=== PATIENT | male | born 1945 | race Caucasian/White ===

== ENCOUNTER 2017-05-17 17:43 | Emergency (ER) | payer MEDICARE, BC ==
[2017-05-17 18:17] VITALS: BP 143/79
--- NOTE | 2017-05-17 19:22 | EDM.PDOC ---
ED HPI GENERAL MEDICAL PROBLEM - General Chief Complaint: Genitourinary Problem Stated Complaint: BLOOD IN URINE Time Seen by Provider: 05/17/17 18:39 Source of Information: Reports: Patient History Limitations: Reports: No Limitations - History of Present Illness INITIAL COMMENTS - FREE TEXT/NARRATIVE: 71 year old male presents for evaluation and treatment of hematuria. Patient had prostates seeds placed yesterday with Dr. Lara in [place] for prostate cancer. Patient reports he currently has a catheter in place which has been draining. Report hematuria since the procedure. No dysuria, large clots in the urine, fevers, chills, nausea or vomiting. The patient reports he is having trouble sleeping. Reports increased stress associated with his recent diagnosis and current at home situation. The patient' s is also in the ER. He is her primary care provider since she had a stroke several years ago. He reports he was instructed not to lift more than 20 lbs. This was not expected and since he is the primary care provider for his he is unable to help her. His daughter is here from [facility] but she is leaving tomorrow. He has not been lifting as instructed but is unsure how to help his once his daughter leaves. This has caused a great deal of stress for him. - Related Data Allergies Allergy/AdvReac Type Severity Reaction Status Date / Time benazepril Allergy Fatigue Verified 05/22/17 09:14 valsartan Allergy Fatigue Verified 05/22/17 09:14 Home Meds: Home Meds Hydrochlorothiazide 12.5 mg PO DAILY 10/18/14 [History] Rosuvastatin [Crestor] 0.5 tab PO DAILY 10/18/14 [History] Zolpidem [Ambien] 1 tab PO DAILY PRN 10/18/14 [History] Felodipine [Felodipine ER] 5 mg PO DAILY 05/17/17 [History] Ibuprofen [Motrin] 800 mg PO Q8H 05/17/17 [History] Irbesartan [Avapro] 300 mg PO DAILY 05/17/17 [History] Tamsulosin [Flomax] 0.4 mg PO DAILY 05/17/17 [History] Past Medical History HEENT History: Reports: Impaired Vision Other HEENT History: wears corrective lenses Cardiovascular History: Reports: High Cholesterol, Hypertension Genitourinary History: Reports: Other (See Below) Oncologic (Cancer) History: Reports: Prostate - Infectious Disease History Infectious Disease History: Reports: Chicken Pox - Past Surgical History Male Surgical History: Reports: Other (See Below) Other Male Surgeries/Procedures: Prostate seeds, stage 2 prostate cancer Social & Family History - Tobacco Use Smoking Status *Q: Former Smoker Years of Tobacco use: 44 Used Tobacco, but Quit: Yes Month Tobacco Last Used: 2008 Second Hand Smoke Exposure: No - Caffeine Use Caffeine Use: Reports: Soda - Alcohol Use Days Per Week of Alcohol Use: 0 - Recreational Drug Use Recreational Drug Use: No ED ROS GENERAL - Review of Systems Review Of Systems: See Below Constitutional: Denies: Fever GI/Abdominal: Denies: Nausea, Vomiting : Reports: Hematuria, Other (cathater in place and functioning). Denies: Dysuria Musculoskeletal: Denies: Back Pain Psychiatric: Reports: Anxiety ED EXAM, RENAL/ - Physical Exam Exam: See Below Exam Limited By: No Limitations General Appearance: Alert, WD/WN, No Apparent Distress Respiratory/Chest: No Respiratory Distress, Lungs Clear, Normal Breath Sounds Cardiovascular: Normal Peripheral Pulses, Regular Rate, Rhythm, No Murmur GI/Abdominal: Normal Bowel Sounds, Soft, Non-Tender (Male) Exam: Other (cathater in place, draining red urine) Neurological: Alert, Oriented, Normal Cognition Psychiatric: Normal Affect, Normal Mood Skin Exam: Warm, Dry, Normal Color Course - Vital Signs Last Recorded V/S: Last Vital Signs Temp 36.4 C 05/17/17 18:14 Pulse 89 05/17/17 18:14 Resp 18 05/17/17 18:14 BP 143/79 H 05/17/17 18:14 Pulse Ox 90 L 05/17/17 18:14 - Orders/Labs/Meds Labs: Laboratory Tests 05/17/17 05/17/17 05/17/17 Range/Units 19:26 19:26 19:45 WBC 11.17 H (4.23-9.07) K/mm3 RBC 4.82 (4.63-6.08) M/mm3 Hgb 15.2 (13.7-17.5) gm/L Hct 44.8 (40.1-51.0) % MCV 92.9 H (79.0-92.2) fl MCH 31.5 (25.7-32.2) pg MCHC 33.9 (32.2-35.5) g/dl RDW Std Deviation 40.7 (35.1-43.9) fL Plt Count 226 (163-337) K/mm3 MPV 11.0 (9.4-12.3) fl Neut % (Auto) 67.4 (34.0-67.9) % Lymph % (Auto) 20.3 L (21.8-53.1) % [place] % (Auto) 10.3 (5.3-12.2) % Eos % (Auto) 1.5 (0.8-7.0) Baso % (Auto) 0.2 (0.1-1.2) % Neut # (Auto) 7.53 H (1.78-5.38) K/mm3 Lymph # (Auto) 2.27 (1.32-3.57) K/mm3 [place] # (Auto) 1.15 H (0.30-0.82) K/mm3 Eos # (Auto) 0.17 (0.04-0.54) K/mm3 Baso # (Auto) 0.02 (0.01-0.08) K/mm3 Sodium 143 (136-145) mEq/L Potassium 3.4 L (3.5-5.1) mEq/L Chloride 106 (98-107) mEq/L Carbon Dioxide 32 (21-32) mEq/L Anion Gap 8.4 (5-15) BUN 14 (7-18) mg/dL Creatinine 1.0 (0.7-1.3) mg/dL Est Cr Clr Drug Dosing 66.50 mL/min Estimated GFR (MDRD) > 60 (>60) mL/min BUN/Creatinine Ratio 14.0 (14-18) Glucose 115 (80-115) mg/dL Calcium 9.2 (8.5-10.1) mg/dL Urine Color [place] H (Yellow) Urine Appearance Slt cloudy H (Clear) Urine pH 7.0 (5.0-8.0) Ur Specific [place] 1.020 (1.005-1.030) Urine Protein 2+ H (Negative) Urine Glucose (UA) Negative (Negative) Urine Ketones Negative (Negative) Urine Occult Blood 3+ H (Negative) Urine Nitrite Negative (Negative) Urine Bilirubin Negative (Negative) Urine Urobilinogen 0.2 (0.2-1.0) Ur Leukocyte Esterase Trace H (Negative) Urine RBC >100 H (0-5) /hpf Urine WBC 0-5 (0-5) /hpf Ur Epithelial Cells 0-5 (0-5) /hpf Urine Bacteria Not seen (FEW) /hpf Urine Mucus Not seen (FEW) /hpf - Re-Assessments/Exams Free Text/Narrative Re-Assessment/Exam: 05/17/17 20:31 Labs returned. WBC mildly elevated at 11.17. Creatinine is 1.0 UA has 2+ protein and 3+ blood. Trace leuks. No nitrites. Dr. Moises Damon has spoken with urology [facility] [place] in [place] regarding this patient and his (She is caring for the patient's ). Urology stated some hematuria is normal. Recommended following the no lifting greater than 20 lbs rule to avoid further hematuria. As long as the cathater is draining the hematuria should resolve. Will discharge the patient home. Discharge instructions as documented. Departure - Departure Time of Disposition: 20:32 Disposition: Home, Self-Care 01 Condition: Good Clinical Impression: Hematuria - Discharge Information Instructions: Hematuria, Adult Referrals: Sarmad Astudillo MD [Primary Care Provider] - Shae Lara MD [Consulting Physician] - Forms: ED Department Discharge Additional Instructions: continue with your current plan of care. The blood should be self-limiting and should stop on its own. If you continue to have blood in your urine on Friday. Contact your urologist to let them know. make sure your are drinking plenty of fluids. Please return to the ER if your symptoms change or worsen.
== END 2017-05-17 20:39 | disposition home or self-care (01) ==
LOC: JD.ED 17:43
DX: R31.9 Hematuria, unspecified (principal); I10 Essential (primary) hypertension; E78.00 Pure hypercholesterolemia, unspecified; Z87.891 Personal history of nicotine dependence; Z85.46 Personal history of malignant neoplasm of prostate; Z79.899 Other long term (current) drug therapy; Z88.8 Allergy status to other drugs, medicaments and biological substances
CPT/HCPCS: 36415; 80048; 81001; 85025; 99283

== ENCOUNTER 2017-05-22 09:04 | Emergency (ER) | payer MEDICARE, BC ==
[2017-05-22 09:14] VITALS: BP 150/81
[2017-05-22] MEDS ORDERED: Lidocaine 2% Jelly 10 ML Urojet MUCMEM ONE (09:22)
--- NOTE | 2017-05-22 10:52 | EDM.PDOC ---
ED HPI GENERAL MEDICAL PROBLEM - General Chief Complaint: Genitourinary Problem Stated Complaint: UNABLE TO URINATE Time Seen by Provider: 05/22/17 09:24 Source of Information: Reports: Patient History Limitations: Reports: No Limitations - History of Present Illness INITIAL COMMENTS - FREE TEXT/NARRATIVE: The patient had seeding of his prostate last . He had a [place] cath in until yesterday. They removed it yesterday at Dr Darling's office. He did okay but through the day he was urinating less and this morning he could not urinate. He came in here and my nurse did a bladder scan and he had about 750mLs. He denies any other problems. Onset: Gradual Duration: Day(s): (Since yesterday) Location: Reports: Abdomen Quality: Reports: Pressure Severity: Severe Improves with: Reports: None Worsens with: Reports: None Context: Reports: Other (He had his [place] cath removed) Associated Symptoms: Reports: No Other Symptoms - Related Data Allergies Allergy/AdvReac Type Severity Reaction Status Date / Time benazepril Allergy Fatigue Verified 05/22/17 09:14 valsartan Allergy Fatigue Verified 05/22/17 09:14 Home Meds: Home Meds Hydrochlorothiazide 12.5 mg PO DAILY 10/18/14 [History] Rosuvastatin [Crestor] 0.5 tab PO DAILY 10/18/14 [History] Zolpidem [Ambien] 1 tab PO DAILY PRN 10/18/14 [History] Felodipine [Felodipine ER] 5 mg PO DAILY 05/17/17 [History] Ibuprofen [Motrin] 800 mg PO Q8H 05/17/17 [History] Irbesartan [Avapro] 300 mg PO DAILY 05/17/17 [History] Tamsulosin [Flomax] 0.4 mg PO DAILY 05/17/17 [History] Past Medical History HEENT History: Reports: Impaired Vision Other HEENT History: wears corrective lenses Cardiovascular History: Reports: High Cholesterol, Hypertension Genitourinary History: Reports: Prostate Disorder Oncologic (Cancer) History: Reports: Prostate - Infectious Disease History Infectious Disease History: Reports: Chicken Pox - Past Surgical History Male Surgical History: Reports: Other (See Below) Other Male Surgeries/Procedures: Prostate seeds, stage 2 prostate cancer Social & Family History - Tobacco Use Smoking Status *Q: Never Smoker Years of Tobacco use: 44 Used Tobacco, but Quit: Yes Month Tobacco Last Used: 2008 Second Hand Smoke Exposure: No - Caffeine Use Caffeine Use: Reports: None - Alcohol Use Days Per Week of Alcohol Use: 0 - Recreational Drug Use Recreational Drug Use: No ED ROS GENERAL - Review of Systems Review Of Systems: See Below Constitutional: Reports: No Symptoms HEENT: Reports: No Symptoms Respiratory: Reports: No Symptoms Cardiovascular: Reports: No Symptoms Endocrine: Reports: No Symptoms GI/Abdominal: Reports: Abdominal Pain (Suprapubic) : Reports: Urinary Retention ED EXAM, RENAL/ - Physical Exam Exam: See Below Exam Limited By: No Limitations General Appearance: Alert, No Apparent Distress Ears: Normal External Exam Nose: Normal Inspection Head: Atraumatic, Normocephalic Neck: Normal Inspection Respiratory/Chest: No Respiratory Distress, Lungs Clear, Normal Breath Sounds Cardiovascular: Regular Rate, Rhythm, No Edema, No Murmur GI/Abdominal: Soft, Non-Tender, Tender (Mild to moderate to the lower abdomen) (Male) Exam: Other (Ecchymosis and edema to the scrotum and edema to the penis) Course - Vital Signs Last Recorded V/S: Last Vital Signs Temp 97.6 F 05/22/17 09:11 Pulse 79 05/22/17 09:11 Resp 16 05/22/17 09:11 BP 150/81 H 05/22/17 09:11 Pulse Ox 91 L 05/22/17 09:11 - Orders/Labs/Meds Orders: Active Orders 24 hr Category Date Time Status Insert [place] Catheter [Insert Urinary Catheter] [OM.PC] Care 05/22/17 10:00 Ordered Q24H Urinary Catheter Assessment [RC] ASDIRECTED Care 05/22/17 09:52 Active Labs: Laboratory Tests 05/22/17 Range/Units 10:15 Urine Color Yellow (Yellow) Urine Appearance Clear (Clear) Urine pH 6.0 (5.0-8.0) Ur Specific [place] 1.015 (1.005-1.030) Urine Protein Negative (Negative) Urine Glucose (UA) Negative (Negative) Urine Ketones Negative (Negative) Urine Occult Blood 3+ H (Negative) Urine Nitrite Negative (Negative) Urine Bilirubin Negative (Negative) Urine Urobilinogen 0.2 (0.2-1.0) Ur Leukocyte Esterase Trace H (Negative) Urine RBC 5-10 H (0-5) /hpf Urine WBC 0-5 (0-5) /hpf Ur Epithelial Cells Not seen (0-5) /hpf Urine Bacteria Rare (FEW) /hpf Urine Mucus Not seen (FEW) /hpf Meds: Medications Discontinued Medications Generic Name Dose Route Start Last Admin Trade Name Sadia PRN Reason Stop Dose Admin Lidocaine HCl 10 ml 05/22/17 09:22 05/22/17 09:29 Xylocaine 2% Jelly MUCMEM 05/22/17 09:23 10 ml ONETIME ONE Administration - Re-Assessments/Exams Free Text/Narrative Re-Assessment/Exam: 05/22/17 10:55 My nurse inserted a [place] cath and there was over 850mLs. I did a UA and there appears to be no UTI. Dr Darling said this should be in for 1 week. Departure - Departure Time of Disposition: 11:00 Disposition: Home, Self-Care 01 Condition: Good Clinical Impression: Urinary retention - Discharge Information Referrals: Sarmad Astudillo MD [Primary Care Provider] - Shae Lara MD [Consulting Physician] - 1 Week Additional Instructions: Keep the catheter in for about 1 week and follow up with Dr Lara. Please return if you are worse. - My Orders Last 24 Hours: My Active Orders 05/22/17 09:52 Urinary Catheter Assessment [RC] ASDIRECTED 05/22/17 10:00 Insert [place] Catheter [Insert Urinary Catheter] [OM.PC] Q24H - Assessment/Plan Last 24 Hours: My Active Orders 05/22/17 09:52 Urinary Catheter Assessment [RC] ASDIRECTED 05/22/17 10:00 Insert [place] Catheter [Insert Urinary Catheter] [OM.PC] Q24H
== END 2017-05-22 11:08 | disposition home or self-care (01) ==
LOC: JD.ED 09:04
DX: R33.9 Retention of urine, unspecified (principal); I10 Essential (primary) hypertension; Z88.8 Allergy status to other drugs, medicaments and biological substances; Z79.899 Other long term (current) drug therapy
CPT/HCPCS: 51702; 51798; 81001; 99283; 99284-25

== ENCOUNTER 2019-04-18 02:09 | Emergency (ER) | payer MEDICARE, BC ==
[2019-04-18 02:14] VITALS: BP 223/154
[2019-04-18] MEDS ORDERED: Enoxaparin 100 MG/1 ML Syringe SUBCUT ONE (02:33)
--- NOTE | 2019-04-18 02:38 | EDM.PDOC ---
ED HPI GENERAL MEDICAL PROBLEM - General Chief Complaint: Respiratory Problem Stated Complaint: SOB Time Seen by Provider: 04/18/19 02:15 Source of Information: Reports: Patient History Limitations: Reports: No Limitations - History of Present Illness INITIAL COMMENTS - FREE TEXT/NARRATIVE: The patient states that he felt short of breath around 01:45 this morning, when he woke up. It is not clear that shortness of breath was the cause of him waking up. He denies having orthopnea. He denies having recent chest pain or discomfort, or recent palpitations. He states that he has had a slight cough, occasionally productive of slight phlegm, for the past 1-2 days. He denies having recent fever. No recent nausea, vomiting, constipation, diarrhea, or urinary symptoms. He denies having increased lower extremity edema. No prior similar symptoms, however, the patient notes that when he was edging his lawn last weekend, he had to stop several times to catch his breath. The patient reports that he discontinued all of his medications, including his diabetes and blood pressure medicines, on 02/19/2019, because he didn't feel that they were doing anything. The patient last checked his blood glucose around 1 week ago; it was 137. The patient's PCP is Dr. Sarmad Astudillo. His Urologist is Dr. Shae Lara. - Related Data Allergies Allergy/AdvReac Type Severity Reaction Status Date / Time benazepril Allergy Fatigue Verified 04/18/19 02:12 valsartan Allergy Fatigue Verified 04/18/19 02:12 Home Meds: Home Meds Rosuvastatin [Crestor] 0.5 tab PO DAILY 10/18/14 [History] Zolpidem [Ambien] 1 tab PO DAILY PRN 10/18/14 [History] hydroCHLOROthiazide [Hydrochlorothiazide] 12.5 mg PO DAILY 10/18/14 [History] Felodipine [Felodipine ER] 5 mg PO DAILY 05/17/17 [History] Ibuprofen [Motrin] 800 mg PO Q8H 05/17/17 [History] Irbesartan [Avapro] 300 mg PO DAILY 05/17/17 [History] Tamsulosin [Flomax] 0.4 mg PO DAILY 05/17/17 [History] Alfuzosin HCl [Alfuzosin HCl ER] 10 mg PO DAILY 02/24/19 [History] Dulaglutide [Trulicity] 1.5 mg SUBCUT WEEKLY 02/24/19 [History] Loratadine [Claritin] 10 mg PO DAILY 02/24/19 [History] metFORMIN [Glucophage XR] 500 mg PO DAILY 02/24/19 [History] Past Medical History HEENT History: Reports: Hard of Hearing, Impaired Vision Other HEENT History: wears corrective lenses Cardiovascular History: Reports: High Cholesterol (untreated), Hypertension ( untreated) Genitourinary History: Reports: BPH Psychiatric History: Reports: Other (See Below) (Insomnia) Endocrine/Metabolic History: Reports: Diabetes, Type II, Obesity/BMI 30+ Oncologic (Cancer) History: Reports: Prostate (s/p brachytharapy) - Infectious Disease History Infectious Disease History: Reports: Chicken Pox - Past Surgical History HEENT Surgical History: Reports: Adenoidectomy, Tonsillectomy Musculoskeletal Surgical History: Reports: Shoulder Surgery (right arthroscopic) Oncologic Surgical History: Reports: Other (See Below) (Prostate brachytherapy) Social & Family History - Tobacco Use Smoking Status *Q: Former Smoker Years of Tobacco use: 43 Packs/Tins Daily: 1 Month/Year Tobacco Last Used: Quit 2007 - Caffeine Use Caffeine Use: Reports: Soda - Alcohol Use Alcohol Use History: Yes Alcohol Use Frequency: Rarely - Recreational Drug Use Recreational Drug Use: No - Living Situation & Occupation Living situation: Reports: , with Spouse Occupation: Retired ED ROS GENERAL - Review of Systems Review Of Systems: ROS reveals no pertinent complaints other than HPI. ED EXAM, GENERAL - Physical Exam Exam: See Below Exam Limited By: No Limitations General Appearance: Alert, WD/WN, No Apparent Distress (semi-recumbent on gurney ) Eye Exam: Bilateral Eye: EOMI, Normal Inspection Ears: Normal External Exam, Hearing Grossly Normal Nose: Normal Inspection Throat/Mouth: Normal Inspection, Normal Lips, Normal Voice, No Airway Compromise Head: Atraumatic, Normocephalic Neck: Normal Inspection, Full Range of Motion Respiratory/Chest: No Respiratory Distress, No Accessory Muscle Use, Decreased Breath Sounds, Crackles (bilasilar), Wheezing (expiratory, distant, across all lungfields). No: Rhonchi, Accessory Muscle Use, Prolonged Expiration Cardiovascular: Normal Peripheral Pulses, No Gallop, No JVD, No Murmur, No Rub, Tachycardia (regular), Gallop/S3 Peripheral Pulses: 4+: Radial (L), Radial (R) GI/Abdominal: Normal Bowel Sounds, Soft, Non-Tender, No Organomegaly, No Distention, No Abnormal Bruit, No Mass, Other (Obese) (Male) Exam: Deferred Rectal (Males) Exam: Deferred Back Exam: Normal Inspection, Full Range of Motion, NT Extremities: Normal Inspection, Normal Range of Motion, Normal Capillary Refill , Other (2+ pitting pretibial edema bilaterally) Neurological: Alert, Oriented, Normal Cognition, No Motor/Sensory Deficits Psychiatric: Normal Affect Skin Exam: Warm, Dry, Intact, Normal Color, No Rash EKG INTERPRETATION EKG Date: 04/18/19 Time: 02:13 Rhythm: Other (Sinus tachycardia) Rate (Beats/Min): 113 [place]: RAD-Right [place] Deviation P-Wave: Enlarged (LAE) QRS: Normal (Q-waves in inferolateral leads (old)) ST-T: Normal QT: Prolonged (Qtc 487 ms) Comparison: Change From Previous EKG (RAD, increased QTc new since 10/18/2014) Course - Vital Signs Last Recorded V/S: Last Vital Signs Temp 36.0 C 04/18/19 02:12 Pulse 121 H 04/18/19 02:12 Resp 28 H 04/18/19 02:12 BP 223/154 H 04/18/19 02:12 Pulse Ox 79 L 04/18/19 02:12 - Orders/Labs/Meds Orders: Active Orders 24 hr Category Date Time Status Accu Check [Blood Glucose Check, Bedside] [RC] ONETIME Care 04/18/19 02:48 Active EKG Documentation Completion [RC] STAT Care 04/18/19 02:29 Active Chest 2V [CR] Stat Exams 04/18/19 02:29 Taken CULTURE BLOOD [BC] Stat Lab 04/18/19 02:40 Received CULTURE BLOOD [BC] Stat Lab 04/18/19 02:50 Received Blood Culture x2 Reflex Set [OM.PC] Stat Oth 04/18/19 02:29 Ordered Labs: Laboratory Tests 04/18/19 04/18/19 04/18/19 Range/Units 02:29 02:40 02:40 WBC 16.03 H (4.23-9.07) K/mm3 RBC 5.58 (4.63-6.08) M/mm3 Hgb 17.3 D (13.7-17.5) gm/L Hct 52.0 H (40.1-51.0) % MCV 93.2 H (79.0-92.2) fl MCH 31.0 (25.7-32.2) pg MCHC 33.3 (32.2-35.5) g/dl RDW Std Deviation 44.0 H (35.1-43.9) fL Plt Count 278 (163-337) K/mm3 MPV 11.2 (9.4-12.3) fl Neutrophils % (Manual) 88 H (40-60) % Band Neutrophils % 3 (0-10) % Lymphocytes % (Manual) 4 L (20-40) % Atypical Lymphs % 0 % Monocytes % (Manual) 5 (2-10) % Eosinophils % (Manual) 0 L (0.8-7.0) % Basophils % (Manual) 0 L (0.2-1.2) Toxic Granulation 1+ slight Platelet Estimate Adequate Plt Morphology Comment See note RBC Morph Comment Normal PT (9.7-12.0) SECONDS INR APTT (22-31) SECONDS D-Dimer, Quantitative 0.35 (0.19-0.50) mg/L Puncture Site Rt radial ABG pH 7.37 (7.35-7.45) ABG pCO2 45.5 H (35.0-45.0) mmHg ABG pO2 72.0 L (80.0-100.0) mmHg ABG HCO3 25.5 (22.0-26.0) meq/L ABG O2 Saturation 93.8 L (96.0-97.0) % ABG Base Excess 0.2 (-2-2.0) Fuentes Test Positive O2 Delivery Device Nasal cannula Oxygen Flow Rate 5.0 FiO2 0.00 L (21.00-100.00) % Sodium (136-145) mEq/L Potassium (3.5-5.1) mEq/L Chloride (98-107) mEq/L Carbon Dioxide (21-32) mEq/L Anion Gap (5-15) BUN (7-18) mg/dL Creatinine (0.7-1.3) mg/dL Est Cr Clr Drug Dosing mL/min Estimated GFR (MDRD) (>60) mL/min BUN/Creatinine Ratio (14-18) Glucose (83-115) mg/dL POC Glucose (83-110) mg/dL Lactic Acid (0.4-2.0) mmol/L Calcium (8.5-10.1) mg/dL Total Bilirubin (0.2-1.0) mg/dL AST (15-37) U/L ALT (16-63) U/L Alkaline Phosphatase (46-116) U/L Troponin I (0.00-0.056) ng/mL NT-Pro-B Natriuret Pep (0-125) pg/mL Total Protein (6.4-8.2) g/dl Albumin (3.4-5.0) g/dl Globulin gm/dL Albumin/Globulin Ratio (1-2) 04/18/19 04/18/19 04/18/19 Range/Units 02:40 02:40 02:40 WBC (4.23-9.07) K/mm3 RBC (4.63-6.08) M/mm3 Hgb (13.7-17.5) gm/L Hct (40.1-51.0) % MCV (79.0-92.2) fl MCH (25.7-32.2) pg MCHC (32.2-35.5) g/dl RDW Std Deviation (35.1-43.9) fL Plt Count (163-337) K/mm3 MPV (9.4-12.3) fl Neutrophils % (Manual) (40-60) % Band Neutrophils % (0-10) % Lymphocytes % (Manual) (20-40) % Atypical Lymphs % % Monocytes % (Manual) (2-10) % Eosinophils % (Manual) (0.8-7.0) % Basophils % (Manual) (0.2-1.2) Toxic Granulation Platelet Estimate Plt Morphology Comment RBC Morph Comment PT (9.7-12.0) SECONDS INR APTT (22-31) SECONDS D-Dimer, Quantitative (0.19-0.50) mg/L Puncture Site ABG pH (7.35-7.45) ABG pCO2 (35.0-45.0) mmHg ABG pO2 (80.0-100.0) mmHg ABG HCO3 (22.0-26.0) meq/L ABG O2 Saturation (96.0-97.0) % ABG Base Excess (-2-2.0) Fuentes Test O2 Delivery Device Oxygen Flow Rate FiO2 (21.00-100.00) % Sodium 142 (136-145) mEq/L Potassium 3.5 (3.5-5.1) mEq/L Chloride 106 (98-107) mEq/L Carbon Dioxide 29 (21-32) mEq/L Anion Gap 10.5 (5-15) BUN 23 H (7-18) mg/dL Creatinine 1.0 (0.7-1.3) mg/dL Est Cr Clr Drug Dosing 64.60 mL/min Estimated GFR (MDRD) > 60 (>60) mL/min BUN/Creatinine Ratio 23.0 H (14-18) Glucose 230 H (83-115) mg/dL POC Glucose (83-110) mg/dL Lactic Acid 1.8 (0.4-2.0) mmol/L Calcium 8.8 (8.5-10.1) mg/dL Total Bilirubin 0.5 (0.2-1.0) mg/dL AST 53 H (15-37) U/L ALT 109 H (16-63) U/L Alkaline Phosphatase 68 (46-116) U/L Troponin I 0.076 H* (0.00-0.056) ng/mL NT-Pro-B Natriuret Pep 2228 H (0-125) pg/mL Total Protein 7.7 (6.4-8.2) g/dl Albumin 3.6 (3.4-5.0) g/dl Globulin 4.1 gm/dL Albumin/Globulin Ratio 0.9 L (1-2) 04/18/19 04/18/19 04/18/19 Range/Units 02:40 03:01 05:38 WBC (4.23-9.07) K/mm3 RBC (4.63-6.08) M/mm3 Hgb (13.7-17.5) gm/L Hct (40.1-51.0) % MCV (79.0-92.2) fl MCH (25.7-32.2) pg MCHC (32.2-35.5) g/dl RDW Std Deviation (35.1-43.9) fL Plt Count (163-337) K/mm3 MPV (9.4-12.3) fl Neutrophils % (Manual) (40-60) % Band Neutrophils % (0-10) % Lymphocytes % (Manual) (20-40) % Atypical Lymphs % % Monocytes % (Manual) (2-10) % Eosinophils % (Manual) (0.8-7.0) % Basophils % (Manual) (0.2-1.2) Toxic Granulation Platelet Estimate Plt Morphology Comment RBC Morph Comment PT 10.8 (9.7-12.0) SECONDS INR 0.99 APTT 24 (22-31) SECONDS D-Dimer, Quantitative (0.19-0.50) mg/L Puncture Site ABG pH (7.35-7.45) ABG pCO2 (35.0-45.0) mmHg ABG pO2 (80.0-100.0) mmHg ABG HCO3 (22.0-26.0) meq/L ABG O2 Saturation (96.0-97.0) % ABG Base Excess (-2-2.0) Fuentes Test O2 Delivery Device Oxygen Flow Rate FiO2 (21.00-100.00) % Sodium (136-145) mEq/L Potassium (3.5-5.1) mEq/L Chloride (98-107) mEq/L Carbon Dioxide (21-32) mEq/L Anion Gap (5-15) BUN (7-18) mg/dL Creatinine (0.7-1.3) mg/dL Est Cr Clr Drug Dosing mL/min Estimated GFR (MDRD) (>60) mL/min BUN/Creatinine Ratio (14-18) Glucose (83-115) mg/dL POC Glucose 191 H (83-110) mg/dL Lactic Acid (0.4-2.0) mmol/L Calcium (8.5-10.1) mg/dL Total Bilirubin (0.2-1.0) mg/dL AST (15-37) U/L ALT (16-63) U/L Alkaline Phosphatase (46-116) U/L Troponin I 0.108 H* (0.00-0.056) ng/mL NT-Pro-B Natriuret Pep (0-125) pg/mL Total Protein (6.4-8.2) g/dl Albumin (3.4-5.0) g/dl Globulin gm/dL Albumin/Globulin Ratio (1-2) Meds: Medications Discontinued Medications Generic Name Dose Route Start Last Admin Trade Name Deangeloq PRN Reason Stop Dose Admin Enoxaparin Sodium 100 mg 04/18/19 02:33 04/18/19 02:45 Lovenox SUBCUT 04/18/19 02:34 100 mg ONETIME ONE Administration Furosemide 40 mg 04/18/19 03:17 04/18/19 03:31 Lasix IVPUSH 04/18/19 03:18 40 mg NOW ONE Administration Labetalol HCl 10 mg 04/18/19 02:44 04/18/19 02:47 Normodyne IVPUSH 04/18/19 02:45 10 mg ONETIME STA Administration Protocol Labetalol HCl 5 mg 04/18/19 06:52 Normodyne IVPUSH 04/18/19 06:53 ONETIME STA Protocol - Re-Assessments/Exams Free Text/Narrative Re-Assessment/Exam: 04/18/19 02:30 The cause of the patient's relatively sudden onset of dyspnea and hypoxemia is not immediately clear, but I am most concerned about a pulmonary embolus, given the sudden onset of his symptoms, tachycardia, hypoxemia, wheezing and bibasilar crackles on auscultation of his lungs, accentuated S2 on auscultation of his heart, bilateral lower extremity edema, and new right axis deviation on his ECG. My concern for a PE at this time is high enough that I have ordered Lovenox 1 mg/kg prophylactically while we await a D-dimer. I have ordered coags , in the event that the patient requires a thrombolytic. A thrombotic at this time would be contraindicated, however, given his elevated BP, therefore I will order judicious doses of labetalol. Other possibilities include pneumonia, however, the patient denies having had a fever, and reports only a slight cough, occasionally productive of sputum. Workup includes a CBC, lactic acid level, a chest x-ray, and 2 sets of blood cultures. Another possibility is CHF exacerbation, however, the patient has no history of coronary artery disease or CHF, and he denies having orthopnea. Workup includes a chest x-ray, a troponin, and BNP. Another possibility is a COPD exacerbation, however, the patient does not have a history of COPD. Workup includes a chest x-ray and an ABG. 04/18/19 03:09 The patient's Accu-Chek is 191. Following 10 mg of IV labetalol, the patient's BNP is down to 164/112. 04/18/19 03:10 The patient's D-dimer is within normal limits at 0.35. His ABG represents a mild acute respiratory acidosis with hypoxia. 2-view chest radiograph reviewed. The cardiac silhouette is within normal limits. There is pulmonary vascular congestion, consistent with CHF exacerbation. No pleural effusions are seen. No focal infiltrate. No pneumothorax. A right shoulder screw is incidentally noted. Formal read per the Radiologist pending. Based on the above findings, the patient does not have a pulmonary embolus. His chest x-ray is most consistent with CHF, although an atypical pneumonia is a possibility. Given the patient's history of stopping all of his medications, and a finding of significantly elevated BP of 223/154 upon presentation, I suspect that the patient is suffering from decompensated diastolic congestive heart failure. In addition to the labetalol that the patient received earlier, I will order some Lasix. 04/18/19 04:01 The patient's CBC is remarkable for a WBC count elevated at 16.03, but with only 3% bandemia. His Hct is mildly elevated at 52.0. The remainder of the CBC is unremarkable. His CMP is remarkable for a BUN elevated at 23, with a normal creatinine. His blood glucose is elevated at 230. The remainder of the CMP is unremarkable. His troponin is elevated at 0.076. His BNP is elevated at 2228. His lactic acid level is within normal limits at 1.8. His coags are within normal limits. The patient's labs, including the elevated troponin, are consistent with the patient suffering from an acute diastolic CHF exacerbation due to uncontrolled hypertension. The troponin needs to be repeated, but if stable, the patient does not need to be transferred to [place]. The patient's troponin was drawn at 02:40; I will order a second troponin to be drawn at 05:40. 04/18/19 04:12 The above plan was discussed with the patient. He is agreeable, however, he is concerned about his , who is at home and is handicapped. I discussed this with Nuria AMARO. We will wait until we get the repeat troponin result, at which time we will determine if the patient is going to stay here versus transfer to [place]. At that time, we will see if we can contact social group worker. 04/18/19 06:23 Repeat troponin at 05:38 has risen to 0.108. I will therefore have to recommend transfer to [place] for cardiac evaluation. 04/18/19 06:28 The above was explained to the patient. The patient does not have a preference as to which hospital he goes. 04/18/19 06:44 Case discussed with Carmen at [facility] at 06:29. Case then discussed with Dr. Golden, Hospitalist at [facility], at 06: 38. He accepted the patient for direct admission to their PACU. The patient will be transported by ground ambulance. The chest x-ray images have been pushed to [facility]. 04/18/19 06:53 The patient most recent BP is 170/118. I have ordered an additional 5 mg of labetalol IVP. Departure - Departure Time of Disposition: 06:45 Disposition: DC/Tfer to Acute Hospital 02 Condition: Fair Clinical Impression: Hypertension, CHF (congestive heart failure), Elevated troponin, Hyperglycemia due to type 2 diabetes mellitus - Discharge Information *PRESCRIPTION DRUG MONITORING PROGRAM REVIEWED*: Not Applicable *COPY OF PRESCRIPTION DRUG MONITORING REPORT IN PATIENT MARIA ELENA: Not Applicable Referrals: Sarmad Astudillo MD [Primary Care Provider] - - My Orders Last 24 Hours: My Active Orders 04/18/19 02:29 EKG Documentation Completion [RC] STAT Chest 2V [CR] Stat Blood Culture x2 Reflex Set [OM.PC] Stat 04/18/19 02:40 CULTURE BLOOD [BC] Stat 04/18/19 02:48 Accu Check [Blood Glucose Check, Bedside] [RC] ONETIME 04/18/19 02:50 CULTURE BLOOD [BC] Stat - Assessment/Plan Last 24 Hours: My Active Orders 04/18/19 02:29 EKG Documentation Completion [RC] STAT Chest 2V [CR] Stat Blood Culture x2 Reflex Set [OM.PC] Stat 04/18/19 02:40 CULTURE BLOOD [BC] Stat 04/18/19 02:48 Accu Check [Blood Glucose Check, Bedside] [RC] ONETIME 04/18/19 02:50 CULTURE BLOOD [BC] Stat
[2019-04-18] MEDS ORDERED: Labetalol 100 MG/20 ML MDV IVPUSH STA ×2 (02:44→06:52)
[2019-04-18] MEDS ORDERED: Furosemide 40 MG/4 ML VIAL IVPUSH ONE (03:17)
--- NOTE | 2019-04-19 07:33 | CR ---
Chest: Two views of the chest were obtained. Comparison: Prior chest CT of 10/29/15 and chest x-ray of 10/18/14. Diffuse increased lung markings are seen. Findings felt most likely to represent pulmonary vascular congestion. Heart is mildly enlarged. Tortuous thoracic aorta is seen. Lungs are hyperinflated compatible with emphysematous change. Scattered disc space narrowing noted within the spine with mild scattered endplate osteophytes. Prior right shoulder surgery is noted. Impression: 1. Diffuse increased lung markings most suspicious for CHF. 2. Emphysematous change. Diagnostic code #3
== END 2019-04-18 07:13 ==
LOC: JD.ED 02:09
DX: I11.0 Hypertensive heart disease with heart failure (principal); I50.9 Heart failure, unspecified; E11.65 Type 2 diabetes mellitus with hyperglycemia; E11.59 Type 2 diabetes mellitus with other circulatory complications; R79.89 Other specified abnormal findings of blood chemistry; Z88.8 Allergy status to other drugs, medicaments and biological substances; Z79.899 Other long term (current) drug therapy; Z79.84 Long term (current) use of oral hypoglycemic drugs; Z87.891 Personal history of nicotine dependence
CPT/HCPCS: 36415; 36600; 71046; 80053; 82803; 82962; 83605; 83880; 84484; 85007; 85027; 85379; 85610; 85730; 87040; 93005; 96372; 96374; 96375; 96376; 99285; J1650; J1940; J3490; 93010; 99283

== ENCOUNTER 2021-05-21 18:12 | Inpatient (IN) | payer MEDICARE, BC ==
[2021-05-21] MEDS ORDERED: Sodium Chloride 0.9% 10 ML Syringe FLUSH PRN (20:14)
--- NOTE | 2021-05-21 20:43 | EDM.PDOC ---
<Kianna Montoya V - Last Filed: 05/21/21 23:27> ED HPI GENERAL MEDICAL PROBLEM - General Chief Complaint: Respiratory Problem Stated Complaint: COVID +/SOB Time Seen by Provider: 05/21/21 20:12 Source of Information: Reports: Patient, Family (daughter), RN Notes Reviewed History Limitations: Reports: Altered Mental Status (possible confusion-doesn't answer questions appropriately) - History of Present Illness INITIAL COMMENTS - FREE TEXT/NARRATIVE: Patient is a 75-year-old male who presents to the ER for his ongoing shortness of breath. Patient is a very poor historian, and only gives 1-2 word answers and then is very confused when he tries to answer any question at all. Patient was hypoxic at the time of triage and was found to be mid 70s by O2 sats. He was placed on 4 L oxygen and is now satting about 88 to 90% on the 4 L. Patient's daughter was consulted on his history and she states that he did test positive for Covid last week Friday. She states she talked to her father 2 days ago, and he seemed to talk in one-word sentences at that time and just did not seem right for himself. - Related Data Allergies Allergy/AdvReac Type Severity Reaction Status Date / Time benazepril Allergy Fatigue Verified 04/18/19 02:12 valsartan Allergy Fatigue Verified 04/18/19 02:12 Home Meds: Home Meds Rosuvastatin [Crestor] 0.5 tab PO DAILY 10/18/14 [History] Zolpidem [Ambien] 1 tab PO DAILY PRN 10/18/14 [History] hydroCHLOROthiazide [Hydrochlorothiazide] 12.5 mg PO DAILY 10/18/14 [History] Felodipine [Felodipine ER] 5 mg PO DAILY 05/17/17 [History] Ibuprofen [Motrin] 800 mg PO Q8H 05/17/17 [History] Irbesartan [Avapro] 300 mg PO DAILY 05/17/17 [History] Tamsulosin [Flomax] 0.4 mg PO DAILY 05/17/17 [History] Alfuzosin HCl [Alfuzosin HCl ER] 10 mg PO DAILY 02/24/19 [History] Dulaglutide [Trulicity] 1.5 mg SUBCUT WEEKLY 02/24/19 [History] Loratadine [Claritin] 10 mg PO DAILY 02/24/19 [History] metFORMIN [Glucophage XR] 500 mg PO DAILY 02/24/19 [History] Past Medical History HEENT History: Reports: Hard of Hearing, Impaired Vision Other HEENT History: wears corrective lenses Cardiovascular History: Reports: High Cholesterol, Hypertension Genitourinary History: Reports: BPH Endocrine/Metabolic History: Reports: Diabetes, Type II, Obesity/BMI 30+ Oncologic (Cancer) History: Reports: Prostate - Infectious Disease History Infectious Disease History: Reports: Chicken Pox, Novel Coronavirus (04/2021) - Past Surgical History HEENT Surgical History: Reports: Adenoidectomy, Tonsillectomy Musculoskeletal Surgical History: Reports: Shoulder Surgery Oncologic Surgical History: Reports: Other (See Below) Social & Family History - Caffeine Use Caffeine Use: Reports: Soda - Living Situation & Occupation Living situation: Reports: , with Spouse Occupation: Retired ED ROS GENERAL - Review of Systems Review Of Systems: Comprehensive ROS is negative, except as noted in HPI. ED EXAM, GENERAL - Physical Exam Exam: See Below Exam Limited By: Altered Mental Status (pt is confused, doesn't answer questions appropriately) General Appearance: Alert, WD/WN, Mild Distress (mild, the patient does answer in 1 word questions.) Respiratory/Chest: Lungs Clear, No Accessory Muscle Use, Chest Non-Tender, Respiratory Distress (slight), Decreased Breath Sounds (diminished bilaterally) Cardiovascular: Normal Peripheral Pulses, Regular Rate, Rhythm, No Edema Peripheral Pulses: 2+: Radial (L), Radial (R) Extremities: Normal Inspection, Normal Capillary Refill Neurological: Alert, No Motor/Sensory Deficits, Confused (slight generalized, has issues recalling his daughter's names) Psychiatric: Normal Affect, Normal Mood Skin Exam: Warm, Dry, Intact, Normal Color, No Rash #1 Interpretation EKG Date: 05/21/21 Time: 20:42 Rhythm: NSR Rate (Beats/Min): 71 [place]: Normal P-Wave: Enlarged (? LAE) QRS: Normal ST-T: Normal QT: Normal EKG Interpretation Comments: No obvious ischemia or acute ST changes noted, reviewed by myself and Dr. Naqvi. Course - Re-Assessments/Exams Free Text/Narrative Re-Assessment/Exam: 05/21/21 20:44 Patient presents to the ER for the evaluation of his COVID-19 symptoms, the patient originally could not tell me how long he had been sick with COVID-19 his daughter states that he was positive last week Friday. Patient is requiring multiple liters of oxygen via nasal cannula to only achieve O2 sat of roughly 88 to 89% on room air. Blood gas has been ordered for further evaluation. It is likely the patient is hypercarbic due to his clinical presentation, and will necessitate hospitalization with possible BiPAP therapy for management. 05/21/21 21:14 Was made aware by nursing staff that RT was having a hard time drawing an ABG so she did draw a venous blood gas, and the pH was 7.36 PCO2 was 40.4. Patient's bicarb is 22.4. Still awaiting other labs as well for ongoing management. These results were evaluated by myself and Dr. Naqvi. Patient's chest x-ray has been performed as well, and there are some increased infiltrates noted, specifically in the right lower lobe of the patient's lungs. 05/21/21 22:00 Labs have resulted for the most part, patient CBC is essentially unremarkable at this time. CMP is impressive for elevated creatinine 2.2, and low GFR at 29. Patient's troponin is within normal limits but at the upper limits of normal at 0.052, CRP is elevated at 4.7. D-dimer is elevated at 0.96. The patient's oxygen has been titrated to 5 L via nasal cannula, and is roughly 85%. I did call [facility] in [place], and they are on diversion for placement at this time. I am on the phone currently with [facility] in [place] to see if they have any sort of beds available for management. 05/21/21 22:11 The hospital at [facility] is on diversion as well. I did call the [facility] transfer willard to find placement for this gentleman, and they did take my information will look around and hopefully call me back for ongoing management. 05/21/21 22:28 At this time, the patient is necessitating high flow oxygen. RT was made aware and they will be in to assess the patient and set this up. I have ordered IV remdesivir, at reduced renal dosing due to the patient's low GFR, 6 mg IV dexamethasone, and baricitinib for ongoing management. 05/21/21 23:27 Patient has been titrated to 80% FiO2 via High flow NC at this time. O2 sats are about 90% with this. I will go over the patient's case with Dr. Naqvi at this time, as he will have to assume care overnight. Departure - Departure Disposition: Admitted As Inpatient 67 Clinical Impression: COVID-19, Hypoxemia, Acute renal insufficiency, Hyperglycemia due to type 2 diabetes mellitus - Discharge Information Referrals: PCP,None [Primary Care Provider] - Forms: ED Department Discharge Sepsis Event Note (ED) - Evaluation Sepsis Screening Result: No Definite Risk <Jay Naqvi - Last Filed: 05/22/21 07:25> Course - Vital Signs Last Recorded V/S: Last Vital Signs Temp 36.8 C 05/21/21 19:50 Pulse 75 05/21/21 19:50 Resp 29 H 05/21/21 19:50 BP Pulse Ox 88 L 05/22/21 06:27 - Orders/Labs/Meds Orders: Active Orders 24 hr Category Date Time Status Oxygen Therapy, ED [RC] ASDIRECTED Care 05/21/21 22:14 Active Peripheral IV Care [RC] . DIRECTED Care 05/21/21 20:14 Active Chest 2V [CR] Stat Exams 05/21/21 20:11 Taken PRO B-TYPE NATRIUR PEPT,BNPPRO [CHEM] Stat Lab 05/21/21 20:35 Received Baricitinib [Olumiant] Med 05/21/21 22:30 Active 4 mg PO DAILY Sodium Chloride 0.9% [Saline Flush] Med 05/21/21 20:14 Active 10 ml FLUSH ASDIRECTED PRN Peripheral IV Insertion Adult [OM.PC] Routine Oth 05/21/21 20:14 Ordered Medication Orders Sodium Chloride (Sodium Chloride 0.9% 10 Ml Syringe) 10 ml FLUSH ASDIRECTED PRN PRN Reason: Keep Vein Open Last Admin: 05/21/21 22:54 Dose: 10 ml Documented by: INGRID Labs: Laboratory Tests 05/21/21 05/21/21 05/21/21 Range/Units 20:35 20:35 20:35 WBC 5.44 (4.23-9.07) K/mm3 RBC 4.80 (4.63-6.08) M/mm3 Hgb 15.0 D (13.7-17.5) gm/dl Hct 45.4 (40.1-51.0) % MCV 94.6 H (79.0-92.2) fl MCH 31.3 (25.7-32.2) pg MCHC 33.0 (32.2-35.5) g/dl RDW Std Deviation 44.5 H (35.1-43.9) fL Plt Count 146 L D (163-337) K/mm3 MPV 12.2 (9.4-12.3) fl Neut % (Auto) 72.4 H (34.0-67.9) % Lymph % (Auto) 16.0 L (21.8-53.1) % Nash % (Auto) 10.5 (5.3-12.2) % Eos % (Auto) 0 L (0.8-7.0) Baso % (Auto) 0.2 (0.1-1.2) % Neut # (Auto) 3.94 (1.78-5.38) K/mm3 Lymph # (Auto) 0.87 L (1.32-3.57) K/mm3 Nash # (Auto) 0.57 (0.30-0.82) K/mm3 Eos # (Auto) 0.00 L (0.04-0.54) K/mm3 Baso # (Auto) 0.01 (0.01-0.08) K/mm3 PT 10.5 (9.7-12.0) SECONDS INR 0.94 D-Dimer, Quantitative 0.96 H (0.19-0.50) mg/L ABG pH (7.35-7.45) ABG pCO2 (35.0-45.0) mmHg ABG pO2 (80.0-100.0) mmHg ABG HCO3 (22.0-26.0) meq/L ABG O2 Saturation (96.0-97.0) % ABG Base Excess (-2-2.0) O2 Delivery Device Oxygen Flow Rate Blood Gas Comments Sodium (136-145) mEq/L Potassium (3.5-5.1) mEq/L Chloride (98-107) mEq/L Carbon Dioxide (21-32) mEq/L Anion Gap (5-15) BUN (7-18) mg/dL Creatinine (0.7-1.3) mg/dL Est Cr Clr Drug Dosing mL/min Estimated GFR (MDRD) (>60) mL/min BUN/Creatinine Ratio (14-18) Glucose (70-99) mg/dL Lactic Acid (0.4-2.0) mmol/L Calcium (8.5-10.1) mg/dL Magnesium (1.8-2.4) mg/dL Total Bilirubin (0.2-1.0) mg/dL AST (15-37) U/L ALT (16-63) U/L Alkaline Phosphatase (46-116) U/L Troponin I (0.00-0.056) ng/mL C-Reactive Protein 4.7 H* (<1.0) mg/dL Total Protein (6.4-8.2) g/dl Albumin (3.4-5.0) g/dl Globulin gm/dL Albumin/Globulin Ratio (1-2) 05/21/21 05/21/21 05/21/21 Range/Units 20:35 20:35 21:08 WBC (4.23-9.07) K/mm3 RBC (4.63-6.08) M/mm3 Hgb (13.7-17.5) gm/dl Hct (40.1-51.0) % MCV (79.0-92.2) fl MCH (25.7-32.2) pg MCHC (32.2-35.5) g/dl RDW Std Deviation (35.1-43.9) fL Plt Count (163-337) K/mm3 MPV (9.4-12.3) fl Neut % (Auto) (34.0-67.9) % Lymph % (Auto) (21.8-53.1) % Nash % (Auto) (5.3-12.2) % Eos % (Auto) (0.8-7.0) Baso % (Auto) (0.1-1.2) % Neut # (Auto) (1.78-5.38) K/mm3 Lymph # (Auto) (1.32-3.57) K/mm3 Nash # (Auto) (0.30-0.82) K/mm3 Eos # (Auto) (0.04-0.54) K/mm3 Baso # (Auto) (0.01-0.08) K/mm3 PT (9.7-12.0) SECONDS INR D-Dimer, Quantitative (0.19-0.50) mg/L ABG pH 7.36 (7.35-7.45) ABG pCO2 40.4 (35.0-45.0) mmHg ABG pO2 31.0 L* (80.0-100.0) mmHg ABG HCO3 22.4 (22.0-26.0) meq/L ABG O2 Saturation 51.9 L (96.0-97.0) % ABG Base Excess -2.3 L (-2-2.0) O2 Delivery Device Nasal cannula Oxygen Flow Rate 4.0 Blood Gas Comments Venous Sodium 135 L (136-145) mEq/L Potassium 4.3 (3.5-5.1) mEq/L Chloride 99 (98-107) mEq/L Carbon Dioxide 24 (21-32) mEq/L Anion Gap 16.3 H (5-15) BUN 30 H (7-18) mg/dL Creatinine 2.2 H D (0.7-1.3) mg/dL Est Cr Clr Drug Dosing 28.50 mL/min Estimated GFR (MDRD) 29 (>60) mL/min BUN/Creatinine Ratio 13.6 L (14-18) Glucose 221 H (70-99) mg/dL Lactic Acid 1.5 (0.4-2.0) mmol/L Calcium 8.2 L (8.5-10.1) mg/dL Magnesium 2.1 (1.8-2.4) mg/dL Total Bilirubin 0.4 (0.2-1.0) mg/dL AST 137 H (15-37) U/L ALT 79 H (16-63) U/L Alkaline Phosphatase 51 (46-116) U/L Troponin I 0.052 (0.00-0.056) ng/mL C-Reactive Protein (<1.0) mg/dL Total Protein 8.0 (6.4-8.2) g/dl Albumin 3.1 L (3.4-5.0) g/dl Globulin 4.9 gm/dL Albumin/Globulin Ratio 0.6 L (1-2) Meds: Medications Generic Name Dose Route Start Last Admin Trade Name Freq PRN Reason Stop Dose Admin Sodium Chloride 10 ml 05/21/21 20:14 05/21/21 22:54 Sodium Chloride 0.9% 10 Ml Syringe FLUSH 10 ml ASDIRECTED PRN Administration Keep Vein Open Discontinued Medications Generic Name Dose Route Start Last Admin Trade Name Sadia PRN Reason Stop Dose Admin Dexamethasone 6 mg 05/21/21 22:20 05/21/21 22:41 Dexamethasone 10 Mg/Ml Sdv IVPUSH 05/21/21 22:21 6 mg ONETIME ONE Administration Remdesivir 100 mg/ Sodium 100 mls @ 100 mls/hr 05/21/21 22:20 05/21/21 22:41 Chloride IV 05/21/21 23:19 100 mls/hr ONETIME ONE Administration Sodium Chloride 500 mls @ 1,000 mls/hr 05/22/21 05:54 05/22/21 06:00 Normal Saline IV 05/22/21 06:23 1,000 mls/hr .BOLUS ONE Administration - Re-Assessments/Exams Free Text/Narrative Re-Assessment/Exam: 05/22/21 05:55 Notified by Sujey AMARO that the patient's blood pressure has been slowly dropping. It is 96/48 presently, with a HR of 59. His SpO2 is 90%. I have ordered a 500 mL bolus of NS. 05/22/21 07:21 The patient's BP normalized following a 500 mL bolus of NS. We are told that there will be 2 Med-Surg beds available later today. Case discussed with Dr. Nelson at 07:19. He accepted the patient for admission to Med-Surg once a bed becomes available. Departure - Departure Time of Disposition: 07:23 Condition: Good - Discharge Information *PRESCRIPTION DRUG MONITORING PROGRAM REVIEWED*: Not Applicable *COPY OF PRESCRIPTION DRUG MONITORING REPORT IN PATIENT MARIA ELENA: Not Applicable Sepsis Event Note (ED) - Focused Exam Vital Signs: Vital Signs Temp Pulse Resp Pulse Ox Pulse Ox Pulse Ox 05/22/21 06:27 88 L 05/21/21 20:00 90 L 05/21/21 19:55 88 L 05/21/21 19:50 36.8 C 75 29 H 74 L
[2021-05-21] MEDS ORDERED: REMDESIVIR 100 MG in Sodium Chloride 0.9% 100 ML IV ONE (22:20)
[2021-05-21] MEDS ORDERED: Dexamethasone 10 MG/ML SDV IVPUSH ONE (22:20)
[2021-05-22] MEDS ORDERED: Sodium Chloride 0.9% 500 ML IV ONE (05:54)
--- NOTE | 2021-05-22 07:43 | CR ---
Chest: PA and lateral views of the chest were obtained. Comparison: Prior chest x-ray of 04/18/19. Heart size and mediastinum are within normal limits. Lung markings are diffusely increased but are slightly decreased in amount from prior exam. Previous bilateral shoulder surgeries are noted. Diaphragms are flattened on the lateral view compatible with emphysematous change. Scattered degenerative change is noted within the spine. Impression: 1. Emphysematous change. 2. Diffuse increased lung markings which are less prominent than on prior chest x-ray. These findings are most likely chronic in etiology. 3. Other findings as noted above which are chronic. Diagnostic code #2
--- NOTE | 2021-05-22 11:31 | PCM.HP.2 ---
H&P History of Present Illness - General Date of Service: 05/22/21 Admit Problem/Dx: Admission Diagnosis/Problem Admission Diagnosis/Problem Hypoxia - History of Present Illness Initial Comments - Free Text/Narative: 75-year-old male who started getting symptomatic with shortness of breath 14 days ago. Patient presented to our emergency department last night with confusion and shortness of breath. He was hypoxic at the time of triage and found to have oxygen saturations in the mid 70s. This morning when seen on the medical floor patient was much less confused but still was slow to answer. He states he was tested positive for Covid last week. He is not vaccinated. He does not smoke or drink. He has had worsening shortness of breath to the point of having difficulty getting around and presented to the emergency department. He denies any fever. Appetite is still good. He has a history of hypertension, diabetes, diastolic dysfunction, hyperlipidemia, BPH. Unknown if there are other not reported medical conditions. In the emergency department he was placed on FiO2 and quickly titrated up to high flow nasal cannula at 60 L and 85%. Because there were no beds available both here at our hospital and various hospitals throughout the [facility] he was kept in the emergency department. He was given remdesivir 100 mg IV secondary to concerns about his low GFR 29 and a creatinine of 2.2. D-dimer 0.96. Platelets slightly low at 146. C-reactive protein 4.7, lactic acid 1.5, troponin 0 0.052, and BNP 370. Blood sugar is elevated at 221. VBG: pH 7.36, PCO2 40.4, PO2 31 on 4 L nasal cannula, HCO3 22.4. He was also given dexamethasone 6 mg IV and baricitinib 4 mg IV. Chest x-ray was consistent with emphysematous changes, diffuse increased lung markings which are less prominent than on prior chest x-ray. These findings are most likely chronic in etiology. EKG last night showed normal sinus rhythm with a ventricular rate of 71 bpm. Normal axis. Enlarged P waves questioning left atrial enlargement. No ischemic or acute ST changes noted. Patient was then transferred to the medical floor where was noted that he was on 60 L and 85%. Repeat lab work was ordered when he arrived on the floor. Echocardiogram from 01/07/2020: 1. Left ventricular ejection fraction, by visual estimation, is 55 to 60%. 2. Impaired relaxation (grade 1) pattern of LV diastolic filling. 3. No aortic valve stenosis. 4. No evidence of mitral valve regurgitation. 5. The right ventricular systolic pressure is unable to be determined. 6. No regional wall motion abnormalities. - Related Data Allergies/Adverse Reactions: Allergies Allergy/AdvReac Type Severity Reaction Status Date / Time benazepril Allergy Fatigue Verified 04/18/19 02:12 valsartan Allergy Fatigue Verified 04/18/19 02:12 Home Medications: Home Meds Rosuvastatin [Crestor] 20 mg PO DAILY 10/18/14 [History] Zolpidem [Ambien] 10 mg PO BEDTIME PRN 10/18/14 [History] Irbesartan [Avapro] 300 mg PO DAILY 05/17/17 [History] Tamsulosin [Flomax] 0.4 mg PO DAILY 05/17/17 [History] Furosemide [Lasix] 20 mg PO DAILY 05/22/21 [History] Spironolactone [Aldactone] 25 mg PO DAILY 05/22/21 [History] carvediloL [Carvedilol] 12.5 mg PO BID 05/22/21 [History] glipiZIDE [Glipizide ER] 5 mg PO DAILY 05/22/21 [History] Past Medical History HEENT History: Reports: Hard of Hearing, Impaired Vision Other HEENT History: wears corrective lenses Cardiovascular History: Reports: High Cholesterol, Hypertension Genitourinary History: Reports: BPH Endocrine/Metabolic History: Reports: Diabetes, Type II, Obesity/BMI 30+ Oncologic (Cancer) History: Reports: Prostate - Infectious Disease History Infectious Disease History: Reports: Chicken Pox, Novel Coronavirus (04/2021) - Past Surgical History HEENT Surgical History: Reports: Adenoidectomy, Tonsillectomy Musculoskeletal Surgical History: Reports: Shoulder Surgery Oncologic Surgical History: Reports: Other (See Below) Social & Family History - Tobacco Use Tobacco Use Status *Q: Unknown Ever Used Tobacco Second Hand Smoke Exposure: No - Caffeine Use Caffeine Use: Reports: Soda - Recreational Drug Use Recreational Drug Use: No - Living Situation & Occupation Living situation: Reports: , with Spouse Occupation: Retired H&P Review of Systems - Review of Systems: Review Of Systems: Comprehensive ROS is negative, except as noted in HPI. Exam - Exam Exam: See Below - Vital Signs Vital Signs: Last Vital Signs Temp 99.1 F 05/22/21 08:41 Pulse 61 05/22/21 08:41 Resp 24 H 05/22/21 08:41 BP 118/60 05/22/21 08:41 Pulse Ox 90 L 05/22/21 10:50 Weight: 165 lb - Exam Quality Assessment: Supplemental Oxygen (High flow nasal cannula) General: Alert, Oriented, 4 HEENT: Conjunctiva Clear, EOMI, Hearing Intact, Mucosa Moist & [place], Normal Nasal Septum Neck: Supple, Trachea Midline, 2 Lungs: Decreased Breath Sounds, Rhonchi (Throughout both lung field). No: Normal Respiratory Effort (Increased respiratory rate and effort. Use of accessory muscles.) Cardiovascular: Regular Rate, Regular Rhythm, Normal S1, Normal S2 GI/Abdominal Exam: Normal Bowel Sounds, Soft (Obese), Non-Tender, No Organomegaly, No Distention, No Abnormal Bruit, No Mass, Pelvis Stable Back Exam: Normal Inspection Extremities: Normal Inspection, Normal Range of Motion, Non-Tender, No Pedal Edema, Normal Capillary Refill Skin: Warm, Dry, Intact Neuro Extensive - Mental Status: Alert, Oriented x3, Normal Mood/Affect, Normal Cognition, Slow Response to Commands Neuro Extensive - Motor, Sensory, Reflexes: CN II-XII Intact Psychiatric: Alert, Normal Affect, Normal Mood - Patient Data Lab Results Last 24 hrs: Laboratory Results - last 24 hr 05/21/21 05/21/21 05/21/21 Range/Units 20:35 20:35 20:35 WBC 5.44 (4.23-9.07) K/mm3 RBC 4.80 (4.63-6.08) M/mm3 Hgb 15.0 D (13.7-17.5) gm/dl Hct 45.4 (40.1-51.0) % MCV 94.6 H (79.0-92.2) fl MCH 31.3 (25.7-32.2) pg MCHC 33.0 (32.2-35.5) g/dl RDW Std Deviation 44.5 H (35.1-43.9) fL Plt Count 146 L D (163-337) K/mm3 MPV 12.2 (9.4-12.3) fl Neut % (Auto) 72.4 H (34.0-67.9) % Lymph % (Auto) 16.0 L (21.8-53.1) % [place] % (Auto) 10.5 (5.3-12.2) % Eos % (Auto) 0 L (0.8-7.0) Baso % (Auto) 0.2 (0.1-1.2) % Neut # (Auto) 3.94 (1.78-5.38) K/mm3 Lymph # (Auto) 0.87 L (1.32-3.57) K/mm3 [place] # (Auto) 0.57 (0.30-0.82) K/mm3 Eos # (Auto) 0.00 L (0.04-0.54) K/mm3 Baso # (Auto) 0.01 (0.01-0.08) K/mm3 Manual Slide Review PT 10.5 (9.7-12.0) SECONDS INR 0.94 D-Dimer, Quantitative 0.96 H (0.19-0.50) mg/L ABG pH (7.35-7.45) ABG pCO2 (35.0-45.0) mmHg ABG pO2 (80.0-100.0) mmHg ABG HCO3 (22.0-26.0) meq/L ABG O2 Saturation (96.0-97.0) % ABG Base Excess (-2-2.0) O2 Delivery Device Oxygen Flow Rate Blood Gas Comments Sodium (136-145) mEq/L Potassium (3.5-5.1) mEq/L Chloride (98-107) mEq/L Carbon Dioxide (21-32) mEq/L Anion Gap (5-15) BUN (7-18) mg/dL Creatinine (0.7-1.3) mg/dL Est Cr Clr Drug Dosing mL/min Estimated GFR (MDRD) (>60) mL/min BUN/Creatinine Ratio (14-18) Glucose (70-99) mg/dL Lactic Acid (0.4-2.0) mmol/L Calcium (8.5-10.1) mg/dL Magnesium (1.8-2.4) mg/dL Total Bilirubin (0.2-1.0) mg/dL AST (15-37) U/L ALT (16-63) U/L Alkaline Phosphatase (46-116) U/L Troponin I (0.00-0.056) ng/mL C-Reactive Protein 4.7 H* (<1.0) mg/dL Total Protein (6.4-8.2) g/dl Albumin (3.4-5.0) g/dl Globulin gm/dL Albumin/Globulin Ratio (1-2) 05/21/21 05/21/21 05/21/21 Range/Units 20:35 20:35 21:08 WBC (4.23-9.07) K/mm3 RBC (4.63-6.08) M/mm3 Hgb (13.7-17.5) gm/dl Hct (40.1-51.0) % MCV (79.0-92.2) fl MCH (25.7-32.2) pg MCHC (32.2-35.5) g/dl RDW Std Deviation (35.1-43.9) fL Plt Count (163-337) K/mm3 MPV (9.4-12.3) fl Neut % (Auto) (34.0-67.9) % Lymph % (Auto) (21.8-53.1) % [place] % (Auto) (5.3-12.2) % Eos % (Auto) (0.8-7.0) Baso % (Auto) (0.1-1.2) % Neut # (Auto) (1.78-5.38) K/mm3 Lymph # (Auto) (1.32-3.57) K/mm3 [place] # (Auto) (0.30-0.82) K/mm3 Eos # (Auto) (0.04-0.54) K/mm3 Baso # (Auto) (0.01-0.08) K/mm3 Manual Slide Review PT (9.7-12.0) SECONDS INR D-Dimer, Quantitative (0.19-0.50) mg/L ABG pH 7.36 (7.35-7.45) ABG pCO2 40.4 (35.0-45.0) mmHg ABG pO2 31.0 L* (80.0-100.0) mmHg ABG HCO3 22.4 (22.0-26.0) meq/L ABG O2 Saturation 51.9 L (96.0-97.0) % ABG Base Excess -2.3 L (-2-2.0) O2 Delivery Device Nasal cannula Oxygen Flow Rate 4.0 Blood Gas Comments Venous Sodium 135 L (136-145) mEq/L Potassium 4.3 (3.5-5.1) mEq/L Chloride 99 (98-107) mEq/L Carbon Dioxide 24 (21-32) mEq/L Anion Gap 16.3 H (5-15) BUN 30 H (7-18) mg/dL Creatinine 2.2 H D (0.7-1.3) mg/dL Est Cr Clr Drug Dosing 28.50 mL/min Estimated GFR (MDRD) 29 (>60) mL/min BUN/Creatinine Ratio 13.6 L (14-18) Glucose 221 H (70-99) mg/dL Lactic Acid 1.5 (0.4-2.0) mmol/L Calcium 8.2 L (8.5-10.1) mg/dL Magnesium 2.1 (1.8-2.4) mg/dL Total Bilirubin 0.4 (0.2-1.0) mg/dL AST 137 H (15-37) U/L ALT 79 H (16-63) U/L Alkaline Phosphatase 51 (46-116) U/L Troponin I 0.052 (0.00-0.056) ng/mL C-Reactive Protein (<1.0) mg/dL Total Protein 8.0 (6.4-8.2) g/dl Albumin 3.1 L (3.4-5.0) g/dl Globulin 4.9 gm/dL Albumin/Globulin Ratio 0.6 L (1-2) 05/22/21 Range/Units 11:02 WBC 2.02 L* (4.23-9.07) K/mm3 RBC 4.51 L (4.63-6.08) M/mm3 Hgb 14.0 (13.7-17.5) gm/dl Hct 42.6 (40.1-51.0) % MCV 94.5 H (79.0-92.2) fl MCH 31.0 (25.7-32.2) pg MCHC 32.9 (32.2-35.5) g/dl RDW Std Deviation 44.8 H (35.1-43.9) fL Plt Count 132 L (163-337) K/mm3 MPV 11.9 (9.4-12.3) fl Neut % (Auto) 45.5 (34.0-67.9) % Lymph % (Auto) 39.6 (21.8-53.1) % [place] % (Auto) 12.9 H (5.3-12.2) % Eos % (Auto) 0 L (0.8-7.0) Baso % (Auto) 0.5 (0.1-1.2) % Neut # (Auto) 0.92 L (1.78-5.38) K/mm3 Lymph # (Auto) 0.80 L (1.32-3.57) K/mm3 [place] # (Auto) 0.26 L (0.30-0.82) K/mm3 Eos # (Auto) 0.00 L (0.04-0.54) K/mm3 Baso # (Auto) 0.01 (0.01-0.08) K/mm3 Manual Slide Review Abnormal smear PT (9.7-12.0) SECONDS INR D-Dimer, Quantitative (0.19-0.50) mg/L ABG pH (7.35-7.45) ABG pCO2 (35.0-45.0) mmHg ABG pO2 (80.0-100.0) mmHg ABG HCO3 (22.0-26.0) meq/L ABG O2 Saturation (96.0-97.0) % ABG Base Excess (-2-2.0) O2 Delivery Device Oxygen Flow Rate Blood Gas Comments Sodium (136-145) mEq/L Potassium (3.5-5.1) mEq/L Chloride (98-107) mEq/L Carbon Dioxide (21-32) mEq/L Anion Gap (5-15) BUN (7-18) mg/dL Creatinine (0.7-1.3) mg/dL Est Cr Clr Drug Dosing mL/min Estimated GFR (MDRD) (>60) mL/min BUN/Creatinine Ratio (14-18) Glucose (70-99) mg/dL Lactic Acid (0.4-2.0) mmol/L Calcium (8.5-10.1) mg/dL Magnesium (1.8-2.4) mg/dL Total Bilirubin (0.2-1.0) mg/dL AST (15-37) U/L ALT (16-63) U/L Alkaline Phosphatase (46-116) U/L Troponin I (0.00-0.056) ng/mL C-Reactive Protein (<1.0) mg/dL Total Protein (6.4-8.2) g/dl Albumin (3.4-5.0) g/dl Globulin gm/dL Albumin/Globulin Ratio (1-2) Result Diagrams: 05/22/21 11:02 05/22/21 11:02 Sepsis Event Note - Evaluation Sepsis Screening Result: No Definite Risk - Focused Exam Vital Signs: Vital Signs Temp Temp Pulse Pulse Resp BP BP 05/22/21 10:50 05/22/21 08:41 99.1 F 61 24 H 118/60 05/22/21 08:30 56 L 16 112/84 05/22/21 07:45 97.0 F 64 20 128/73 05/22/21 06:27 Pulse Ox Pulse Ox 05/22/21 10:50 90 L 05/22/21 08:41 95 05/22/21 08:30 92 L 05/22/21 07:45 98 05/22/21 06:27 88 L - Problem List (1) Acute renal insufficiency SNOMED Code(s): 986530057 ICD Code: N28.9 - DISORDER OF KIDNEY AND URETER, UNSPECIFIED Status: Acute Current Visit: Yes (2) COVID-19 SNOMED Code(s): 653558172 ICD Code: U07.1 - COVID-19 Status: Acute Current Visit: Yes (3) Hyperglycemia due to type 2 diabetes mellitus SNOMED Code(s): 480926734673775, 138321962010966 ICD Code: E11.65 - TYPE 2 DIABETES MELLITUS WITH HYPERGLYCEMIA Status: Acu te Current Visit: Yes (4) Hypertension SNOMED Code(s): 98179795 ICD Code: I10 - ESSENTIAL (PRIMARY) HYPERTENSION Status: Acute Current Visit: Yes (5) Urinary retention SNOMED Code(s): 351490767 ICD Code: R33.9 - RETENTION OF URINE, UNSPECIFIED Status: Acute Current Visit: Yes Problem List Initiated/Reviewed/Updated: Yes Orders Last 24hrs: Active Orders 24 hr Category Date Time Status Patient Status [ADT] Routine ADT 05/22/21 07:39 Active Oxygen Therapy, ED [RC] ASDIRECTED Care 05/21/21 22:14 Active Peripheral IV Care [] . DIRECTED Care 05/21/21 20:14 Active Vaccine to be Administered/Admin Charge [RC] ASDIRECTED Care 05/22/21 09:02 Active Consistent Carbohydrate Diet [DIET] Diet 05/22/21 Lunch Active C-REACTIVE PROTEIN [CHEM] Routine Lab 05/22/21 11:02 Received COMPREHENSIVE METABOLIC PN,CMP [CHEM] Routine Lab 05/22/21 11:02 Received D-DIMER QUANTITATIVE [COAG] Routine Lab 05/22/21 11:02 Received MAGNESIUM [CHEM] Routine Lab 05/22/21 11:02 Received PHOSPHORUS [CHEM] Routine Lab 05/22/21 11:02 Received PRO B-TYPE NATRIUR PEPT,BNPPRO [CHEM] Stat Lab 05/21/21 20:35 Received Baricitinib [Olumiant] Med 05/21/21 22:30 Active 4 mg PO DAILY FLU Vacc [id number](65UP)/MF59C/PF [Fluad Quad Med 05/22/21 20:00 Once SYRINGE] 60 mcg IM .ONCE ONE Sodium Chloride 0.9% [Saline Flush] Med 05/21/21 20:14 Active 10 ml FLUSH ASDIRECTED PRN Peripheral IV Insertion Adult [OM.PC] Routine Oth 05/21/21 20:14 Ordered RT Oxygen High Humidity High Flow [RESPCARE] Routine Oth 05/22/21 11:17 Active Medication Orders Influenza Virus Vaccine (Flu Vacc [id number](65up)/Mf59c/Pf 60 Mcg/0.5 Ml Syringe) 60 mcg IM .ONCE ONE Stop: 05/22/21 20:01 Sodium Chloride (Sodium Chloride 0.9% 10 Ml Syringe) 10 ml FLUSH ASDIRECTED PRN PRN Reason: Keep Vein Open Last Admin: 05/21/21 22:54 Dose: 10 ml Documented by: INGRID Assessment/Plan Comment:: 75-year-old male with history of diastolic dysfunction, diabetes, emphysematous changes on chest x-ray from 2019, BPH, and hypertension, presents to the emergency department with worsening shortness of breath for the last 2 weeks secondary to COVID-19. COVID-19 with hypoxemia * 2-week history of increasing shortness of breath * Diagnosed last week with COVID-19. Unknown specific date at this time. * Chest x-ray was consistent with emphysematous changes, diffuse increased lung markings which are less prominent than on prior chest x-ray. * Requiring 60 L high flow nasal cannula * CRP 4.7 * Given remdesivir 100 mg, dexamethasone 6 mg, and baricitinib 4 mg in the emergency department Leukopenia * WBC 2.02, ANC 0.92. * Significant decrease overnight. * Likely secondary to Covid infection Thrombocytopenia * Platelets 132. Decreased from 146 last night * Likely secondary to Covid infection Acute renal insufficiency * Creatinine 2.3, GFR 28. Creatinine 2.2 and GFR of 29 in the emergency department last night * BUN 44 * There appears to be some prerenal component, but very likely worsened secondary to Covid hypoxemia. Previous smoker with emphysematous changes on chest x-ray * [id number] history, stopped in 2008 Diastolic dysfunction, grade 1 * Last echocardiogram in 2019 * BNP 370 * On Lasix and spironolactone, carvedilol Type 2 diabetes * A pharmacy audit shows that he is on glipizide. Patient states that he does take insulin shots. * Initial blood sugars were in the 200s. Hypertension/hyperlipidemia * Initial blood pressures are well controlled. Systolic blood pressures in the 1 teens to 120s and diastolic blood pressure in the 60s to 80s. * On carvedilol, irbesartan, Lasix, and spironolactone * Continue Crestor BPH * On Flomax at home Plan Initially admitted to the medical floor because of bed availability [place] the state. He may need to be transferred to the ICU if any worsening in condition. Continue respiratory support to keep oxygen saturations between 88 and 93%. Consider BiPAP if he fails high flow nasal cannula. Hold off on remdesivir at this time secondary to severe renal insufficiency, stage IV renal disease Continue dexamethasone 6 mg daily Consider restarting baricitinib tomorrow at a renally adjusted dose. Renally dose medications Hold irbesartan Hold glipizide Normal saline at 100 mL/h for 10 hours Start sliding scale insulin medium dose with fingerstick blood sugars 4 times daily Lantus 20 units nightly. Adjust as needed. Contact patient's PCP for most recent med list and office notes. Get echocardiogram secondary to diastolic dysfunction and mildly elevated BNP Blood cultures, procalcitonin, sputum cultures Start Rocephin 2 g every 24 hours for at least 5 days and azithromycin 500 mg IV daily for 3 days Recheck CBC, CMP, mag, Phos, CRP in the morning Hemoglobin A1c in the morning. VTE prophylaxis with Lovenox renally dosed CODE STATUS: Full code - Mortality Measure Prognosis:: Poor (75-year-old male with multiple medical problems in renal failure and respiratory failure places him at high risk for poor outcomes)
[2021-05-22] MEDS ORDERED: Ondansetron 4 MG/2 ML SDV IV PRN (11:32)
[2021-05-22] MEDS ORDERED: Acetaminophen 325 MG Tab PO PRN (11:32)
[2021-05-22] MEDS ORDERED: Sodium Chloride 0.9% 1,000 ML IV SCH (12:30)
[2021-05-22] MEDS: Tamsulosin 0.4 MG Cap.ER PO SCH (13:11)
[2021-05-22] MEDS: Rosuvastatin 10 MG Tab PO SCH (13:11)
[2021-05-22] MEDS: Azithromycin 500 MG in Sodium Chloride 0.9% 250 ML IV SCH (13:12)
[2021-05-22] MEDS: cefTRIAXone 2 GM in Sodium Chloride 0.9% 100 ML IV SCH (14:42)
[2021-05-22] MEDS: Insulin Lispro 100 UNIT/ML 10 ML Vial SUBCUT SCH ×2 (17:06→22:31)
[2021-05-22] MEDS ORDERED: Non-Formulary Medication 1 Each (Albuterol Sulfate 8.5 GM Inhaler) INH PRN (18:29)
[2021-05-22] MEDS ORDERED: FLU Vacc QS2021(65UP)/MF59C/PF 60 MCG/0.5 ML Syringe IM ONE (20:00)
[2021-05-22] MEDS: Dexamethasone 4 MG Tab PO SCH (20:01)
[2021-05-22] MEDS: Famotidine 20 MG Tab PO SCH (20:02)
[2021-05-22] MEDS: Carvedilol 12.5 MG Tab PO SCH (20:02)
[2021-05-22] MEDS: Zolpidem 10 MG Tab PO PRN (20:33)
[2021-05-22] MEDS ORDERED: Insulin Glarg,Human.Rec.Analog 100 Unit/ML SUBCUT SCH (21:00)
[2021-05-23] MEDS: Insulin Lispro 100 UNIT/ML 10 ML Vial SUBCUT SCH ×4 (07:42→21:34)
[2021-05-23 08:14] LABS: HEMOGLOBIN A1C 10.3 %
[2021-05-23] MEDS: Carvedilol 12.5 MG Tab PO SCH ×2 (08:25→20:38)
[2021-05-23] MEDS: Rosuvastatin 10 MG Tab PO SCH (08:25)
[2021-05-23] MEDS: Aspirin 81 MG Tab.EC PO SCH (08:25)
[2021-05-23] MEDS: Tamsulosin 0.4 MG Cap.ER PO SCH (08:28)
[2021-05-23] MEDS ORDERED: Enoxaparin 30 MG/0.3 ML Syringe SUBCUT SCH (09:00)
--- NOTE | 2021-05-23 11:00 | PCM.PN ---
- General Info Date of Service: 05/23/21 Admission Dx/Problem (Free Text): Admission Diagnosis/Problem Admission Diagnosis/Problem Hypoxia Subjective Update: 75-year-old male admitted with 2-week history of Covid-like symptoms currently on high flow nasal cannula. Patient generally is feeling better and has had some decrease in his oxygen requirements. He is currently on 50 L of high flow nasal cannula at 70% FiO2. Functional Status: Reports: Pain Controlled - Review of Systems General: Reports: Fatigue HEENT: Reports: No Symptoms Pulmonary: Reports: Shortness of Breath, Cough Cardiovascular: Reports: No Symptoms Gastrointestinal: Reports: No Symptoms Musculoskeletal: Reports: No Symptoms Neurological: Reports: No Symptoms - Patient Data Vitals - Most Recent: Last Vital Signs Temp 97.8 F 05/23/21 08:39 Pulse 65 05/23/21 08:25 Resp 20 05/23/21 08:39 BP 122/46 L 05/23/21 08:39 Pulse Ox 95 05/23/21 10:00 Weight - Most Recent: 224 lb 1.6 oz I&O - Last 24 Hours: Intake & Output 05/22/21 05/23/21 05/23/21 22:59 06:59 14:59 Intake Total 1150 1500 Output Total 700 Balance 450 1500 Lab Results Last 24 Hours: Laboratory Results - last 24 hr 05/21/21 05/22/21 05/22/21 Range/Units 20:35 11:02 11:02 WBC 2.02 L* (4.23-9.07) K/mm3 RBC 4.51 L (4.63-6.08) M/mm3 Hgb 14.0 (13.7-17.5) gm/dl Hct 42.6 (40.1-51.0) % MCV 94.5 H (79.0-92.2) fl MCH 31.0 (25.7-32.2) pg MCHC 32.9 (32.2-35.5) g/dl RDW Std Deviation 44.8 H (35.1-43.9) fL Plt Count 132 L (163-337) K/mm3 MPV 11.9 (9.4-12.3) fl Neut % (Auto) 45.5 (34.0-67.9) % Lymph % (Auto) 39.6 (21.8-53.1) % [place] % (Auto) 12.9 H (5.3-12.2) % Eos % (Auto) 0 L (0.8-7.0) Baso % (Auto) 0.5 (0.1-1.2) % Neut # (Auto) 0.92 L (1.78-5.38) K/mm3 Lymph # (Auto) 0.80 L (1.32-3.57) K/mm3 [place] # (Auto) 0.26 L (0.30-0.82) K/mm3 Eos # (Auto) 0.00 L (0.04-0.54) K/mm3 Baso # (Auto) 0.01 (0.01-0.08) K/mm3 Manual Slide Review Abnormal smear D-Dimer, Quantitative 0.75 H (0.19-0.50) mg/L Sodium (136-145) mEq/L Potassium (3.5-5.1) mEq/L Chloride (98-107) mEq/L Carbon Dioxide (21-32) mEq/L Anion Gap (5-15) BUN (7-18) mg/dL Creatinine (0.7-1.3) mg/dL Est Cr Clr Drug Dosing mL/min Estimated GFR (MDRD) (>60) mL/min BUN/Creatinine Ratio (14-18) Glucose (70-99) mg/dL POC Glucose (70-99) mg/dL Hemoglobin A1c ( - 5.6) % Calcium (8.5-10.1) mg/dL Phosphorus (2.6-4.7) mg/dL Magnesium (1.8-2.4) mg/dL Total Bilirubin (0.2-1.0) mg/dL AST (15-37) U/L ALT (16-63) U/L Alkaline Phosphatase (46-116) U/L C-Reactive Protein (<1.0) mg/dL NT-Pro-B Natriuret Pep 370 H (0-125) pg/mL Total Protein (6.4-8.2) g/dl Albumin (3.4-5.0) g/dl Globulin gm/dL Albumin/Globulin Ratio (1-2) Procalcitonin ng/mL 05/22/21 05/22/21 05/22/21 Range/Units 11:02 11:02 16:55 WBC (4.23-9.07) K/mm3 RBC (4.63-6.08) M/mm3 Hgb (13.7-17.5) gm/dl Hct (40.1-51.0) % MCV (79.0-92.2) fl MCH (25.7-32.2) pg MCHC (32.2-35.5) g/dl RDW Std Deviation (35.1-43.9) fL Plt Count (163-337) K/mm3 MPV (9.4-12.3) fl Neut % (Auto) (34.0-67.9) % Lymph % (Auto) (21.8-53.1) % [place] % (Auto) (5.3-12.2) % Eos % (Auto) (0.8-7.0) Baso % (Auto) (0.1-1.2) % Neut # (Auto) (1.78-5.38) K/mm3 Lymph # (Auto) (1.32-3.57) K/mm3 [place] # (Auto) (0.30-0.82) K/mm3 Eos # (Auto) (0.04-0.54) K/mm3 Baso # (Auto) (0.01-0.08) K/mm3 Manual Slide Review D-Dimer, Quantitative (0.19-0.50) mg/L Sodium 134 L (136-145) mEq/L Potassium 4.4 (3.5-5.1) mEq/L Chloride 100 (98-107) mEq/L Carbon Dioxide 23 (21-32) mEq/L Anion Gap 15.4 H (5-15) BUN 44 H (7-18) mg/dL Creatinine 2.3 H (0.7-1.3) mg/dL Est Cr Clr Drug Dosing 27.26 mL/min Estimated GFR (MDRD) 28 (>60) mL/min BUN/Creatinine Ratio 19.1 H (14-18) Glucose 274 H (70-99) mg/dL POC Glucose 237 H (70-99) mg/dL Hemoglobin A1c ( - 5.6) % Calcium 7.9 L (8.5-10.1) mg/dL Phosphorus 4.6 (2.6-4.7) mg/dL Magnesium 2.2 (1.8-2.4) mg/dL Total Bilirubin 0.4 (0.2-1.0) mg/dL AST 107 H (15-37) U/L ALT 75 H (16-63) U/L Alkaline Phosphatase 47 (46-116) U/L C-Reactive Protein 4.7 H* (<1.0) mg/dL NT-Pro-B Natriuret Pep (0-125) pg/mL Total Protein 7.1 (6.4-8.2) g/dl Albumin 2.7 L (3.4-5.0) g/dl Globulin 4.4 gm/dL Albumin/Globulin Ratio 0.6 L (1-2) Procalcitonin 0.61 H ng/mL 05/22/21 05/23/21 05/23/21 Range/Units 20:23 06:03 06:03 WBC 3.19 L (4.23-9.07) K/mm3 RBC 4.57 L (4.63-6.08) M/mm3 Hgb 14.1 (13.7-17.5) gm/dl Hct 43.5 (40.1-51.0) % MCV 95.2 H (79.0-92.2) fl MCH 30.9 (25.7-32.2) pg MCHC 32.4 (32.2-35.5) g/dl RDW Std Deviation 45.1 H (35.1-43.9) fL Plt Count 145 L (163-337) K/mm3 MPV 12.0 (9.4-12.3) fl Neut % (Auto) 61.8 (34.0-67.9) % Lymph % (Auto) 26.3 (21.8-53.1) % [place] % (Auto) 10.3 (5.3-12.2) % Eos % (Auto) 0 L (0.8-7.0) Baso % (Auto) 0.3 (0.1-1.2) % Neut # (Auto) 1.97 (1.78-5.38) K/mm3 Lymph # (Auto) 0.84 L (1.32-3.57) K/mm3 [place] # (Auto) 0.33 (0.30-0.82) K/mm3 Eos # (Auto) 0.00 L (0.04-0.54) K/mm3 Baso # (Auto) 0.01 (0.01-0.08) K/mm3 Manual Slide Review D-Dimer, Quantitative (0.19-0.50) mg/L Sodium 138 (136-145) mEq/L Potassium 4.8 (3.5-5.1) mEq/L Chloride 104 (98-107) mEq/L Carbon Dioxide 23 (21-32) mEq/L Anion Gap 15.8 H (5-15) BUN 46 H (7-18) mg/dL Creatinine 1.8 H (0.7-1.3) mg/dL Est Cr Clr Drug Dosing 34.83 mL/min Estimated GFR (MDRD) 37 (>60) mL/min BUN/Creatinine Ratio 25.6 H (14-18) Glucose 279 H (70-99) mg/dL POC Glucose 227 H (70-99) mg/dL Hemoglobin A1c ( - 5.6) % Calcium 8.1 L (8.5-10.1) mg/dL Phosphorus (2.6-4.7) mg/dL Magnesium 2.5 H (1.8-2.4) mg/dL Total Bilirubin 0.3 (0.2-1.0) mg/dL AST 85 H (15-37) U/L ALT 68 H (16-63) U/L Alkaline Phosphatase 43 L (46-116) U/L C-Reactive Protein 2.8 H* (<1.0) mg/dL NT-Pro-B Natriuret Pep (0-125) pg/mL Total Protein 7.0 (6.4-8.2) g/dl Albumin 2.6 L (3.4-5.0) g/dl Globulin 4.4 gm/dL Albumin/Globulin Ratio 0.6 L (1-2) Procalcitonin ng/mL 05/23/21 05/23/21 Range/Units 06:03 06:57 WBC (4.23-9.07) K/mm3 RBC (4.63-6.08) M/mm3 Hgb (13.7-17.5) gm/dl Hct (40.1-51.0) % MCV (79.0-92.2) fl MCH (25.7-32.2) pg MCHC (32.2-35.5) g/dl RDW Std Deviation (35.1-43.9) fL Plt Count (163-337) K/mm3 MPV (9.4-12.3) fl Neut % (Auto) (34.0-67.9) % Lymph % (Auto) (21.8-53.1) % [place] % (Auto) (5.3-12.2) % Eos % (Auto) (0.8-7.0) Baso % (Auto) (0.1-1.2) % Neut # (Auto) (1.78-5.38) K/mm3 Lymph # (Auto) (1.32-3.57) K/mm3 [place] # (Auto) (0.30-0.82) K/mm3 Eos # (Auto) (0.04-0.54) K/mm3 Baso # (Auto) (0.01-0.08) K/mm3 Manual Slide Review D-Dimer, Quantitative (0.19-0.50) mg/L Sodium (136-145) mEq/L Potassium (3.5-5.1) mEq/L Chloride (98-107) mEq/L Carbon Dioxide (21-32) mEq/L Anion Gap (5-15) BUN (7-18) mg/dL Creatinine (0.7-1.3) mg/dL Est Cr Clr Drug Dosing mL/min Estimated GFR (MDRD) (>60) mL/min BUN/Creatinine Ratio (14-18) Glucose (70-99) mg/dL POC Glucose 240 H (70-99) mg/dL Hemoglobin A1c 10.3 H ( - 5.6) % Calcium (8.5-10.1) mg/dL Phosphorus (2.6-4.7) mg/dL Magnesium (1.8-2.4) mg/dL Total Bilirubin (0.2-1.0) mg/dL AST (15-37) U/L ALT (16-63) U/L Alkaline Phosphatase (46-116) U/L C-Reactive Protein (<1.0) mg/dL NT-Pro-B Natriuret Pep (0-125) pg/mL Total Protein (6.4-8.2) g/dl Albumin (3.4-5.0) g/dl Globulin gm/dL Albumin/Globulin Ratio (1-2) Procalcitonin ng/mL Med Orders - Current: Current Medications Acetaminophen (Acetaminophen 325 Mg Tab) 650 mg PO Q4H PRN PRN Reason: Pain (Mild 1-3)/fever Aspirin (Aspirin 81 Mg Tab.Ec) 81 mg PO DAILY [facility] Last Admin: 05/23/21 08:25 Dose: 81 mg Documented by: Carvedilol (Carvedilol 12.5 Mg Tab) 12.5 mg PO BID [facility] Last Admin: 05/23/21 08:25 Dose: 12.5 mg Documented by: Dexamethasone (Dexamethasone 4 Mg Tab) 6 mg PO Q24H [facility] Stop: 05/30/21 21:01 Last Admin: 05/22/21 20:01 Dose: 6 mg Documented by: Enoxaparin Sodium (Enoxaparin 30 Mg/0.3 Ml Syringe) 30 mg SUBCUT DAILY [facility] Last Admin: 05/23/21 08:24 Dose: 30 mg Documented by: Famotidine (Famotidine 20 Mg Tab) 20 mg PO BEDTIME [facility] Last Admin: 05/22/21 20:02 Dose: 20 mg Documented by: Ceftriaxone Sodium 2 gm/ (Sodium Chloride) 100 mls @ 200 mls/hr IV Q24H [facility] Stop: 05/26/21 14:29 Last Admin: 05/22/21 14:42 Dose: 200 mls/hr Documented by: Azithromycin 500 mg/ Sodium (Chloride) 250 mls @ 250 mls/hr IV Q24H [facility] Stop: 05/24/21 13:59 Last Admin: 05/22/21 13:12 Dose: 250 mls/hr Documented by: Insulin Glargine (Insulin Glarg,Human.Rec.Analog 100 Unit/Ml) 20 unit SUBCUT BEDTIME [facility] Last Admin: 05/22/21 20:32 Dose: 20 units Documented by: Insulin Human Lispro (Insulin Lispro 100 Unit/Ml 10 Ml Vial) 0 unit SUBCUT QIDACANDBED [facility]; Protocol Last Admin: 05/23/21 07:42 Dose: 4 units Documented by: Ondansetron HCl (Ondansetron 4 Mg/2 Ml Sdv) 4 mg IV Q6H PRN PRN Reason: Nausea/Vomiting Rosuvastatin Calcium (Rosuvastatin 10 Mg Tab) 20 mg PO DAILY [facility] Last Admin: 05/23/21 08:25 Dose: 20 mg Documented by: Sodium Chloride (Sodium Chloride 0.9% 10 Ml Syringe) 10 ml FLUSH ASDIRECTED PRN PRN Reason: Keep Vein Open Last Admin: 05/21/21 22:54 Dose: 10 ml Documented by: Tamsulosin HCl (Tamsulosin 0.4 Mg Cap.Er) 0.4 mg PO DAILY [facility] Last Admin: 05/23/21 08:28 Dose: 0.4 mg Documented by: Zolpidem Tartrate (Zolpidem 10 Mg Tab) 10 mg PO BEDTIME PRN PRN Reason: Insomnia Last Admin: 05/22/21 20:33 Dose: 10 mg Documented by: Discontinued Medications Dexamethasone (Dexamethasone 10 Mg/Ml Sdv) 6 mg IVPUSH ONETIME ONE Stop: 05/21/21 22:21 Last Admin: 05/21/21 22:41 Dose: 6 mg Documented by: Remdesivir 100 mg/ Sodium (Chloride) 100 mls @ 100 mls/hr IV ONETIME ONE Stop: 05/21/21 23:19 Last Admin: 05/21/21 22:41 Dose: 100 mls/hr Documented by: Sodium Chloride (Normal Saline) 500 mls @ 1,000 mls/hr IV .BOLUS ONE Stop: 05/22/21 06:23 Last Admin: 05/22/21 06:00 Dose: 1,000 mls/hr Documented by: Sodium Chloride (Normal Saline) 1,000 mls @ 100 mls/hr IV ASDIRECTED PITA Stop: 05/22/21 22:29 Last Admin: 05/22/21 15:30 Dose: 100 mls/hr Documented by: Influenza Virus Vaccine (Flu Vacc Eq9899(65up)/Mf59c/Pf 60 Mcg/0.5 Ml Syringe) 60 mcg IM .ONCE ONE Stop: 05/22/21 20:01 Non-Formulary Medication (Albuterol Sulfate) 2 puff INH ASDIRECTED PRN PRN Reason: Shortness of Breath - Exam Quality Assessment: Supplemental Oxygen General: Alert, Oriented HEENT: Pupils Equal, Mucous Membr. Moist/[place] Neck: Supple Lungs: Crackles (Bibasilar right worse than left). No: Normal Respiratory Effort (Mildly increased respiratory effort) Cardiovascular: Regular Rate, Regular Rhythm GI/Abdominal Exam: Normal Bowel Sounds, Soft, Non-Tender, No Distention Extremities: Normal Inspection, Normal Range of Motion, Non-Tender, No Pedal Edema Skin: Warm, Dry, Intact Psy/Mental Status: Alert, Normal Affect, Normal Mood - Patient Data Lab Results Last 24 hrs: Laboratory Results - last 24 hr 05/21/21 05/22/21 05/22/21 Range/Units 20:35 11:02 11:02 WBC 2.02 L* (4.23-9.07) K/mm3 RBC 4.51 L (4.63-6.08) M/mm3 Hgb 14.0 (13.7-17.5) gm/dl Hct 42.6 (40.1-51.0) % MCV 94.5 H (79.0-92.2) fl MCH 31.0 (25.7-32.2) pg MCHC 32.9 (32.2-35.5) g/dl RDW Std Deviation 44.8 H (35.1-43.9) fL Plt Count 132 L (163-337) K/mm3 MPV 11.9 (9.4-12.3) fl Neut % (Auto) 45.5 (34.0-67.9) % Lymph % (Auto) 39.6 (21.8-53.1) % [place] % (Auto) 12.9 H (5.3-12.2) % Eos % (Auto) 0 L (0.8-7.0) Baso % (Auto) 0.5 (0.1-1.2) % Neut # (Auto) 0.92 L (1.78-5.38) K/mm3 Lymph # (Auto) 0.80 L (1.32-3.57) K/mm3 [place] # (Auto) 0.26 L (0.30-0.82) K/mm3 Eos # (Auto) 0.00 L (0.04-0.54) K/mm3 Baso # (Auto) 0.01 (0.01-0.08) K/mm3 Manual Slide Review Abnormal smear D-Dimer, Quantitative 0.75 H (0.19-0.50) mg/L Sodium (136-145) mEq/L Potassium (3.5-5.1) mEq/L Chloride (98-107) mEq/L Carbon Dioxide (21-32) mEq/L Anion Gap (5-15) BUN (7-18) mg/dL Creatinine (0.7-1.3) mg/dL Est Cr Clr Drug Dosing mL/min Estimated GFR (MDRD) (>60) mL/min BUN/Creatinine Ratio (14-18) Glucose (70-99) mg/dL POC Glucose (70-99) mg/dL Hemoglobin A1c ( - 5.6) % Calcium (8.5-10.1) mg/dL Phosphorus (2.6-4.7) mg/dL Magnesium (1.8-2.4) mg/dL Total Bilirubin (0.2-1.0) mg/dL AST (15-37) U/L ALT (16-63) U/L Alkaline Phosphatase (46-116) U/L C-Reactive Protein (<1.0) mg/dL NT-Pro-B Natriuret Pep 370 H (0-125) pg/mL Total Protein (6.4-8.2) g/dl Albumin (3.4-5.0) g/dl Globulin gm/dL Albumin/Globulin Ratio (1-2) Procalcitonin ng/mL 05/22/21 05/22/21 05/22/21 Range/Units 11:02 11:02 16:55 WBC (4.23-9.07) K/mm3 RBC (4.63-6.08) M/mm3 Hgb (13.7-17.5) gm/dl Hct (40.1-51.0) % MCV (79.0-92.2) fl MCH (25.7-32.2) pg MCHC (32.2-35.5) g/dl RDW Std Deviation (35.1-43.9) fL Plt Count (163-337) K/mm3 MPV (9.4-12.3) fl Neut % (Auto) (34.0-67.9) % Lymph % (Auto) (21.8-53.1) % [place] % (Auto) (5.3-12.2) % Eos % (Auto) (0.8-7.0) Baso % (Auto) (0.1-1.2) % Neut # (Auto) (1.78-5.38) K/mm3 Lymph # (Auto) (1.32-3.57) K/mm3 [place] # (Auto) (0.30-0.82) K/mm3 Eos # (Auto) (0.04-0.54) K/mm3 Baso # (Auto) (0.01-0.08) K/mm3 Manual Slide Review D-Dimer, Quantitative (0.19-0.50) mg/L Sodium 134 L (136-145) mEq/L Potassium 4.4 (3.5-5.1) mEq/L Chloride 100 (98-107) mEq/L Carbon Dioxide 23 (21-32) mEq/L Anion Gap 15.4 H (5-15) BUN 44 H (7-18) mg/dL Creatinine 2.3 H (0.7-1.3) mg/dL Est Cr Clr Drug Dosing 27.26 mL/min Estimated GFR (MDRD) 28 (>60) mL/min BUN/Creatinine Ratio 19.1 H (14-18) Glucose 274 H (70-99) mg/dL POC Glucose 237 H (70-99) mg/dL Hemoglobin A1c ( - 5.6) % Calcium 7.9 L (8.5-10.1) mg/dL Phosphorus 4.6 (2.6-4.7) mg/dL Magnesium 2.2 (1.8-2.4) mg/dL Total Bilirubin 0.4 (0.2-1.0) mg/dL AST 107 H (15-37) U/L ALT 75 H (16-63) U/L Alkaline Phosphatase 47 (46-116) U/L C-Reactive Protein 4.7 H* (<1.0) mg/dL NT-Pro-B Natriuret Pep (0-125) pg/mL Total Protein 7.1 (6.4-8.2) g/dl Albumin 2.7 L (3.4-5.0) g/dl Globulin 4.4 gm/dL Albumin/Globulin Ratio 0.6 L (1-2) Procalcitonin 0.61 H ng/mL 05/22/21 05/23/21 05/23/21 Range/Units 20:23 06:03 06:03 WBC 3.19 L (4.23-9.07) K/mm3 RBC 4.57 L (4.63-6.08) M/mm3 Hgb 14.1 (13.7-17.5) gm/dl Hct 43.5 (40.1-51.0) % MCV 95.2 H (79.0-92.2) fl MCH 30.9 (25.7-32.2) pg MCHC 32.4 (32.2-35.5) g/dl RDW Std Deviation 45.1 H (35.1-43.9) fL Plt Count 145 L (163-337) K/mm3 MPV 12.0 (9.4-12.3) fl Neut % (Auto) 61.8 (34.0-67.9) % Lymph % (Auto) 26.3 (21.8-53.1) % [place] % (Auto) 10.3 (5.3-12.2) % Eos % (Auto) 0 L (0.8-7.0) Baso % (Auto) 0.3 (0.1-1.2) % Neut # (Auto) 1.97 (1.78-5.38) K/mm3 Lymph # (Auto) 0.84 L (1.32-3.57) K/mm3 [place] # (Auto) 0.33 (0.30-0.82) K/mm3 Eos # (Auto) 0.00 L (0.04-0.54) K/mm3 Baso # (Auto) 0.01 (0.01-0.08) K/mm3 Manual Slide Review D-Dimer, Quantitative (0.19-0.50) mg/L Sodium 138 (136-145) mEq/L Potassium 4.8 (3.5-5.1) mEq/L Chloride 104 (98-107) mEq/L Carbon Dioxide 23 (21-32) mEq/L Anion Gap 15.8 H (5-15) BUN 46 H (7-18) mg/dL Creatinine 1.8 H (0.7-1.3) mg/dL Est Cr Clr Drug Dosing 34.83 mL/min Estimated GFR (MDRD) 37 (>60) mL/min BUN/Creatinine Ratio 25.6 H (14-18) Glucose 279 H (70-99) mg/dL POC Glucose 227 H (70-99) mg/dL Hemoglobin A1c ( - 5.6) % Calcium 8.1 L (8.5-10.1) mg/dL Phosphorus (2.6-4.7) mg/dL Magnesium 2.5 H (1.8-2.4) mg/dL Total Bilirubin 0.3 (0.2-1.0) mg/dL AST 85 H (15-37) U/L ALT 68 H (16-63) U/L Alkaline Phosphatase 43 L (46-116) U/L C-Reactive Protein 2.8 H* (<1.0) mg/dL NT-Pro-B Natriuret Pep (0-125) pg/mL Total Protein 7.0 (6.4-8.2) g/dl Albumin 2.6 L (3.4-5.0) g/dl Globulin 4.4 gm/dL Albumin/Globulin Ratio 0.6 L (1-2) Procalcitonin ng/mL 05/23/21 05/23/21 Range/Units 06:03 06:57 WBC (4.23-9.07) K/mm3 RBC (4.63-6.08) M/mm3 Hgb (13.7-17.5) gm/dl Hct (40.1-51.0) % MCV (79.0-92.2) fl MCH (25.7-32.2) pg MCHC (32.2-35.5) g/dl RDW Std Deviation (35.1-43.9) fL Plt Count (163-337) K/mm3 MPV (9.4-12.3) fl Neut % (Auto) (34.0-67.9) % Lymph % (Auto) (21.8-53.1) % [place] % (Auto) (5.3-12.2) % Eos % (Auto) (0.8-7.0) Baso % (Auto) (0.1-1.2) % Neut # (Auto) (1.78-5.38) K/mm3 Lymph # (Auto) (1.32-3.57) K/mm3 [place] # (Auto) (0.30-0.82) K/mm3 Eos # (Auto) (0.04-0.54) K/mm3 Baso # (Auto) (0.01-0.08) K/mm3 Manual Slide Review D-Dimer, Quantitative (0.19-0.50) mg/L Sodium (136-145) mEq/L Potassium (3.5-5.1) mEq/L Chloride (98-107) mEq/L Carbon Dioxide (21-32) mEq/L Anion Gap (5-15) BUN (7-18) mg/dL Creatinine (0.7-1.3) mg/dL Est Cr Clr Drug Dosing mL/min Estimated GFR (MDRD) (>60) mL/min BUN/Creatinine Ratio (14-18) Glucose (70-99) mg/dL POC Glucose 240 H (70-99) mg/dL Hemoglobin A1c 10.3 H ( - 5.6) % Calcium (8.5-10.1) mg/dL Phosphorus (2.6-4.7) mg/dL Magnesium (1.8-2.4) mg/dL Total Bilirubin (0.2-1.0) mg/dL AST (15-37) U/L ALT (16-63) U/L Alkaline Phosphatase (46-116) U/L C-Reactive Protein (<1.0) mg/dL NT-Pro-B Natriuret Pep (0-125) pg/mL Total Protein (6.4-8.2) g/dl Albumin (3.4-5.0) g/dl Globulin gm/dL Albumin/Globulin Ratio (1-2) Procalcitonin ng/mL Result Diagrams: 05/23/21 06:03 05/23/21 06:03 Sepsis Event Note - Evaluation Sepsis Screening Result: No Definite Risk - Focused Exam Vital Signs: Vital Signs Temp Pulse Pulse Resp BP BP Pulse Ox 05/23/21 10:00 05/23/21 09:31 05/23/21 08:39 97.8 F 20 122/46 L 96 05/23/21 08:25 65 122/46 L 05/23/21 07:45 96.8 F L 58 L 20 95/63 92 L 05/23/21 06:25 05/23/21 04:45 97.2 F 61 20 125/69 96 05/23/21 00:00 96.2 F L 55 L 20 101/55 L 94 L 05/22/21 23:55 Pulse Ox 05/23/21 10:00 95 05/23/21 09:31 100 05/23/21 08:39 09/29/21 08:25 05/23/21 07:45 05/23/21 06:25 94 L 05/23/21 04:45 05/23/21 00:00 05/22/21 23:55 92 L - Problem List & Annotations (1) Acute renal insufficiency SNOMED Code(s): 517501964 Code(s): N28.9 - DISORDER OF KIDNEY AND URETER, UNSPECIFIED Status: Acute Current Visit: Yes (2) COVID-19 SNOMED Code(s): 505897214 Code(s): U07.1 - COVID-19 Status: Acute Current Visit: Yes (3) Hyperglycemia due to type 2 diabetes mellitus SNOMED Code(s): 568126219912163, 363273117262650 Code(s): E11.65 - TYPE 2 DIABETES MELLITUS WITH HYPERGLYCEMIA Status: Acute Current Visit: Yes (4) Hypertension SNOMED Code(s): 19627020 Code(s): I10 - ESSENTIAL (PRIMARY) HYPERTENSION Status: Acute Current Visit: Yes (5) Urinary retention SNOMED Code(s): 356943919 Code(s): R33.9 - RETENTION OF URINE, UNSPECIFIED Status: Acute Current Visit: Yes - Problem List Review Problem List Initiated/Reviewed/Updated: Yes - My Orders Last 24 Hours: My Active Orders 05/22/21 Lunch Consistent Carbohydrate Diet [DIET] 05/22/21 11:17 RT Oxygen High Humidity High Flow [RESPCARE] Routine 05/22/21 11:32 RT Incentive Spirometry [RC] ASDIRECTED Up With Assistance [RC] BID Acetaminophen [TylenoL] 650 mg PO Q4H PRN Ondansetron [Zofran] 4 mg IV Q6H PRN Resuscitation Status Routine 05/22/21 11:33 Oxygen Therapy [RC] PRN VTE/DVT Education [RC] BID Vital Signs [RC] Q4HR Isolation [COMM] Stat 05/22/21 11:34 Sequential Compression Device [OM.PC] Per Unit Routine 05/22/21 11:36 Antiembolic Devices [RC] 10,22 RESPIRATORY CULT [MREF] Routine 05/22/21 11:40 Blood Glucose Check, Bedside [RC] WITHMEALSANDBED Zolpidem [Ambien] 10 mg PO BEDTIME PRN Blood Culture x2 Reflex Set [OM.PC] Stat 05/22/21 12:15 BLOOD CULTURE [MREF] Stat 05/22/21 12:25 BLOOD CULTURE [MREF] Stat 05/22/21 13:00 Azithromycin [Zithromax] 500 mg Sodium Chloride 0.9% [Normal Saline (AdvBag)] 250 ml IV Q24H Rosuvastatin [Crestor] 20 mg PO DAILY Tamsulosin [Flomax] 0.4 mg PO DAILY 05/22/21 14:00 cefTRIAXone [Rocephin] 2 gm Sodium Chloride 0.9% [Normal Saline] 100 ml IV Q24H 05/22/21 16:33 Admission Status [Patient Status] [ADT] Routine 05/22/21 17:00 Insulin Lispro [HumaLOG] See Protocol SUBCUT QIDACANDBED 05/22/21 18:26 RT Chest Physiotherapy [RC] ASDIRECTED 05/22/21 21:00 Famotidine [Pepcid] 20 mg PO BEDTIME Insulin Glarg,Human.Rec.Analog [LantUS] 20 unit SUBCUT BEDTIME carvediloL [Coreg] 12.5 mg PO BID dexAMETHasone 6 mg PO Q24H 05/23/21 09:00 Aspirin [Halfprin] 81 mg PO DAILY Enoxaparin [Lovenox] 30 mg SUBCUT DAILY 05/23/21 10:41 PT Evaluation and Treatment [CONS] Routine - Plan Plan:: 75-year-old male with history of diastolic dysfunction, diabetes, emphysematous changes on chest x-ray from 2019, BPH, and hypertension, presents to the emergency department with worsening shortness of breath for the last 2 weeks secondary to COVID-19. COVID-19 with hypoxemia * 2-week history of increasing shortness of breath * Diagnosed last week with COVID-19. Unknown specific date at this time. * Chest x-ray was consistent with emphysematous changes, diffuse increased lung markings which are less prominent than on prior chest x-ray. * High flow nasal cannula decreased to 50 L and 70% FiO2 * CRP decreased to 2.8 * Procalcitonin 0.61 * Given remdesivir 100 mg, dexamethasone 6 mg, and baricitinib 4 mg in the em ergency department * Transferred to ICU last night Leukopeniaresolved * WBC 3.2 * Likely secondary to Covid infection Thrombocytopenia * Platelets 132. Decreased from 146 last night * Likely secondary to Covid infection Acute renal insufficiencyimproved * Creatinine 1.8, GFR 37 * BUN 46 Previous smoker with emphysematous changes on chest x-ray * [id number] history, stopped in 2008 Diastolic dysfunction, grade 1 * Last echocardiogram in 2019 * BNP 370 * Home medications include: Furosemide and spironolactone, carvedilol, irbesartan * Holding spironolactone and furosemide * Echocardiogram05/22/2021: 1. Left ventricular ejection fraction, by visual estimation, is 60 to 65%. 2. Normal left ventricular systolic function. 3. Impaired relaxation grade 1 pattern of LV diastolic filling. 4. Mild proximal septal hypertrophy. 5. Normal LV filling pressures. Type 2 diabetes * A pharmacy audit shows that he is on glipizide. Patient states that he does take insulin shots. * Initial blood sugars were in the 200s. * Hemoglobin A1c 10.3 Hypertension/hyperlipidemia * Initial blood pressures are well controlled. Systolic blood pressures in the 1 teens to 120s and diastolic blood pressure in the 60s to 80s. * Home meds include: Carvedilol, irbesartan, Lasix, and spironolactone * Continue Crestor BPH * On Flomax at home Plan Continue in ICU Continue respiratory support to keep oxygen saturations between 88 and 93%. Consider BiPAP if he fails high flow nasal cannula. Stop remdesivir because it has very low likelihood of benefit Continue dexamethasone 6 mg daily Continue baricitinib at a renally adjusted dose. Continue Rocephin 2 g every 24 hours for at least 5 days and azithromycin 500 mg IV daily for 3 days Renally dose medications Hold irbesartan Hold glipizide Start sliding scale insulin medium dose with fingerstick blood sugars 4 times daily Increase Lantus to 25 units nightly. Adjust as needed. Contact patient's PCP for most recent med list and office notes. Recheck CBC, CMP, mag, Phos, CRP in the morning VTE prophylaxis with Lovenox renally dosed CODE STATUS: Full code
[2021-05-23] MEDS: Azithromycin 500 MG in Sodium Chloride 0.9% 250 ML IV SCH (12:24)
[2021-05-23] MEDS: cefTRIAXone 2 GM in Sodium Chloride 0.9% 100 ML IV SCH (16:30)
[2021-05-23] MEDS: Famotidine 20 MG Tab PO SCH (20:36)
[2021-05-23] MEDS: Dexamethasone 4 MG Tab PO SCH (20:36)
[2021-05-23] MEDS: Zolpidem 10 MG Tab PO PRN (20:36)
[2021-05-23] MEDS ORDERED: Insulin Glarg,Human.Rec.Analog 100 Unit/ML SUBCUT SCH (21:00)
[2021-05-24] MEDS: Rosuvastatin 10 MG Tab PO SCH (08:27)
[2021-05-24] MEDS: Tamsulosin 0.4 MG Cap.ER PO SCH (08:27)
[2021-05-24] MEDS: Aspirin 81 MG Tab.EC PO SCH (08:27)
[2021-05-24] MEDS: Insulin Lispro 100 UNIT/ML 10 ML Vial SUBCUT SCH ×4 (08:27→21:03)
[2021-05-24] MEDS: Enoxaparin 40 MG/0.4 ML Syringe SUBCUT SCH (08:28)
[2021-05-24] MEDS: Carvedilol 12.5 MG Tab PO SCH ×2 (10:16→20:59)
--- NOTE | 2021-05-24 11:59 | PCM.PN ---
- General Info Date of Service: 05/24/21 Admission Dx/Problem (Free Text): Admission Diagnosis/Problem Admission Diagnosis/Problem Hypoxia Subjective Update: 75-year-old male admitted with 2-week history of Covid-like symptoms currently on high flow nasal cannula. Denies had a difficult night last night. He appeared to be more confused and even combative at times. He had difficulty sleeping. He is on Ambien 10 mg at home and this did not seem to help his sleep much. Patient seemed to be less bothered by it then nursing suggesting he does not remember most of what he did. Otherwise, he is feeling better with improved appetite. Functional Status: Reports: Pain Controlled - Review of Systems General: Reports: No Symptoms HEENT: Reports: No Symptoms Pulmonary: Reports: Shortness of Breath, Cough Cardiovascular: Reports: No Symptoms Gastrointestinal: Reports: No Symptoms Musculoskeletal: Reports: No Symptoms Skin: Reports: No Symptoms Psychiatric: Reports: No Symptoms - Patient Data Vitals - Most Recent: Last Vital Signs Temp 97.7 F 05/24/21 08:00 Pulse 50 L 05/24/21 10:16 Resp 22 H 05/24/21 08:00 BP 104/41 L 05/24/21 10:16 Pulse Ox 94 L 05/24/21 09:44 Weight - Most Recent: 228 lb 11.2 oz I&O - Last 24 Hours: Intake & Output 05/23/21 05/24/21 05/24/21 22:59 06:59 14:59 Intake Total 1930 400 Output Total 400 500 Balance 1530 -100 Lab Results Last 24 Hours: Laboratory Results - last 24 hr 05/23/21 05/23/21 05/24/21 Range/Units 17:36 20:35 06:41 WBC (4.23-9.07) K/mm3 RBC (4.63-6.08) M/mm3 Hgb (13.7-17.5) gm/dl Hct (40.1-51.0) % MCV (79.0-92.2) fl MCH (25.7-32.2) pg MCHC (32.2-35.5) g/dl RDW Std Deviation (35.1-43.9) fL Plt Count (163-337) K/mm3 MPV (9.4-12.3) fl Neut % (Auto) (34.0-67.9) % Lymph % (Auto) (21.8-53.1) % Keith % (Auto) (5.3-12.2) % Eos % (Auto) (0.8-7.0) Baso % (Auto) (0.1-1.2) % Neut # (Auto) (1.78-5.38) K/mm3 Lymph # (Auto) (1.32-3.57) K/mm3 Keith # (Auto) (0.30-0.82) K/mm3 Eos # (Auto) (0.04-0.54) K/mm3 Baso # (Auto) (0.01-0.08) K/mm3 D-Dimer, Quantitative (0.19-0.50) mg/L Sodium (136-145) mEq/L Potassium (3.5-5.1) mEq/L Chloride (98-107) mEq/L Carbon Dioxide (21-32) mEq/L Anion Gap (5-15) BUN (7-18) mg/dL Creatinine (0.7-1.3) mg/dL Est Cr Clr Drug Dosing mL/min Estimated GFR (MDRD) (>60) mL/min BUN/Creatinine Ratio (14-18) Glucose (70-99) mg/dL POC Glucose 229 H 191 H 227 H (70-99) mg/dL Calcium (8.5-10.1) mg/dL Phosphorus (2.6-4.7) mg/dL Magnesium (1.8-2.4) mg/dL Total Bilirubin (0.2-1.0) mg/dL AST (15-37) U/L ALT (16-63) U/L Alkaline Phosphatase (46-116) U/L C-Reactive Protein (<1.0) mg/dL Total Protein (6.4-8.2) g/dl Albumin (3.4-5.0) g/dl Globulin gm/dL Albumin/Globulin Ratio (1-2) 05/24/21 05/24/21 05/24/21 Range/Units 09:28 09:28 09:28 WBC 5.87 (4.23-9.07) K/mm3 RBC 4.40 L (4.63-6.08) M/mm3 Hgb 13.6 L (13.7-17.5) gm/dl Hct 41.4 (40.1-51.0) % MCV 94.1 H (79.0-92.2) fl MCH 30.9 (25.7-32.2) pg MCHC 32.9 (32.2-35.5) g/dl RDW Std Deviation 44.0 H (35.1-43.9) fL Plt Count 160 L (163-337) K/mm3 MPV 12.2 (9.4-12.3) fl Neut % (Auto) 80.2 H (34.0-67.9) % Lymph % (Auto) 10.4 L (21.8-53.1) % Keith % (Auto) 8.0 (5.3-12.2) % Eos % (Auto) 0 L (0.8-7.0) Baso % (Auto) 0.2 (0.1-1.2) % Neut # (Auto) 4.71 (1.78-5.38) K/mm3 Lymph # (Auto) 0.61 L (1.32-3.57) K/mm3 Keith # (Auto) 0.47 (0.30-0.82) K/mm3 Eos # (Auto) 0.00 L (0.04-0.54) K/mm3 Baso # (Auto) 0.01 (0.01-0.08) K/mm3 D-Dimer, Quantitative 0.46 (0.19-0.50) mg/L Sodium 135 L (136-145) mEq/L Potassium 4.5 (3.5-5.1) mEq/L Chloride 104 (98-107) mEq/L Carbon Dioxide 25 (21-32) mEq/L Anion Gap 10.5 (5-15) BUN 43 H (7-18) mg/dL Creatinine 1.5 H (0.7-1.3) mg/dL Est Cr Clr Drug Dosing 41.80 mL/min Estimated GFR (MDRD) 46 (>60) mL/min BUN/Creatinine Ratio 28.7 H (14-18) Glucose 233 H (70-99) mg/dL POC Glucose (70-99) mg/dL Calcium 8.2 L (8.5-10.1) mg/dL Phosphorus 3.7 (2.6-4.7) mg/dL Magnesium 2.6 H (1.8-2.4) mg/dL Total Bilirubin 0.3 (0.2-1.0) mg/dL AST 75 H (15-37) U/L ALT 72 H (16-63) U/L Alkaline Phosphatase 40 L (46-116) U/L C-Reactive Protein 0.8 (<1.0) mg/dL Total Protein 6.5 (6.4-8.2) g/dl Albumin 2.6 L (3.4-5.0) g/dl Globulin 3.9 gm/dL Albumin/Globulin Ratio 0.7 L (1-2) 05/24/21 Range/Units 11:44 WBC (4.23-9.07) K/mm3 RBC (4.63-6.08) M/mm3 Hgb (13.7-17.5) gm/dl Hct (40.1-51.0) % MCV (79.0-92.2) fl MCH (25.7-32.2) pg MCHC (32.2-35.5) g/dl RDW Std Deviation (35.1-43.9) fL Plt Count (163-337) K/mm3 MPV (9.4-12.3) fl Neut % (Auto) (34.0-67.9) % Lymph % (Auto) (21.8-53.1) % Keith % (Auto) (5.3-12.2) % Eos % (Auto) (0.8-7.0) Baso % (Auto) (0.1-1.2) % Neut # (Auto) (1.78-5.38) K/mm3 Lymph # (Auto) (1.32-3.57) K/mm3 Keith # (Auto) (0.30-0.82) K/mm3 Eos # (Auto) (0.04-0.54) K/mm3 Baso # (Auto) (0.01-0.08) K/mm3 D-Dimer, Quantitative (0.19-0.50) mg/L Sodium (136-145) mEq/L Potassium (3.5-5.1) mEq/L Chloride (98-107) mEq/L Carbon Dioxide (21-32) mEq/L Anion Gap (5-15) BUN (7-18) mg/dL Creatinine (0.7-1.3) mg/dL Est Cr Clr Drug Dosing mL/min Estimated GFR (MDRD) (>60) mL/min BUN/Creatinine Ratio (14-18) Glucose (70-99) mg/dL POC Glucose 255 H (70-99) mg/dL Calcium (8.5-10.1) mg/dL Phosphorus (2.6-4.7) mg/dL Magnesium (1.8-2.4) mg/dL Total Bilirubin (0.2-1.0) mg/dL AST (15-37) U/L ALT (16-63) U/L Alkaline Phosphatase (46-116) U/L C-Reactive Protein (<1.0) mg/dL Total Protein (6.4-8.2) g/dl Albumin (3.4-5.0) g/dl Globulin gm/dL Albumin/Globulin Ratio (1-2) Benjie Results Last 24 Hours: Microbiology 05/22/21 12:15 Bacteria Detection (PCR) - Final Blood 05/22/21 12:25 Blood Culture - Preliminary Blood - Venous - Lab Draw 05/22/21 12:15 Blood Culture - Preliminary Blood - Venous Gram Positive Cocci In Clustrs Med Orders - Current: Current Medications Acetaminophen (Acetaminophen 325 Mg Tab) 650 mg PO Q4H PRN PRN Reason: Pain (Mild 1-3)/fever Aspirin (Aspirin 81 Mg Tab.Ec) 81 mg PO DAILY [facility] Last Admin: 05/24/21 08:27 Dose: 81 mg Documented by: Carvedilol (Carvedilol 12.5 Mg Tab) 12.5 mg PO BID [facility] Last Admin: 05/24/21 10:16 Dose: Not Given Documented by: Dexamethasone (Dexamethasone 4 Mg Tab) 6 mg PO Q24H [facility] Stop: 05/30/21 21:01 Last Admin: 05/23/21 20:36 Dose: 6 mg Documented by: Enoxaparin Sodium (Enoxaparin 40 Mg/0.4 Ml Syringe) 40 mg SUBCUT DAILY [facility] Last Admin: 05/24/21 08:28 Dose: 40 mg Documented by: Famotidine (Famotidine 20 Mg Tab) 20 mg PO BEDTIME [facility] Last Admin: 05/23/21 20:36 Dose: 20 mg Documented by: Ceftriaxone Sodium 2 gm/ (Sodium Chloride) 100 mls @ 200 mls/hr IV Q24H [facility] Stop: 05/26/21 14:29 Last Admin: 05/23/21 16:30 Dose: 200 mls/hr Documented by: Azithromycin 500 mg/ Sodium (Chloride) 250 mls @ 250 mls/hr IV Q24H [facility] Stop: 05/24/21 13:59 Last Admin: 05/23/21 12:24 Dose: 250 mls/hr Documented by: Insulin Glargine (Insulin Glarg,Human.Rec.Analog 100 Unit/Ml) 25 unit SUBCUT BEDTIME [facility] Last Admin: 05/23/21 20:48 Dose: 25 units Documented by: Insulin Human Lispro (Insulin Lispro 100 Unit/Ml 10 Ml Vial) 0 unit SUBCUT QIDACANDBED [facility]; Protocol Last Admin: 05/24/21 08:27 Dose: 4 units Documented by: Ondansetron HCl (Ondansetron 4 Mg/2 Ml Sdv) 4 mg IV Q6H PRN PRN Reason: Nausea/Vomiting Rosuvastatin Calcium (Rosuvastatin 10 Mg Tab) 20 mg PO DAILY [facility] Last Admin: 05/24/21 08:27 Dose: 20 mg Documented by: Sodium Chloride (Sodium Chloride 0.9% 10 Ml Syringe) 10 ml FLUSH ASDIRECTED PRN PRN Reason: Keep Vein Open Last Admin: 05/21/21 22:54 Dose: 10 ml Documented by: Tamsulosin HCl (Tamsulosin 0.4 Mg Cap.Er) 0.4 mg PO DAILY [facility] Last Admin: 05/24/21 08:27 Dose: 0.4 mg Documented by: Zolpidem Tartrate (Zolpidem 10 Mg Tab) 10 mg PO BEDTIME PRN PRN Reason: Insomnia Last Admin: 05/23/21 20:36 Dose: 10 mg Documented by: Discontinued Medications Dexamethasone (Dexamethasone 10 Mg/Ml Sdv) 6 mg IVPUSH ONETIME ONE Stop: 05/21/21 22:21 Last Admin: 05/21/21 22:41 Dose: 6 mg Documented by: Enoxaparin Sodium (Enoxaparin 30 Mg/0.3 Ml Syringe) 30 mg SUBCUT DAILY [facility] Last Admin: 05/23/21 08:24 Dose: 30 mg Documented by: Remdesivir 100 mg/ Sodium (Chloride) 100 mls @ 100 mls/hr IV ONETIME ONE Stop: 05/21/21 23:19 Last Admin: 05/21/21 22:41 Dose: 100 mls/hr Documented by: Sodium Chloride (Normal Saline) 500 mls @ 1,000 mls/hr IV .BOLUS ONE Stop: 05/22/21 06:23 Last Admin: 05/22/21 06:00 Dose: 1,000 mls/hr Documented by: Sodium Chloride (Normal Saline) 1,000 mls @ 100 mls/hr IV ASDIRECTED [facility] Stop: 05/22/21 22:29 Last Admin: 05/22/21 15:30 Dose: 100 mls/hr Documented by: Influenza Virus Vaccine (Flu Vacc Nq0432(65up)/Mf59c/Pf 60 Mcg/0.5 Ml Syringe) 60 mcg IM .ONCE ONE Stop: 05/22/21 20:01 Insulin Glargine (Insulin Glarg,Human.Rec.Analog 100 Unit/Ml) 20 unit SUBCUT BEDTIME [facility] Last Admin: 05/22/21 20:32 Dose: 20 units Documented by: Non-Formulary Medication (Albuterol Sulfate) 2 puff INH ASDIRECTED PRN PRN Reason: Shortness of Breath - Exam General: Alert, Oriented HEENT: Pupils Equal, Mucous Membr. Moist/[place] Neck: Supple Lungs: Normal Respiratory Effort, Crackles (Bibasilar) Cardiovascular: Regular Rate, Regular Rhythm GI/Abdominal Exam: Normal Bowel Sounds, Soft, Non-Tender, No Distention Extremities: Normal Inspection, Normal Range of Motion, Non-Tender, No Pedal Edema, Normal Capillary Refill Skin: Warm, Dry, Intact Psy/Mental Status: Alert, Normal Affect, Normal Mood - Patient Data Lab Results Last 24 hrs: Laboratory Results - last 24 hr 05/23/21 05/23/21 05/24/21 Range/Units 17:36 20:35 06:41 WBC (4.23-9.07) K/mm3 RBC (4.63-6.08) M/mm3 Hgb (13.7-17.5) gm/dl Hct (40.1-51.0) % MCV (79.0-92.2) fl MCH (25.7-32.2) pg MCHC (32.2-35.5) g/dl RDW Std Deviation (35.1-43.9) fL Plt Count (163-337) K/mm3 MPV (9.4-12.3) fl Neut % (Auto) (34.0-67.9) % Lymph % (Auto) (21.8-53.1) % Keith % (Auto) (5.3-12.2) % Eos % (Auto) (0.8-7.0) Baso % (Auto) (0.1-1.2) % Neut # (Auto) (1.78-5.38) K/mm3 Lymph # (Auto) (1.32-3.57) K/mm3 Keith # (Auto) (0.30-0.82) K/mm3 Eos # (Auto) (0.04-0.54) K/mm3 Baso # (Auto) (0.01-0.08) K/mm3 D-Dimer, Quantitative (0.19-0.50) mg/L Sodium (136-145) mEq/L Potassium (3.5-5.1) mEq/L Chloride (98-107) mEq/L Carbon Dioxide (21-32) mEq/L Anion Gap (5-15) BUN (7-18) mg/dL Creatinine (0.7-1.3) mg/dL Est Cr Clr Drug Dosing mL/min Estimated GFR (MDRD) (>60) mL/min BUN/Creatinine Ratio (14-18) Glucose (70-99) mg/dL POC Glucose 229 H 191 H 227 H (70-99) mg/dL Calcium (8.5-10.1) mg/dL Phosphorus (2.6-4.7) mg/dL Magnesium (1.8-2.4) mg/dL Total Bilirubin (0.2-1.0) mg/dL AST (15-37) U/L ALT (16-63) U/L Alkaline Phosphatase (46-116) U/L C-Reactive Protein (<1.0) mg/dL Total Protein (6.4-8.2) g/dl Albumin (3.4-5.0) g/dl Globulin gm/dL Albumin/Globulin Ratio (1-2) 05/24/21 05/24/21 05/24/21 Range/Units 09:28 09:28 09:28 WBC 5.87 (4.23-9.07) K/mm3 RBC 4.40 L (4.63-6.08) M/mm3 Hgb 13.6 L (13.7-17.5) gm/dl Hct 41.4 (40.1-51.0) % MCV 94.1 H (79.0-92.2) fl MCH 30.9 (25.7-32.2) pg MCHC 32.9 (32.2-35.5) g/dl RDW Std Deviation 44.0 H (35.1-43.9) fL Plt Count 160 L (163-337) K/mm3 MPV 12.2 (9.4-12.3) fl Neut % (Auto) 80.2 H (34.0-67.9) % Lymph % (Auto) 10.4 L (21.8-53.1) % Keith % (Auto) 8.0 (5.3-12.2) % Eos % (Auto) 0 L (0.8-7.0) Baso % (Auto) 0.2 (0.1-1.2) % Neut # (Auto) 4.71 (1.78-5.38) K/mm3 Lymph # (Auto) 0.61 L (1.32-3.57) K/mm3 Keith # (Auto) 0.47 (0.30-0.82) K/mm3 Eos # (Auto) 0.00 L (0.04-0.54) K/mm3 Baso # (Auto) 0.01 (0.01-0.08) K/mm3 D-Dimer, Quantitative 0.46 (0.19-0.50) mg/L Sodium 135 L (136-145) mEq/L Potassium 4.5 (3.5-5.1) mEq/L Chloride 104 (98-107) mEq/L Carbon Dioxide 25 (21-32) mEq/L Anion Gap 10.5 (5-15) BUN 43 H (7-18) mg/dL Creatinine 1.5 H (0.7-1.3) mg/dL Est Cr Clr Drug Dosing 41.80 mL/min Estimated GFR (MDRD) 46 (>60) mL/min BUN/Creatinine Ratio 28.7 H (14-18) Glucose 233 H (70-99) mg/dL POC Glucose (70-99) mg/dL Calcium 8.2 L (8.5-10.1) mg/dL Phosphorus 3.7 (2.6-4.7) mg/dL Magnesium 2.6 H (1.8-2.4) mg/dL Total Bilirubin 0.3 (0.2-1.0) mg/dL AST 75 H (15-37) U/L ALT 72 H (16-63) U/L Alkaline Phosphatase 40 L (46-116) U/L C-Reactive Protein 0.8 (<1.0) mg/dL Total Protein 6.5 (6.4-8.2) g/dl Albumin 2.6 L (3.4-5.0) g/dl Globulin 3.9 gm/dL Albumin/Globulin Ratio 0.7 L (1-2) 05/24/21 Range/Units 11:44 WBC (4.23-9.07) K/mm3 RBC (4.63-6.08) M/mm3 Hgb (13.7-17.5) gm/dl Hct (40.1-51.0) % MCV (79.0-92.2) fl MCH (25.7-32.2) pg MCHC (32.2-35.5) g/dl RDW Std Deviation (35.1-43.9) fL Plt Count (163-337) K/mm3 MPV (9.4-12.3) fl Neut % (Auto) (34.0-67.9) % Lymph % (Auto) (21.8-53.1) % Keith % (Auto) (5.3-12.2) % Eos % (Auto) (0.8-7.0) Baso % (Auto) (0.1-1.2) % Neut # (Auto) (1.78-5.38) K/mm3 Lymph # (Auto) (1.32-3.57) K/mm3 Keith # (Auto) (0.30-0.82) K/mm3 Eos # (Auto) (0.04-0.54) K/mm3 Baso # (Auto) (0.01-0.08) K/mm3 D-Dimer, Quantitative (0.19-0.50) mg/L Sodium (136-145) mEq/L Potassium (3.5-5.1) mEq/L Chloride (98-107) mEq/L Carbon Dioxide (21-32) mEq/L Anion Gap (5-15) BUN (7-18) mg/dL Creatinine (0.7-1.3) mg/dL Est Cr Clr Drug Dosing mL/min Estimated GFR (MDRD) (>60) mL/min BUN/Creatinine Ratio (14-18) Glucose (70-99) mg/dL POC Glucose 255 H (70-99) mg/dL Calcium (8.5-10.1) mg/dL Phosphorus (2.6-4.7) mg/dL Magnesium (1.8-2.4) mg/dL Total Bilirubin (0.2-1.0) mg/dL AST (15-37) U/L ALT (16-63) U/L Alkaline Phosphatase (46-116) U/L C-Reactive Protein (<1.0) mg/dL Total Protein (6.4-8.2) g/dl Albumin (3.4-5.0) g/dl Globulin gm/dL Albumin/Globulin Ratio (1-2) Result Diagrams: 05/24/21 09:28 05/24/21 09:28 Benjie Results Last 24 hrs: Microbiology 05/22/21 12:15 Bacteria Detection (PCR) - Final Blood 05/22/21 12:25 Blood Culture - Preliminary Blood - Venous - Lab Draw 05/22/21 12:15 Blood Culture - Preliminary Blood - Venous Gram Positive Cocci In [facility] Sepsis Event Note - Evaluation Sepsis Screening Result: No Definite Risk - Focused Exam Vital Signs: Vital Signs Temp Pulse Pulse Resp BP BP Pulse Ox 05/24/21 10:16 50 L 104/41 L 05/24/21 09:44 05/24/21 08:00 97.7 F 50 L 22 H 104/41 L 94 L 05/24/21 06:46 05/24/21 04:00 97.7 F 20 126/73 93 L 05/24/21 00:00 97.2 F 18 112/68 97 Pulse Ox Pulse Ox 05/24/21 10:16 05/24/21 09:44 94 L 05/24/21 08:00 05/24/21 06:46 92 L 05/24/21 04:00 05/24/21 00:00 - Problem List & Annotations (1) Acute renal insufficiency SNOMED Code(s): 234809623 Code(s): N28.9 - DISORDER OF KIDNEY AND URETER, UNSPECIFIED Status: Acute Current Visit: Yes (2) COVID-19 SNOMED Code(s): 536580370 Code(s): U07.1 - COVID-19 Status: Acute Current Visit: Yes (3) Hyperglycemia due to type 2 diabetes mellitus SNOMED Code(s): 895809012477885, 122395431671229 Code(s): E11.65 - TYPE 2 DIABETES MELLITUS WITH HYPERGLYCEMIA Status: Acute Current Visit: Yes (4) Hypertension SNOMED Code(s): 24509996 Code(s): I10 - ESSENTIAL (PRIMARY) HYPERTENSION Status: Acute Current Visit: Yes (5) Urinary retention SNOMED Code(s): 859220269 Code(s): R33.9 - RETENTION OF URINE, UNSPECIFIED Status: Acute Current Visit: Yes - Problem List Review Problem List Initiated/Reviewed/Updated: Yes - My Orders Last 24 Hours: My Active Orders 05/23/21 21:00 Insulin Glarg,Human.Rec.Analog [LantUS] 25 unit SUBCUT BEDTIME 05/24/21 09:00 Enoxaparin [Lovenox] 40 mg SUBCUT DAILY - Plan Plan:: 75-year-old male with history of diastolic dysfunction, diabetes, emphysematous changes on chest x-ray from 2019, BPH, and hypertension, presents to the emergency department with worsening shortness of breath for the last 2 weeks secondary to COVID-19. COVID-19 with hypoxemia Emphysema * 2-week history of increasing shortness of breath * Diagnosed last week with COVID-19. Unknown specific date at this time. * Chest x-ray was consistent with emphysematous changes, diffuse increased lung markings which are less prominent than on prior chest x-ray. * High flow nasal cannula decreased to 50 L and 70% FiO2 * CRP decreased to 2.8 * Procalcitonin on 05/22/2021: 0.61 * Given remdesivir 100 mg, dexamethasone 6 mg, and baricitinib 4 mg in the emergency department * Remdesivir not continued * Transferred to ICU last night Leukopeniaresolved * WBC 5.9 * Likely secondary to Covid infection Thrombocytopeniaresolved * Platelets 160. * Likely secondary to Covid infection Acute renal insufficiencyimproved * Creatinine 1.5, * BUN 43 Transaminitis * Improving AST and ALT. * AST 75, ALT 72, alk phos 40 * T bilirubin 0.3, albumin 2.6 * Continue to monitor Previous smoker with emphysematous changes on chest x-ray * 20-dgve-[id number] history, stopped in 2008 Diastolic dysfunction, grade 1 * Last echocardiogram in 2019 * BNP 370 * Home medications include: Furosemide and spironolactone, carvedilol, irbesartan * Holding spironolactone and furosemide * Echocardiogram05/22/2021: 1. Left ventricular ejection fraction, by visual estimation, is 60 to 65%. 2. Normal left ventricular systolic function. 3. Impaired relaxation grade 1 pattern of LV diastolic filling. 4. Mild proximal septal hypertrophy. 5. Normal LV filling pressures. Type 2 diabetes * A pharmacy audit shows that he is on glipizide. Patient states that he does take insulin shots. * Blood sugars in the 200s * Increased Lantus yesterday to 25 units daily * Hemoglobin A1c 10.3 Hypertension/hyperlipidemia * Initial blood pressures are well controlled. Systolic blood pressures in the 90s to 130 and diastolic blood pressure in the 60s to 80s. * Home meds include: Carvedilol, irbesartan, Lasix, and spironolactone * Carvedilol has been held x2 secondary to bradycardia or low blood pressure * Continue Crestor BPH * On Flomax at home Plan Continue in ICU Continue respiratory support to keep oxygen saturations between 88 and 93%. Consider BiPAP if he fails high flow nasal cannula. Stop remdesivir because it has very low likelihood of benefit Continue dexamethasone 6 mg daily Continue baricitinib at a renally adjusted dose. Continue Rocephin 2 g every 24 hours for at least 5 days and azithromycin 500 mg IV daily for 3 days Renally dose medications Hold irbesartan Hold glipizide Start sliding scale insulin medium dose with fingerstick blood sugars 4 times daily Increase Lantus to 305 units nightly. Adjust as needed. Recheck CBC, CMP, mag, Phos, CRP in the morning VTE prophylaxis with Lovenox renally dosed CODE STATUS: Full code Length of stay greater than 96 hours secondary to severity of illness and slow recovery.
[2021-05-24] MEDS: Azithromycin 500 MG in Sodium Chloride 0.9% 250 ML IV SCH (12:27)
[2021-05-24] MEDS: cefTRIAXone 2 GM in Sodium Chloride 0.9% 100 ML IV SCH (13:30)
[2021-05-24] MEDS: Zolpidem 10 MG Tab PO PRN (20:28)
[2021-05-24] MEDS: Famotidine 20 MG Tab PO SCH (20:28)
[2021-05-24] MEDS: Dexamethasone 4 MG Tab PO SCH (20:29)
[2021-05-24] MEDS: Insulin Glarg,Human.Rec.Analog 100 Unit/ML SUBCUT SCH (21:04)
[2021-05-25] MEDS: Tamsulosin 0.4 MG Cap.ER PO SCH (08:47)
[2021-05-25] MEDS: Rosuvastatin 10 MG Tab PO SCH (08:47)
[2021-05-25] MEDS: Enoxaparin 40 MG/0.4 ML Syringe SUBCUT SCH (08:47)
[2021-05-25] MEDS: Insulin Lispro 100 UNIT/ML 10 ML Vial SUBCUT SCH ×4 (08:47→22:03)
[2021-05-25] MEDS: Aspirin 81 MG Tab.EC PO SCH (08:47)
[2021-05-25] MEDS: Carvedilol 12.5 MG Tab PO SCH ×2 (08:51→20:54)
[2021-05-25] MEDS ORDERED: Albuterol/Ipratropium 3.0-0.5 MG/3 ML Neb Soln NEB PRN (10:58)
--- NOTE | 2021-05-25 12:42 | PCM.PN ---
- General Info Date of Service: 05/25/21 Admission Dx/Problem (Free Text): Admission Diagnosis/Problem Admission Diagnosis/Problem Hypoxia Subjective Update: 75-year-old male admitted with 2-week history of Covid-like symptoms currently on high flow nasal cannula. Patient developed another hive-like rash last night. He received Benadryl. Rash this morning is improved compared to yesterday morning and unknown still what the causes. This could be idiopathic or drug allergy. He denies any worsening shortness of breath. Does state he feels a little more tired today. He continues on high flow nasal cannula at 50 L and 60% Functional Status: Reports: Pain Controlled - Review of Systems General: Reports: Weakness, Fatigue HEENT: Reports: No Symptoms Pulmonary: Reports: Shortness of Breath, Cough Cardiovascular: Reports: No Symptoms Gastrointestinal: Reports: No Symptoms Musculoskeletal: Reports: No Symptoms - Patient Data Vitals - Most Recent: Last Vital Signs Temp 97.7 F 05/25/21 07:56 Pulse 51 L 05/25/21 07:56 Resp 18 05/25/21 07:56 BP 129/54 L 05/25/21 07:56 Pulse Ox 93 L 05/25/21 08:41 Weight - Most Recent: 220 lb I&O - Last 24 Hours: Intake & Output 05/24/21 05/25/21 05/25/21 22:59 06:59 14:59 Intake Total 2215 500 180 Output Total 950 850 Balance 1265 -350 180 Lab Results Last 24 Hours: Laboratory Results - last 24 hr 05/24/21 05/24/21 05/25/21 Range/Units 16:59 20:33 06:01 WBC (4.23-9.07) K/mm3 RBC (4.63-6.08) M/mm3 Hgb (13.7-17.5) gm/dl Hct (40.1-51.0) % MCV (79.0-92.2) fl MCH (25.7-32.2) pg MCHC (32.2-35.5) g/dl RDW Std Deviation (35.1-43.9) fL Plt Count (163-337) K/mm3 MPV (9.4-12.3) fl Neut % (Auto) (34.0-67.9) % Lymph % (Auto) (21.8-53.1) % [place] % (Auto) (5.3-12.2) % Eos % (Auto) (0.8-7.0) Baso % (Auto) (0.1-1.2) % Neut # (Auto) (1.78-5.38) K/mm3 Lymph # (Auto) (1.32-3.57) K/mm3 [place] # (Auto) (0.30-0.82) K/mm3 Eos # (Auto) (0.04-0.54) K/mm3 Baso # (Auto) (0.01-0.08) K/mm3 D-Dimer, Quantitative (0.19-0.50) mg/L Sodium (136-145) mEq/L Potassium (3.5-5.1) mEq/L Chloride (98-107) mEq/L Carbon Dioxide (21-32) mEq/L Anion Gap (5-15) BUN (7-18) mg/dL Creatinine (0.7-1.3) mg/dL Est Cr Clr Drug Dosing mL/min Estimated GFR (MDRD) (>60) mL/min BUN/Creatinine Ratio (14-18) Glucose (70-99) mg/dL POC Glucose 169 H 260 H 225 H (70-99) mg/dL Calcium (8.5-10.1) mg/dL Phosphorus (2.6-4.7) mg/dL Magnesium (1.8-2.4) mg/dL Total Bilirubin (0.2-1.0) mg/dL AST (15-37) U/L ALT (16-63) U/L Alkaline Phosphatase (46-116) U/L C-Reactive Protein (<1.0) mg/dL Total Protein (6.4-8.2) g/dl Albumin (3.4-5.0) g/dl Globulin gm/dL Albumin/Globulin Ratio (1-2) 05/25/21 05/25/21 05/25/21 Range/Units 06:04 06:04 06:04 WBC 7.10 (4.23-9.07) K/mm3 RBC 4.56 L (4.63-6.08) M/mm3 Hgb 14.0 (13.7-17.5) gm/dl Hct 43.5 (40.1-51.0) % MCV 95.4 H (79.0-92.2) fl MCH 30.7 (25.7-32.2) pg MCHC 32.2 (32.2-35.5) g/dl RDW Std Deviation 45.1 H (35.1-43.9) fL Plt Count 169 (163-337) K/mm3 MPV 12.6 H (9.4-12.3) fl Neut % (Auto) 84.0 H (34.0-67.9) % Lymph % (Auto) 5.8 L (21.8-53.1) % [place] % (Auto) 9.3 (5.3-12.2) % Eos % (Auto) 0 L (0.8-7.0) Baso % (Auto) 0.1 (0.1-1.2) % Neut # (Auto) 5.96 H (1.78-5.38) K/mm3 Lymph # (Auto) 0.41 L (1.32-3.57) K/mm3 [place] # (Auto) 0.66 (0.30-0.82) K/mm3 Eos # (Auto) 0.00 L (0.04-0.54) K/mm3 Baso # (Auto) 0.01 (0.01-0.08) K/mm3 D-Dimer, Quantitative 0.52 H (0.19-0.50) mg/L Sodium 140 (136-145) mEq/L Potassium 4.9 (3.5-5.1) mEq/L Chloride 108 H (98-107) mEq/L Carbon Dioxide 24 (21-32) mEq/L Anion Gap 12.9 (5-15) BUN 40 H (7-18) mg/dL Creatinine 1.4 H (0.7-1.3) mg/dL Est Cr Clr Drug Dosing 44.79 mL/min Estimated GFR (MDRD) 50 (>60) mL/min BUN/Creatinine Ratio 28.6 H (14-18) Glucose 244 H (70-99) mg/dL POC Glucose (70-99) mg/dL Calcium 8.5 (8.5-10.1) mg/dL Phosphorus 3.3 (2.6-4.7) mg/dL Magnesium 2.7 H (1.8-2.4) mg/dL Total Bilirubin 0.3 (0.2-1.0) mg/dL AST 50 H (15-37) U/L ALT 68 H (16-63) U/L Alkaline Phosphatase 45 L (46-116) U/L C-Reactive Protein 0.4 (<1.0) mg/dL Total Protein 6.7 (6.4-8.2) g/dl Albumin 2.6 L (3.4-5.0) g/dl Globulin 4.1 gm/dL Albumin/Globulin Ratio 0.6 L (1-2) 05/25/21 Range/Units 11:02 WBC (4.23-9.07) K/mm3 RBC (4.63-6.08) M/mm3 Hgb (13.7-17.5) gm/dl Hct (40.1-51.0) % MCV (79.0-92.2) fl MCH (25.7-32.2) pg MCHC (32.2-35.5) g/dl RDW Std Deviation (35.1-43.9) fL Plt Count (163-337) K/mm3 MPV (9.4-12.3) fl Neut % (Auto) (34.0-67.9) % Lymph % (Auto) (21.8-53.1) % [place] % (Auto) (5.3-12.2) % Eos % (Auto) (0.8-7.0) Baso % (Auto) (0.1-1.2) % Neut # (Auto) (1.78-5.38) K/mm3 Lymph # (Auto) (1.32-3.57) K/mm3 [place] # (Auto) (0.30-0.82) K/mm3 Eos # (Auto) (0.04-0.54) K/mm3 Baso # (Auto) (0.01-0.08) K/mm3 D-Dimer, Quantitative (0.19-0.50) mg/L Sodium (136-145) mEq/L Potassium (3.5-5.1) mEq/L Chloride (98-107) mEq/L Carbon Dioxide (21-32) mEq/L Anion Gap (5-15) BUN (7-18) mg/dL Creatinine (0.7-1.3) mg/dL Est Cr Clr Drug Dosing mL/min Estimated GFR (MDRD) (>60) mL/min BUN/Creatinine Ratio (14-18) Glucose (70-99) mg/dL POC Glucose 234 H (70-99) mg/dL Calcium (8.5-10.1) mg/dL Phosphorus (2.6-4.7) mg/dL Magnesium (1.8-2.4) mg/dL Total Bilirubin (0.2-1.0) mg/dL AST (15-37) U/L ALT (16-63) U/L Alkaline Phosphatase (46-116) U/L C-Reactive Protein (<1.0) mg/dL Total Protein (6.4-8.2) g/dl Albumin (3.4-5.0) g/dl Globulin gm/dL Albumin/Globulin Ratio (1-2) Benjie Results Last 24 Hours: Microbiology 05/22/21 12:15 Blood Culture - Preliminary Blood - Venous Staphylococcus Coagulase Neg 05/22/21 12:15 Bacteria Detection (PCR) - Final Blood 05/22/21 12:25 Blood Culture - Preliminary Blood - Venous - Lab Draw Med Orders - Current: Current Medications Acetaminophen (Acetaminophen 325 Mg Tab) 650 mg PO Q4H PRN PRN Reason: Pain (Mild 1-3)/fever Albuterol (Albuterol 6.7 Gm Inhaler) 0 gm INH Q2H PRN PRN Reason: SOB/WHEEZING Albuterol/Ipratropium (Albuterol/Ipratropium 3.0-0.5 Mg/3 Ml Neb Soln) 3 ml NEB Q4HRRT PRN PRN Reason: SOB/WHEEZING Aspirin (Aspirin 81 Mg Tab.Ec) 81 mg PO DAILY [facility] Last Admin: 05/25/21 08:47 Dose: 81 mg Documented by: Carvedilol (Carvedilol 12.5 Mg Tab) 12.5 mg PO BID [facility] Last Admin: 05/25/21 08:51 Dose: Not Given Documented by: Dexamethasone (Dexamethasone 4 Mg Tab) 6 mg PO Q24H [facility] Stop: 05/30/21 21:01 Last Admin: 05/24/21 20:29 Dose: 6 mg Documented by: Enoxaparin Sodium (Enoxaparin 40 Mg/0.4 Ml Syringe) 40 mg SUBCUT DAILY [facility] Last Admin: 05/25/21 08:47 Dose: 40 mg Documented by: Famotidine (Famotidine 20 Mg Tab) 20 mg PO BEDTIME [facility] Last Admin: 05/24/21 20:28 Dose: 20 mg Documented by: Ceftriaxone Sodium 2 gm/ (Sodium Chloride) 100 mls @ 200 mls/hr IV Q24H PITA Stop: 05/26/21 14:29 Last Admin: 05/24/21 13:30 Dose: 200 mls/hr Documented by: Insulin Glargine (Insulin Glarg,Human.Rec.Analog 100 Unit/Ml) 30 unit SUBCUT BEDTIME [facility] Last Admin: 05/24/21 21:04 Dose: 30 units Documented by: Insulin Human Lispro (Insulin Lispro 100 Unit/Ml 10 Ml Vial) 0 unit SUBCUT QIDACANDBED [facility]; Protocol Last Admin: 05/25/21 12:22 Dose: 4 units Documented by: Ondansetron HCl (Ondansetron 4 Mg/2 Ml Sdv) 4 mg IV Q6H PRN PRN Reason: Nausea/Vomiting Rosuvastatin Calcium (Rosuvastatin 10 Mg Tab) 20 mg PO DAILY [facility] Last Admin: 05/25/21 08:47 Dose: 20 mg Documented by: Sodium Chloride (Sodium Chloride 0.9% 10 Ml Syringe) 10 ml FLUSH ASDIRECTED PRN PRN Reason: Keep Vein Open Last Admin: 05/21/21 22:54 Dose: 10 ml Documented by: Tamsulosin HCl (Tamsulosin 0.4 Mg Cap.Er) 0.4 mg PO DAILY [facility] Last Admin: 05/25/21 08:47 Dose: 0.4 mg Documented by: Zolpidem Tartrate (Zolpidem 10 Mg Tab) 10 mg PO BEDTIME PRN PRN Reason: Insomnia Last Admin: 05/24/21 20:28 Dose: 10 mg Documented by: Discontinued Medications Dexamethasone (Dexamethasone 10 Mg/Ml Sdv) 6 mg IVPUSH ONETIME ONE Stop: 05/21/21 22:21 Last Admin: 05/21/21 22:41 Dose: 6 mg Documented by: Enoxaparin Sodium (Enoxaparin 30 Mg/0.3 Ml Syringe) 30 mg SUBCUT DAILY [facility] Last Admin: 05/23/21 08:24 Dose: 30 mg Documented by: Remdesivir 100 mg/ Sodium (Chloride) 100 mls @ 100 mls/hr IV ONETIME ONE Stop: 05/21/21 23:19 Last Admin: 05/21/21 22:41 Dose: 100 mls/hr Documented by: Sodium Chloride (Normal Saline) 500 mls @ 1,000 mls/hr IV .BOLUS ONE Stop: 05/22/21 06:23 Last Admin: 05/22/21 06:00 Dose: 1,000 mls/hr Documented by: Azithromycin 500 mg/ Sodium (Chloride) 250 mls @ 250 mls/hr IV Q24H PITA Stop: 05/24/21 13:59 Last Admin: 05/24/21 12:27 Dose: 250 mls/hr Documented by: Sodium Chloride (Normal Saline) 1,000 mls @ 100 mls/hr IV ASDIRECTED PITA Stop: 05/22/21 22:29 Last Admin: 05/22/21 15:30 Dose: 100 mls/hr Documented by: Influenza Virus Vaccine (Flu Vacc Oh1705(65up)/Mf59c/Pf 60 Mcg/0.5 Ml Syringe) 60 mcg IM .ONCE ONE Stop: 05/22/21 20:01 Insulin Glargine (Insulin Glarg,Human.Rec.Analog 100 Unit/Ml) 20 unit SUBCUT BEDTIME [facility] Last Admin: 05/22/21 20:32 Dose: 20 units Documented by: Insulin Glargine (Insulin Glarg,Human.Rec.Analog 100 Unit/Ml) 25 unit SUBCUT BEDTIME [facility] Last Admin: 05/23/21 20:48 Dose: 25 units Documented by: Non-Formulary Medication (Albuterol Sulfate) 2 puff INH ASDIRECTED PRN PRN Reason: Shortness of Breath - Exam Quality Assessment: Supplemental Oxygen (High flow nasal cannula) General: Alert, Oriented HEENT: Pupils Equal, Mucous Membr. Moist/[place] Neck: Supple Lungs: Normal Respiratory Effort, Rhonchi (Bibasilar), Wheezing (Throughout) Cardiovascular: Regular Rate, Regular Rhythm GI/Abdominal Exam: Normal Bowel Sounds, Soft, Non-Tender, No Distention (Obese) Extremities: Normal Inspection, Normal Range of Motion, Non-Tender, No Pedal Edema Psy/Mental Status: Alert, Normal Affect, Normal Mood - Patient Data Lab Results Last 24 hrs: Laboratory Results - last 24 hr 05/24/21 05/24/21 05/25/21 Range/Units 16:59 20:33 06:01 WBC (4.23-9.07) K/mm3 RBC (4.63-6.08) M/mm3 Hgb (13.7-17.5) gm/dl Hct (40.1-51.0) % MCV (79.0-92.2) fl MCH (25.7-32.2) pg MCHC (32.2-35.5) g/dl RDW Std Deviation (35.1-43.9) fL Plt Count (163-337) K/mm3 MPV (9.4-12.3) fl Neut % (Auto) (34.0-67.9) % Lymph % (Auto) (21.8-53.1) % [place] % (Auto) (5.3-12.2) % Eos % (Auto) (0.8-7.0) Baso % (Auto) (0.1-1.2) % Neut # (Auto) (1.78-5.38) K/mm3 Lymph # (Auto) (1.32-3.57) K/mm3 [place] # (Auto) (0.30-0.82) K/mm3 Eos # (Auto) (0.04-0.54) K/mm3 Baso # (Auto) (0.01-0.08) K/mm3 D-Dimer, Quantitative (0.19-0.50) mg/L Sodium (136-145) mEq/L Potassium (3.5-5.1) mEq/L Chloride (98-107) mEq/L Carbon Dioxide (21-32) mEq/L Anion Gap (5-15) BUN (7-18) mg/dL Creatinine (0.7-1.3) mg/dL Est Cr Clr Drug Dosing mL/min Estimated GFR (MDRD) (>60) mL/min BUN/Creatinine Ratio (14-18) Glucose (70-99) mg/dL POC Glucose 169 H 260 H 225 H (70-99) mg/dL Calcium (8.5-10.1) mg/dL Phosphorus (2.6-4.7) mg/dL Magnesium (1.8-2.4) mg/dL Total Bilirubin (0.2-1.0) mg/dL AST (15-37) U/L ALT (16-63) U/L Alkaline Phosphatase (46-116) U/L C-Reactive Protein (<1.0) mg/dL Total Protein (6.4-8.2) g/dl Albumin (3.4-5.0) g/dl Globulin gm/dL Albumin/Globulin Ratio (1-2) 05/25/21 05/25/21 05/25/21 Range/Units 06:04 06:04 06:04 WBC 7.10 (4.23-9.07) K/mm3 RBC 4.56 L (4.63-6.08) M/mm3 Hgb 14.0 (13.7-17.5) gm/dl Hct 43.5 (40.1-51.0) % MCV 95.4 H (79.0-92.2) fl MCH 30.7 (25.7-32.2) pg MCHC 32.2 (32.2-35.5) g/dl RDW Std Deviation 45.1 H (35.1-43.9) fL Plt Count 169 (163-337) K/mm3 MPV 12.6 H (9.4-12.3) fl Neut % (Auto) 84.0 H (34.0-67.9) % Lymph % (Auto) 5.8 L (21.8-53.1) % [place] % (Auto) 9.3 (5.3-12.2) % Eos % (Auto) 0 L (0.8-7.0) Baso % (Auto) 0.1 (0.1-1.2) % Neut # (Auto) 5.96 H (1.78-5.38) K/mm3 Lymph # (Auto) 0.41 L (1.32-3.57) K/mm3 [place] # (Auto) 0.66 (0.30-0.82) K/mm3 Eos # (Auto) 0.00 L (0.04-0.54) K/mm3 Baso # (Auto) 0.01 (0.01-0.08) K/mm3 D-Dimer, Quantitative 0.52 H (0.19-0.50) mg/L Sodium 140 (136-145) mEq/L Potassium 4.9 (3.5-5.1) mEq/L Chloride 108 H (98-107) mEq/L Carbon Dioxide 24 (21-32) mEq/L Anion Gap 12.9 (5-15) BUN 40 H (7-18) mg/dL Creatinine 1.4 H (0.7-1.3) mg/dL Est Cr Clr Drug Dosing 44.79 mL/min Estimated GFR (MDRD) 50 (>60) mL/min BUN/Creatinine Ratio 28.6 H (14-18) Glucose 244 H (70-99) mg/dL POC Glucose (70-99) mg/dL Calcium 8.5 (8.5-10.1) mg/dL Phosphorus 3.3 (2.6-4.7) mg/dL Magnesium 2.7 H (1.8-2.4) mg/dL Total Bilirubin 0.3 (0.2-1.0) mg/dL AST 50 H (15-37) U/L ALT 68 H (16-63) U/L Alkaline Phosphatase 45 L (46-116) U/L C-Reactive Protein 0.4 (<1.0) mg/dL Total Protein 6.7 (6.4-8.2) g/dl Albumin 2.6 L (3.4-5.0) g/dl Globulin 4.1 gm/dL Albumin/Globulin Ratio 0.6 L (1-2) 05/25/21 Range/Units 11:02 WBC (4.23-9.07) K/mm3 RBC (4.63-6.08) M/mm3 Hgb (13.7-17.5) gm/dl Hct (40.1-51.0) % MCV (79.0-92.2) fl MCH (25.7-32.2) pg MCHC (32.2-35.5) g/dl RDW Std Deviation (35.1-43.9) fL Plt Count (163-337) K/mm3 MPV (9.4-12.3) fl Neut % (Auto) (34.0-67.9) % Lymph % (Auto) (21.8-53.1) % [place] % (Auto) (5.3-12.2) % Eos % (Auto) (0.8-7.0) Baso % (Auto) (0.1-1.2) % Neut # (Auto) (1.78-5.38) K/mm3 Lymph # (Auto) (1.32-3.57) K/mm3 [place] # (Auto) (0.30-0.82) K/mm3 Eos # (Auto) (0.04-0.54) K/mm3 Baso # (Auto) (0.01-0.08) K/mm3 D-Dimer, Quantitative (0.19-0.50) mg/L Sodium (136-145) mEq/L Potassium (3.5-5.1) mEq/L Chloride (98-107) mEq/L Carbon Dioxide (21-32) mEq/L Anion Gap (5-15) BUN (7-18) mg/dL Creatinine (0.7-1.3) mg/dL Est Cr Clr Drug Dosing mL/min Estimated GFR (MDRD) (>60) mL/min BUN/Creatinine Ratio (14-18) Glucose (70-99) mg/dL POC Glucose 234 H (70-99) mg/dL Calcium (8.5-10.1) mg/dL Phosphorus (2.6-4.7) mg/dL Magnesium (1.8-2.4) mg/dL Total Bilirubin (0.2-1.0) mg/dL AST (15-37) U/L ALT (16-63) U/L Alkaline Phosphatase (46-116) U/L C-Reactive Protein (<1.0) mg/dL Total Protein (6.4-8.2) g/dl Albumin (3.4-5.0) g/dl Globulin gm/dL Albumin/Globulin Ratio (1-2) Result Diagrams: 05/25/21 06:04 05/25/21 06:04 Benjie Results Last 24 hrs: Microbiology 05/22/21 12:15 Blood Culture - Preliminary Blood - Venous Staphylococcus Coagulase Neg 05/22/21 12:15 Bacteria Detection (PCR) - Final Blood 05/22/21 12:25 Blood Culture - Preliminary Blood - Venous - Lab Draw Sepsis Event Note - Evaluation Sepsis Screening Result: No Definite Risk - Focused Exam Vital Signs: Vital Signs Temp Temp Pulse Resp BP BP Pulse Ox 05/25/21 08:41 05/25/21 07:56 97.7 F 51 L 18 129/54 L 92 L 05/25/21 04:00 97.9 F 16 145/68 H 93 L 05/25/21 01:54 Pulse Ox Pulse Ox 05/25/21 08:41 93 L 05/25/21 07:56 05/25/21 04:00 05/25/21 01:54 95 - Problem List & Annotations (1) Acute renal insufficiency SNOMED Code(s): 397084562 Code(s): N28.9 - DISORDER OF KIDNEY AND URETER, UNSPECIFIED Status: Acute Current Visit: Yes (2) COVID-19 SNOMED Code(s): 733267234 Code(s): U07.1 - COVID-19 Status: Acute Current Visit: Yes (3) Hyperglycemia due to type 2 diabetes mellitus SNOMED Code(s): 145393714998786, 816882627446319 Code(s): E11.65 - TYPE 2 DIABETES MELLITUS WITH HYPERGLYCEMIA Status: Acute Current Visit: Yes (4) Hypertension SNOMED Code(s): 14541910 Code(s): I10 - ESSENTIAL (PRIMARY) HYPERTENSION Status: Acute Current Visit: Yes (5) Urinary retention SNOMED Code(s): 558811103 Code(s): R33.9 - RETENTION OF URINE, UNSPECIFIED Status: Acute Current Visit: Yes - Problem List Review Problem List Initiated/Reviewed/Updated: Yes - My Orders Last 24 Hours: My Active Orders 05/24/21 21:00 Insulin Glarg,Human.Rec.Analog [LantUS] 30 unit SUBCUT BEDTIME 05/25/21 06:57 Patient Status [ADT] Routine 05/25/21 10:57 Albuterol [Proventil HFA] See Dose Instructions INH Q2H PRN 05/25/21 10:58 RT Aerosol Therapy [RC] ASDIRECTED RT Post Treatment Assessment [RC] Click to Edit RT Pre-Treatment Assessment [RC] Click to Edit Albuterol/Ipratropium [DuoNeb 3.0-0.5 MG/3 ML] 3 ml NEB Q4HRRT PRN - Plan Plan:: 75-year-old male with history of diastolic dysfunction, diabetes, emphysematous changes on chest x-ray from 2019, BPH, and hypertension, presents to the emergency department with worsening shortness of breath for the last 2 weeks secondary to COVID-19. COVID-19 with hypoxemia Emphysema * 2-week history of increasing shortness of breath * Diagnosed last week with COVID-19. Unknown specific date at this time. * Chest x-ray was consistent with emphysematous changes, diffuse increased lung markings which are less prominent than on prior chest x-ray. * High flow nasal cannula decreased to 50 L and 70% FiO2 * CRP decreased to 0.4 * Procalcitonin on 05/22/2021: 0.61 * Given remdesivir 100 mg, dexamethasone 6 mg, and baricitinib 4 mg in the emergency department * Remdesivir not continued secondary to renal function * Transferred to ICU last night Leukopeniaresolved * WBC 7.1 * Likely secondary to Covid infection Thrombocytopeniaresolved * Platelets 169 * Likely secondary to Covid infection Acute renal insufficiencyimproved * Creatinine 1.4 * BUN 40 Transaminitis * Improving AST and ALT. * AST 50, ALT 68 * T bilirubin 0.3, albumin 2.6 * Continue to monitor Previous smoker with emphysematous changes on chest x-ray * [id number] history, stopped in 2008 Diastolic dysfunction, grade 1 * Last echocardiogram in 2019 * BNP 370 * Home medications include: Furosemide and spironolactone, carvedilol, irbesartan * Holding irbesartan, spironolactone and furosemide * Blood pressure and heart rate has been low so carvedilol has been held * Echocardiogram05/22/2021: 1. Left ventricular ejection fraction, by visual estimation, is 60 to 65%. 2. Normal left ventricular systolic function. 3. Impaired relaxation grade 1 pattern of LV diastolic filling. 4. Mild proximal septal hypertrophy. 5. Normal LV filling pressures. Type 2 diabetes * A pharmacy audit shows that he is on glipizide. Patient states that he does take insulin shots. * Blood sugars in the 200s * Increased Lantus yesterday to 30 units daily * Hemoglobin A1c 10.3 Hypertension/hyperlipidemia * Initial blood pressures are well controlled. Systolic blood pressures in the 90s to 130 and diastolic blood pressure in the 60s to 80s. * Home meds include: Carvedilol, irbesartan, Lasix, and spironolactone * Carvedilol has been held secondary to bradycardia or low blood pressure * Continue Crestor BPH * On Flomax at home Plan Continue in ICU Continue respiratory support to keep oxygen saturations between 88 and 93%. Consider BiPAP if he fails high flow nasal cannula. Stop remdesivir because it has very low likelihood of benefit Continue dexamethasone 6 mg daily Continue baricitinib at a renally adjusted dose. Continue Rocephin 2 g every 24 hours for at least 5 days and azithromycin 500 mg IV daily for 3 days Renally dose medications Hold irbesartan Hold glipizide Start sliding scale insulin medium dose with fingerstick blood sugars 4 times daily Increase Lantus to 35 units nightly. Adjust as needed. Recheck CBC, CMP, mag, Phos, CRP in the morning VTE prophylaxis with Lovenox renally dosed CODE STATUS: Full code Length of stay greater than 96 hours secondary to severity of illness and slow recovery.
[2021-05-25] MEDS: Albuterol 6.7 GM Inhaler INH PRN ×3 (13:02→21:24)
[2021-05-25] MEDS: cefTRIAXone 2 GM in Sodium Chloride 0.9% 100 ML IV SCH (13:29)
[2021-05-25] MEDS: Famotidine 20 MG Tab PO SCH (20:53)
[2021-05-25] MEDS: Dexamethasone 4 MG Tab PO SCH (20:54)
[2021-05-25] MEDS: Insulin Glarg,Human.Rec.Analog 100 Unit/ML SUBCUT SCH (20:58)
[2021-05-26] MEDS: Enoxaparin 40 MG/0.4 ML Syringe SUBCUT SCH (08:09)
[2021-05-26] MEDS: Insulin Lispro 100 UNIT/ML 10 ML Vial SUBCUT SCH ×5 (08:09→21:29)
[2021-05-26] MEDS: Rosuvastatin 10 MG Tab PO SCH (08:10)
[2021-05-26] MEDS: Carvedilol 12.5 MG Tab PO SCH ×2 (08:10→21:28)
[2021-05-26] MEDS: Tamsulosin 0.4 MG Cap.ER PO SCH (08:10)
[2021-05-26] MEDS: Aspirin 81 MG Tab.EC PO SCH (08:10)
[2021-05-26] MEDS: Albuterol 6.7 GM Inhaler INH PRN ×2 (08:50→15:29)
--- NOTE | 2021-05-26 11:18 | PCM.PN ---
- General Info Date of Service: 05/26/21 Admission Dx/Problem (Free Text): Admission Diagnosis/Problem Admission Diagnosis/Problem Hypoxia Subjective Update: 75-year-old male admitted with 2-week history of Covid-like symptoms currently on high flow nasal cannula. He is tired but feeling better. Continues on high flow nasal cannula at 50 L and 50%. Functional Status: Reports: Pain Controlled - Review of Systems General: Reports: No Symptoms HEENT: Reports: No Symptoms Pulmonary: Reports: Shortness of Breath Cardiovascular: Reports: No Symptoms Gastrointestinal: Reports: No Symptoms Musculoskeletal: Reports: No Symptoms - Patient Data Vitals - Most Recent: Last Vital Signs Temp 98.2 F 05/26/21 07:16 Pulse 56 L 05/26/21 07:16 Resp 16 05/26/21 07:16 BP 131/57 L 05/26/21 07:16 Pulse Ox 93 L 05/26/21 08:50 Weight - Most Recent: 222 lb 14.4 oz I&O - Last 24 Hours: Intake & Output 05/25/21 05/26/21 05/26/21 22:59 06:59 14:59 Intake Total 1420 300 Output Total 600 1625 Balance 820 -1325 Lab Results Last 24 Hours: Laboratory Results - last 24 hr 05/25/21 05/25/21 05/26/21 Range/Units 16:34 20:51 04:47 WBC 7.72 (4.23-9.07) K/mm3 RBC 4.45 L (4.63-6.08) M/mm3 Hgb 13.6 L (13.7-17.5) gm/dl Hct 42.0 (40.1-51.0) % MCV 94.4 H (79.0-92.2) fl MCH 30.6 (25.7-32.2) pg MCHC 32.4 (32.2-35.5) g/dl RDW Std Deviation 43.2 (35.1-43.9) fL Plt Count 175 (163-337) K/mm3 MPV 12.0 (9.4-12.3) fl Neut % (Auto) 86.0 H (34.0-67.9) % Lymph % (Auto) 4.3 L (21.8-53.1) % Luna % (Auto) 8.3 (5.3-12.2) % Eos % (Auto) 0.1 L (0.8-7.0) Baso % (Auto) 0.1 (0.1-1.2) % Neut # (Auto) 6.64 H (1.78-5.38) K/mm3 Lymph # (Auto) 0.33 L (1.32-3.57) K/mm3 Luna # (Auto) 0.64 (0.30-0.82) K/mm3 Eos # (Auto) 0.01 L (0.04-0.54) K/mm3 Baso # (Auto) 0.01 (0.01-0.08) K/mm3 D-Dimer, Quantitative (0.19-0.50) mg/L Sodium (136-145) mEq/L Potassium (3.5-5.1) mEq/L Chloride (98-107) mEq/L Carbon Dioxide (21-32) mEq/L Anion Gap (5-15) BUN (7-18) mg/dL Creatinine (0.7-1.3) mg/dL Est Cr Clr Drug Dosing mL/min Estimated GFR (MDRD) (>60) mL/min BUN/Creatinine Ratio (14-18) Glucose (70-99) mg/dL POC Glucose 211 H 232 H (70-99) mg/dL Calcium (8.5-10.1) mg/dL Phosphorus (2.6-4.7) mg/dL Magnesium (1.8-2.4) mg/dL Total Bilirubin (0.2-1.0) mg/dL AST (15-37) U/L ALT (16-63) U/L Alkaline Phosphatase (46-116) U/L C-Reactive Protein (<1.0) mg/dL Total Protein (6.4-8.2) g/dl Albumin (3.4-5.0) g/dl Globulin gm/dL Albumin/Globulin Ratio (1-2) 05/26/21 05/26/21 05/26/21 Range/Units 04:47 04:47 10:05 WBC (4.23-9.07) K/mm3 RBC (4.63-6.08) M/mm3 Hgb (13.7-17.5) gm/dl Hct (40.1-51.0) % MCV (79.0-92.2) fl MCH (25.7-32.2) pg MCHC (32.2-35.5) g/dl RDW Std Deviation (35.1-43.9) fL Plt Count (163-337) K/mm3 MPV (9.4-12.3) fl Neut % (Auto) (34.0-67.9) % Lymph % (Auto) (21.8-53.1) % Luna % (Auto) (5.3-12.2) % Eos % (Auto) (0.8-7.0) Baso % (Auto) (0.1-1.2) % Neut # (Auto) (1.78-5.38) K/mm3 Lymph # (Auto) (1.32-3.57) K/mm3 Luna # (Auto) (0.30-0.82) K/mm3 Eos # (Auto) (0.04-0.54) K/mm3 Baso # (Auto) (0.01-0.08) K/mm3 D-Dimer, Quantitative 0.47 (0.19-0.50) mg/L Sodium 138 (136-145) mEq/L Potassium 4.9 (3.5-5.1) mEq/L Chloride 105 (98-107) mEq/L Carbon Dioxide 23 (21-32) mEq/L Anion Gap 14.9 (5-15) BUN 32 H (7-18) mg/dL Creatinine 1.2 (0.7-1.3) mg/dL Est Cr Clr Drug Dosing 52.25 mL/min Estimated GFR (MDRD) 59 (>60) mL/min BUN/Creatinine Ratio 26.7 H (14-18) Glucose 241 H (70-99) mg/dL POC Glucose 294 H (70-99) mg/dL Calcium 8.3 L (8.5-10.1) mg/dL Phosphorus 3.0 (2.6-4.7) mg/dL Magnesium 2.4 (1.8-2.4) mg/dL Total Bilirubin 0.4 (0.2-1.0) mg/dL AST 43 H (15-37) U/L ALT 67 H (16-63) U/L Alkaline Phosphatase 44 L (46-116) U/L C-Reactive Protein 0.5 (<1.0) mg/dL Total Protein 6.5 (6.4-8.2) g/dl Albumin 2.6 L (3.4-5.0) g/dl Globulin 3.9 gm/dL Albumin/Globulin Ratio 0.7 L (1-2) Benjie Results Last 24 Hours: Microbiology 05/22/21 12:15 Blood Culture - Preliminary Blood - Venous Staphylococcus Coagulase Neg Med Orders - Current: Current Medications Acetaminophen (Acetaminophen 325 Mg Tab) 650 mg PO Q4H PRN PRN Reason: Pain (Mild 1-3)/fever Albuterol (Albuterol 6.7 Gm Inhaler) 0 gm INH Q2H PRN PRN Reason: SOB/WHEEZING Last Admin: 05/26/21 08:50 Dose: 2 puff Documented by: Albuterol/Ipratropium (Albuterol/Ipratropium 3.0-0.5 Mg/3 Ml Neb Soln) 3 ml NEB Q4HRRT PRN PRN Reason: SOB/WHEEZING Aspirin (Aspirin 81 Mg Tab.Ec) 81 mg PO DAILY [facility] Last Admin: 05/26/21 08:10 Dose: 81 mg Documented by: Carvedilol (Carvedilol 12.5 Mg Tab) 12.5 mg PO BID [facility] Last Admin: 05/26/21 08:10 Dose: Not Given Documented by: Dexamethasone (Dexamethasone 4 Mg Tab) 6 mg PO Q24H [facility] Stop: 05/30/21 21:01 Last Admin: 05/25/21 20:54 Dose: 6 mg Documented by: Enoxaparin Sodium (Enoxaparin 40 Mg/0.4 Ml Syringe) 40 mg SUBCUT DAILY [facility] Last Admin: 05/26/21 08:09 Dose: 40 mg Documented by: Famotidine (Famotidine 20 Mg Tab) 20 mg PO BEDTIME [facility] Last Admin: 05/25/21 20:53 Dose: 20 mg Documented by: Ceftriaxone Sodium 2 gm/ (Sodium Chloride) 100 mls @ 200 mls/hr IV Q24H [facility] Stop: 05/26/21 14:29 Last Admin: 05/25/21 13:29 Dose: 200 mls/hr Documented by: Insulin Glargine (Insulin Glarg,Human.Rec.Analog 100 Unit/Ml) 30 unit SUBCUT BEDTIME [facility] Last Admin: 05/25/21 20:58 Dose: 30 units Documented by: Insulin Human Lispro (Insulin Lispro 100 Unit/Ml 10 Ml Vial) 0 unit SUBCUT QIDACANDBED [facility]; Protocol Last Admin: 05/26/21 08:09 Dose: 4 units Documented by: Insulin Human Lispro (Insulin Lispro 100 Unit/Ml 10 Ml Vial) 8 unit SUBCUT TIDAC [facility] Ondansetron HCl (Ondansetron 4 Mg/2 Ml Sdv) 4 mg IV Q6H PRN PRN Reason: Nausea/Vomiting Rosuvastatin Calcium (Rosuvastatin 10 Mg Tab) 20 mg PO DAILY [facility] Last Admin: 05/26/21 08:10 Dose: 20 mg Documented by: Sodium Chloride (Sodium Chloride 0.9% 10 Ml Syringe) 10 ml FLUSH ASDIRECTED PRN PRN Reason: Keep Vein Open Last Admin: 05/21/21 22:54 Dose: 10 ml Documented by: Tamsulosin HCl (Tamsulosin 0.4 Mg Cap.Er) 0.4 mg PO DAILY [facility] Last Admin: 05/26/21 08:10 Dose: 0.4 mg Documented by: Zolpidem Tartrate (Zolpidem 10 Mg Tab) 10 mg PO BEDTIME PRN PRN Reason: Insomnia Last Admin: 05/24/21 20:28 Dose: 10 mg Documented by: Discontinued Medications Dexamethasone (Dexamethasone 10 Mg/Ml Sdv) 6 mg IVPUSH ONETIME ONE Stop: 05/21/21 22:21 Last Admin: 05/21/21 22:41 Dose: 6 mg Documented by: Enoxaparin Sodium (Enoxaparin 30 Mg/0.3 Ml Syringe) 30 mg SUBCUT DAILY [facility] Last Admin: 05/23/21 08:24 Dose: 30 mg Documented by: Remdesivir 100 mg/ Sodium (Chloride) 100 mls @ 100 mls/hr IV ONETIME ONE Stop: 05/21/21 23:19 Last Admin: 05/21/21 22:41 Dose: 100 mls/hr Documented by: Sodium Chloride (Normal Saline) 500 mls @ 1,000 mls/hr IV .BOLUS ONE Stop: 05/22/21 06:23 Last Admin: 05/22/21 06:00 Dose: 1,000 mls/hr Documented by: Azithromycin 500 mg/ Sodium (Chloride) 250 mls @ 250 mls/hr IV Q24H [facility] Stop: 05/24/21 13:59 Last Admin: 05/24/21 12:27 Dose: 250 mls/hr Documented by: Sodium Chloride (Normal Saline) 1,000 mls @ 100 mls/hr IV ASDIRECTED [facility] Stop: 05/22/21 22:29 Last Admin: 05/22/21 15:30 Dose: 100 mls/hr Documented by: Influenza Virus Vaccine (Flu Vacc Wn1628(65up)/Mf59c/Pf 60 Mcg/0.5 Ml Syringe) 60 mcg IM .ONCE ONE Stop: 05/22/21 20:01 Insulin Glargine (Insulin Glarg,Human.Rec.Analog 100 Unit/Ml) 20 unit SUBCUT BEDTIME [facility] Last Admin: 05/22/21 20:32 Dose: 20 units Documented by: Insulin Glargine (Insulin Glarg,Human.Rec.Analog 100 Unit/Ml) 25 unit SUBCUT BEDTIME [facility] Last Admin: 05/23/21 20:48 Dose: 25 units Documented by: Non-Formulary Medication (Albuterol Sulfate) 2 puff INH ASDIRECTED PRN PRN Reason: Shortness of Breath - Exam Quality Assessment: Supplemental Oxygen General: Alert, Oriented HEENT: Pupils Equal, Mucous Membr. Moist/[place] Neck: Supple Lungs: Normal Respiratory Effort, Crackles Cardiovascular: Regular Rate, Regular Rhythm GI/Abdominal Exam: Normal Bowel Sounds, Soft, Non-Tender, No Distention Extremities: Normal Inspection, Normal Range of Motion, No Pedal Edema, Normal Capillary Refill Skin: Warm, Dry, Intact Psy/Mental Status: Alert, Normal Affect, Normal Mood - Patient Data Lab Results Last 24 hrs: Laboratory Results - last 24 hr 05/25/21 05/25/21 05/26/21 Range/Units 16:34 20:51 04:47 WBC 7.72 (4.23-9.07) K/mm3 RBC 4.45 L (4.63-6.08) M/mm3 Hgb 13.6 L (13.7-17.5) gm/dl Hct 42.0 (40.1-51.0) % MCV 94.4 H (79.0-92.2) fl MCH 30.6 (25.7-32.2) pg MCHC 32.4 (32.2-35.5) g/dl RDW Std Deviation 43.2 (35.1-43.9) fL Plt Count 175 (163-337) K/mm3 MPV 12.0 (9.4-12.3) fl Neut % (Auto) 86.0 H (34.0-67.9) % Lymph % (Auto) 4.3 L (21.8-53.1) % Luna % (Auto) 8.3 (5.3-12.2) % Eos % (Auto) 0.1 L (0.8-7.0) Baso % (Auto) 0.1 (0.1-1.2) % Neut # (Auto) 6.64 H (1.78-5.38) K/mm3 Lymph # (Auto) 0.33 L (1.32-3.57) K/mm3 Luna # (Auto) 0.64 (0.30-0.82) K/mm3 Eos # (Auto) 0.01 L (0.04-0.54) K/mm3 Baso # (Auto) 0.01 (0.01-0.08) K/mm3 D-Dimer, Quantitative (0.19-0.50) mg/L Sodium (136-145) mEq/L Potassium (3.5-5.1) mEq/L Chloride (98-107) mEq/L Carbon Dioxide (21-32) mEq/L Anion Gap (5-15) BUN (7-18) mg/dL Creatinine (0.7-1.3) mg/dL Est Cr Clr Drug Dosing mL/min Estimated GFR (MDRD) (>60) mL/min BUN/Creatinine Ratio (14-18) Glucose (70-99) mg/dL POC Glucose 211 H 232 H (70-99) mg/dL Calcium (8.5-10.1) mg/dL Phosphorus (2.6-4.7) mg/dL Magnesium (1.8-2.4) mg/dL Total Bilirubin (0.2-1.0) mg/dL AST (15-37) U/L ALT (16-63) U/L Alkaline Phosphatase (46-116) U/L C-Reactive Protein (<1.0) mg/dL Total Protein (6.4-8.2) g/dl Albumin (3.4-5.0) g/dl Globulin gm/dL Albumin/Globulin Ratio (1-2) 05/26/21 05/26/21 05/26/21 Range/Units 04:47 04:47 10:05 WBC (4.23-9.07) K/mm3 RBC (4.63-6.08) M/mm3 Hgb (13.7-17.5) gm/dl Hct (40.1-51.0) % MCV (79.0-92.2) fl MCH (25.7-32.2) pg MCHC (32.2-35.5) g/dl RDW Std Deviation (35.1-43.9) fL Plt Count (163-337) K/mm3 MPV (9.4-12.3) fl Neut % (Auto) (34.0-67.9) % Lymph % (Auto) (21.8-53.1) % Luna % (Auto) (5.3-12.2) % Eos % (Auto) (0.8-7.0) Baso % (Auto) (0.1-1.2) % Neut # (Auto) (1.78-5.38) K/mm3 Lymph # (Auto) (1.32-3.57) K/mm3 Luna # (Auto) (0.30-0.82) K/mm3 Eos # (Auto) (0.04-0.54) K/mm3 Baso # (Auto) (0.01-0.08) K/mm3 D-Dimer, Quantitative 0.47 (0.19-0.50) mg/L Sodium 138 (136-145) mEq/L Potassium 4.9 (3.5-5.1) mEq/L Chloride 105 (98-107) mEq/L Carbon Dioxide 23 (21-32) mEq/L Anion Gap 14.9 (5-15) BUN 32 H (7-18) mg/dL Creatinine 1.2 (0.7-1.3) mg/dL Est Cr Clr Drug Dosing 52.25 mL/min Estimated GFR (MDRD) 59 (>60) mL/min BUN/Creatinine Ratio 26.7 H (14-18) Glucose 241 H (70-99) mg/dL POC Glucose 294 H (70-99) mg/dL Calcium 8.3 L (8.5-10.1) mg/dL Phosphorus 3.0 (2.6-4.7) mg/dL Magnesium 2.4 (1.8-2.4) mg/dL Total Bilirubin 0.4 (0.2-1.0) mg/dL AST 43 H (15-37) U/L ALT 67 H (16-63) U/L Alkaline Phosphatase 44 L (46-116) U/L C-Reactive Protein 0.5 (<1.0) mg/dL Total Protein 6.5 (6.4-8.2) g/dl Albumin 2.6 L (3.4-5.0) g/dl Globulin 3.9 gm/dL Albumin/Globulin Ratio 0.7 L (1-2) Result Diagrams: 05/26/21 04:47 05/26/21 04:47 Benjie Results Last 24 hrs: Microbiology 05/22/21 12:15 Blood Culture - Preliminary Blood - Venous Staphylococcus Coagulase Neg Sepsis Event Note - Evaluation Sepsis Screening Result: No Definite Risk - Focused Exam Vital Signs: Vital Signs Temp Pulse Pulse Resp BP Pulse Ox Pulse Ox 05/26/21 08:50 93 L 05/26/21 07:16 98.2 F 56 L 16 131/57 L 92 L 05/26/21 04:36 91 L 05/26/21 04:35 98.2 F 51 L 14 140/65 87 L 05/26/21 00:00 53 L 92 L - Problem List & Annotations (1) Acute renal insufficiency SNOMED Code(s): 849500654 Code(s): N28.9 - DISORDER OF KIDNEY AND URETER, UNSPECIFIED Status: Acute Current Visit: Yes (2) COVID-19 SNOMED Code(s): 338213968 Code(s): U07.1 - COVID-19 Status: Acute Current Visit: Yes (3) Hyperglycemia due to type 2 diabetes mellitus SNOMED Code(s): 329536978581777, 306685783119091 Code(s): E11.65 - TYPE 2 DIABETES MELLITUS WITH HYPERGLYCEMIA Status: Acute Current Visit: Yes (4) Hypertension SNOMED Code(s): 62435677 Code(s): I10 - ESSENTIAL (PRIMARY) HYPERTENSION Status: Acute Current Visit: Yes (5) Urinary retention SNOMED Code(s): 251833240 Code(s): R33.9 - RETENTION OF URINE, UNSPECIFIED Status: Acute Current Visit: Yes - Problem List Review Problem List Initiated/Reviewed/Updated: Yes - My Orders Last 24 Hours: My Active Orders 05/25/21 10:57 Albuterol [Proventil HFA] See Dose Instructions INH Q2H PRN 05/25/21 10:58 RT Aerosol Therapy [RC] ASDIRECTED Albuterol/Ipratropium [DuoNeb 3.0-0.5 MG/3 ML] 3 ml NEB Q4HRRT PRN 05/26/21 17:00 Insulin Lispro [HumaLOG] 8 unit SUBCUT TIDAC 05/27/21 05:11 C-REACTIVE PROTEIN [CHEM] AM CBC WITH AUTO DIFF [HEME] AM CMP [COMPREHENSIVE METABOLIC PN,CMP] [CHEM] AM MAGNESIUM [CHEM] AM PHOSPHORUS [CHEM] AM 05/28/21 05:11 C-REACTIVE PROTEIN [CHEM] AM CBC WITH AUTO DIFF [HEME] AM CMP [COMPREHENSIVE METABOLIC PN,CMP] [CHEM] AM MAGNESIUM [CHEM] AM PHOSPHORUS [CHEM] AM - Plan Plan:: 75-year-old male with history of diastolic dysfunction, diabetes, emphysematous changes on chest x-ray from 2019, BPH, and hypertension, presents to the emergency department with worsening shortness of breath for the last 2 weeks secondary to COVID-19. COVID-19 with hypoxemia Emphysema * 2-week history of increasing shortness of breath prior to admission * Diagnosed 1 week before admission with COVID-19. Unknown specific date at this time. * Chest x-ray was consistent with emphysematous changes, diffuse increased lung markings which are less prominent than on prior chest x-ray. * High flow nasal cannula decreased to 50 L and 50% FiO2 * CRP decreased to 0.4 * Procalcitonin on 05/22/2021: 0.61 * Given remdesivir 100 mg, dexamethasone 6 mg, and baricitinib 4 mg in the emergency department * Remdesivir not initially continued secondary to renal function * Transferred to ICU last night Leukopeniaresolved * WBC 7.1 * Likely secondary to Covid infection Thrombocytopeniaresolved * Platelets 169 * Likely secondary to Covid infection Acute renal insufficiencyimproved * Creatinine continuing to improve: 1.2 * BUN continuing to improve: 32 Transaminitis * Improving AST and ALT. * AST 43, ALT 67 * T bilirubin 0.4, albumin 2.6 * Continue to monitor Previous smoker with emphysematous changes on chest x-ray * [id number] history, stopped in 2008 Diastolic dysfunction, grade 1 * Last echocardiogram in 2019 * BNP 370 * Home medications include: Furosemide and spironolactone, carvedilol, irbesartan * Holding irbesartan, spironolactone and furosemide * Blood pressure and heart rate has been low so carvedilol has been held * Echocardiogram05/22/2021: 1. Left ventricular ejection fraction, by visual estimation, is 60 to 65%. 2. Normal left ventricular systolic function. 3. Impaired relaxation grade 1 pattern of LV diastolic filling. 4. Mild proximal septal hypertrophy. 5. Normal LV filling pressures. Type 2 diabetes * A pharmacy audit shows that he is on glipizide. Patient states that he does take insulin shots. * Blood sugars in the 200s * Increased Lantus yesterday to 30 units daily * Hemoglobin A1c 10.3 Hypertension/hyperlipidemia * Initial blood pressures are well controlled. Systolic blood pressures in the 90s to 130 and diastolic blood pressure in the 60s to 80s. * Home meds include: Carvedilol, irbesartan, Lasix, and spironolactone * Carvedilol has been held secondary to bradycardia or low blood pressure * Continue Crestor BPH * On Flomax at home Plan Continue in ICU Continue respiratory support to keep oxygen saturations between 88 and 93%. Consider BiPAP if he fails high flow nasal cannula. Stopped remdesivir because it has very low likelihood of benefit Continue dexamethasone 6 mg daily Continue baricitinib at a renally adjusted dose. Continue Rocephin 2 g every 24 hours for at least 5 days and azithromycin 500 mg IV daily for 3 days Renally dose medications Hold irbesartan Hold glipizide Start sliding scale insulin medium dose with fingerstick blood sugars 4 times daily Increase Lantus to 35 units nightly. Adjust as needed. Recheck CBC, CMP, mag, Phos, CRP in the morning VTE prophylaxis with Lovenox renally dosed CODE STATUS: Full code Length of stay greater than 96 hours secondary to severity of illness and slow recovery.
[2021-05-26] MEDS: cefTRIAXone 2 GM in Sodium Chloride 0.9% 100 ML IV SCH (13:16)
[2021-05-26] MEDS: Dexamethasone 4 MG Tab PO SCH (21:28)
[2021-05-26] MEDS: Insulin Glarg,Human.Rec.Analog 100 Unit/ML SUBCUT SCH (21:28)
[2021-05-26] MEDS: Famotidine 20 MG Tab PO SCH (21:29)
[2021-05-27] MEDS: Insulin Lispro 100 UNIT/ML 10 ML Vial SUBCUT SCH ×7 (06:53→22:02)
[2021-05-27] MEDS: Albuterol 6.7 GM Inhaler INH PRN (09:41)
[2021-05-27] MEDS: Enoxaparin 40 MG/0.4 ML Syringe SUBCUT SCH (09:42)
[2021-05-27] MEDS: Aspirin 81 MG Tab.EC PO SCH (09:42)
[2021-05-27] MEDS: Carvedilol 12.5 MG Tab PO SCH ×2 (09:42→22:02)
[2021-05-27] MEDS: Rosuvastatin 10 MG Tab PO SCH (09:43)
[2021-05-27] MEDS: Tamsulosin 0.4 MG Cap.ER PO SCH (09:43)
--- NOTE | 2021-05-27 14:14 | PCM.PN ---
- General Info Date of Service: 05/27/21 Admission Dx/Problem (Free Text): Admission Diagnosis/Problem Admission Diagnosis/Problem Hypoxia Subjective Update: 75-year-old male admitted with 2-week history of Covid-like symptoms currently on high flow nasal cannula at 50 L and 50%. Patient is resting comfortably today. He has no complaints. Functional Status: Reports: Pain Controlled - Review of Systems General: Reports: No Symptoms HEENT: Reports: No Symptoms Pulmonary: Reports: Shortness of Breath, Cough Cardiovascular: Reports: No Symptoms Gastrointestinal: Reports: No Symptoms Musculoskeletal: Reports: No Symptoms Psychiatric: Reports: No Symptoms - Patient Data Vitals - Most Recent: Last Vital Signs Temp 98.2 F 05/27/21 03:59 Pulse 64 05/27/21 09:42 Resp 15 05/27/21 03:59 BP 141/95 H 05/27/21 09:42 Pulse Ox 91 L 05/27/21 09:53 Weight - Most Recent: 221 lb 14.4 oz I&O - Last 24 Hours: Intake & Output 05/26/21 05/27/21 05/27/21 22:59 06:59 14:59 Intake Total 1038 300 120 Output Total 500 675 Balance 538 -375 120 Lab Results Last 24 Hours: Laboratory Results - last 24 hr 05/26/21 05/26/21 05/27/21 Range/Units 16:31 21:26 05:26 WBC 7.93 (4.23-9.07) K/mm3 RBC 4.64 (4.63-6.08) M/mm3 Hgb 14.2 (13.7-17.5) gm/dl Hct 44.0 (40.1-51.0) % MCV 94.8 H (79.0-92.2) fl MCH 30.6 (25.7-32.2) pg MCHC 32.3 (32.2-35.5) g/dl RDW Std Deviation 43.8 (35.1-43.9) fL Plt Count 212 (163-337) K/mm3 MPV 12.2 (9.4-12.3) fl Neut % (Auto) 75.6 H (34.0-67.9) % Lymph % (Auto) 12.0 L (21.8-53.1) % [place] % (Auto) 9.8 (5.3-12.2) % Eos % (Auto) 0.3 L (0.8-7.0) Baso % (Auto) 0.4 (0.1-1.2) % Neut # (Auto) 6.00 H (1.78-5.38) K/mm3 Lymph # (Auto) 0.95 L (1.32-3.57) K/mm3 [place] # (Auto) 0.78 (0.30-0.82) K/mm3 Eos # (Auto) 0.02 L (0.04-0.54) K/mm3 Baso # (Auto) 0.03 (0.01-0.08) K/mm3 Manual Slide Review Normal smear Sodium (136-145) mEq/L Potassium (3.5-5.1) mEq/L Chloride (98-107) mEq/L Carbon Dioxide (21-32) mEq/L Anion Gap (5-15) BUN (7-18) mg/dL Creatinine (0.7-1.3) mg/dL Est Cr Clr Drug Dosing mL/min Estimated GFR (MDRD) (>60) mL/min BUN/Creatinine Ratio (14-18) Glucose (70-99) mg/dL POC Glucose 233 H 200 H (70-99) mg/dL Calcium (8.5-10.1) mg/dL Phosphorus (2.6-4.7) mg/dL Magnesium (1.8-2.4) mg/dL Total Bilirubin (0.2-1.0) mg/dL AST (15-37) U/L ALT (16-63) U/L Alkaline Phosphatase (46-116) U/L C-Reactive Protein (<1.0) mg/dL Total Protein (6.4-8.2) g/dl Albumin (3.4-5.0) g/dl Globulin gm/dL Albumin/Globulin Ratio (1-2) 05/27/21 05/27/21 05/27/21 Range/Units 05:26 06:36 11:18 WBC (4.23-9.07) K/mm3 RBC (4.63-6.08) M/mm3 Hgb (13.7-17.5) gm/dl Hct (40.1-51.0) % MCV (79.0-92.2) fl MCH (25.7-32.2) pg MCHC (32.2-35.5) g/dl RDW Std Deviation (35.1-43.9) fL Plt Count (163-337) K/mm3 MPV (9.4-12.3) fl Neut % (Auto) (34.0-67.9) % Lymph % (Auto) (21.8-53.1) % [place] % (Auto) (5.3-12.2) % Eos % (Auto) (0.8-7.0) Baso % (Auto) (0.1-1.2) % Neut # (Auto) (1.78-5.38) K/mm3 Lymph # (Auto) (1.32-3.57) K/mm3 [place] # (Auto) (0.30-0.82) K/mm3 Eos # (Auto) (0.04-0.54) K/mm3 Baso # (Auto) (0.01-0.08) K/mm3 Manual Slide Review Sodium 140 (136-145) mEq/L Potassium 4.1 (3.5-5.1) mEq/L Chloride 107 (98-107) mEq/L Carbon Dioxide 26 (21-32) mEq/L Anion Gap 11.1 (5-15) BUN 30 H (7-18) mg/dL Creatinine 1.3 (0.7-1.3) mg/dL Est Cr Clr Drug Dosing 48.23 mL/min Estimated GFR (MDRD) 54 (>60) mL/min BUN/Creatinine Ratio 23.1 H (14-18) Glucose 98 (70-99) mg/dL POC Glucose 86 127 H (70-99) mg/dL Calcium 8.7 (8.5-10.1) mg/dL Phosphorus 3.1 (2.6-4.7) mg/dL Magnesium 2.3 (1.8-2.4) mg/dL Total Bilirubin 0.4 (0.2-1.0) mg/dL AST 43 H (15-37) U/L ALT 76 H (16-63) U/L Alkaline Phosphatase 45 L (46-116) U/L C-Reactive Protein 0.4 (<1.0) mg/dL Total Protein 6.6 (6.4-8.2) g/dl Albumin 2.6 L (3.4-5.0) g/dl Globulin 4.0 gm/dL Albumin/Globulin Ratio 0.7 L (1-2) Med Orders - Current: Current Medications Acetaminophen (Acetaminophen 325 Mg Tab) 650 mg PO Q4H PRN PRN Reason: Pain (Mild 1-3)/fever Albuterol (Albuterol 6.7 Gm Inhaler) 0 gm INH Q2H PRN PRN Reason: SOB/WHEEZING Last Admin: 05/27/21 09:41 Dose: 2 puff Documented by: Albuterol/Ipratropium (Albuterol/Ipratropium 3.0-0.5 Mg/3 Ml Neb Soln) 3 ml NEB Q4HRRT PRN PRN Reason: SOB/WHEEZING Aspirin (Aspirin 81 Mg Tab.Ec) 81 mg PO DAILY [facility] Last Admin: 05/27/21 09:42 Dose: 81 mg Documented by: Carvedilol (Carvedilol 12.5 Mg Tab) 12.5 mg PO BID [facility] Last Admin: 05/27/21 09:42 Dose: 12.5 mg Documented by: Dexamethasone (Dexamethasone 4 Mg Tab) 6 mg PO Q24H [facility] Stop: 05/30/21 21:01 Last Admin: 05/26/21 21:28 Dose: 6 mg Documented by: Enoxaparin Sodium (Enoxaparin 40 Mg/0.4 Ml Syringe) 40 mg SUBCUT DAILY [facility] Last Admin: 05/27/21 09:42 Dose: 40 mg Documented by: Famotidine (Famotidine 20 Mg Tab) 20 mg PO BEDTIME [facility] Last Admin: 05/26/21 21:29 Dose: 20 mg Documented by: Insulin Glargine (Insulin Glarg,Human.Rec.Analog 100 Unit/Ml) 30 unit SUBCUT BEDTIME [facility] Last Admin: 05/26/21 21:28 Dose: 30 units Documented by: Insulin Human Lispro (Insulin Lispro 100 Unit/Ml 10 Ml Vial) 0 unit SUBCUT QIDACANDBED [facility]; Protocol Last Admin: 05/27/21 13:03 Dose: Not Given Documented by: Insulin Human Lispro (Insulin Lispro 100 Unit/Ml 10 Ml Vial) 8 unit SUBCUT TIDAC [facility] Last Admin: 05/27/21 13:03 Dose: Not Given Documented by: Ondansetron HCl (Ondansetron 4 Mg/2 Ml Sdv) 4 mg IV Q6H PRN PRN Reason: Nausea/Vomiting Rosuvastatin Calcium (Rosuvastatin 10 Mg Tab) 20 mg PO DAILY [facility] Last Admin: 05/27/21 09:43 Dose: 20 mg Documented by: Sodium Chloride (Sodium Chloride 0.9% 10 Ml Syringe) 10 ml FLUSH ASDIRECTED PRN PRN Reason: Keep Vein Open Last Admin: 05/21/21 22:54 Dose: 10 ml Documented by: Tamsulosin HCl (Tamsulosin 0.4 Mg Cap.Er) 0.4 mg PO DAILY [facility] Last Admin: 05/27/21 09:43 Dose: 0.4 mg Documented by: Zolpidem Tartrate (Zolpidem 10 Mg Tab) 10 mg PO BEDTIME PRN PRN Reason: Insomnia Last Admin: 05/24/21 20:28 Dose: 10 mg Documented by: Discontinued Medications Dexamethasone (Dexamethasone 10 Mg/Ml Sdv) 6 mg IVPUSH ONETIME ONE Stop: 05/21/21 22:21 Last Admin: 05/21/21 22:41 Dose: 6 mg Documented by: Enoxaparin Sodium (Enoxaparin 30 Mg/0.3 Ml Syringe) 30 mg SUBCUT DAILY [facility] Last Admin: 05/23/21 08:24 Dose: 30 mg Documented by: Remdesivir 100 mg/ Sodium (Chloride) 100 mls @ 100 mls/hr IV ONETIME ONE Stop: 05/21/21 23:19 Last Admin: 05/21/21 22:41 Dose: 100 mls/hr Documented by: Sodium Chloride (Normal Saline) 500 mls @ 1,000 mls/hr IV .BOLUS ONE Stop: 05/22/21 06:23 Last Admin: 05/22/21 06:00 Dose: 1,000 mls/hr Documented by: Ceftriaxone Sodium 2 gm/ (Sodium Chloride) 100 mls @ 200 mls/hr IV Q24H PITA Stop: 05/26/21 14:29 Last Admin: 05/26/21 13:16 Dose: 200 mls/hr Documented by: Azithromycin 500 mg/ Sodium (Chloride) 250 mls @ 250 mls/hr IV Q24H PITA Stop: 05/24/21 13:59 Last Admin: 05/24/21 12:27 Dose: 250 mls/hr Documented by: Sodium Chloride (Normal Saline) 1,000 mls @ 100 mls/hr IV ASDIRECTED PITA Stop: 05/22/21 22:29 Last Admin: 05/22/21 15:30 Dose: 100 mls/hr Documented by: Influenza Virus Vaccine (Flu Vacc Hw0232(65up)/Mf59c/Pf 60 Mcg/0.5 Ml Syringe) 60 mcg IM .ONCE ONE Stop: 05/22/21 20:01 Insulin Glargine (Insulin Glarg,Human.Rec.Analog 100 Unit/Ml) 20 unit SUBCUT BEDTIME PITA Last Admin: 05/22/21 20:32 Dose: 20 units Documented by: Insulin Glargine (Insulin Glarg,Human.Rec.Analog 100 Unit/Ml) 25 unit SUBCUT BEDTIME PITA Last Admin: 05/23/21 20:48 Dose: 25 units Documented by: Non-Formulary Medication (Albuterol Sulfate) 2 puff INH ASDIRECTED PRN PRN Reason: Shortness of Breath - Exam Quality Assessment: Supplemental Oxygen (High flow nasal cannula) General: Alert, Oriented HEENT: Pupils Equal, Mucous Membr. Moist/[place] Neck: Supple Lungs: Normal Respiratory Effort, Crackles (Bibasilar) Cardiovascular: Regular Rate, Regular Rhythm GI/Abdominal Exam: Normal Bowel Sounds, Soft, Non-Tender, No Distention Extremities: Normal Inspection, No Pedal Edema Psy/Mental Status: Alert, Normal Affect, Normal Mood - Patient Data Lab Results Last 24 hrs: Laboratory Results - last 24 hr 05/26/21 05/26/21 05/27/21 Range/Units 16:31 21:26 05:26 WBC 7.93 (4.23-9.07) K/mm3 RBC 4.64 (4.63-6.08) M/mm3 Hgb 14.2 (13.7-17.5) gm/dl Hct 44.0 (40.1-51.0) % MCV 94.8 H (79.0-92.2) fl MCH 30.6 (25.7-32.2) pg MCHC 32.3 (32.2-35.5) g/dl RDW Std Deviation 43.8 (35.1-43.9) fL Plt Count 212 (163-337) K/mm3 MPV 12.2 (9.4-12.3) fl Neut % (Auto) 75.6 H (34.0-67.9) % Lymph % (Auto) 12.0 L (21.8-53.1) % [place] % (Auto) 9.8 (5.3-12.2) % Eos % (Auto) 0.3 L (0.8-7.0) Baso % (Auto) 0.4 (0.1-1.2) % Neut # (Auto) 6.00 H (1.78-5.38) K/mm3 Lymph # (Auto) 0.95 L (1.32-3.57) K/mm3 [place] # (Auto) 0.78 (0.30-0.82) K/mm3 Eos # (Auto) 0.02 L (0.04-0.54) K/mm3 Baso # (Auto) 0.03 (0.01-0.08) K/mm3 Manual Slide Review Normal smear Sodium (136-145) mEq/L Potassium (3.5-5.1) mEq/L Chloride (98-107) mEq/L Carbon Dioxide (21-32) mEq/L Anion Gap (5-15) BUN (7-18) mg/dL Creatinine (0.7-1.3) mg/dL Est Cr Clr Drug Dosing mL/min Estimated GFR (MDRD) (>60) mL/min BUN/Creatinine Ratio (14-18) Glucose (70-99) mg/dL POC Glucose 233 H 200 H (70-99) mg/dL Calcium (8.5-10.1) mg/dL Phosphorus (2.6-4.7) mg/dL Magnesium (1.8-2.4) mg/dL Total Bilirubin (0.2-1.0) mg/dL AST (15-37) U/L ALT (16-63) U/L Alkaline Phosphatase (46-116) U/L C-Reactive Protein (<1.0) mg/dL Total Protein (6.4-8.2) g/dl Albumin (3.4-5.0) g/dl Globulin gm/dL Albumin/Globulin Ratio (1-2) 05/27/21 05/27/21 05/27/21 Range/Units 05:26 06:36 11:18 WBC (4.23-9.07) K/mm3 RBC (4.63-6.08) M/mm3 Hgb (13.7-17.5) gm/dl Hct (40.1-51.0) % MCV (79.0-92.2) fl MCH (25.7-32.2) pg MCHC (32.2-35.5) g/dl RDW Std Deviation (35.1-43.9) fL Plt Count (163-337) K/mm3 MPV (9.4-12.3) fl Neut % (Auto) (34.0-67.9) % Lymph % (Auto) (21.8-53.1) % [place] % (Auto) (5.3-12.2) % Eos % (Auto) (0.8-7.0) Baso % (Auto) (0.1-1.2) % Neut # (Auto) (1.78-5.38) K/mm3 Lymph # (Auto) (1.32-3.57) K/mm3 [place] # (Auto) (0.30-0.82) K/mm3 Eos # (Auto) (0.04-0.54) K/mm3 Baso # (Auto) (0.01-0.08) K/mm3 Manual Slide Review Sodium 140 (136-145) mEq/L Potassium 4.1 (3.5-5.1) mEq/L Chloride 107 (98-107) mEq/L Carbon Dioxide 26 (21-32) mEq/L Anion Gap 11.1 (5-15) BUN 30 H (7-18) mg/dL Creatinine 1.3 (0.7-1.3) mg/dL Est Cr Clr Drug Dosing 48.23 mL/min Estimated GFR (MDRD) 54 (>60) mL/min BUN/Creatinine Ratio 23.1 H (14-18) Glucose 98 (70-99) mg/dL POC Glucose 86 127 H (70-99) mg/dL Calcium 8.7 (8.5-10.1) mg/dL Phosphorus 3.1 (2.6-4.7) mg/dL Magnesium 2.3 (1.8-2.4) mg/dL Total Bilirubin 0.4 (0.2-1.0) mg/dL AST 43 H (15-37) U/L ALT 76 H (16-63) U/L Alkaline Phosphatase 45 L (46-116) U/L C-Reactive Protein 0.4 (<1.0) mg/dL Total Protein 6.6 (6.4-8.2) g/dl Albumin 2.6 L (3.4-5.0) g/dl Globulin 4.0 gm/dL Albumin/Globulin Ratio 0.7 L (1-2) Result Diagrams: 05/27/21 05:26 05/27/21 05:26 Sepsis Event Note - Evaluation Sepsis Screening Result: No Definite Risk - Focused Exam Vital Signs: Vital Signs Temp Pulse Resp BP Pulse Ox Pulse Ox 05/27/21 09:53 91 L 05/27/21 09:42 64 141/95 H 05/27/21 04:05 89 L 05/27/21 03:59 98.2 F 51 L 15 128/69 84 L - Problem List & Annotations (1) Acute renal insufficiency SNOMED Code(s): 869832513 Code(s): N28.9 - DISORDER OF KIDNEY AND URETER, UNSPECIFIED Status: Acute Current Visit: Yes (2) COVID-19 SNOMED Code(s): 653619433 Code(s): U07.1 - COVID-19 Status: Acute Current Visit: Yes (3) Hyperglycemia due to type 2 diabetes mellitus SNOMED Code(s): 814395716918912, 412825837958430 Code(s): E11.65 - TYPE 2 DIABETES MELLITUS WITH HYPERGLYCEMIA Status: Acute Current Visit: Yes (4) Hypertension SNOMED Code(s): 46261779 Code(s): I10 - ESSENTIAL (PRIMARY) HYPERTENSION Status: Acute Current Visit: Yes (5) Urinary retention SNOMED Code(s): 918059069 Code(s): R33.9 - RETENTION OF URINE, UNSPECIFIED Status: Acute Current Visit: Yes - Problem List Review Problem List Initiated/Reviewed/Updated: Yes - My Orders Last 24 Hours: My Active Orders 05/26/21 17:00 Insulin Lispro [HumaLOG] 8 unit SUBCUT TIDAC 05/28/21 05:11 C-REACTIVE PROTEIN [CHEM] AM CBC WITH AUTO DIFF [HEME] AM CMP [COMPREHENSIVE METABOLIC PN,CMP] [CHEM] AM MAGNESIUM [CHEM] AM PHOSPHORUS [CHEM] AM - Plan Plan:: 75-year-old male with history of diastolic dysfunction, diabetes, emphysematous changes on chest x-ray from 2019, BPH, and hypertension, presents to the emergency department with worsening shortness of breath for the last 2 weeks secondary to COVID-19. COVID-19 with hypoxemia Emphysema * 2-week history of increasing shortness of breath prior to admission * Diagnosed 1 week before admission with COVID-19. Unknown specific date at this time. * Chest x-ray was consistent with emphysematous changes, diffuse increased lung markings which are less prominent than on prior chest x-ray. * High flow nasal cannula decreased to 50 L and 50% FiO2 * CRP decreased to 0.4 * Procalcitonin on 05/22/2021: 0.61 * Given remdesivir 100 mg, dexamethasone 6 mg, and baricitinib 4 mg in the emergency department * Remdesivir not initially continued secondary to renal function * Transferred to ICU last night Leukopeniaresolved * WBC 7.1 * Likely secondary to Covid infection Thrombocytopeniaresolved * Platelets 169 * Likely secondary to Covid infection Acute renal insufficiencyimproved * Creatinine continuing to improve: 1.2 * BUN continuing to improve: 32 Transaminitis * Improving AST and ALT. * AST 43, ALT 67 * T bilirubin 0.4, albumin 2.6 * Continue to monitor Previous smoker with emphysematous changes on chest x-ray * [id number] history, stopped in 2008 Diastolic dysfunction, grade 1 * Last echocardiogram in 2019 * BNP 370 * Home medications include: Furosemide and spironolactone, carvedilol, irbesartan * Holding irbesartan, spironolactone and furosemide * Blood pressure and heart rate has been low so carvedilol has been held * Echocardiogram05/22/2021: 1. Left ventricular ejection fraction, by visual estimation, is 60 to 65%. 2. Normal left ventricular systolic function. 3. Impaired relaxation grade 1 pattern of LV diastolic filling. 4. Mild proximal septal hypertrophy. 5. Normal LV filling pressures. Type 2 diabetes * A pharmacy audit shows that he is on glipizide. Patient states that he does take insulin shots. * Blood sugars in the 100s * Lantus 30 units daily * poor appetite today * Hemoglobin A1c 10.3 Hypertension/hyperlipidemia * Initial blood pressures are well controlled. Systolic blood pressures in the 90s to 130 and diastolic blood pressure in the 60s to 80s. * Home meds include: Carvedilol, irbesartan, Lasix, and spironolactone * Carvedilol has been held secondary to bradycardia or low blood pressure * Continue Crestor BPH * On Flomax at home Plan Continue in ICU Continue respiratory support to keep oxygen saturations between 88 and 93%. Consider BiPAP if he fails high flow nasal cannula. Stopped remdesivir because it has very low likelihood of benefit Continue dexamethasone 6 mg daily Continue baricitinib at a renally adjusted dose. Completed Rocephin 2 g every 24 hours for at least 5 days and azithromycin 500 mg IV daily for 3 days Renally dose medications Hold irbesartan Hold glipizide Start sliding scale insulin medium dose with fingerstick blood sugars 4 times daily Increase Lantus to 35 units nightly. Adjust as needed. Recheck CBC, CMP, mag, Phos, CRP in the morning VTE prophylaxis with Lovenox renally dosed CODE STATUS: Full code Length of stay greater than 96 hours secondary to severity of illness and slow recovery.
[2021-05-27] MEDS: Famotidine 20 MG Tab PO SCH (22:00)
[2021-05-27] MEDS: Dexamethasone 4 MG Tab PO SCH (22:00)
[2021-05-27] MEDS: Insulin Glarg,Human.Rec.Analog 100 Unit/ML SUBCUT SCH (22:01)
[2021-05-28] MEDS: Insulin Lispro 100 UNIT/ML 10 ML Vial SUBCUT SCH ×4 (06:44→22:46)
--- NOTE | 2021-05-28 07:43 | PCM.PN ---
- General Info Date of Service: 05/28/21 Admission Dx/Problem (Free Text): Admission Diagnosis/Problem Admission Diagnosis/Problem Hypoxia/covid pneumonia Subjective Update: 75-year-old male admitted with 2-week history of Covid-like symptoms currently on high flow nasal cannula at 50 L and 50%. Patient is resting comfortably today. He has no complaints. Functional Status: Reports: Pain Controlled - Review of Systems General: Reports: Weakness, Fatigue, Malaise HEENT: Reports: No Symptoms Pulmonary: Reports: Shortness of Breath, Cough Cardiovascular: Reports: No Symptoms Gastrointestinal: Reports: No Symptoms Genitourinary: Reports: No Symptoms Musculoskeletal: Reports: No Symptoms Skin: Reports: No Symptoms Neurological: Reports: Confusion Psychiatric: Reports: No Symptoms, Confusion - Patient Data Vitals - Most Recent: Last Vital Signs Temp 97.9 F 05/28/21 04:42 Pulse 64 05/28/21 04:42 Resp 13 05/28/21 04:42 BP 108/64 05/28/21 04:42 Pulse Ox 91 L 05/28/21 06:34 Weight - Most Recent: 221 lb 1.6 oz I&O - Last 24 Hours: Intake & Output 05/27/21 05/28/21 05/28/21 22:59 06:59 14:59 Intake Total 730 400 Output Total 300 975 Balance 430 -575 Lab Results Last 24 Hours: Laboratory Results - last 24 hr 05/27/21 05/27/21 05/27/21 Range/Units 05:26 11:18 17:09 WBC (4.23-9.07) K/mm3 RBC (4.63-6.08) M/mm3 Hgb (13.7-17.5) gm/dl Hct (40.1-51.0) % MCV (79.0-92.2) fl MCH (25.7-32.2) pg MCHC (32.2-35.5) g/dl RDW Std Deviation (35.1-43.9) fL Plt Count (163-337) K/mm3 MPV (9.4-12.3) fl Neut % (Auto) (34.0-67.9) % Lymph % (Auto) (21.8-53.1) % [place] % (Auto) (5.3-12.2) % Eos % (Auto) (0.8-7.0) Baso % (Auto) (0.1-1.2) % Neut # (Auto) (1.78-5.38) K/mm3 Lymph # (Auto) (1.32-3.57) K/mm3 [place]wood # (Auto) (0.30-0.82) K/mm3 Eos # (Auto) (0.04-0.54) K/mm3 Baso # (Auto) (0.01-0.08) K/mm3 Manual Slide Review Normal smear Sodium (136-145) mEq/L Potassium (3.5-5.1) mEq/L Chloride (98-107) mEq/L Carbon Dioxide (21-32) mEq/L Anion Gap (5-15) BUN (7-18) mg/dL Creatinine (0.7-1.3) mg/dL Est Cr Clr Drug Dosing mL/min Estimated GFR (MDRD) (>60) mL/min BUN/Creatinine Ratio (14-18) Glucose (70-99) mg/dL POC Glucose 127 H 120 H (70-99) mg/dL Calcium (8.5-10.1) mg/dL Phosphorus (2.6-4.7) mg/dL Magnesium (1.8-2.4) mg/dL Total Bilirubin (0.2-1.0) mg/dL AST (15-37) U/L ALT (16-63) U/L Alkaline Phosphatase (46-116) U/L C-Reactive Protein (<1.0) mg/dL Total Protein (6.4-8.2) g/dl Albumin (3.4-5.0) g/dl Globulin gm/dL Albumin/Globulin Ratio (1-2) 05/27/21 05/28/21 05/28/21 Range/Units 21:11 06:09 06:20 WBC 7.13 (4.23-9.07) K/mm3 RBC 4.63 (4.63-6.08) M/mm3 Hgb 14.3 (13.7-17.5) gm/dl Hct 43.9 (40.1-51.0) % MCV 94.8 H (79.0-92.2) fl MCH 30.9 (25.7-32.2) pg MCHC 32.6 (32.2-35.5) g/dl RDW Std Deviation 43.8 (35.1-43.9) fL Plt Count 261 (163-337) K/mm3 MPV 12.0 (9.4-12.3) fl Neut % (Auto) 71.7 H (34.0-67.9) % Lymph % (Auto) 10.7 L (21.8-53.1) % Haywood % (Auto) 12.5 H (5.3-12.2) % Eos % (Auto) 2.0 (0.8-7.0) Baso % (Auto) 0.3 (0.1-1.2) % Neut # (Auto) 5.12 (1.78-5.38) K/mm3 Lymph # (Auto) 0.76 L (1.32-3.57) K/mm3 [place]wood # (Auto) 0.89 H (0.30-0.82) K/mm3 Eos # (Auto) 0.14 (0.04-0.54) K/mm3 Baso # (Auto) 0.02 (0.01-0.08) K/mm3 Manual Slide Review Not Reportable Sodium (136-145) mEq/L Potassium (3.5-5.1) mEq/L Chloride (98-107) mEq/L Carbon Dioxide (21-32) mEq/L Anion Gap (5-15) BUN (7-18) mg/dL Creatinine (0.7-1.3) mg/dL Est Cr Clr Drug Dosing mL/min Estimated GFR (MDRD) (>60) mL/min BUN/Creatinine Ratio (14-18) Glucose (70-99) mg/dL POC Glucose 138 H 94 (70-99) mg/dL Calcium (8.5-10.1) mg/dL Phosphorus (2.6-4.7) mg/dL Magnesium (1.8-2.4) mg/dL Total Bilirubin (0.2-1.0) mg/dL AST (15-37) U/L ALT (16-63) U/L Alkaline Phosphatase (46-116) U/L C-Reactive Protein (<1.0) mg/dL Total Protein (6.4-8.2) g/dl Albumin (3.4-5.0) g/dl Globulin gm/dL Albumin/Globulin Ratio (1-2) 05/28/21 Range/Units 06:20 WBC (4.23-9.07) K/mm3 RBC (4.63-6.08) M/mm3 Hgb (13.7-17.5) gm/dl Hct (40.1-51.0) % MCV (79.0-92.2) fl MCH (25.7-32.2) pg MCHC (32.2-35.5) g/dl RDW Std Deviation (35.1-43.9) fL Plt Count (163-337) K/mm3 MPV (9.4-12.3) fl Neut % (Auto) (34.0-67.9) % Lymph % (Auto) (21.8-53.1) % [place]wood % (Auto) (5.3-12.2) % Eos % (Auto) (0.8-7.0) Baso % (Auto) (0.1-1.2) % Neut # (Auto) (1.78-5.38) K/mm3 Lymph # (Auto) (1.32-3.57) K/mm3 [place]wood # (Auto) (0.30-0.82) K/mm3 Eos # (Auto) (0.04-0.54) K/mm3 Baso # (Auto) (0.01-0.08) K/mm3 Manual Slide Review Sodium 140 (136-145) mEq/L Potassium 4.1 (3.5-5.1) mEq/L Chloride 108 H (98-107) mEq/L Carbon Dioxide 25 (21-32) mEq/L Anion Gap 11.1 (5-15) BUN 29 H (7-18) mg/dL Creatinine 1.1 (0.7-1.3) mg/dL Est Cr Clr Drug Dosing 57.00 mL/min Estimated GFR (MDRD) > 60 (>60) mL/min BUN/Creatinine Ratio 26.4 H (14-18) Glucose 99 (70-99) mg/dL POC Glucose (70-99) mg/dL Calcium 8.7 (8.5-10.1) mg/dL Phosphorus 3.5 (2.6-4.7) mg/dL Magnesium 2.2 (1.8-2.4) mg/dL Total Bilirubin 0.5 (0.2-1.0) mg/dL AST 54 H (15-37) U/L ALT 101 H (16-63) U/L Alkaline Phosphatase 48 (46-116) U/L C-Reactive Protein 1.5 H* (<1.0) mg/dL Total Protein 6.4 (6.4-8.2) g/dl Albumin 2.5 L (3.4-5.0) g/dl Globulin 3.9 gm/dL Albumin/Globulin Ratio 0.6 L (1-2) Benjie Results Last 24 Hours: Microbiology 05/22/21 12:25 Blood Culture - Final Blood - Venous - Lab Draw Med Orders - Current: Current Medications Acetaminophen (Acetaminophen 325 Mg Tab) 650 mg PO Q4H PRN PRN Reason: Pain (Mild 1-3)/fever Albuterol (Albuterol 6.7 Gm Inhaler) 0 gm INH Q2H PRN PRN Reason: SOB/WHEEZING Last Admin: 05/27/21 09:41 Dose: 2 puff Documented by: Albuterol/Ipratropium (Albuterol/Ipratropium 3.0-0.5 Mg/3 Ml Neb Soln) 3 ml NEB Q4HRRT PRN PRN Reason: SOB/WHEEZING Aspirin (Aspirin 81 Mg Tab.Ec) 81 mg PO DAILY [facility] Last Admin: 05/27/21 09:42 Dose: 81 mg Documented by: Carvedilol (Carvedilol 12.5 Mg Tab) 12.5 mg PO BID [facility] Last Admin: 05/27/21 22:02 Dose: 12.5 mg Documented by: Dexamethasone (Dexamethasone 4 Mg Tab) 6 mg PO Q24H [facility] Stop: 05/30/21 21:01 Last Admin: 05/27/21 22:00 Dose: 6 mg Documented by: Enoxaparin Sodium (Enoxaparin 40 Mg/0.4 Ml Syringe) 40 mg SUBCUT DAILY [facility] Last Admin: 05/27/21 09:42 Dose: 40 mg Documented by: Famotidine (Famotidine 20 Mg Tab) 20 mg PO BEDTIME [facility] Last Admin: 05/27/21 22:00 Dose: 20 mg Documented by: Insulin Glargine (Insulin Glarg,Human.Rec.Analog 100 Unit/Ml) 30 unit SUBCUT BEDTIME [facility] Last Admin: 05/27/21 22:01 Dose: 30 units Documented by: Insulin Human Lispro (Insulin Lispro 100 Unit/Ml 10 Ml Vial) 0 unit SUBCUT QIDACANDBED [facility]; Protocol Last Admin: 05/28/21 06:44 Dose: Not Given Documented by: Ondansetron HCl (Ondansetron 4 Mg/2 Ml Sdv) 4 mg IV Q6H PRN PRN Reason: Nausea/Vomiting Rosuvastatin Calcium (Rosuvastatin 10 Mg Tab) 20 mg PO DAILY [facility] Last Admin: 05/27/21 09:43 Dose: 20 mg Documented by: Sodium Chloride (Sodium Chloride 0.9% 10 Ml Syringe) 10 ml FLUSH ASDIRECTED PRN PRN Reason: Keep Vein Open Last Admin: 05/21/21 22:54 Dose: 10 ml Documented by: Tamsulosin HCl (Tamsulosin 0.4 Mg Cap.Er) 0.4 mg PO DAILY [facility] Last Admin: 05/27/21 09:43 Dose: 0.4 mg Documented by: Zolpidem Tartrate (Zolpidem 10 Mg Tab) 10 mg PO BEDTIME PRN PRN Reason: Insomnia Last Admin: 05/24/21 20:28 Dose: 10 mg Documented by: Discontinued Medications Dexamethasone (Dexamethasone 10 Mg/Ml Sdv) 6 mg IVPUSH ONETIME ONE Stop: 05/21/21 22:21 Last Admin: 05/21/21 22:41 Dose: 6 mg Documented by: Enoxaparin Sodium (Enoxaparin 30 Mg/0.3 Ml Syringe) 30 mg SUBCUT DAILY [facility] Last Admin: 05/23/21 08:24 Dose: 30 mg Documented by: Remdesivir 100 mg/ Sodium (Chloride) 100 mls @ 100 mls/hr IV ONETIME ONE Stop: 05/21/21 23:19 Last Admin: 05/21/21 22:41 Dose: 100 mls/hr Documented by: Sodium Chloride (Normal Saline) 500 mls @ 1,000 mls/hr IV .BOLUS ONE Stop: 05/22/21 06:23 Last Admin: 05/22/21 06:00 Dose: 1,000 mls/hr Documented by: Ceftriaxone Sodium 2 gm/ (Sodium Chloride) 100 mls @ 200 mls/hr IV Q24H [facility] Stop: 05/26/21 14:29 Last Admin: 05/26/21 13:16 Dose: 200 mls/hr Documented by: Azithromycin 500 mg/ Sodium (Chloride) 250 mls @ 250 mls/hr IV Q24H [facility] Stop: 05/24/21 13:59 Last Admin: 05/24/21 12:27 Dose: 250 mls/hr Documented by: Sodium Chloride (Normal Saline) 1,000 mls @ 100 mls/hr IV ASDIRECTED [facility] Stop: 05/22/21 22:29 Last Admin: 05/22/21 15:30 Dose: 100 mls/hr Documented by: Influenza Virus Vaccine (Flu Vacc Ol4892(65up)/Mf59c/Pf 60 Mcg/0.5 Ml Syringe) 60 mcg IM .ONCE ONE Stop: 05/22/21 20:01 Insulin Glargine (Insulin Glarg,Human.Rec.Analog 100 Unit/Ml) 20 unit SUBCUT BEDTIME [facility] Last Admin: 05/22/21 20:32 Dose: 20 units Documented by: Insulin Glargine (Insulin Glarg,Human.Rec.Analog 100 Unit/Ml) 25 unit SUBCUT BEDTIME [facility] Last Admin: 05/23/21 20:48 Dose: 25 units Documented by: Insulin Human Lispro (Insulin Lispro 100 Unit/Ml 10 Ml Vial) 8 unit SUBCUT TIDAC [facility] Last Admin: 05/27/21 17:32 Dose: Not Given Documented by: Non-Formulary Medication (Albuterol Sulfate) 2 puff INH ASDIRECTED PRN PRN Reason: Shortness of Breath - Exam Quality Assessment: Supplemental Oxygen (increased to 50 and 70%) General: Alert, Cooperative, No Acute Distress HEENT: Pupils Equal Neck: Supple Lungs: Decreased Breath Sounds, Other (right lower lobe difficutly ausculating, velcro like breathsoundws soft throught out) GI/Abdominal Exam: Normal Bowel Sounds (Male) Exam: Deferred Back Exam: Normal Inspection Extremities: Normal Inspection Skin: Warm Neurological: No New Focal Deficit Psy/Mental Status: Alert - Patient Data Lab Results Last 24 hrs: Laboratory Results - last 24 hr 05/27/21 05/27/21 05/27/21 Range/Units 05:26 11:18 17:09 WBC (4.23-9.07) K/mm3 RBC (4.63-6.08) M/mm3 Hgb (13.7-17.5) gm/dl Hct (40.1-51.0) % MCV (79.0-92.2) fl MCH (25.7-32.2) pg MCHC (32.2-35.5) g/dl RDW Std Deviation (35.1-43.9) fL Plt Count (163-337) K/mm3 MPV (9.4-12.3) fl Neut % (Auto) (34.0-67.9) % Lymph % (Auto) (21.8-53.1) % [place] % (Auto) (5.3-12.2) % Eos % (Auto) (0.8-7.0) Baso % (Auto) (0.1-1.2) % Neut # (Auto) (1.78-5.38) K/mm3 Lymph # (Auto) (1.32-3.57) K/mm3 [place]wood # (Auto) (0.30-0.82) K/mm3 Eos # (Auto) (0.04-0.54) K/mm3 Baso # (Auto) (0.01-0.08) K/mm3 Manual Slide Review Normal smear Sodium (136-145) mEq/L Potassium (3.5-5.1) mEq/L Chloride (98-107) mEq/L Carbon Dioxide (21-32) mEq/L Anion Gap (5-15) BUN (7-18) mg/dL Creatinine (0.7-1.3) mg/dL Est Cr Clr Drug Dosing mL/min Estimated GFR (MDRD) (>60) mL/min BUN/Creatinine Ratio (14-18) Glucose (70-99) mg/dL POC Glucose 127 H 120 H (70-99) mg/dL Calcium (8.5-10.1) mg/dL Phosphorus (2.6-4.7) mg/dL Magnesium (1.8-2.4) mg/dL Total Bilirubin (0.2-1.0) mg/dL AST (15-37) U/L ALT (16-63) U/L Alkaline Phosphatase (46-116) U/L C-Reactive Protein (<1.0) mg/dL Total Protein (6.4-8.2) g/dl Albumin (3.4-5.0) g/dl Globulin gm/dL Albumin/Globulin Ratio (1-2) 05/27/21 05/28/21 05/28/21 Range/Units 21:11 06:09 06:20 WBC 7.13 (4.23-9.07) K/mm3 RBC 4.63 (4.63-6.08) M/mm3 Hgb 14.3 (13.7-17.5) gm/dl Hct 43.9 (40.1-51.0) % MCV 94.8 H (79.0-92.2) fl MCH 30.9 (25.7-32.2) pg MCHC 32.6 (32.2-35.5) g/dl RDW Std Deviation 43.8 (35.1-43.9) fL Plt Count 261 (163-337) K/mm3 MPV 12.0 (9.4-12.3) fl Neut % (Auto) 71.7 H (34.0-67.9) % Lymph % (Auto) 10.7 L (21.8-53.1) % [place] % (Auto) 12.5 H (5.3-12.2) % Eos % (Auto) 2.0 (0.8-7.0) Baso % (Auto) 0.3 (0.1-1.2) % Neut # (Auto) 5.12 (1.78-5.38) K/mm3 Lymph # (Auto) 0.76 L (1.32-3.57) K/mm3 [place]wood # (Auto) 0.89 H (0.30-0.82) K/mm3 Eos # (Auto) 0.14 (0.04-0.54) K/mm3 Baso # (Auto) 0.02 (0.01-0.08) K/mm3 Manual Slide Review Not Reportable Sodium (136-145) mEq/L Potassium (3.5-5.1) mEq/L Chloride (98-107) mEq/L Carbon Dioxide (21-32) mEq/L Anion Gap (5-15) BUN (7-18) mg/dL Creatinine (0.7-1.3) mg/dL Est Cr Clr Drug Dosing mL/min Estimated GFR (MDRD) (>60) mL/min BUN/Creatinine Ratio (14-18) Glucose (70-99) mg/dL POC Glucose 138 H 94 (70-99) mg/dL Calcium (8.5-10.1) mg/dL Phosphorus (2.6-4.7) mg/dL Magnesium (1.8-2.4) mg/dL Total Bilirubin (0.2-1.0) mg/dL AST (15-37) U/L ALT (16-63) U/L Alkaline Phosphatase (46-116) U/L C-Reactive Protein (<1.0) mg/dL Total Protein (6.4-8.2) g/dl Albumin (3.4-5.0) g/dl Globulin gm/dL Albumin/Globulin Ratio (1-2) 05/28/21 Range/Units 06:20 WBC (4.23-9.07) K/mm3 RBC (4.63-6.08) M/mm3 Hgb (13.7-17.5) gm/dl Hct (40.1-51.0) % MCV (79.0-92.2) fl MCH (25.7-32.2) pg MCHC (32.2-35.5) g/dl RDW Std Deviation (35.1-43.9) fL Plt Count (163-337) K/mm3 MPV (9.4-12.3) fl Neut % (Auto) (34.0-67.9) % Lymph % (Auto) (21.8-53.1) % [place] % (Auto) (5.3-12.2) % Eos % (Auto) (0.8-7.0) Baso % (Auto) (0.1-1.2) % Neut # (Auto) (1.78-5.38) K/mm3 Lymph # (Auto) (1.32-3.57) K/mm3 [place] # (Auto) (0.30-0.82) K/mm3 Eos # (Auto) (0.04-0.54) K/mm3 Baso # (Auto) (0.01-0.08) K/mm3 Manual Slide Review Sodium 140 (136-145) mEq/L Potassium 4.1 (3.5-5.1) mEq/L Chloride 108 H (98-107) mEq/L Carbon Dioxide 25 (21-32) mEq/L Anion Gap 11.1 (5-15) BUN 29 H (7-18) mg/dL Creatinine 1.1 (0.7-1.3) mg/dL Est Cr Clr Drug Dosing 57.00 mL/min Estimated GFR (MDRD) > 60 (>60) mL/min BUN/Creatinine Ratio 26.4 H (14-18) Glucose 99 (70-99) mg/dL POC Glucose (70-99) mg/dL Calcium 8.7 (8.5-10.1) mg/dL Phosphorus 3.5 (2.6-4.7) mg/dL Magnesium 2.2 (1.8-2.4) mg/dL Total Bilirubin 0.5 (0.2-1.0) mg/dL AST 54 H (15-37) U/L ALT 101 H (16-63) U/L Alkaline Phosphatase 48 (46-116) U/L C-Reactive Protein 1.5 H* (<1.0) mg/dL Total Protein 6.4 (6.4-8.2) g/dl Albumin 2.5 L (3.4-5.0) g/dl Globulin 3.9 gm/dL Albumin/Globulin Ratio 0.6 L (1-2) Result Diagrams: 05/28/21 06:20 05/28/21 06:20 Benjie Results Last 24 hrs: Microbiology 05/22/21 12:25 Blood Culture - Final Blood - Venous - Lab Draw Sepsis Event Note - Evaluation Sepsis Screening Result: No Definite Risk - Focused Exam Vital Signs: Vital Signs Temp Pulse Resp BP Pulse Ox Pulse Ox 05/28/21 06:34 91 L 05/28/21 04:42 97.9 F 64 13 108/64 89 L 05/27/21 23:54 90 L 05/27/21 23:09 91 L 05/27/21 22:02 62 120/82 05/27/21 21:18 93 L 05/27/21 20:22 98.2 F 59 L 20 120/82 90 L - Problem List Review Problem List Initiated/Reviewed/Updated: Yes - Plan Plan:: 75-year-old male with history of diastolic dysfunction, diabetes, emphysematous changes on chest x-ray from 2019, BPH, and hypertension, presents to the emergency department with worsening shortness of breath for the last 2 weeks secondary to COVID-19. COVID-19 with hypoxemia Emphysema * 2-week history of increasing shortness of breath prior to admission * Diagnosed 1 week before admission with COVID-19. Unknown specific date at this time. * Chest x-ray was consistent with emphysematous changes, diffuse increased lung markings which are less prominent than on prior chest x-ray. * High flow nasal cannula decreased to 50 L and 50% FiO2 * CRP decreased to 0.4 * Procalcitonin on 05/22/2021: 0.61 * Given remdesivir 100 mg, dexamethasone 6 mg, and baricitinib 4 mg in the emergency department * Remdesivir not initially continued secondary to renal function * Transferred to ICU last night 05/28/21 patient refusing to prone, increased high flow to 50 and 70%, will add mucinex bid, encourage proning and ambulation, up to chair tid. [id number]%, off remdesmivir, cont dex and baricitinib,m completed rocephin and azithromycin, renal dosing Leukopeniaresolved * WBC 7.1 * Likely secondary to Covid infection 05/28 resolved Thrombocytopeniaresolved * Platelets 169 * Likely secondary to Covid infection 05/28 resolved Acute renal insufficiencyimproved * Creatinine continuing to improve: 1.2 * BUN continuing to improve: 32 05/28/21 improved to 1.1 Transaminitis * Improving AST and ALT. * AST 43, ALT 67 * T bilirubin 0.4, albumin 2.6 * Continue to monitor 05/28/21 improving, will watch am labs Previous smoker with emphysematous changes on chest x-ray * [id number] history, stopped in 2008 * contributing to overall picture and difficulty to wean Diastolic dysfunction, grade 1 * Last echocardiogram in 2019 * BNP 370 * Home medications include: Furosemide and spironolactone, carvedilol, irbesartan * Holding irbesartan, spironolactone and furosemide * Blood pressure and heart rate has been low so carvedilol has been held * Echocardiogram05/22/2021: 1. Left ventricular ejection fraction, by visual estimation, is 60 to 65%. 2. Normal left ventricular systolic function. 3. Impaired relaxation grade 1 pattern of LV diastolic filling. 4. Mild proximal septal hypertrophy. 5. Normal LV filling pressures. 05/28/21 restart home meds Type 2 diabetes * A pharmacy audit shows that he is on glipizide. Patient states that he does take insulin shots. * Blood sugars in the 100s * Lantus 30 units daily * poor appetite today * Hemoglobin A1c 10.3 05/28/21 glucose stablem lantus 35 units now nightly, SSI, holding glipizide Hypertension/hyperlipidemia * Initial blood pressures are well controlled. Systolic blood pressures in the 90s to 130 and diastolic blood pressure in the 60s to 80s. * Home meds include: Carvedilol, irbesartan, Lasix, and spironolactone * Carvedilol has been held secondary to bradycardia or low blood pressure * Continue Crestor 05/28 still hypotensive and holding lasix 20 daily, spironolactone 25 daily and irbsartan 300 mg daily, coreg is 12.5 and may need to reduce BPH * On Flomax at home VTE prophylaxis with Lovenox renally dosed CODE STATUS: Full code Length of stay greater than 96 hours secondary to severity of illness and slow recovery.
[2021-05-28] MEDS: Tamsulosin 0.4 MG Cap.ER PO SCH (08:27)
[2021-05-28] MEDS: Carvedilol 12.5 MG Tab PO SCH ×2 (08:27→20:06)
[2021-05-28] MEDS: Aspirin 81 MG Tab.EC PO SCH (08:27)
[2021-05-28] MEDS: Enoxaparin 40 MG/0.4 ML Syringe SUBCUT SCH (08:28)
[2021-05-28] MEDS: Rosuvastatin 10 MG Tab PO SCH (08:28)
[2021-05-28] MEDS: Albuterol 6.7 GM Inhaler INH PRN (08:39)
[2021-05-28] MEDS: guaiFENesin 600 MG Tab.ER PO SCH ×2 (10:22→20:06)
[2021-05-28] MEDS: Famotidine 20 MG Tab PO SCH (20:06)
[2021-05-28] MEDS: Dexamethasone 4 MG Tab PO SCH (20:06)
[2021-05-28] MEDS: Insulin Glarg,Human.Rec.Analog 100 Unit/ML SUBCUT SCH (20:07)
--- NOTE | 2021-05-29 08:24 | PCM.PN ---
- General Info Date of Service: 05/29/21 Admission Dx/Problem (Free Text): Admission Diagnosis/Problem Admission Diagnosis/Problem Hypoxia/covid pneumonia Subjective Update: 75-year-old male admitted with 2-week history of Covid-like symptoms currently on high flow nasal cannula at 50 L and 50%. Patient is resting comfortably today. He has no complaints. Functional Status: Reports: Pain Controlled - Review of Systems General: Reports: Fatigue HEENT: Reports: No Symptoms Pulmonary: Reports: Shortness of Breath, Cough Cardiovascular: Reports: No Symptoms Gastrointestinal: Reports: No Symptoms Skin: Reports: No Symptoms Neurological: Reports: No Symptoms Psychiatric: Reports: No Symptoms - Patient Data Vitals - Most Recent: Last Vital Signs Temp 97.2 F 05/29/21 07:50 Pulse 60 05/29/21 07:50 Resp 18 05/29/21 07:50 BP 126/94 H 05/29/21 07:50 Pulse Ox 94 L 05/29/21 07:50 Weight - Most Recent: 214 lb 6 oz I&O - Last 24 Hours: Intake & Output 05/28/21 05/29/21 05/29/21 22:59 06:59 14:59 Intake Total 540 700 Output Total 400 Balance 140 700 Lab Results Last 24 Hours: Laboratory Results - last 24 hr 05/28/21 05/28/21 05/28/21 Range/Units 10:38 16:32 20:05 WBC (4.23-9.07) K/mm3 RBC (4.63-6.08) M/mm3 Hgb (13.7-17.5) gm/dl Hct (40.1-51.0) % MCV (79.0-92.2) fl MCH (25.7-32.2) pg MCHC (32.2-35.5) g/dl RDW Std Deviation (35.1-43.9) fL Plt Count (163-337) K/mm3 MPV (9.4-12.3) fl Sodium (136-145) mEq/L Potassium (3.5-5.1) mEq/L Chloride (98-107) mEq/L Carbon Dioxide (21-32) mEq/L Anion Gap (5-15) BUN (7-18) mg/dL Creatinine (0.7-1.3) mg/dL Est Cr Clr Drug Dosing mL/min Estimated GFR (MDRD) (>60) mL/min BUN/Creatinine Ratio (14-18) Glucose (70-99) mg/dL POC Glucose 158 H 115 H 166 H (70-99) mg/dL Calcium (8.5-10.1) mg/dL 05/29/21 05/29/21 05/29/21 Range/Units 06:13 06:13 06:13 WBC 5.56 (4.23-9.07) K/mm3 RBC 4.84 (4.63-6.08) M/mm3 Hgb 14.8 (13.7-17.5) gm/dl Hct 46.3 (40.1-51.0) % MCV 95.7 H (79.0-92.2) fl MCH 30.6 (25.7-32.2) pg MCHC 32.0 L (32.2-35.5) g/dl RDW Std Deviation 44.3 H (35.1-43.9) fL Plt Count 304 (163-337) K/mm3 MPV 11.6 (9.4-12.3) fl Sodium 136 (136-145) mEq/L Potassium 5.4 H (3.5-5.1) mEq/L Chloride 104 (98-107) mEq/L Carbon Dioxide 26 (21-32) mEq/L Anion Gap 11.4 (5-15) BUN 34 H (7-18) mg/dL Creatinine 1.3 (0.7-1.3) mg/dL Est Cr Clr Drug Dosing 48.23 mL/min Estimated GFR (MDRD) 54 (>60) mL/min BUN/Creatinine Ratio 26.2 H (14-18) Glucose 227 H (70-99) mg/dL POC Glucose 207 H (70-99) mg/dL Calcium 9.1 (8.5-10.1) mg/dL Benjie Results Last 24 Hours: Microbiology 05/22/21 12:15 Blood Culture - Final Blood - Venous Staphylococcus Coagulase Neg Med Orders - Current: Current Medications Acetaminophen (Acetaminophen 325 Mg Tab) 650 mg PO Q4H PRN PRN Reason: Pain (Mild 1-3)/fever Albuterol (Albuterol 6.7 Gm Inhaler) 0 gm INH Q2H PRN PRN Reason: SOB/WHEEZING Last Admin: 05/28/21 08:39 Dose: 2 puff Documented by: Albuterol/Ipratropium (Albuterol/Ipratropium 3.0-0.5 Mg/3 Ml Neb Soln) 3 ml NEB Q4HRRT PRN PRN Reason: SOB/WHEEZING Aspirin (Aspirin 81 Mg Tab.Ec) 81 mg PO DAILY [facility] Last Admin: 05/28/21 08:27 Dose: 81 mg Documented by: Carvedilol (Carvedilol 12.5 Mg Tab) 12.5 mg PO BID [facility] Last Admin: 05/28/21 20:06 Dose: 12.5 mg Documented by: Dexamethasone (Dexamethasone 4 Mg Tab) 6 mg PO Q24H [facility] Stop: 05/30/21 21:01 Last Admin: 05/28/21 20:06 Dose: 6 mg Documented by: Enoxaparin Sodium (Enoxaparin 40 Mg/0.4 Ml Syringe) 40 mg SUBCUT DAILY [facility] Last Admin: 05/28/21 08:28 Dose: 40 mg Documented by: Famotidine (Famotidine 20 Mg Tab) 20 mg PO BID [facility] Last Admin: 05/28/21 20:06 Dose: 20 mg Documented by: Guaifenesin (Guaifenesin 600 Mg Tab.Er) 600 mg PO BID [facility] Last Admin: 05/28/21 20:06 Dose: 600 mg Documented by: Insulin Glargine (Insulin Glarg,Human.Rec.Analog 100 Unit/Ml) 30 unit SUBCUT BEDTIME [facility] Last Admin: 05/28/21 20:07 Dose: 30 units Documented by: Insulin Human Lispro (Insulin Lispro 100 Unit/Ml 10 Ml Vial) 0 unit SUBCUT QIDACANDBED [facility]; Protocol Last Admin: 05/28/21 22:46 Dose: Not Given Documented by: Ondansetron HCl (Ondansetron 4 Mg/2 Ml Sdv) 4 mg IV Q6H PRN PRN Reason: Nausea/Vomiting Rosuvastatin Calcium (Rosuvastatin 10 Mg Tab) 20 mg PO DAILY [facility] Last Admin: 05/28/21 08:28 Dose: 20 mg Documented by: Sodium Chloride (Sodium Chloride 0.9% 10 Ml Syringe) 10 ml FLUSH ASDIRECTED PRN PRN Reason: Keep Vein Open Last Admin: 05/21/21 22:54 Dose: 10 ml Documented by: Tamsulosin HCl (Tamsulosin 0.4 Mg Cap.Er) 0.4 mg PO DAILY [facility] Last Admin: 05/28/21 08:27 Dose: 0.4 mg Documented by: Zolpidem Tartrate (Zolpidem 10 Mg Tab) 10 mg PO BEDTIME PRN PRN Reason: Insomnia Last Admin: 05/24/21 20:28 Dose: 10 mg Documented by: Discontinued Medications Dexamethasone (Dexamethasone 10 Mg/Ml Sdv) 6 mg IVPUSH ONETIME ONE Stop: 05/21/21 22:21 Last Admin: 05/21/21 22:41 Dose: 6 mg Documented by: Enoxaparin Sodium (Enoxaparin 30 Mg/0.3 Ml Syringe) 30 mg SUBCUT DAILY [facility] Last Admin: 05/23/21 08:24 Dose: 30 mg Documented by: Famotidine (Famotidine 20 Mg Tab) 20 mg PO BEDTIME [facility] Last Admin: 05/27/21 22:00 Dose: 20 mg Documented by: Remdesivir 100 mg/ Sodium (Chloride) 100 mls @ 100 mls/hr IV ONETIME ONE Stop: 05/21/21 23:19 Last Admin: 05/21/21 22:41 Dose: 100 mls/hr Documented by: Sodium Chloride (Normal Saline) 500 mls @ 1,000 mls/hr IV .BOLUS ONE Stop: 05/22/21 06:23 Last Admin: 05/22/21 06:00 Dose: 1,000 mls/hr Documented by: Ceftriaxone Sodium 2 gm/ (Sodium Chloride) 100 mls @ 200 mls/hr IV Q24H PITA Stop: 05/26/21 14:29 Last Admin: 05/26/21 13:16 Dose: 200 mls/hr Documented by: Azithromycin 500 mg/ Sodium (Chloride) 250 mls @ 250 mls/hr IV Q24H PITA Stop: 05/24/21 13:59 Last Admin: 05/24/21 12:27 Dose: 250 mls/hr Documented by: Sodium Chloride (Normal Saline) 1,000 mls @ 100 mls/hr IV ASDIRECTED PITA Stop: 05/22/21 22:29 Last Admin: 05/22/21 15:30 Dose: 100 mls/hr Documented by: Influenza Virus Vaccine (Flu Vacc Ji5612(65up)/Mf59c/Pf 60 Mcg/0.5 Ml Syringe) 60 mcg IM .ONCE ONE Stop: 05/22/21 20:01 Insulin Glargine (Insulin Glarg,Human.Rec.Analog 100 Unit/Ml) 20 unit SUBCUT BEDTIME [facility] Last Admin: 05/22/21 20:32 Dose: 20 units Documented by: Insulin Glargine (Insulin Glarg,Human.Rec.Analog 100 Unit/Ml) 25 unit SUBCUT BEDTIME [facility] Last Admin: 05/23/21 20:48 Dose: 25 units Documented by: Insulin Human Lispro (Insulin Lispro 100 Unit/Ml 10 Ml Vial) 8 unit SUBCUT TIDAC [facility] Last Admin: 05/27/21 17:32 Dose: Not Given Documented by: Non-Formulary Medication (Albuterol Sulfate) 2 puff INH ASDIRECTED PRN PRN Reason: Shortness of Breath - Exam Quality Assessment: Supplemental Oxygen General: Alert, Oriented HEENT: Pupils Equal, Pupils Reactive Neck: Supple Lungs: Decreased Breath Sounds (laying on right side, refuses proning, clear bilateral) Back Exam: Normal Inspection Extremities: Normal Inspection, Normal Range of Motion Peripheral Pulses: 2+: Dorsalis Pedis (L), Dorsalis Pedis (R) Skin: Warm Neurological: No New Focal Deficit Psy/Mental Status: Alert, Normal Affect, Normal Mood - Patient Data Lab Results Last 24 hrs: Laboratory Results - last 24 hr 05/28/21 05/28/21 05/28/21 Range/Units 10:38 16:32 20:05 WBC (4.23-9.07) K/mm3 RBC (4.63-6.08) M/mm3 Hgb (13.7-17.5) gm/dl Hct (40.1-51.0) % MCV (79.0-92.2) fl MCH (25.7-32.2) pg MCHC (32.2-35.5) g/dl RDW Std Deviation (35.1-43.9) fL Plt Count (163-337) K/mm3 MPV (9.4-12.3) fl Sodium (136-145) mEq/L Potassium (3.5-5.1) mEq/L Chloride (98-107) mEq/L Carbon Dioxide (21-32) mEq/L Anion Gap (5-15) BUN (7-18) mg/dL Creatinine (0.7-1.3) mg/dL Est Cr Clr Drug Dosing mL/min Estimated GFR (MDRD) (>60) mL/min BUN/Creatinine Ratio (14-18) Glucose (70-99) mg/dL POC Glucose 158 H 115 H 166 H (70-99) mg/dL Calcium (8.5-10.1) mg/dL 05/29/21 05/29/21 05/29/21 Range/Units 06:13 06:13 06:13 WBC 5.56 (4.23-9.07) K/mm3 RBC 4.84 (4.63-6.08) M/mm3 Hgb 14.8 (13.7-17.5) gm/dl Hct 46.3 (40.1-51.0) % MCV 95.7 H (79.0-92.2) fl MCH 30.6 (25.7-32.2) pg MCHC 32.0 L (32.2-35.5) g/dl RDW Std Deviation 44.3 H (35.1-43.9) fL Plt Count 304 (163-337) K/mm3 MPV 11.6 (9.4-12.3) fl Sodium 136 (136-145) mEq/L Potassium 5.4 H (3.5-5.1) mEq/L Chloride 104 (98-107) mEq/L Carbon Dioxide 26 (21-32) mEq/L Anion Gap 11.4 (5-15) BUN 34 H (7-18) mg/dL Creatinine 1.3 (0.7-1.3) mg/dL Est Cr Clr Drug Dosing 48.23 mL/min Estimated GFR (MDRD) 54 (>60) mL/min BUN/Creatinine Ratio 26.2 H (14-18) Glucose 227 H (70-99) mg/dL POC Glucose 207 H (70-99) mg/dL Calcium 9.1 (8.5-10.1) mg/dL Result Diagrams: 05/29/21 06:13 05/29/21 06:13 Benjie Results Last 24 hrs: Microbiology 05/22/21 12:15 Blood Culture - Final Blood - Venous Staphylococcus Coagulase Neg Sepsis Event Note - Evaluation Sepsis Screening Result: No Definite Risk - Focused Exam Vital Signs: Vital Signs Temp Pulse Resp BP Pulse Ox Pulse Ox 05/29/21 07:50 97.2 F 60 18 126/94 H 94 L 05/29/21 06:10 92 L 05/29/21 04:40 97.5 F 56 L 20 100/49 L 94 L 05/29/21 00:46 50 L 20 97/52 L 92 L 05/28/21 22:50 93 L - Problem List Review Problem List Initiated/Reviewed/Updated: Yes - My Orders Last 24 Hours: My Active Orders 05/28/21 09:00 guaiFENesin [Mucinex] 600 mg PO BID - Plan Plan:: 75-year-old male with history of diastolic dysfunction, diabetes, emphysematous changes on chest x-ray from 2019, BPH, and hypertension, presents to the emergency department with worsening shortness of breath for the last 2 weeks secondary to COVID-19. COVID-19 with hypoxemia Emphysema * 2-week history of increasing shortness of breath prior to admission * Diagnosed 1 week before admission with COVID-19. Unknown specific date at this time. * Chest x-ray was consistent with emphysematous changes, diffuse increased lung markings which are less prominent than on prior chest x-ray. * High flow nasal cannula decreased to 50 L and 50% FiO2 * CRP decreased to 0.4 * Procalcitonin on 05/22/2021: 0.61 * Given remdesivir 100 mg, dexamethasone 6 mg, and baricitinib 4 mg in the emergency department * Remdesivir not initially continued secondary to renal function * Transferred to ICU last night 05/28/21 patient refusing to prone, increased high flow to 50 and 70%, will add mucinex bid, encourage proning and ambulation, up to chair tid. [id number]%, off remdesmivir, cont dex and baricitinib,m completed rocephin and azithromycin, renal dosing 05/29/21 saturating well overnight. Will plan to wean down today to titrate between 88-92. Hopefully we can get ff the highflow. Acute renal insufficiencyimproved * Creatinine continuing to improve: 1.2 * BUN continuing to improve: 32 05/28/21 improved to 1.1 Transaminitis * Improving AST and ALT. * AST 43, ALT 67 * T bilirubin 0.4, albumin 2.6 * Continue to monitor 05/28/21 improving, will watch am labs 05/29/21 daily improvement, and will watch labs Previous smoker with emphysematous changes on chest x-ray * [id number] history, stopped in 2008 * contributing to overall picture and difficulty to wean Diastolic dysfunction, grade 1 * Last echocardiogram in 2019 * BNP 370 * Home medications include: Furosemide and spironolactone, carvedilol, irbesa rtan * Holding irbesartan, spironolactone and furosemide * Blood pressure and heart rate has been low so carvedilol has been held * Echocardiogram05/22/2021: 1. Left ventricular ejection fraction, by visual estimation, is 60 to 65%. 2. Normal left ventricular systolic function. 3. Impaired relaxation grade 1 pattern of LV diastolic filling. 4. Mild proximal septal hypertrophy. 5. Normal LV filling pressures. 05/28/21 restart home meds 05/29/21 BP more stable. We will restart the lasix 20mg daiy and the spironolactone. We will cont to hold losaratan for now. Type 2 diabetes * A pharmacy audit shows that he is on glipizide. Patient states that he does take insulin shots. * Blood sugars in the 100s * Lantus 30 units daily * poor appetite today * Hemoglobin A1c 10.3 05/28/21 glucose stable lantus 35 units now nightly, SSI, holding glipizide 05/29/21 slight increase in glucose levels and we will cont to hold glipizide but restart metformin Hypertension/hyperlipidemia * Initial blood pressures are well controlled. Systolic blood pressures in the 90s to 130 and diastolic blood pressure in the 60s to 80s. * Home meds include: Carvedilol, irbesartan, Lasix, and spironolactone * Carvedilol has been held secondary to bradycardia or low blood pressure * Continue Crestor 05/28 still hypotensive and holding Lasix 20 daily, spironolactone 25 daily and irbesartan 300 mg daily, coreg is 12.5 and may need to reduce 05/29/21 as stated above we will restart the spironolactone and Lasix, watch labs and possible restart losartan tomorrow BPH * On Flomax at home Time 36 min VTE prophylaxis with Lovenox renally dosed CODE STATUS: Full code Length of stay greater than 96 hours secondary to severity of illness and slow recovery.
[2021-05-29] MEDS: Insulin Lispro 100 UNIT/ML 10 ML Vial SUBCUT SCH ×4 (09:26→21:01)
[2021-05-29] MEDS: Enoxaparin 40 MG/0.4 ML Syringe SUBCUT SCH (09:28)
[2021-05-29] MEDS: Aspirin 81 MG Tab.EC PO SCH (09:31)
[2021-05-29] MEDS: Rosuvastatin 10 MG Tab PO SCH (09:32)
[2021-05-29] MEDS: Famotidine 20 MG Tab PO SCH ×2 (09:33→21:00)
[2021-05-29] MEDS: guaiFENesin 600 MG Tab.ER PO SCH ×2 (09:33→21:02)
[2021-05-29] MEDS: Tamsulosin 0.4 MG Cap.ER PO SCH (09:33)
[2021-05-29] MEDS: metFORMIN 500 MG Tab PO SCH ×2 (09:34→21:01)
[2021-05-29] MEDS: Furosemide 20 MG Tab PO SCH (09:35)
[2021-05-29] MEDS: Carvedilol 12.5 MG Tab PO SCH ×2 (09:36→21:00)
[2021-05-29] MEDS: Spironolactone 25 MG Tab PO SCH (09:36)
[2021-05-29] MEDS: Albuterol 6.7 GM Inhaler INH PRN (11:24)
[2021-05-29] MEDS ORDERED: Magnesium Hydroxide 400 MG/5 ML Susp 30 ML Cup PO ONE (11:52)
[2021-05-29] MEDS ORDERED: Furosemide 20 MG/2 ML VIAL IVPUSH ONE (20:13)
[2021-05-29] MEDS: Dexamethasone 4 MG Tab PO SCH (21:00)
[2021-05-29] MEDS: Insulin Glarg,Human.Rec.Analog 100 Unit/ML SUBCUT SCH (21:01)
[2021-05-30] MEDS: Spironolactone 25 MG Tab PO SCH (08:01)
[2021-05-30] MEDS: Enoxaparin 40 MG/0.4 ML Syringe SUBCUT SCH (08:15)
[2021-05-30] MEDS: Aspirin 81 MG Tab.EC PO SCH (08:15)
[2021-05-30] MEDS: Insulin Lispro 100 UNIT/ML 10 ML Vial SUBCUT SCH ×5 (08:15→21:34)
[2021-05-30] MEDS: guaiFENesin 600 MG Tab.ER PO SCH ×2 (08:16→20:42)
[2021-05-30] MEDS: Rosuvastatin 10 MG Tab PO SCH (08:17)
[2021-05-30] MEDS: metFORMIN 500 MG Tab PO SCH ×2 (08:17→20:42)
[2021-05-30] MEDS: Carvedilol 12.5 MG Tab PO SCH ×2 (08:17→20:42)
[2021-05-30] MEDS: Tamsulosin 0.4 MG Cap.ER PO SCH (08:17)
[2021-05-30] MEDS: Furosemide 20 MG Tab PO SCH ×2 (08:17→14:13)
[2021-05-30] MEDS: Albuterol 6.7 GM Inhaler INH PRN ×3 (08:55→19:50)
[2021-05-30] MEDS ORDERED: Furosemide 20 MG/2 ML VIAL IVPUSH ONE (09:00)
--- NOTE | 2021-05-30 12:15 | PCM.PN ---
- General Info Date of Service: 05/30/21 Admission Dx/Problem (Free Text): Admission Diagnosis/Problem Admission Diagnosis/Problem Hypoxia/covid pneumonia Subjective Update: 75-year-old male admitted with 2-week history of Covid-like symptoms Patient is now on 5 L of nasal cannula. He is feeling better, no confusion. Cooperating and hopefully home soon. Functional Status: Reports: Pain Controlled - Patient Data Vitals - Most Recent: Last Vital Signs Temp 97.9 F 05/30/21 07:39 Pulse 60 05/30/21 08:18 Resp 20 05/30/21 07:39 BP 112/70 05/30/21 08:17 Pulse Ox 86 L 05/30/21 10:05 Weight - Most Recent: 213 lb 9.6 oz I&O - Last 24 Hours: Intake & Output 05/29/21 05/30/21 05/30/21 22:59 06:59 14:59 Intake Total 1940 Output Total 1150 450 Balance 790 -450 Lab Results Last 24 Hours: Laboratory Results - last 24 hr 05/29/21 05/29/21 05/29/21 Range/Units 17:33 19:40 20:44 Sodium (136-145) mEq/L Potassium 5.0 (3.5-5.1) mEq/L Chloride (98-107) mEq/L Carbon Dioxide (21-32) mEq/L Anion Gap (5-15) BUN (7-18) mg/dL Creatinine (0.7-1.3) mg/dL Est Cr Clr Drug Dosing mL/min Estimated GFR (MDRD) (>60) mL/min BUN/Creatinine Ratio (14-18) Glucose (70-99) mg/dL POC Glucose 169 H 243 H (70-99) mg/dL Calcium (8.5-10.1) mg/dL 05/30/21 05/30/21 Range/Units 05:49 05:51 Sodium 135 L (136-145) mEq/L Potassium 5.9 H (3.5-5.1) mEq/L Chloride 103 (98-107) mEq/L Carbon Dioxide 26 (21-32) mEq/L Anion Gap 11.9 (5-15) BUN 40 H (7-18) mg/dL Creatinine 1.4 H (0.7-1.3) mg/dL Est Cr Clr Drug Dosing 44.79 mL/min Estimated GFR (MDRD) 50 (>60) mL/min BUN/Creatinine Ratio 28.6 H (14-18) Glucose 273 H (70-99) mg/dL POC Glucose 253 H (70-99) mg/dL Calcium 8.9 (8.5-10.1) mg/dL Med Orders - Current: Current Medications Acetaminophen (Acetaminophen 325 Mg Tab) 650 mg PO Q4H PRN PRN Reason: Pain (Mild 1-3)/fever Albuterol (Albuterol 6.7 Gm Inhaler) 0 gm INH Q2H PRN PRN Reason: SOB/WHEEZING Last Admin: 05/30/21 08:55 Dose: 2 puff Documented by: Albuterol/Ipratropium (Albuterol/Ipratropium 3.0-0.5 Mg/3 Ml Neb Soln) 3 ml NEB Q4HRRT PRN PRN Reason: SOB/WHEEZING Aspirin (Aspirin 81 Mg Tab.Ec) 81 mg PO DAILY [facility] Last Admin: 05/30/21 08:15 Dose: 81 mg Documented by: Carvedilol (Carvedilol 12.5 Mg Tab) 12.5 mg PO BID [facility] Last Admin: 05/30/21 08:17 Dose: 12.5 mg Documented by: Dexamethasone (Dexamethasone 4 Mg Tab) 6 mg PO Q24H [facility] Stop: 05/30/21 21:01 Last Admin: 05/29/21 21:00 Dose: 6 mg Documented by: Enoxaparin Sodium (Enoxaparin 40 Mg/0.4 Ml Syringe) 40 mg SUBCUT DAILY [facility] Last Admin: 05/30/21 08:15 Dose: 40 mg Documented by: Famotidine (Famotidine 20 Mg Tab) 20 mg PO BEDTIME [facility] Furosemide (Furosemide 20 Mg Tab) 20 mg PO DAILY [facility] Last Admin: 05/30/21 08:17 Dose: 20 mg Documented by: Guaifenesin (Guaifenesin 600 Mg Tab.Er) 600 mg PO BID [facility] Last Admin: 05/30/21 08:16 Dose: 600 mg Documented by: Insulin Glargine (Insulin Glarg,Human.Rec.Analog 100 Unit/Ml) 30 unit SUBCUT BEDTIME [facility] Last Admin: 05/29/21 21:01 Dose: 30 units Documented by: Insulin Human Lispro (Insulin Lispro 100 Unit/Ml 10 Ml Vial) 0 unit SUBCUT QIDACANDBED [facility]; Protocol Last Admin: 05/30/21 12:00 Dose: 6 units Documented by: Metformin HCl (Metformin 500 Mg Tab) 1,000 mg PO BID [facility] Last Admin: 05/30/21 08:17 Dose: 1,000 mg Documented by: Ondansetron HCl (Ondansetron 4 Mg/2 Ml Sdv) 4 mg IV Q6H PRN PRN Reason: Nausea/Vomiting Rosuvastatin Calcium (Rosuvastatin 10 Mg Tab) 20 mg PO DAILY [facility] Last Admin: 05/30/21 08:17 Dose: 20 mg Documented by: Sodium Chloride (Sodium Chloride 0.9% 10 Ml Syringe) 10 ml FLUSH ASDIRECTED PRN PRN Reason: Keep Vein Open Last Admin: 05/21/21 22:54 Dose: 10 ml Documented by: Spironolactone (Spironolactone 25 Mg Tab) 25 mg PO DAILY [facility] Last Admin: 05/30/21 08:01 Dose: Not Given Documented by: Tamsulosin HCl (Tamsulosin 0.4 Mg Cap.Er) 0.4 mg PO DAILY [facility] Last Admin: 05/30/21 08:17 Dose: 0.4 mg Documented by: Zolpidem Tartrate (Zolpidem 10 Mg Tab) 10 mg PO BEDTIME PRN PRN Reason: Insomnia Last Admin: 05/24/21 20:28 Dose: 10 mg Documented by: Discontinued Medications Dexamethasone (Dexamethasone 10 Mg/Ml Sdv) 6 mg IVPUSH ONETIME ONE Stop: 05/21/21 22:21 Last Admin: 05/21/21 22:41 Dose: 6 mg Documented by: Enoxaparin Sodium (Enoxaparin 30 Mg/0.3 Ml Syringe) 30 mg SUBCUT DAILY [facility] Last Admin: 05/23/21 08:24 Dose: 30 mg Documented by: Famotidine (Famotidine 20 Mg Tab) 20 mg PO BEDTIME [facility] Last Admin: 05/27/21 22:00 Dose: 20 mg Documented by: Famotidine (Famotidine 20 Mg Tab) 20 mg PO BID [facility] Last Admin: 05/29/21 21:00 Dose: 20 mg Documented by: Furosemide (Furosemide 20 Mg/2 Ml Vial) 20 mg IVPUSH ONETIME ONE Stop: 05/29/21 20:14 Last Admin: 05/29/21 21:00 Dose: 20 mg Documented by: Furosemide (Furosemide 20 Mg/2 Ml Vial) 20 mg IVPUSH ONETIME ONE Stop: 05/30/21 09:01 Last Admin: 05/30/21 08:15 Dose: 20 mg Documented by: Remdesivir 100 mg/ Sodium (Chloride) 100 mls @ 100 mls/hr IV ONETIME ONE Stop: 05/21/21 23:19 Last Admin: 05/21/21 22:41 Dose: 100 mls/hr Documented by: Sodium Chloride (Normal Saline) 500 mls @ 1,000 mls/hr IV .BOLUS ONE Stop: 05/22/21 06:23 Last Admin: 05/22/21 06:00 Dose: 1,000 mls/hr Documented by: Ceftriaxone Sodium 2 gm/ (Sodium Chloride) 100 mls @ 200 mls/hr IV Q24H [facility] Stop: 05/26/21 14:29 Last Admin: 05/26/21 13:16 Dose: 200 mls/hr Documented by: Azithromycin 500 mg/ Sodium (Chloride) 250 mls @ 250 mls/hr IV Q24H [facility] Stop: 05/24/21 13:59 Last Admin: 05/24/21 12:27 Dose: 250 mls/hr Documented by: Sodium Chloride (Normal Saline) 1,000 mls @ 100 mls/hr IV ASDIRECTED [facility] Stop: 05/22/21 22:29 Last Admin: 05/22/21 15:30 Dose: 100 mls/hr Documented by: Influenza Virus Vaccine (Flu Vacc [id number](65up)/Mf59c/Pf 60 Mcg/0.5 Ml Syringe) 60 mcg IM .ONCE ONE Stop: 05/22/21 20:01 Insulin Glargine (Insulin Glarg,Human.Rec.Analog 100 Unit/Ml) 20 unit SUBCUT B EDTIME [facility] Last Admin: 05/22/21 20:32 Dose: 20 units Documented by: Insulin Glargine (Insulin Glarg,Human.Rec.Analog 100 Unit/Ml) 25 unit SUBCUT BEDTIME [facility] Last Admin: 05/23/21 20:48 Dose: 25 units Documented by: Insulin Human Lispro (Insulin Lispro 100 Unit/Ml 10 Ml Vial) 8 unit SUBCUT T IDAC [facility] Last Admin: 05/27/21 17:32 Dose: Not Given Documented by: Magnesium Hydroxide (Magnesium Hydroxide 400 Mg/5 Ml Susp 30 Ml Cup) 30 ml PO ONETIME ONE Stop: 05/29/21 11:53 Last Admin: 05/29/21 13:39 Dose: 30 ml Documented by: Non-Formulary Medication (Albuterol Sulfate) 2 puff INH ASDIRECTED PRN PRN Reason: Shortness of Breath - Exam Quality Assessment: Supplemental Oxygen General: Alert, Oriented HEENT: Pupils Equal, Pupils Reactive, EOMI Neck: Supple Lungs: Decreased Breath Sounds, Crackles Cardiovascular: Regular Rate, Regular Rhythm GI/Abdominal Exam: Normal Bowel Sounds, Soft Extremities: Normal Inspection Peripheral Pulses: 2+: Dorsalis Pedis (L), Dorsalis Pedis (R) Skin: Warm, Dry Neurological: No New Focal Deficit Psy/Mental Status: Alert, Normal Affect, Normal Mood - Patient Data Lab Results Last 24 hrs: Laboratory Results - last 24 hr 05/29/21 05/29/21 05/29/21 Range/Units 17:33 19:40 20:44 Sodium (136-145) mEq/L Potassium 5.0 (3.5-5.1) mEq/L Chloride (98-107) mEq/L Carbon Dioxide (21-32) mEq/L Anion Gap (5-15) BUN (7-18) mg/dL Creatinine (0.7-1.3) mg/dL Est Cr Clr Drug Dosing mL/min Estimated GFR (MDRD) (>60) mL/min BUN/Creatinine Ratio (14-18) Glucose (70-99) mg/dL POC Glucose 169 H 243 H (70-99) mg/dL Calcium (8.5-10.1) mg/dL 05/30/21 05/30/21 Range/Units 05:49 05:51 Sodium 135 L (136-145) mEq/L Potassium 5.9 H (3.5-5.1) mEq/L Chloride 103 (98-107) mEq/L Carbon Dioxide 26 (21-32) mEq/L Anion Gap 11.9 (5-15) BUN 40 H (7-18) mg/dL Creatinine 1.4 H (0.7-1.3) mg/dL Est Cr Clr Drug Dosing 44.79 mL/min Estimated GFR (MDRD) 50 (>60) mL/min BUN/Creatinine Ratio 28.6 H (14-18) Glucose 273 H (70-99) mg/dL POC Glucose 253 H (70-99) mg/dL Calcium 8.9 (8.5-10.1) mg/dL Result Diagrams: 05/29/21 06:13 05/30/21 05:51 Sepsis Event Note - Evaluation Sepsis Screening Result: No Definite Risk - Focused Exam Vital Signs: Vital Signs Temp Pulse Resp BP Pulse Ox Pulse Ox 05/30/21 10:05 86 L 05/30/21 08:55 96 05/30/21 08:18 60 05/30/21 08:17 60 112/70 05/30/21 07:39 97.9 F 51 L 20 122/70 92 L 05/30/21 06:10 98.4 F 58 L 16 113/63 92 L 05/30/21 03:19 98.4 F 53 L 18 109/53 L 90 L - Problem List Review Problem List Initiated/Reviewed/Updated: Yes - My Orders Last 24 Hours: My Active Orders 05/30/21 14:00 POTASSIUM,K [CHEM] Routine - Plan Plan:: 75-year-old male with history of diastolic dysfunction, diabetes, emphysematous changes on chest x-ray from 2019, BPH, and hypertension, presents to the emergency department with worsening shortness of breath for the last 2 weeks secondary to COVID-19. COVID-19 with hypoxemia Emphysema * 2-week history of increasing shortness of breath prior to admission * Diagnosed 1 week before admission with COVID-19. Unknown specific date at this time. * Chest x-ray was consistent with emphysematous changes, diffuse increased lung markings which are less prominent than on prior chest x-ray. * High flow nasal cannula decreased to 50 L and 50% FiO2 * CRP decreased to 0.4 * Procalcitonin on 05/22/2021: 0.61 * Given remdesivir 100 mg, dexamethasone 6 mg, and baricitinib 4 mg in the emergency department * Remdesivir not initially continued secondary to renal function * Transferred to ICU last night 05/28/21 patient refusing to prone, increased high flow to 50 and 70%, will add mucinex bid, encourage proning and ambulation, up to chair tid. [id number]%, off remdesmivir, cont dex and baricitinib,m completed rocephin and azithromycin, renal dosing 05/29/21 saturating well overnight. Will plan to wean down today to titrate between 88-92. Hopefully we can get ff the highflow. 05/30/21 patient is improving and now on only 5 L of oxygen with the hopes that he can possibly go home in the next 1 to 2 days oxygen. Hyperkalemia- 05/30 patient was off his Lasix for several days and his potassium did go up. He was given Lasix this morning with a repeat potassium this afternoon. His spironolactone is still held. The calcium level increased on his repeat and we have given him Kayexalate x1. He will need repeat potassium level again this afternoon. Get an EKG Acute renal insufficiencyimproved * Creatinine continuing to improve: 1.2 * BUN continuing to improve: 32 05/28/21 improved to 1.1 05/30 cr 1.4 Previous smoker with emphysematous changes on chest x-ray * [id number] history, stopped in 2008 * contributing to overall picture and difficulty to wean Diastolic dysfunction, grade 1 * Last echocardiogram in 2019 * BNP 370 * Home medications include: Furosemide and spironolactone, carvedilol, irbesartan * Holding irbesartan, spironolactone and furosemide * Blood pressure and heart rate has been low so carvedilol has been held * Echocardiogram05/22/2021: 1. Left ventricular ejection fraction, by visual estimation, is 60 to 65%. 2. Normal left ventricular systolic function. 3. Impaired relaxation grade 1 pattern of LV diastolic filling. 4. Mild proximal septal hypertrophy. 5. Normal LV filling pressures. 05/28/21 restart home meds 05/29/21 BP more stable. We will restart the lasix 20mg daiy and the spironolactone. We will cont to hold losaratan for now. 05/30 increase lasix to bid for now Type 2 diabetes * A pharmacy audit shows that he is on glipizide. Patient states that he does take insulin shots. * Blood sugars in the 100s * Lantus 30 units daily * poor appetite today * Hemoglobin A1c 10.3 05/28/21 glucose stable lantus 35 units now nightly, SSI, holding glipizide 05/29/21 slight increase in glucose levels and we will cont to hold glipizide but restart metformin 05/30 continuing to hold glipizide Hypertension/hyperlipidemia * Initial blood pressures are well controlled. Systolic blood pressures in the 90s to 130 and diastolic blood pressure in the 60s to 80s. * Home meds include: Carvedilol, irbesartan, Lasix, and spironolactone * Carvedilol has been held secondary to bradycardia or low blood pressure * Continue Crestor 05/28 still hypotensive and holding Lasix 20 daily, spironolactone 25 daily and irbesartan 300 mg daily, coreg is 12.5 and may need to reduce 05/29/21 as stated above we will restart the spironolactone and Lasix, watch labs and possible restart losartan tomorrow 05/30 stable, no changes BPH * On Flomax at home Time 36 min VTE prophylaxis with Lovenox renally dosed CODE STATUS: Full code Length of stay greater than 96 hours secondary to severity of illness and slow recovery.
[2021-05-30] MEDS ORDERED: Sodium Polystyrene Sulfonate 15 GM/60 ML Susp 60 ML Bot PO ONE (12:16)
[2021-05-30] MEDS: Insulin Glarg,Human.Rec.Analog 100 Unit/ML SUBCUT SCH (20:41)
[2021-05-30] MEDS: Zolpidem 10 MG Tab PO PRN (20:42)
[2021-05-30] MEDS: Famotidine 20 MG Tab PO SCH (20:42)
[2021-05-30] MEDS: Dexamethasone 4 MG Tab PO SCH (20:43)
[2021-05-31] MEDS: Furosemide 20 MG Tab PO SCH ×2 (05:01→14:18)
[2021-05-31] MEDS: Albuterol 6.7 GM Inhaler INH PRN ×3 (07:32→20:59)
[2021-05-31] MEDS: metFORMIN 500 MG Tab PO SCH ×2 (08:07→21:12)
[2021-05-31] MEDS: Rosuvastatin 10 MG Tab PO SCH (08:08)
[2021-05-31] MEDS: Aspirin 81 MG Tab.EC PO SCH (08:08)
[2021-05-31] MEDS: Enoxaparin 40 MG/0.4 ML Syringe SUBCUT SCH (08:09)
[2021-05-31] MEDS: Insulin Lispro 100 UNIT/ML 10 ML Vial SUBCUT SCH ×4 (08:09→21:17)
[2021-05-31] MEDS: guaiFENesin 600 MG Tab.ER PO SCH ×2 (08:09→21:12)
[2021-05-31] MEDS: Tamsulosin 0.4 MG Cap.ER PO SCH (08:09)
[2021-05-31] MEDS: Carvedilol 12.5 MG Tab PO SCH ×2 (08:20→21:13)
--- NOTE | 2021-05-31 10:44 | PCM.PN ---
- General Info Date of Service: 05/31/21 Admission Dx/Problem (Free Text): Admission Diagnosis/Problem Admission Diagnosis/Problem Hypoxia/covid pneumonia Subjective Update: 75-year-old male admitted with 2-week with Covid pnumonia. Patient is now on 5 L of nasal cannula. Eating better. Functional Status: Reports: Pain Controlled - Review of Systems General: Reports: No Symptoms HEENT: Reports: No Symptoms Pulmonary: Reports: No Symptoms Cardiovascular: Reports: No Symptoms Gastrointestinal: Reports: No Symptoms Musculoskeletal: Reports: No Symptoms Skin: Reports: No Symptoms Neurological: Reports: No Symptoms Psychiatric: Reports: No Symptoms - Patient Data Vitals - Most Recent: Last Vital Signs Temp 97.9 F 05/31/21 08:05 Pulse 52 L 05/31/21 08:05 Resp 14 05/31/21 08:05 BP 131/66 05/31/21 08:05 Pulse Ox 88 L 05/31/21 08:05 Weight - Most Recent: 212 lb 14.4 oz I&O - Last 24 Hours: Intake & Output 05/30/21 05/31/21 05/31/21 22:59 06:59 14:59 Intake Total 1170 Output Total 1100 Balance 70 Lab Results Last 24 Hours: Laboratory Results - last 24 hr 05/30/21 05/30/21 05/30/21 Range/Units 11:08 14:00 14:05 WBC (4.23-9.07) K/mm3 RBC (4.63-6.08) M/mm3 Hgb (13.7-17.5) gm/dl Hct (40.1-51.0) % MCV (79.0-92.2) fl MCH (25.7-32.2) pg MCHC (32.2-35.5) g/dl RDW Std Deviation (35.1-43.9) fL Plt Count (163-337) K/mm3 MPV (9.4-12.3) fl Sodium 136 (136-145) mEq/L Potassium 5.2 H Cancelled (3.5-5.1) mEq/L Chloride 100 (98-107) mEq/L Carbon Dioxide 22 (21-32) mEq/L Anion Gap 19.2 H (5-15) BUN 46 H (7-18) mg/dL Creatinine 1.5 H (0.7-1.3) mg/dL Est Cr Clr Drug Dosing 41.80 mL/min Estimated GFR (MDRD) 46 (>60) mL/min BUN/Creatinine Ratio 30.7 H (14-18) Glucose 275 H (70-99) mg/dL POC Glucose 251 H (70-99) mg/dL Calcium 9.4 (8.5-10.1) mg/dL 05/30/21 05/30/21 05/31/21 Range/Units 16:47 20:19 05:00 WBC 9.78 H (4.23-9.07) K/mm3 RBC 4.58 L (4.63-6.08) M/mm3 Hgb 14.1 (13.7-17.5) gm/dl Hct 43.7 (40.1-51.0) % MCV 95.4 H (79.0-92.2) fl MCH 30.8 (25.7-32.2) pg MCHC 32.3 (32.2-35.5) g/dl RDW Std Deviation 43.0 (35.1-43.9) fL Plt Count 360 H (163-337) K/mm3 MPV 12.5 H (9.4-12.3) fl Sodium (136-145) mEq/L Potassium (3.5-5.1) mEq/L Chloride (98-107) mEq/L Carbon Dioxide (21-32) mEq/L Anion Gap (5-15) BUN (7-18) mg/dL Creatinine (0.7-1.3) mg/dL Est Cr Clr Drug Dosing mL/min Estimated GFR (MDRD) (>60) mL/min BUN/Creatinine Ratio (14-18) Glucose (70-99) mg/dL POC Glucose 204 H 211 H (70-99) mg/dL Calcium (8.5-10.1) mg/dL 05/31/21 Range/Units 06:25 WBC (4.23-9.07) K/mm3 RBC (4.63-6.08) M/mm3 Hgb (13.7-17.5) gm/dl Hct (40.1-51.0) % MCV (79.0-92.2) fl MCH (25.7-32.2) pg MCHC (32.2-35.5) g/dl RDW Std Deviation (35.1-43.9) fL Plt Count (163-337) K/mm3 MPV (9.4-12.3) fl Sodium (136-145) mEq/L Potassium (3.5-5.1) mEq/L Chloride (98-107) mEq/L Carbon Dioxide (21-32) mEq/L Anion Gap (5-15) BUN (7-18) mg/dL Creatinine (0.7-1.3) mg/dL Est Cr Clr Drug Dosing mL/min Estimated GFR (MDRD) (>60) mL/min BUN/Creatinine Ratio (14-18) Glucose (70-99) mg/dL POC Glucose 202 H (70-99) mg/dL Calcium (8.5-10.1) mg/dL Med Orders - Current: Current Medications Acetaminophen (Acetaminophen 325 Mg Tab) 650 mg PO Q4H PRN PRN Reason: Pain (Mild 1-3)/fever Albuterol (Albuterol 6.7 Gm Inhaler) 0 gm INH Q2H PRN PRN Reason: SOB/WHEEZING Last Admin: 05/31/21 07:32 Dose: 2 puff Documented by: Albuterol/Ipratropium (Albuterol/Ipratropium 3.0-0.5 Mg/3 Ml Neb Soln) 3 ml NEB Q4HRRT PRN PRN Reason: SOB/WHEEZING Aspirin (Aspirin 81 Mg Tab.Ec) 81 mg PO DAILY [facility] Last Admin: 05/31/21 08:08 Dose: 81 mg Documented by: Carvedilol (Carvedilol 12.5 Mg Tab) 12.5 mg PO BID [facility] Last Admin: 05/31/21 08:20 Dose: Not Given Documented by: Enoxaparin Sodium (Enoxaparin 40 Mg/0.4 Ml Syringe) 40 mg SUBCUT DAILY [facility] Last Admin: 05/31/21 08:09 Dose: 40 mg Documented by: Famotidine (Famotidine 20 Mg Tab) 20 mg PO BEDTIME [facility] Last Admin: 05/30/21 20:42 Dose: 20 mg Documented by: Furosemide (Furosemide 20 Mg Tab) 20 mg PO BIDDIURETIC [facility] Last Admin: 05/31/21 05:01 Dose: 20 mg Documented by: Guaifenesin (Guaifenesin 600 Mg Tab.Er) 600 mg PO BID [facility] Last Admin: 05/31/21 08:09 Dose: 600 mg Documented by: Insulin Glargine (Insulin Glarg,Human.Rec.Analog 100 Unit/Ml) 30 unit SUBCUT BEDTIME [facility] Last Admin: 05/30/21 20:41 Dose: 30 units Documented by: Insulin Human Lispro (Insulin Lispro 100 Unit/Ml 10 Ml Vial) 0 unit SUBCUT QIDACANDBED [facility]; Protocol Last Admin: 05/31/21 08:09 Dose: 4 units Documented by: Metformin HCl (Metformin 500 Mg Tab) 1,000 mg PO BID [facility] Last Admin: 05/31/21 08:07 Dose: 1,000 mg Documented by: Ondansetron HCl (Ondansetron 4 Mg/2 Ml Sdv) 4 mg IV Q6H PRN PRN Reason: Nausea/Vomiting Rosuvastatin Calcium (Rosuvastatin 10 Mg Tab) 20 mg PO DAILY [facility] Last Admin: 05/31/21 08:08 Dose: 20 mg Documented by: Sodium Chloride (Sodium Chloride 0.9% 10 Ml Syringe) 10 ml FLUSH ASDIRECTED PRN PRN Reason: Keep Vein Open Last Admin: 05/21/21 22:54 Dose: 10 ml Documented by: Tamsulosin HCl (Tamsulosin 0.4 Mg Cap.Er) 0.4 mg PO DAILY [facility] Last Admin: 05/31/21 08:09 Dose: 0.4 mg Documented by: Zolpidem Tartrate (Zolpidem 10 Mg Tab) 10 mg PO BEDTIME PRN PRN Reason: Insomnia Last Admin: 05/30/21 20:42 Dose: 10 mg Documented by: Discontinued Medications Dexamethasone (Dexamethasone 10 Mg/Ml Sdv) 6 mg IVPUSH ONETIME ONE Stop: 05/21/21 22:21 Last Admin: 05/21/21 22:41 Dose: 6 mg Documented by: Dexamethasone (Dexamethasone 4 Mg Tab) 6 mg PO Q24H PITA Stop: 05/30/21 21:01 Last Admin: 05/30/21 20:43 Dose: 6 mg Documented by: Enoxaparin Sodium (Enoxaparin 30 Mg/0.3 Ml Syringe) 30 mg SUBCUT DAILY [facility] Last Admin: 05/23/21 08:24 Dose: 30 mg Documented by: Famotidine (Famotidine 20 Mg Tab) 20 mg PO BEDTIME [facility] Last Admin: 05/27/21 22:00 Dose: 20 mg Documented by: Famotidine (Famotidine 20 Mg Tab) 20 mg PO BID [facility] Last Admin: 05/29/21 21:00 Dose: 20 mg Documented by: Furosemide (Furosemide 20 Mg Tab) 20 mg PO DAILY [facility] Last Admin: 05/30/21 08:17 Dose: 20 mg Documented by: Furosemide (Furosemide 20 Mg/2 Ml Vial) 20 mg IVPUSH ONETIME ONE Stop: 05/29/21 20:14 Last Admin: 05/29/21 21:00 Dose: 20 mg Documented by: Furosemide (Furosemide 20 Mg/2 Ml Vial) 20 mg IVPUSH ONETIME ONE Stop: 05/30/21 09:01 Last Admin: 05/30/21 08:15 Dose: 20 mg Documented by: Remdesivir 100 mg/ Sodium (Chloride) 100 mls @ 100 mls/hr IV ONETIME ONE Stop: 05/21/21 23:19 Last Admin: 05/21/21 22:41 Dose: 100 mls/hr Documented by: Sodium Chloride (Normal Saline) 500 mls @ 1,000 mls/hr IV .BOLUS ONE Stop: 05/22/21 06:23 Last Admin: 05/22/21 06:00 Dose: 1,000 mls/hr Documented by: Ceftriaxone Sodium 2 gm/ (Sodium Chloride) 100 mls @ 200 mls/hr IV Q24H PITA Stop: 05/26/21 14:29 Last Admin: 05/26/21 13:16 Dose: 200 mls/hr Documented by: Azithromycin 500 mg/ Sodium (Chloride) 250 mls @ 250 mls/hr IV Q24H PITA Stop: 05/24/21 13:59 Last Admin: 05/24/21 12:27 Dose: 250 mls/hr Documented by: Sodium Chloride (Normal Saline) 1,000 mls @ 100 mls/hr IV ASDIRECTED PITA Stop: 05/22/21 22:29 Last Admin: 05/22/21 15:30 Dose: 100 mls/hr Documented by: Influenza Virus Vaccine (Flu Vacc Wo7014(65up)/Mf59c/Pf 60 Mcg/0.5 Ml Syringe) 60 mcg IM .ONCE ONE Stop: 05/22/21 20:01 Insulin Glargine (Insulin Glarg,Human.Rec.Analog 100 Unit/Ml) 20 unit SUBCUT BEDTIME [facility] Last Admin: 05/22/21 20:32 Dose: 20 units Documented by: Insulin Glargine (Insulin Glarg,Human.Rec.Analog 100 Unit/Ml) 25 unit SUBCUT BEDTIME [facility] Last Admin: 05/23/21 20:48 Dose: 25 units Documented by: Insulin Human Lispro (Insulin Lispro 100 Unit/Ml 10 Ml Vial) 8 unit SUBCUT TIDAC [facility] Last Admin: 05/27/21 17:32 Dose: Not Given Documented by: Magnesium Hydroxide (Magnesium Hydroxide 400 Mg/5 Ml Susp 30 Ml Cup) 30 ml PO ONETIME ONE Stop: 05/29/21 11:53 Last Admin: 05/29/21 13:39 Dose: 30 ml Documented by: Non-Formulary Medication (Albuterol Sulfate) 2 puff INH ASDIRECTED PRN PRN Reason: Shortness of Breath Sodium Polystyrene Sulfonate (Sodium Polystyrene Sulfonate 15 Gm/60 Ml Susp 60 Ml Bot) 30 gm PO ONETIME ONE Stop: 05/30/21 12:17 Last Admin: 05/30/21 12:45 Dose: 30 gm Documented by: Spironolactone (Spironolactone 25 Mg Tab) 25 mg PO DAILY [facility] Last Admin: 05/30/21 08:01 Dose: Not Given Documented by: - Exam Quality Assessment: Supplemental Oxygen General: Alert HEENT: Pupils Equal, Mucous Membr. Moist/[place] Neck: Supple Lungs: Normal Respiratory Effort, Crackles Cardiovascular: Regular Rate, Regular Rhythm GI/Abdominal Exam: Normal Bowel Sounds, Soft, No Distention Extremities: Normal Inspection, Normal Range of Motion, Non-Tender, No Pedal Edema, Normal Capillary Refill Skin: Warm, Dry, Intact Psy/Mental Status: Alert, Normal Affect, Normal Mood - Patient Data Lab Results Last 24 hrs: Laboratory Results - last 24 hr 05/30/21 05/30/21 05/30/21 Range/Units 11:08 14:00 14:05 WBC (4.23-9.07) K/mm3 RBC (4.63-6.08) M/mm3 Hgb (13.7-17.5) gm/dl Hct (40.1-51.0) % MCV (79.0-92.2) fl MCH (25.7-32.2) pg MCHC (32.2-35.5) g/dl RDW Std Deviation (35.1-43.9) fL Plt Count (163-337) K/mm3 MPV (9.4-12.3) fl Sodium 136 (136-145) mEq/L Potassium 5.2 H Cancelled (3.5-5.1) mEq/L Chloride 100 (98-107) mEq/L Carbon Dioxide 22 (21-32) mEq/L Anion Gap 19.2 H (5-15) BUN 46 H (7-18) mg/dL Creatinine 1.5 H (0.7-1.3) mg/dL Est Cr Clr Drug Dosing 41.80 mL/min Estimated GFR (MDRD) 46 (>60) mL/min BUN/Creatinine Ratio 30.7 H (14-18) Glucose 275 H (70-99) mg/dL POC Glucose 251 H (70-99) mg/dL Calcium 9.4 (8.5-10.1) mg/dL 05/30/21 05/30/21 05/31/21 Range/Units 16:47 20:19 05:00 WBC 9.78 H (4.23-9.07) K/mm3 RBC 4.58 L (4.63-6.08) M/mm3 Hgb 14.1 (13.7-17.5) gm/dl Hct 43.7 (40.1-51.0) % MCV 95.4 H (79.0-92.2) fl MCH 30.8 (25.7-32.2) pg MCHC 32.3 (32.2-35.5) g/dl RDW Std Deviation 43.0 (35.1-43.9) fL Plt Count 360 H (163-337) K/mm3 MPV 12.5 H (9.4-12.3) fl Sodium (136-145) mEq/L Potassium (3.5-5.1) mEq/L Chloride (98-107) mEq/L Carbon Dioxide (21-32) mEq/L Anion Gap (5-15) BUN (7-18) mg/dL Creatinine (0.7-1.3) mg/dL Est Cr Clr Drug Dosing mL/min Estimated GFR (MDRD) (>60) mL/min BUN/Creatinine Ratio (14-18) Glucose (70-99) mg/dL POC Glucose 204 H 211 H (70-99) mg/dL Calcium (8.5-10.1) mg/dL 05/31/21 Range/Units 06:25 WBC (4.23-9.07) K/mm3 RBC (4.63-6.08) M/mm3 Hgb (13.7-17.5) gm/dl Hct (40.1-51.0) % MCV (79.0-92.2) fl MCH (25.7-32.2) pg MCHC (32.2-35.5) g/dl RDW Std Deviation (35.1-43.9) fL Plt Count (163-337) K/mm3 MPV (9.4-12.3) fl Sodium (136-145) mEq/L Potassium (3.5-5.1) mEq/L Chloride (98-107) mEq/L Carbon Dioxide (21-32) mEq/L Anion Gap (5-15) BUN (7-18) mg/dL Creatinine (0.7-1.3) mg/dL Est Cr Clr Drug Dosing mL/min Estimated GFR (MDRD) (>60) mL/min BUN/Creatinine Ratio (14-18) Glucose (70-99) mg/dL POC Glucose 202 H (70-99) mg/dL Calcium (8.5-10.1) mg/dL Result Diagrams: 05/31/21 05:00 05/30/21 14:00 Sepsis Event Note - Evaluation Sepsis Screening Result: No Definite Risk - Focused Exam Vital Signs: Vital Signs Temp Pulse Resp BP Pulse Ox Pulse Ox 05/31/21 08:05 97.9 F 52 L 14 131/66 88 L 05/31/21 07:32 92 L 05/31/21 06:11 92 L 05/31/21 05:04 97.5 F 68 20 115/82 90 L - Problem List & Annotations (1) Acute renal insufficiency SNOMED Code(s): 503484653 Code(s): N28.9 - DISORDER OF KIDNEY AND URETER, UNSPECIFIED Status: Acute Current Visit: Yes (2) COVID-19 SNOMED Code(s): 485059552 Code(s): U07.1 - COVID-19 Status: Acute Current Visit: Yes (3) Hyperglycemia due to type 2 diabetes mellitus SNOMED Code(s): 639263162339032, 870045523543353 Code(s): E11.65 - TYPE 2 DIABETES MELLITUS WITH HYPERGLYCEMIA Status: Acute Current Visit: Yes (4) Hypertension SNOMED Code(s): 25628019 Code(s): I10 - ESSENTIAL (PRIMARY) HYPERTENSION Status: Acute Current Visit: Yes (5) Urinary retention SNOMED Code(s): 568568405 Code(s): R33.9 - RETENTION OF URINE, UNSPECIFIED Status: Acute Current Visit: Yes - Problem List Review Problem List Initiated/Reviewed/Updated: Yes - My Orders Last 24 Hours: My Active Orders 05/30/21 19:36 Pulse Oximetry [RC] CONTINUOUS 05/30/21 21:00 Famotidine [Pepcid] 20 mg PO BEDTIME - Plan Plan:: 75-year-old male with history of diastolic dysfunction, diabetes, emphysematous changes on chest x-ray from 2019, BPH, and hypertension, presents to the emergency department with worsening shortness of breath for the last 2 weeks secondary to COVID-19. COVID-19 with hypoxemia Emphysema * 2-week history of increasing shortness of breath prior to admission * Diagnosed 1 week before admission with COVID-19. Unknown specific date at this time. * Chest x-ray was consistent with emphysematous changes, diffuse increased lung markings which are less prominent than on prior chest x-ray. * High flow nasal cannula decreased to 50 L and 50% FiO2 * CRP decreased to 0.4 * Procalcitonin on 05/22/2021: 0.61 * Given remdesivir 100 mg, dexamethasone 6 mg, and baricitinib 4 mg in the emergency department * Remdesivir not initially continued secondary to renal function * Transferred to ICU last night 05/28/21 patient refusing to prone, increased high flow to 50 and 70%, will add mucinex bid, encourage proning and ambulation, up to chair tid. [id number]%, off remdesmivir, cont dex and baricitinib,m completed rocephin and azithromycin, re nal dosing 05/29/21 saturating well overnight. Will plan to wean down today to titrate between 88-92. Hopefully we can get ff the highflow. 05/30/21 patient is improving and now on only 5 L of oxygen with the hopes that he can possibly go home in the next 1 to 2 days oxygen. 05/31/2021: No real climate change risk assessor the last 24 hours. Still on 5 L. Hyperkalemia- 05/30 patient was off his Lasix for several days and his potassium did go up. He was given Lasix this morning with a repeat potassium this afternoon. His spironolactone is still held. The calcium level increased on his repeat and we have given him Kayexalate x1. He will need repeat potassium level again this afternoon. Get an EKG Acute renal insufficiencyimproved * Creatinine continuing to improve: 1.2 * BUN continuing to improve: 32 05/28/21 improved to 1.1 05/30 cr 1.4 05/31/2021: Recheck BMP tomorrow Previous smoker with emphysematous changes on chest x-ray * [id number] history, stopped in 2008 * contributing to overall picture and difficulty to wean Diastolic dysfunction, grade 1 * Last echocardiogram in 2019 * BNP 370 * Home medications include: Furosemide and spironolactone, carvedilol, irbesartan * Holding irbesartan, spironolactone and furosemide * Blood pressure and heart rate has been low so carvedilol has been held * Echocardiogram05/22/2021: 1. Left ventricular ejection fraction, by visual estimation, is 60 to 65%. 2. Normal left ventricular systolic function. 3. Impaired relaxation grade 1 pattern of LV diastolic filling. 4. Mild proximal septal hypertrophy. 5. Normal LV filling pressures. 05/28/21 restart home meds 05/29/21 BP more stable. We will restart the lasix 20mg daiy and the spironolactone. We will cont to hold losaratan for now. 05/30 increase lasix to bid for now 05/31/2021: Continue twice daily Lasix for today and recheck BMP tomorrow Type 2 diabetes * A pharmacy audit shows that he is on glipizide. Patient states that he does take insulin shots. * Blood sugars in the 100s * Lantus 30 units daily * poor appetite today * Hemoglobin A1c 10.3 05/28/21 glucose stable lantus 35 units now nightly, SSI, holding glipizide 05/29/21 slight increase in glucose levels and we will cont to hold glipizide but restart metformin 05/30 continuing to hold glipizide 05/31/2021: Glucophage was restarted on 05/29 Hypertension/hyperlipidemia * Initial blood pressures are well controlled. Systolic blood pressures in the 90s to 130 and diastolic blood pressure in the 60s to 80s. * Home meds include: Carvedilol, irbesartan, Lasix, and spironolactone * Carvedilol has been held secondary to bradycardia or low blood pressure * Continue Crestor 05/28 still hypotensive and holding Lasix 20 daily, spironolactone 25 daily and irbesartan 300 mg daily, coreg is 12.5 and may need to reduce 05/29/21 as stated above we will restart the spironolactone and Lasix, watch labs and possible restart losartan tomorrow 05/30 stable, no changes 05/31/2021: Blood pressure well controlled BPH * On Flomax at home VTE prophylaxis with Lovenox renally dosed CODE STATUS: Full code Length of stay greater than 96 hours secondary to severity of illness and slow recovery.
[2021-05-31] MEDS: Insulin Glarg,Human.Rec.Analog 100 Unit/ML SUBCUT SCH (21:14)
[2021-05-31] MEDS: Famotidine 20 MG Tab PO SCH (21:14)
[2021-05-31] MEDS: Zolpidem 10 MG Tab PO PRN (21:17)
[2021-06-01] MEDS: Furosemide 20 MG Tab PO SCH (06:05)
[2021-06-01] MEDS: Insulin Lispro 100 UNIT/ML 10 ML Vial SUBCUT SCH ×4 (07:30→22:21)
[2021-06-01] MEDS: Carvedilol 12.5 MG Tab PO SCH ×2 (08:00→22:18)
[2021-06-01] MEDS: metFORMIN 500 MG Tab PO SCH ×2 (08:00→22:18)
[2021-06-01] MEDS: Enoxaparin 40 MG/0.4 ML Syringe SUBCUT SCH (08:00)
[2021-06-01] MEDS: Rosuvastatin 10 MG Tab PO SCH (08:00)
[2021-06-01] MEDS: Aspirin 81 MG Tab.EC PO SCH (08:00)
[2021-06-01] MEDS: guaiFENesin 600 MG Tab.ER PO SCH ×2 (08:01→22:19)
[2021-06-01] MEDS: Albuterol 6.7 GM Inhaler INH PRN (08:30)
[2021-06-01] MEDS: Tamsulosin 0.4 MG Cap.ER PO SCH (08:55)
--- NOTE | 2021-06-01 09:55 | PCM.PN ---
- General Info Date of Service: 06/01/21 Admission Dx/Problem (Free Text): Admission Diagnosis/Problem Admission Diagnosis/Problem Hypoxia/covid pneumonia Subjective Update: 75-year-old male admitted with 2-week with Covid pnumonia. Patient continues to be on 5 L of nasal cannula. Appetite is moderate. No current complaints. Functional Status: Reports: Pain Controlled - Review of Systems General: Reports: No Symptoms HEENT: Reports: No Symptoms Pulmonary: Reports: Shortness of Breath, Cough Cardiovascular: Reports: No Symptoms Gastrointestinal: Reports: No Symptoms Musculoskeletal: Reports: No Symptoms - Patient Data Vitals - Most Recent: Last Vital Signs Temp 97.9 F 06/01/21 02:48 Pulse 66 06/01/21 08:00 Resp 18 06/01/21 02:48 BP 124/79 06/01/21 08:00 Pulse Ox 93 L 06/01/21 08:31 Weight - Most Recent: 213 lb 6.4 oz I&O - Last 24 Hours: Intake & Output 05/31/21 06/01/21 06/01/21 22:59 06:59 14:59 Intake Total 2340 500 Output Total 900 775 Balance 1440 -275 Lab Results Last 24 Hours: Laboratory Results - last 24 hr 05/31/21 05/31/21 05/31/21 Range/Units 11:50 17:06 21:11 WBC (4.23-9.07) K/mm3 RBC (4.63-6.08) M/mm3 Hgb (13.7-17.5) gm/dl Hct (40.1-51.0) % MCV (79.0-92.2) fl MCH (25.7-32.2) pg MCHC (32.2-35.5) g/dl RDW Std Deviation (35.1-43.9) fL Plt Count (163-337) K/mm3 MPV (9.4-12.3) fl Neut % (Auto) (34.0-67.9) % Lymph % (Auto) (21.8-53.1) % [place] % (Auto) (5.3-12.2) % Eos % (Auto) (0.8-7.0) Baso % (Auto) (0.1-1.2) % Neut # (Auto) (1.78-5.38) K/mm3 Lymph # (Auto) (1.32-3.57) K/mm3 [place] # (Auto) (0.30-0.82) K/mm3 Eos # (Auto) (0.04-0.54) K/mm3 Baso # (Auto) (0.01-0.08) K/mm3 Manual Slide Review D-Dimer, Quantitative (0.19-0.50) mg/L Sodium (136-145) mEq/L Potassium (3.5-5.1) mEq/L Chloride (98-107) mEq/L Carbon Dioxide (21-32) mEq/L Anion Gap (5-15) BUN (7-18) mg/dL Creatinine (0.7-1.3) mg/dL Est Cr Clr Drug Dosing mL/min Estimated GFR (MDRD) (>60) mL/min BUN/Creatinine Ratio (14-18) Glucose (70-99) mg/dL POC Glucose 215 H 156 H 187 H (70-99) mg/dL Calcium (8.5-10.1) mg/dL Phosphorus (2.6-4.7) mg/dL Magnesium (1.8-2.4) mg/dL Total Bilirubin (0.2-1.0) mg/dL AST (15-37) U/L ALT (16-63) U/L Alkaline Phosphatase (46-116) U/L C-Reactive Protein (<1.0) mg/dL Total Protein (6.4-8.2) g/dl Albumin (3.4-5.0) g/dl Globulin gm/dL Albumin/Globulin Ratio (1-2) 06/01/21 06/01/21 06/01/21 Range/Units 06:02 07:30 07:30 WBC 9.48 H (4.23-9.07) K/mm3 RBC 4.72 (4.63-6.08) M/mm3 Hgb 14.5 (13.7-17.5) gm/dl Hct 45.6 (40.1-51.0) % MCV 96.6 H (79.0-92.2) fl MCH 30.7 (25.7-32.2) pg MCHC 31.8 L (32.2-35.5) g/dl RDW Std Deviation 44.1 H (35.1-43.9) fL Plt Count 349 H (163-337) K/mm3 MPV 11.8 (9.4-12.3) fl Neut % (Auto) 70.8 H (34.0-67.9) % Lymph % (Auto) 14.1 L (21.8-53.1) % [place] % (Auto) 13.7 H (5.3-12.2) % Eos % (Auto) 0 L (0.8-7.0) Baso % (Auto) 0.1 (0.1-1.2) % Neut # (Auto) 6.71 H (1.78-5.38) K/mm3 Lymph # (Auto) 1.34 (1.32-3.57) K/mm3 [place] # (Auto) 1.30 H (0.30-0.82) K/mm3 Eos # (Auto) 0.00 L (0.04-0.54) K/mm3 Baso # (Auto) 0.01 (0.01-0.08) K/mm3 Manual Slide Review Normal smear D-Dimer, Quantitative 0.27 (0.19-0.50) mg/L Sodium (136-145) mEq/L Potassium (3.5-5.1) mEq/L Chloride (98-107) mEq/L Carbon Dioxide (21-32) mEq/L Anion Gap (5-15) BUN (7-18) mg/dL Creatinine (0.7-1.3) mg/dL Est Cr Clr Drug Dosing mL/min Estimated GFR (MDRD) (>60) mL/min BUN/Creatinine Ratio (14-18) Glucose (70-99) mg/dL POC Glucose 107 H (70-99) mg/dL Calcium (8.5-10.1) mg/dL Phosphorus (2.6-4.7) mg/dL Magnesium (1.8-2.4) mg/dL Total Bilirubin (0.2-1.0) mg/dL AST (15-37) U/L ALT (16-63) U/L Alkaline Phosphatase (46-116) U/L C-Reactive Protein (<1.0) mg/dL Total Protein (6.4-8.2) g/dl Albumin (3.4-5.0) g/dl Globulin gm/dL Albumin/Globulin Ratio (1-2) 06/01/21 Range/Units 07:30 WBC (4.23-9.07) K/mm3 RBC (4.63-6.08) M/mm3 Hgb (13.7-17.5) gm/dl Hct (40.1-51.0) % MCV (79.0-92.2) fl MCH (25.7-32.2) pg MCHC (32.2-35.5) g/dl RDW Std Deviation (35.1-43.9) fL Plt Count (163-337) K/mm3 MPV (9.4-12.3) fl Neut % (Auto) (34.0-67.9) % Lymph % (Auto) (21.8-53.1) % [place] % (Auto) (5.3-12.2) % Eos % (Auto) (0.8-7.0) Baso % (Auto) (0.1-1.2) % Neut # (Auto) (1.78-5.38) K/mm3 Lymph # (Auto) (1.32-3.57) K/mm3 [place] # (Auto) (0.30-0.82) K/mm3 Eos # (Auto) (0.04-0.54) K/mm3 Baso # (Auto) (0.01-0.08) K/mm3 Manual Slide Review D-Dimer, Quantitative (0.19-0.50) mg/L Sodium 138 (136-145) mEq/L Potassium 4.5 (3.5-5.1) mEq/L Chloride 103 (98-107) mEq/L Carbon Dioxide 29 (21-32) mEq/L Anion Gap 10.5 (5-15) BUN 42 H (7-18) mg/dL Creatinine 1.3 (0.7-1.3) mg/dL Est Cr Clr Drug Dosing 48.23 mL/min Estimated GFR (MDRD) 54 (>60) mL/min BUN/Creatinine Ratio 32.3 H (14-18) Glucose 114 H (70-99) mg/dL POC Glucose (70-99) mg/dL Calcium 9.3 (8.5-10.1) mg/dL Phosphorus 3.4 (2.6-4.7) mg/dL Magnesium 2.2 (1.8-2.4) mg/dL Total Bilirubin 0.7 (0.2-1.0) mg/dL AST 35 (15-37) U/L ALT 123 H (16-63) U/L Alkaline Phosphatase 49 (46-116) U/L C-Reactive Protein <0.2 (<1.0) mg/dL Total Protein 6.7 (6.4-8.2) g/dl Albumin 2.9 L (3.4-5.0) g/dl Globulin 3.8 gm/dL Albumin/Globulin Ratio 0.8 L (1-2) Med Orders - Current: Current Medications Acetaminophen (Acetaminophen 325 Mg Tab) 650 mg PO Q4H PRN PRN Reason: Pain (Mild 1-3)/fever Albuterol (Albuterol 6.7 Gm Inhaler) 0 gm INH Q2H PRN PRN Reason: SOB/WHEEZING Last Admin: 06/01/21 08:30 Dose: 2 puff Documented by: Albuterol/Ipratropium (Albuterol/Ipratropium 3.0-0.5 Mg/3 Ml Neb Soln) 3 ml NEB Q4HRRT PRN PRN Reason: SOB/WHEEZING Aspirin (Aspirin 81 Mg Tab.Ec) 81 mg PO DAILY [facility] Last Admin: 06/01/21 08:00 Dose: 81 mg Documented by: Carvedilol (Carvedilol 12.5 Mg Tab) 12.5 mg PO BID [facility] Last Admin: 06/01/21 08:00 Dose: 12.5 mg Documented by: Enoxaparin Sodium (Enoxaparin 40 Mg/0.4 Ml Syringe) 40 mg SUBCUT DAILY [facility] Last Admin: 06/01/21 08:00 Dose: 40 mg Documented by: Famotidine (Famotidine 20 Mg Tab) 20 mg PO BEDTIME [facility] Last Admin: 05/31/21 21:14 Dose: 20 mg Documented by: Furosemide (Furosemide 20 Mg Tab) 20 mg PO BIDDIURETIC [facility] Last Admin: 06/01/21 06:05 Dose: 20 mg Documented by: Guaifenesin (Guaifenesin 600 Mg Tab.Er) 600 mg PO BID [facility] Last Admin: 06/01/21 08:01 Dose: 600 mg Documented by: Insulin Glargine (Insulin Glarg,Human.Rec.Analog 100 Unit/Ml) 30 unit SUBCUT BEDTIME [facility] Last Admin: 05/31/21 21:14 Dose: 30 units Documented by: Insulin Human Lispro (Insulin Lispro 100 Unit/Ml 10 Ml Vial) 0 unit SUBCUT QIDACANDBED [facility]; Protocol Last Admin: 06/01/21 07:30 Dose: Not Given Documented by: Metformin HCl (Metformin 500 Mg Tab) 1,000 mg PO BID [facility] Last Admin: 06/01/21 08:00 Dose: 1,000 mg Documented by: Ondansetron HCl (Ondansetron 4 Mg/2 Ml Sdv) 4 mg IV Q6H PRN PRN Reason: Nausea/Vomiting Rosuvastatin Calcium (Rosuvastatin 10 Mg Tab) 20 mg PO DAILY [facility] Last Admin: 06/01/21 08:00 Dose: 20 mg Documented by: Sodium Chloride (Sodium Chloride 0.9% 10 Ml Syringe) 10 ml FLUSH ASDIRECTED PRN PRN Reason: Keep Vein Open Last Admin: 05/21/21 22:54 Dose: 10 ml Documented by: Tamsulosin HCl (Tamsulosin 0.4 Mg Cap.Er) 0.4 mg PO DAILY [facility] Last Admin: 06/01/21 08:55 Dose: 0.4 mg Documented by: Zolpidem Tartrate (Zolpidem 10 Mg Tab) 10 mg PO BEDTIME PRN PRN Reason: Insomnia Last Admin: 05/31/21 21:17 Dose: 10 mg Documented by: Discontinued Medications Dexamethasone (Dexamethasone 10 Mg/Ml Sdv) 6 mg IVPUSH ONETIME ONE Stop: 05/21/21 22:21 Last Admin: 05/21/21 22:41 Dose: 6 mg Documented by: Dexamethasone (Dexamethasone 4 Mg Tab) 6 mg PO Q24H [facility] Stop: 05/30/21 21:01 Last Admin: 05/30/21 20:43 Dose: 6 mg Documented by: Enoxaparin Sodium (Enoxaparin 30 Mg/0.3 Ml Syringe) 30 mg SUBCUT DAILY [facility] Last Admin: 05/23/21 08:24 Dose: 30 mg Documented by: Famotidine (Famotidine 20 Mg Tab) 20 mg PO BEDTIME [facility] Last Admin: 05/27/21 22:00 Dose: 20 mg Documented by: Famotidine (Famotidine 20 Mg Tab) 20 mg PO BID [facility] Last Admin: 05/29/21 21:00 Dose: 20 mg Documented by: Furosemide (Furosemide 20 Mg Tab) 20 mg PO DAILY [facility] Last Admin: 05/30/21 08:17 Dose: 20 mg Documented by: Furosemide (Furosemide 20 Mg/2 Ml Vial) 20 mg IVPUSH ONETIME ONE Stop: 05/29/21 20:14 Last Admin: 05/29/21 21:00 Dose: 20 mg Documented by: Furosemide (Furosemide 20 Mg/2 Ml Vial) 20 mg IVPUSH ONETIME ONE Stop: 05/30/21 09:01 Last Admin: 05/30/21 08:15 Dose: 20 mg Documented by: Remdesivir 100 mg/ Sodium (Chloride) 100 mls @ 100 mls/hr IV ONETIME ONE Stop: 05/21/21 23:19 Last Admin: 05/21/21 22:41 Dose: 100 mls/hr Documented by: Sodium Chloride (Normal Saline) 500 mls @ 1,000 mls/hr IV .BOLUS ONE Stop: 05/22/21 06:23 Last Admin: 05/22/21 06:00 Dose: 1,000 mls/hr Documented by: Ceftriaxone Sodium 2 gm/ (Sodium Chloride) 100 mls @ 200 mls/hr IV Q24H [facility] Stop: 05/26/21 14:29 Last Admin: 05/26/21 13:16 Dose: 200 mls/hr Documented by: Azithromycin 500 mg/ Sodium (Chloride) 250 mls @ 250 mls/hr IV Q24H [facility] Stop: 05/24/21 13:59 Last Admin: 05/24/21 12:27 Dose: 250 mls/hr Documented by: Sodium Chloride (Normal Saline) 1,000 mls @ 100 mls/hr IV ASDIRECTED [facility] Stop: 05/22/21 22:29 Last Admin: 05/22/21 15:30 Dose: 100 mls/hr Documented by: Influenza Virus Vaccine (Flu Vacc Kv4954(65up)/Mf59c/Pf 60 Mcg/0.5 Ml Syringe) 60 mcg IM .ONCE ONE Stop: 05/22/21 20:01 Insulin Glargine (Insulin Glarg,Human.Rec.Analog 100 Unit/Ml) 20 unit SUBCUT BEDTIME [facility] Last Admin: 05/22/21 20:32 Dose: 20 units Documented by: Insulin Glargine (Insulin Glarg,Human.Rec.Analog 100 Unit/Ml) 25 unit SUBCUT BEDTIME [facility] Last Admin: 05/23/21 20:48 Dose: 25 units Documented by: Insulin Human Lispro (Insulin Lispro 100 Unit/Ml 10 Ml Vial) 8 unit SUBCUT TIDAC [facility] Last Admin: 05/27/21 17:32 Dose: Not Given Documented by: Magnesium Hydroxide (Magnesium Hydroxide 400 Mg/5 Ml Susp 30 Ml Cup) 30 ml PO ONETIME ONE Stop: 05/29/21 11:53 Last Admin: 05/29/21 13:39 Dose: 30 ml Documented by: Non-Formulary Medication (Albuterol Sulfate) 2 puff INH ASDIRECTED PRN PRN Reason: Shortness of Breath Sodium Polystyrene Sulfonate (Sodium Polystyrene Sulfonate 15 Gm/60 Ml Susp 60 Ml Bot) 30 gm PO ONETIME ONE Stop: 05/30/21 12:17 Last Admin: 05/30/21 12:45 Dose: 30 gm Documented by: Spironolactone (Spironolactone 25 Mg Tab) 25 mg PO DAILY [facility] Last Admin: 05/30/21 08:01 Dose: Not Given Documented by: - Exam Quality Assessment: Supplemental Oxygen General: Alert, Oriented HEENT: Pupils Equal, Mucous Membr. Moist/[place] Neck: Supple Lungs: Normal Respiratory Effort, Crackles (Bibasilar) Cardiovascular: Regular Rate, Regular Rhythm GI/Abdominal Exam: Normal Bowel Sounds, Soft, Non-Tender, No Distention Extremities: Normal Inspection, Normal Range of Motion, Non-Tender, No Pedal Edema, Normal Capillary Refill Skin: Warm, Dry, Intact Psy/Mental Status: Alert, Normal Affect, Normal Mood - Patient Data Lab Results Last 24 hrs: Laboratory Results - last 24 hr 05/31/21 05/31/21 05/31/21 Range/Units 11:50 17:06 21:11 WBC (4.23-9.07) K/mm3 RBC (4.63-6.08) M/mm3 Hgb (13.7-17.5) gm/dl Hct (40.1-51.0) % MCV (79.0-92.2) fl MCH (25.7-32.2) pg MCHC (32.2-35.5) g/dl RDW Std Deviation (35.1-43.9) fL Plt Count (163-337) K/mm3 MPV (9.4-12.3) fl Neut % (Auto) (34.0-67.9) % Lymph % (Auto) (21.8-53.1) % [place] % (Auto) (5.3-12.2) % Eos % (Auto) (0.8-7.0) Baso % (Auto) (0.1-1.2) % Neut # (Auto) (1.78-5.38) K/mm3 Lymph # (Auto) (1.32-3.57) K/mm3 [place] # (Auto) (0.30-0.82) K/mm3 Eos # (Auto) (0.04-0.54) K/mm3 Baso # (Auto) (0.01-0.08) K/mm3 Manual Slide Review D-Dimer, Quantitative (0.19-0.50) mg/L Sodium (136-145) mEq/L Potassium (3.5-5.1) mEq/L Chloride (98-107) mEq/L Carbon Dioxide (21-32) mEq/L Anion Gap (5-15) BUN (7-18) mg/dL Creatinine (0.7-1.3) mg/dL Est Cr Clr Drug Dosing mL/min Estimated GFR (MDRD) (>60) mL/min BUN/Creatinine Ratio (14-18) Glucose (70-99) mg/dL POC Glucose 215 H 156 H 187 H (70-99) mg/dL Calcium (8.5-10.1) mg/dL Phosphorus (2.6-4.7) mg/dL Magnesium (1.8-2.4) mg/dL Total Bilirubin (0.2-1.0) mg/dL AST (15-37) U/L ALT (16-63) U/L Alkaline Phosphatase (46-116) U/L C-Reactive Protein (<1.0) mg/dL Total Protein (6.4-8.2) g/dl Albumin (3.4-5.0) g/dl Globulin gm/dL Albumin/Globulin Ratio (1-2) 06/01/21 06/01/21 06/01/21 Range/Units 06:02 07:30 07:30 WBC 9.48 H (4.23-9.07) K/mm3 RBC 4.72 (4.63-6.08) M/mm3 Hgb 14.5 (13.7-17.5) gm/dl Hct 45.6 (40.1-51.0) % MCV 96.6 H (79.0-92.2) fl MCH 30.7 (25.7-32.2) pg MCHC 31.8 L (32.2-35.5) g/dl RDW Std Deviation 44.1 H (35.1-43.9) fL Plt Count 349 H (163-337) K/mm3 MPV 11.8 (9.4-12.3) fl Neut % (Auto) 70.8 H (34.0-67.9) % Lymph % (Auto) 14.1 L (21.8-53.1) % [place] % (Auto) 13.7 H (5.3-12.2) % Eos % (Auto) 0 L (0.8-7.0) Baso % (Auto) 0.1 (0.1-1.2) % Neut # (Auto) 6.71 H (1.78-5.38) K/mm3 Lymph # (Auto) 1.34 (1.32-3.57) K/mm3 [place] # (Auto) 1.30 H (0.30-0.82) K/mm3 Eos # (Auto) 0.00 L (0.04-0.54) K/mm3 Baso # (Auto) 0.01 (0.01-0.08) K/mm3 Manual Slide Review Normal smear D-Dimer, Quantitative 0.27 (0.19-0.50) mg/L Sodium (136-145) mEq/L Potassium (3.5-5.1) mEq/L Chloride (98-107) mEq/L Carbon Dioxide (21-32) mEq/L Anion Gap (5-15) BUN (7-18) mg/dL Creatinine (0.7-1.3) mg/dL Est Cr Clr Drug Dosing mL/min Estimated GFR (MDRD) (>60) mL/min BUN/Creatinine Ratio (14-18) Glucose (70-99) mg/dL POC Glucose 107 H (70-99) mg/dL Calcium (8.5-10.1) mg/dL Phosphorus (2.6-4.7) mg/dL Magnesium (1.8-2.4) mg/dL Total Bilirubin (0.2-1.0) mg/dL AST (15-37) U/L ALT (16-63) U/L Alkaline Phosphatase (46-116) U/L C-Reactive Protein (<1.0) mg/dL Total Protein (6.4-8.2) g/dl Albumin (3.4-5.0) g/dl Globulin gm/dL Albumin/Globulin Ratio (1-2) 06/01/21 Range/Units 07:30 WBC (4.23-9.07) K/mm3 RBC (4.63-6.08) M/mm3 Hgb (13.7-17.5) gm/dl Hct (40.1-51.0) % MCV (79.0-92.2) fl MCH (25.7-32.2) pg MCHC (32.2-35.5) g/dl RDW Std Deviation (35.1-43.9) fL Plt Count (163-337) K/mm3 MPV (9.4-12.3) fl Neut % (Auto) (34.0-67.9) % Lymph % (Auto) (21.8-53.1) % [place] % (Auto) (5.3-12.2) % Eos % (Auto) (0.8-7.0) Baso % (Auto) (0.1-1.2) % Neut # (Auto) (1.78-5.38) K/mm3 Lymph # (Auto) (1.32-3.57) K/mm3 [place] # (Auto) (0.30-0.82) K/mm3 Eos # (Auto) (0.04-0.54) K/mm3 Baso # (Auto) (0.01-0.08) K/mm3 Manual Slide Review D-Dimer, Quantitative (0.19-0.50) mg/L Sodium 138 (136-145) mEq/L Potassium 4.5 (3.5-5.1) mEq/L Chloride 103 (98-107) mEq/L Carbon Dioxide 29 (21-32) mEq/L Anion Gap 10.5 (5-15) BUN 42 H (7-18) mg/dL Creatinine 1.3 (0.7-1.3) mg/dL Est Cr Clr Drug Dosing 48.23 mL/min Estimated GFR (MDRD) 54 (>60) mL/min BUN/Creatinine Ratio 32.3 H (14-18) Glucose 114 H (70-99) mg/dL POC Glucose (70-99) mg/dL Calcium 9.3 (8.5-10.1) mg/dL Phosphorus 3.4 (2.6-4.7) mg/dL Magnesium 2.2 (1.8-2.4) mg/dL Total Bilirubin 0.7 (0.2-1.0) mg/dL AST 35 (15-37) U/L ALT 123 H (16-63) U/L Alkaline Phosphatase 49 (46-116) U/L C-Reactive Protein <0.2 (<1.0) mg/dL Total Protein 6.7 (6.4-8.2) g/dl Albumin 2.9 L (3.4-5.0) g/dl Globulin 3.8 gm/dL Albumin/Globulin Ratio 0.8 L (1-2) Result Diagrams: 06/01/21 07:30 06/01/21 07:30 Sepsis Event Note - Evaluation Sepsis Screening Result: No Definite Risk - Focused Exam Vital Signs: Vital Signs Temp Pulse Resp BP Pulse Ox Pulse Ox 06/01/21 08:31 93 L 06/01/21 08:00 66 124/79 06/01/21 02:48 97.9 F 53 L 18 113/63 91 L - Problem List & Annotations (1) Acute renal insufficiency SNOMED Code(s): 055252329 Code(s): N28.9 - DISORDER OF KIDNEY AND URETER, UNSPECIFIED Status: Acute Current Visit: Yes (2) COVID-19 SNOMED Code(s): 023571837 Code(s): U07.1 - COVID-19 Status: Acute Current Visit: Yes (3) Hyperglycemia due to type 2 diabetes mellitus SNOMED Code(s): 506135895878381, 353177166386525 Code(s): E11.65 - TYPE 2 DIABETES MELLITUS WITH HYPERGLYCEMIA Status: Acute Current Visit: Yes (4) Hypertension SNOMED Code(s): 96422476 Code(s): I10 - ESSENTIAL (PRIMARY) HYPERTENSION Status: Acute Current Visit: Yes (5) Urinary retention SNOMED Code(s): 310503286 Code(s): R33.9 - RETENTION OF URINE, UNSPECIFIED Status: Acute Current Visit: Yes - Problem List Review Problem List Initiated/Reviewed/Updated: Yes - My Orders Last 24 Hours: My Active Orders 05/31/21 20:04 Consult to Speech Language Pathology [[employer] Evaluation and Treatment] [CONS] Routine - Plan Plan:: 75-year-old male with history of diastolic dysfunction, diabetes, emphysematous changes on chest x-ray from 2019, BPH, and hypertension, presents to the emergency department with worsening shortness of breath for the last 2 weeks secondary to COVID-19. COVID-19 with hypoxemia Emphysema * 2-week history of increasing shortness of breath prior to admission * Diagnosed 1 week before admission with COVID-19. Unknown specific date at this time. * Chest x-ray was consistent with emphysematous changes, diffuse increased lung markings which are less prominent than on prior chest x-ray. * High flow nasal cannula decreased to 50 L and 50% FiO2 * CRP decreased to 0.4 * Procalcitonin on 05/22/2021: 0.61 * Given remdesivir 100 mg, dexamethasone 6 mg, and baricitinib 4 mg in the emergency department * Remdesivir not initially continued secondary to renal function * Transferred to ICU last night 05/28/21 patient refusing to prone, increased high flow to 50 and 70%, will add mucinex bid, encourage proning and ambulation, up to chair tid. [id number]%, off remdesmivir, cont dex and baricitinib,m completed rocephin and azithromycin, renal dosing 05/29/21 saturating well overnight. Will plan to wean down today to titrate between 88-92. Hopefully we can get ff the highflow. 05/30/21 patient is improving and now on only 5 L of oxygen with the hopes that he can possibly go home in the next 1 to 2 days oxygen. 05/31/2021: No real change management facilitator the last 24 hours. Still on 5 L. 06/01/2021: Patient still on 5 L/min nasal cannula. Day 12 of baricitinib. Completed dexamethasone. Completed remdesivir. Hyperkalemia- 05/30 patient was off his Lasix for several days and his potassium did go up. He was given Lasix this morning with a repeat potassium this afternoon. His spironolactone is still held. The calcium level increased on his repeat and we have given him Kayexalate x1. He will need repeat potassium level again this afternoon. Get an EKG 06/01/2021: Patient refused labs today. Acute renal insufficiencyimproved * Creatinine continuing to improve: 1.2 * BUN continuing to improve: 32 05/28/21 improved to 1.1 05/30 cr 1.4 05/31/2021: Recheck BMP tomorrow 06/01/2021: Patient refused labs today. Previous smoker with emphysematous changes on chest x-ray * [id number] history, stopped in 2008 * contributing to overall picture and difficulty to wean Diastolic dysfunction, grade 1 * Last echocardiogram in 2019 * BNP 370 * Home medications include: Furosemide and spironolactone, carvedilol, irbesartan * Holding irbesartan, spironolactone and furosemide * Blood pressure and heart rate has been low so carvedilol has been held * Echocardiogram05/22/2021: 1. Left ventricular ejection fraction, by visual estimation, is 60 to 65%. 2. Normal left ventricular systolic function. 3. Impaired relaxation grade 1 pattern of LV diastolic filling. 4. Mild proximal septal hypertrophy. 5. Normal LV filling pressures. 05/28/21 restart home meds 05/29/21 BP more stable. We will restart the lasix 20mg daiy and the spironolactone. We will cont to hold losaratan for now. 05/30 increase lasix to bid for now 05/31/2021: Continue twice daily Lasix for today and recheck BMP tomorrow 06/01/2021: Decrease Lasix to daily. Try to get labs again tomorrow. Type 2 diabetes * A pharmacy audit shows that he is on glipizide. Patient states that he does take insulin shots. * Blood sugars in the 100s * Lantus 30 units daily * poor appetite today * Hemoglobin A1c 10.3 05/28/21 glucose stable lantus 35 units now nightly, SSI, holding glipizide 05/29/21 slight increase in glucose levels and we will cont to hold glipizide but restart metformin 05/30 continuing to hold glipizide 05/31/2021: Glucophage was restarted on 05/2906/01/2021: Blood sugars ranging from 107-215 Hypertension/hyperlipidemia * Initial blood pressures are well controlled. Systolic blood pressures in the 90s to 130 and diastolic blood pressure in the 60s to 80s. * Home meds include: Carvedilol, irbesartan, Lasix, and spironolactone * Carvedilol has been held secondary to bradycardia or low blood pressure * Continue Crestor 05/28 still hypotensive and holding Lasix 20 daily, spironolactone 25 daily and irbesartan 300 mg daily, coreg is 12.5 and may need to reduce 05/29/21 as stated above we will restart the spironolactone and Lasix, watch labs and possible restart losartan tomorrow 05/30 stable, no changes 05/31/2021: Blood pressure well controlled 06/01/2021: Continue well controlled BPH * On Flomax at home VTE prophylaxis with Lovenox renally dosed CODE STATUS: Full code Length of stay greater than 96 hours secondary to severity of illness and slow recovery. Of note, 1 blood culture out of 2 with coag negative staph is a contaminant and does not imply bacteremia.
[2021-06-01] MEDS: Famotidine 20 MG Tab PO SCH (22:17)
[2021-06-01] MEDS: Insulin Glarg,Human.Rec.Analog 100 Unit/ML SUBCUT SCH (22:20)
[2021-06-02] MEDS: Insulin Lispro 100 UNIT/ML 10 ML Vial SUBCUT SCH ×4 (06:27→21:27)
[2021-06-02] MEDS: Albuterol 6.7 GM Inhaler INH PRN ×2 (08:57→20:36)
[2021-06-02] MEDS ORDERED: Furosemide 20 MG Tab PO SCH (09:00)
[2021-06-02] MEDS: Tamsulosin 0.4 MG Cap.ER PO SCH (09:18)
[2021-06-02] MEDS: metFORMIN 500 MG Tab PO SCH ×2 (09:18→21:27)
[2021-06-02] MEDS: Aspirin 81 MG Tab.EC PO SCH (09:18)
[2021-06-02] MEDS: Rosuvastatin 10 MG Tab PO SCH (09:20)
[2021-06-02] MEDS: guaiFENesin 600 MG Tab.ER PO SCH ×2 (09:21→21:26)
[2021-06-02] MEDS: Carvedilol 12.5 MG Tab PO SCH ×2 (09:21→21:25)
[2021-06-02] MEDS: Enoxaparin 40 MG/0.4 ML Syringe SUBCUT SCH (09:22)
--- NOTE | 2021-06-02 10:58 | PCM.PN ---
- General Info Date of Service: 06/02/21 Admission Dx/Problem (Free Text): Admission Diagnosis/Problem Admission Diagnosis/Problem Hypoxia/covid pneumonia Subjective Update: 75-year-old male admitted with 2-week with Covid pnumonia. Patient had a cognitive evaluation which found him to be in the range of dementia. Patient has very little to say when I am in the room and has no complaints. Functional Status: Reports: Pain Controlled - Review of Systems General: Reports: Fatigue HEENT: Reports: No Symptoms Pulmonary: Reports: No Symptoms Cardiovascular: Reports: No Symptoms Musculoskeletal: Reports: No Symptoms - Patient Data Vitals - Most Recent: Last Vital Signs Temp 98.1 F 06/02/21 08:04 Pulse 67 06/02/21 09:21 Resp 20 06/02/21 08:04 BP 121/76 06/02/21 09:21 Pulse Ox 90 L 06/02/21 08:58 Weight - Most Recent: 212 lb 4.8 oz I&O - Last 24 Hours: Intake & Output 06/01/21 06/02/21 06/02/21 22:59 06:59 14:59 Intake Total 1770 500 Output Total 675 875 Balance 1095 -375 Lab Results Last 24 Hours: Laboratory Results - last 24 hr 06/01/21 06/01/21 06/01/21 Range/Units 10:52 16:35 20:49 WBC (4.23-9.07) K/mm3 RBC (4.63-6.08) M/mm3 Hgb (13.7-17.5) gm/dl Hct (40.1-51.0) % MCV (79.0-92.2) fl MCH (25.7-32.2) pg MCHC (32.2-35.5) g/dl RDW Std Deviation (35.1-43.9) fL Plt Count (163-337) K/mm3 MPV (9.4-12.3) fl Neut % (Auto) (34.0-67.9) % Lymph % (Auto) (21.8-53.1) % [place] % (Auto) (5.3-12.2) % Eos % (Auto) (0.8-7.0) Baso % (Auto) (0.1-1.2) % Neut # (Auto) (1.78-5.38) K/mm3 Lymph # (Auto) (1.32-3.57) K/mm3 [place] # (Auto) (0.30-0.82) K/mm3 Eos # (Auto) (0.04-0.54) K/mm3 Baso # (Auto) (0.01-0.08) K/mm3 Sodium (136-145) mEq/L Potassium (3.5-5.1) mEq/L Chloride (98-107) mEq/L Carbon Dioxide (21-32) mEq/L Anion Gap (5-15) BUN (7-18) mg/dL Creatinine (0.7-1.3) mg/dL Est Cr Clr Drug Dosing mL/min Estimated GFR (MDRD) (>60) mL/min BUN/Creatinine Ratio (14-18) Glucose (70-99) mg/dL POC Glucose 118 H 99 171 H (70-99) mg/dL Calcium (8.5-10.1) mg/dL Magnesium (1.8-2.4) mg/dL Total Bilirubin (0.2-1.0) mg/dL AST (15-37) U/L ALT (16-63) U/L Alkaline Phosphatase (46-116) U/L Total Protein (6.4-8.2) g/dl Albumin (3.4-5.0) g/dl Globulin gm/dL Albumin/Globulin Ratio (1-2) 06/02/21 06/02/21 06/02/21 Range/Units 06:25 07:45 07:45 WBC 11.58 H (4.23-9.07) K/mm3 RBC 4.63 (4.63-6.08) M/mm3 Hgb 14.4 (13.7-17.5) gm/dl Hct 44.9 (40.1-51.0) % MCV 97.0 H (79.0-92.2) fl MCH 31.1 (25.7-32.2) pg MCHC 32.1 L (32.2-35.5) g/dl RDW Std Deviation 44.3 H (35.1-43.9) fL Plt Count 341 H (163-337) K/mm3 MPV 11.7 (9.4-12.3) fl Neut % (Auto) 74.9 H (34.0-67.9) % Lymph % (Auto) 11.7 L (21.8-53.1) % [place] % (Auto) 11.8 (5.3-12.2) % Eos % (Auto) 0.7 L (0.8-7.0) Baso % (Auto) 0.1 (0.1-1.2) % Neut # (Auto) 8.68 H (1.78-5.38) K/mm3 Lymph # (Auto) 1.35 (1.32-3.57) K/mm3 [place] # (Auto) 1.37 H (0.30-0.82) K/mm3 Eos # (Auto) 0.08 (0.04-0.54) K/mm3 Baso # (Auto) 0.01 (0.01-0.08) K/mm3 Sodium 138 (136-145) mEq/L Potassium 4.5 (3.5-5.1) mEq/L Chloride 105 (98-107) mEq/L Carbon Dioxide 26 (21-32) mEq/L Anion Gap 11.5 (5-15) BUN 40 H (7-18) mg/dL Creatinine 1.2 (0.7-1.3) mg/dL Est Cr Clr Drug Dosing 52.25 mL/min Estimated GFR (MDRD) 59 (>60) mL/min BUN/Creatinine Ratio 33.3 H (14-18) Glucose 96 (70-99) mg/dL POC Glucose 84 (70-99) mg/dL Calcium 9.3 (8.5-10.1) mg/dL Magnesium 2.0 (1.8-2.4) mg/dL Total Bilirubin 0.4 (0.2-1.0) mg/dL AST 40 H (15-37) U/L ALT 119 H (16-63) U/L Alkaline Phosphatase 50 (46-116) U/L Total Protein 6.5 (6.4-8.2) g/dl Albumin 2.8 L (3.4-5.0) g/dl Globulin 3.7 gm/dL Albumin/Globulin Ratio 0.8 L (1-2) Med Orders - Current: Current Medications Acetaminophen (Acetaminophen 325 Mg Tab) 650 mg PO Q4H PRN PRN Reason: Pain (Mild 1-3)/fever Albuterol (Albuterol 6.7 Gm Inhaler) 0 gm INH Q2H PRN PRN Reason: SOB/WHEEZING Last Admin: 06/02/21 08:57 Dose: 2 puff Documented by: Albuterol/Ipratropium (Albuterol/Ipratropium 3.0-0.5 Mg/3 Ml Neb Soln) 3 ml NEB Q4HRRT PRN PRN Reason: SOB/WHEEZING Aspirin (Aspirin 81 Mg Tab.Ec) 81 mg PO DAILY [facility] Last Admin: 06/02/21 09:18 Dose: 81 mg Documented by: Carvedilol (Carvedilol 12.5 Mg Tab) 12.5 mg PO BID [facility] Last Admin: 06/02/21 09:21 Dose: 12.5 mg Documented by: Enoxaparin Sodium (Enoxaparin 40 Mg/0.4 Ml Syringe) 40 mg SUBCUT DAILY [facility] [place] Last Admin: 06/02/21 09:22 Dose: 40 mg Documented by: Famotidine (Famotidine 20 Mg Tab) 20 mg PO BEDTIME [facility] Last Admin: 06/01/21 22:17 Dose: 20 mg Documented by: Furosemide (Furosemide 20 Mg Tab) 20 mg PO DAILY [facility] [place] Last Admin: 06/02/21 09:22 Dose: 20 mg Documented by: Guaifenesin (Guaifenesin 600 Mg Tab.Er) 600 mg PO BID [facility] [place] Last Admin: 06/02/21 09:21 Dose: 600 mg Documented by: Insulin Glargine (Insulin Glarg,Human.Rec.Analog 100 Unit/Ml) 30 unit SUBCUT BEDTIME [facility] Last Admin: 06/01/21 22:20 Dose: 30 units Documented by: Insulin Human Lispro (Insulin Lispro 100 Unit/Ml 10 Ml Vial) 0 unit SUBCUT QIDACANDBED [facility]; Protocol Last Admin: 06/02/21 06:27 Dose: Not Given Documented by: Metformin HCl (Metformin 500 Mg Tab) 1,000 mg PO BID [facility] [place] Last Admin: 06/02/21 09:18 Dose: 1,000 mg Documented by: Ondansetron HCl (Ondansetron 4 Mg/2 Ml Sdv) 4 mg IV Q6H PRN PRN Reason: Nausea/Vomiting Rosuvastatin Calcium (Rosuvastatin 10 Mg Tab) 20 mg PO DAILY [facility] [place] Last Admin: 06/02/21 09:20 Dose: 20 mg Documented by: Sodium Chloride (Sodium Chloride 0.9% 10 Ml Syringe) 10 ml FLUSH ASDIRECTED PRN PRN Reason: Keep Vein Open Last Admin: 05/21/21 22:54 Dose: 10 ml Documented by: Tamsulosin HCl (Tamsulosin 0.4 Mg Cap.Er) 0.4 mg PO DAILY [facility] [place] Last Admin: 06/02/21 09:18 Dose: 0.4 mg Documented by: Zolpidem Tartrate (Zolpidem 10 Mg Tab) 10 mg PO BEDTIME PRN PRN Reason: Insomnia Last Admin: 05/31/21 21:17 Dose: 10 mg Documented by: Discontinued Medications Dexamethasone (Dexamethasone 10 Mg/Ml Sdv) 6 mg IVPUSH ONETIME ONE Stop: 05/21/21 22:21 Last Admin: 05/21/21 22:41 Dose: 6 mg Documented by: Dexamethasone (Dexamethasone 4 Mg Tab) 6 mg PO Q24H PITA Stop: 05/30/21 21:01 Last Admin: 05/30/21 20:43 Dose: 6 mg Documented by: Enoxaparin Sodium (Enoxaparin 30 Mg/0.3 Ml Syringe) 30 mg SUBCUT DAILY [facility] [place] Last Admin: 05/23/21 08:24 Dose: 30 mg Documented by: Famotidine (Famotidine 20 Mg Tab) 20 mg PO BEDTIME [facility] [place] Last Admin: 05/27/21 22:00 Dose: 20 mg Documented by: Famotidine (Famotidine 20 Mg Tab) 20 mg PO BID [facility] [place] Last Admin: 05/29/21 21:00 Dose: 20 mg Documented by: Furosemide (Furosemide 20 Mg Tab) 20 mg PO DAILY [facility] [place] Last Admin: 05/30/21 08:17 Dose: 20 mg Documented by: Furosemide (Furosemide 20 Mg/2 Ml Vial) 20 mg IVPUSH ONETIME ONE Stop: 05/29/21 20:14 Last Admin: 05/29/21 21:00 Dose: 20 mg Documented by: Furosemide (Furosemide 20 Mg/2 Ml Vial) 20 mg IVPUSH ONETIME ONE Stop: 05/30/21 09:01 Last Admin: 05/30/21 08:15 Dose: 20 mg Documented by: Furosemide (Furosemide 20 Mg Tab) 20 mg PO BIDDIURETIC [facility] Last Admin: 06/01/21 06:05 Dose: 20 mg Documented by: Remdesivir 100 mg/ Sodium (Chloride) 100 mls @ 100 mls/hr IV ONETIME ONE Stop: 05/21/21 23:19 Last Admin: 05/21/21 22:41 Dose: 100 mls/hr Documented by: Sodium Chloride (Normal Saline) 500 mls @ 1,000 mls/hr IV .BOLUS ONE Stop: 05/22/21 06:23 Last Admin: 05/22/21 06:00 Dose: 1,000 mls/hr Documented by: Ceftriaxone Sodium 2 gm/ (Sodium Chloride) 100 mls @ 200 mls/hr IV Q24H PITA Stop: 05/26/21 14:29 Last Admin: 05/26/21 13:16 Dose: 200 mls/hr Documented by: Azithromycin 500 mg/ Sodium (Chloride) 250 mls @ 250 mls/hr IV Q24H PITA Stop: 05/24/21 13:59 Last Admin: 05/24/21 12:27 Dose: 250 mls/hr Documented by: Sodium Chloride (Normal Saline) 1,000 mls @ 100 mls/hr IV ASDIRECTED PITA Stop: 05/22/21 22:29 Last Admin: 05/22/21 15:30 Dose: 100 mls/hr Documented by: Influenza Virus Vaccine (Flu Vacc Nn2670(65up)/Mf59c/Pf 60 Mcg/0.5 Ml Syringe) 60 mcg IM .ONCE ONE Stop: 05/22/21 20:01 Insulin Glargine (Insulin Glarg,Human.Rec.Analog 100 Unit/Ml) 20 unit SUBCUT BEDTIME [facility] Last Admin: 05/22/21 20:32 Dose: 20 units Documented by: Insulin Glargine (Insulin Glarg,Human.Rec.Analog 100 Unit/Ml) 25 unit SUBCUT BEDTIME [facility] [place] Last Admin: 05/23/21 20:48 Dose: 25 units Documented by: Insulin Human Lispro (Insulin Lispro 100 Unit/Ml 10 Ml Vial) 8 unit SUBCUT TIDAC [facility] [place] Last Admin: 05/27/21 17:32 Dose: Not Given Documented by: Magnesium Hydroxide (Magnesium Hydroxide 400 Mg/5 Ml Susp 30 Ml Cup) 30 ml PO ONETIME ONE Stop: 05/29/21 11:53 Last Admin: 05/29/21 13:39 Dose: 30 ml Documented by: Non-Formulary Medication (Albuterol Sulfate) 2 puff INH ASDIRECTED PRN PRN Reason: Shortness of Breath Sodium Polystyrene Sulfonate (Sodium Polystyrene Sulfonate 15 Gm/60 Ml Susp 60 Ml Bot) 30 gm PO ONETIME ONE Stop: 05/30/21 12:17 Last Admin: 05/30/21 12:45 Dose: 30 gm Documented by: Spironolactone (Spironolactone 25 Mg Tab) 25 mg PO DAILY [facility] Last Admin: 05/30/21 08:01 Dose: Not Given Documented by: - Exam Quality Assessment: Supplemental Oxygen General: Alert HEENT: Pupils Equal, Mucous Membr. Moist/[place] Neck: Supple Lungs: Normal Respiratory Effort, Crackles (Bibasilar) Cardiovascular: Regular Rate, Regular Rhythm GI/Abdominal Exam: Normal Bowel Sounds, Soft, Non-Tender, No Distention Extremities: Normal Inspection, Normal Range of Motion, Non-Tender, No Pedal Edema, Normal Capillary Refill Skin: Warm, Dry, Intact Psy/Mental Status: Alert, Normal Affect, Normal Mood - Patient Data Lab Results Last 24 hrs: Laboratory Results - last 24 hr 06/01/21 06/01/21 06/01/21 Range/Units 10:52 16:35 20:49 WBC (4.23-9.07) K/mm3 RBC (4.63-6.08) M/mm3 Hgb (13.7-17.5) gm/dl Hct (40.1-51.0) % MCV (79.0-92.2) fl MCH (25.7-32.2) pg MCHC (32.2-35.5) g/dl RDW Std Deviation (35.1-43.9) fL Plt Count (163-337) K/mm3 MPV (9.4-12.3) fl Neut % (Auto) (34.0-67.9) % Lymph % (Auto) (21.8-53.1) % [place] % (Auto) (5.3-12.2) % Eos % (Auto) (0.8-7.0) Baso % (Auto) (0.1-1.2) % Neut # (Auto) (1.78-5.38) K/mm3 Lymph # (Auto) (1.32-3.57) K/mm3 [place] # (Auto) (0.30-0.82) K/mm3 Eos # (Auto) (0.04-0.54) K/mm3 Baso # (Auto) (0.01-0.08) K/mm3 Sodium (136-145) mEq/L Potassium (3.5-5.1) mEq/L Chloride (98-107) mEq/L Carbon Dioxide (21-32) mEq/L Anion Gap (5-15) BUN (7-18) mg/dL Creatinine (0.7-1.3) mg/dL Est Cr Clr Drug Dosing mL/min Estimated GFR (MDRD) (>60) mL/min BUN/Creatinine Ratio (14-18) Glucose (70-99) mg/dL POC Glucose 118 H 99 171 H (70-99) mg/dL Calcium (8.5-10.1) mg/dL Magnesium (1.8-2.4) mg/dL Total Bilirubin (0.2-1.0) mg/dL AST (15-37) U/L ALT (16-63) U/L Alkaline Phosphatase (46-116) U/L Total Protein (6.4-8.2) g/dl Albumin (3.4-5.0) g/dl Globulin gm/dL Albumin/Globulin Ratio (1-2) 06/02/21 06/02/21 06/02/21 Range/Units 06:25 07:45 07:45 WBC 11.58 H (4.23-9.07) K/mm3 RBC 4.63 (4.63-6.08) M/mm3 Hgb 14.4 (13.7-17.5) gm/dl Hct 44.9 (40.1-51.0) % MCV 97.0 H (79.0-92.2) fl MCH 31.1 (25.7-32.2) pg MCHC 32.1 L (32.2-35.5) g/dl RDW Std Deviation 44.3 H (35.1-43.9) fL Plt Count 341 H (163-337) K/mm3 MPV 11.7 (9.4-12.3) fl Neut % (Auto) 74.9 H (34.0-67.9) % Lymph % (Auto) 11.7 L (21.8-53.1) % [place] % (Auto) 11.8 (5.3-12.2) % Eos % (Auto) 0.7 L (0.8-7.0) Baso % (Auto) 0.1 (0.1-1.2) % Neut # (Auto) 8.68 H (1.78-5.38) K/mm3 Lymph # (Auto) 1.35 (1.32-3.57) K/mm3 [place] # (Auto) 1.37 H (0.30-0.82) K/mm3 Eos # (Auto) 0.08 (0.04-0.54) K/mm3 Baso # (Auto) 0.01 (0.01-0.08) K/mm3 Sodium 138 (136-145) mEq/L Potassium 4.5 (3.5-5.1) mEq/L Chloride 105 (98-107) mEq/L Carbon Dioxide 26 (21-32) mEq/L Anion Gap 11.5 (5-15) BUN 40 H (7-18) mg/dL Creatinine 1.2 (0.7-1.3) mg/dL Est Cr Clr Drug Dosing 52.25 mL/min Estimated GFR (MDRD) 59 (>60) mL/min BUN/Creatinine Ratio 33.3 H (14-18) Glucose 96 (70-99) mg/dL POC Glucose 84 (70-99) mg/dL Calcium 9.3 (8.5-10.1) mg/dL Magnesium 2.0 (1.8-2.4) mg/dL Total Bilirubin 0.4 (0.2-1.0) mg/dL AST 40 H (15-37) U/L ALT 119 H (16-63) U/L Alkaline Phosphatase 50 (46-116) U/L Total Protein 6.5 (6.4-8.2) g/dl Albumin 2.8 L (3.4-5.0) g/dl Globulin 3.7 gm/dL Albumin/Globulin Ratio 0.8 L (1-2) Result Diagrams: 06/02/21 07:45 06/02/21 07:45 Sepsis Event Note - Evaluation Sepsis Screening Result: No Definite Risk - Focused Exam Vital Signs: Vital Signs Temp Pulse Resp BP Pulse Ox Pulse Ox 06/02/21 09:21 67 121/76 06/02/21 08:58 90 L 06/02/21 08:07 91 L 06/02/21 08:04 98.1 F 61 20 119/74 06/02/21 04:38 98.2 F 71 14 95/68 90 L - Problem List & Annotations (1) Acute renal insufficiency SNOMED Code(s): 879714913 Code(s): N28.9 - DISORDER OF KIDNEY AND URETER, UNSPECIFIED Status: Acute Current Visit: Yes (2) COVID-19 SNOMED Code(s): 235809689 Code(s): U07.1 - COVID-19 Status: Acute Current Visit: Yes (3) Hyperglycemia due to type 2 diabetes mellitus SNOMED Code(s): 625359487620077, 141354174877697 Code(s): E11.65 - TYPE 2 DIABETES MELLITUS WITH HYPERGLYCEMIA Status: Acute Current Visit: Yes (4) Hypertension SNOMED Code(s): 76651056 Code(s): I10 - ESSENTIAL (PRIMARY) HYPERTENSION Status: Acute Current Visit: Yes (5) Urinary retention SNOMED Code(s): 580330101 Code(s): R33.9 - RETENTION OF URINE, UNSPECIFIED Status: Acute Current Visit: Yes - Problem List Review Problem List Initiated/Reviewed/Updated: Yes - My Orders Last 24 Hours: My Active Orders 06/02/21 09:00 Furosemide [Lasix] 20 mg PO DAILY - Plan Plan:: 75-year-old male with history of diastolic dysfunction, diabetes, emphysematous changes on chest x-ray from 2019, BPH, and hypertension, presents to the emergency department with worsening shortness of breath for the last 2 weeks secondary to COVID-19. COVID-19 with hypoxemia Emphysema * 2-week history of increasing shortness of breath prior to admission * Diagnosed 1 week before admission with COVID-19. Unknown specific date at this time. * Chest x-ray was consistent with emphysematous changes, diffuse increased lung markings which are less prominent than on prior chest x-ray. * High flow nasal cannula decreased to 50 L and 50% FiO2 * CRP decreased to 0.4 * Procalcitonin on 05/22/2021: 0.61 * Given remdesivir 100 mg, dexamethasone 6 mg, and baricitinib 4 mg in the emergency department * Remdesivir not initially continued secondary to renal function * Transferred to ICU last night 05/28/21 patient refusing to prone, increased high flow to 50 and 70%, will add mucinex bid, encourage proning and ambulation, up to chair tid. [id number]%, off remdesmivir, cont dex and baricitinib,m completed rocephin and azithromycin, renal dosing 05/29/21 saturating well overnight. Will plan to wean down today to titrate between 88-92. Hopefully we can get ff the highflow. 05/30/21 patient is improving and now on only 5 L of oxygen with the hopes that he can possibly go home in the next 1 to 2 days oxygen. 05/31/2021: No real pack changer the last 24 hours. Still on 5 L. 06/01/2021: Patient still on 5 L/min nasal cannula. Day 12 of baricitinib. Completed dexamethasone. Completed remdesivir. 06/02/2021: Oxygen saturations starting to improve on 4 L/min nasal cannula. Day 13 of baricitinib. Completed dexamethasone and remdesivir. Dementia * Cognitive evaluation found him to have a [facility] mental status examination of 17 out of 30 which places him in the dementia range. He did demonstrate impairments in number calculations, divergent naming, delayed recall, and clock drawing/executive function. Hyperkalemia- 05/30 patient was off his Lasix for several days and his potassium did go up. He was given Lasix this morning with a repeat potassium this afternoon. His spironolactone is still held. The calcium level increased on his repeat and we have given him Kayexalate x1. He will need repeat potassium level again this afternoon. Get an EKG 06/01/2021: Patient refused labs today. 06/02/2021: Potassium 4.5 Acute renal insufficiencyimproved * Creatinine continuing to improve: 1.2 * BUN continuing to improve: 32 05/28/21 improved to 1.1 05/30 cr 1.4 05/31/2021: Recheck BMP tomorrow 06/01/2021: Patient refused labs today. 06/02/2021: Creatinine 1.2, estimated GFR 59 Previous smoker with emphysematous changes on chest x-ray * [id number] history, stopped in 2008 * 10/04/2 contributing to overall picture and difficulty to wean Diastolic dysfunction, grade 1 * Last echocardiogram in 2019 * BNP 370 * Home medications include: Furosemide and spironolactone, carvedilol, irbesartan * Holding irbesartan, spironolactone and furosemide * Blood pressure and heart rate has been low so carvedilol has been held Echocardiogram05/22/2021: 1. Left ventricular ejection fraction, by visual estimation, is 60 to 65%. 2. Normal left ventricular systolic function. 3. Impaired relaxation grade 1 pattern of LV diastolic filling. 4. Mild proximal septal hypertrophy. 5. Normal LV filling pressures. 05/28/21 restart home meds 05/29/21 BP more stable. We will restart the lasix 20mg daiy and the spironolactone. We will cont to hold losaratan for now. 05/30 increase lasix to bid for now 05/31/2021: Continue twice daily Lasix for today and recheck BMP tomorrow 06/01/2021: Decrease Lasix to daily. Try to get labs again tomorrow. 06/02/2021: Lasix 20 mg p.o. daily. 9 pound weight loss since admission and 16 pound weight loss from the height of his admission. Consider stopping Lasix. Type 2 diabetes * A pharmacy audit shows that he is on glipizide. Patient states that he does take insulin shots. * Blood sugars in the 100s * Lantus 30 units daily * poor appetite today * Hemoglobin A1c 10.3 05/28/21 glucose stable lantus 35 units now nightly, SSI, holding glipizide 05/29/21 slight increase in glucose levels and we will cont to hold glipizide but restart metformin 05/30 continuing to hold glipizide 05/31/2021: Glucophage was restarted on 05/2906/01/2021: Blood sugars ranging from 107-215 06/02/2021: Blood sugars in the 90s to low 100s Hypertension/hyperlipidemia * Initial blood pressures are well controlled. Systolic blood pressures in the 90s to 130 and diastolic blood pressure in the 60s to 80s. * Home meds include: Carvedilol, irbesartan, Lasix, and spironolactone * Carvedilol has been held secondary to bradycardia or low blood pressure * Continue Crestor 05/28 still hypotensive and holding Lasix 20 daily, spironolactone 25 daily and irbesartan 300 mg daily, coreg is 12.5 and may need to reduce 05/29/21 as stated above we will restart the spironolactone and Lasix, watch labs and possible restart losartan tomorrow 05/30 stable, no changes 05/31/2021: Blood pressure well controlled 06/01/2021: Continue well controlled 06/02/2021: Blood pressure well controlled BPH * On Flomax at home VTE prophylaxis with Lovenox renally dosed CODE STATUS: Full code Length of stay greater than 96 hours secondary to severity of illness and slow recovery. Of note, 1 blood culture out of 2 with coag negative staph is a contaminant and does not imply bacteremia.
[2021-06-02] MEDS: Zolpidem 10 MG Tab PO PRN (21:25)
[2021-06-02] MEDS: Famotidine 20 MG Tab PO SCH (21:26)
[2021-06-02] MEDS: Insulin Glarg,Human.Rec.Analog 100 Unit/ML SUBCUT SCH (21:27)
[2021-06-03] MEDS: Insulin Lispro 100 UNIT/ML 10 ML Vial SUBCUT SCH ×2 (06:45→11:48)
[2021-06-03] MEDS: Albuterol 6.7 GM Inhaler INH PRN (08:22)
[2021-06-03] MEDS: guaiFENesin 600 MG Tab.ER PO SCH ×2 (09:07→21:30)
[2021-06-03] MEDS: Enoxaparin 40 MG/0.4 ML Syringe SUBCUT SCH (09:07)
[2021-06-03] MEDS: metFORMIN 500 MG Tab PO SCH ×2 (09:07→21:30)
[2021-06-03] MEDS: Carvedilol 12.5 MG Tab PO SCH ×2 (09:08→21:29)
[2021-06-03] MEDS: Rosuvastatin 10 MG Tab PO SCH (09:08)
[2021-06-03] MEDS: Aspirin 81 MG Tab.EC PO SCH (09:08)
[2021-06-03] MEDS: Tamsulosin 0.4 MG Cap.ER PO SCH (09:08)
--- NOTE | 2021-06-03 10:03 | PCM.PN ---
- General Info Date of Service: 06/03/21 Admission Dx/Problem (Free Text): Admission Diagnosis/Problem Admission Diagnosis/Problem Hypoxia/covid pneumonia Subjective Update: Patient appears a little more alert and in the better mood today. He continues on 4 L nasal cannula. No significant change from yesterday. Functional Status: Reports: Pain Controlled - Review of Systems General: Reports: Fatigue HEENT: Reports: No Symptoms Pulmonary: Reports: Cough Cardiovascular: Reports: No Symptoms Gastrointestinal: Reports: No Symptoms Musculoskeletal: Reports: No Symptoms - Patient Data Vitals - Most Recent: Last Vital Signs Temp 98.8 F 06/03/21 09:05 Pulse 72 06/03/21 09:08 Resp 17 06/03/21 09:05 BP 113/64 06/03/21 09:08 Pulse Ox 90 L 06/03/21 09:05 Weight - Most Recent: 213 lb 14.4 oz I&O - Last 24 Hours: Intake & Output 06/02/21 06/03/21 06/03/21 22:59 06:59 14:59 Intake Total 790 700 Output Total 400 975 Balance 390 -275 Lab Results Last 24 Hours: Laboratory Results - last 24 hr 06/02/21 06/02/21 06/02/21 Range/Units 11:13 16:59 21:02 POC Glucose 90 81 169 H (70-99) mg/dL 06/03/21 Range/Units 06:38 POC Glucose 130 H (70-99) mg/dL Med Orders - Current: Current Medications Acetaminophen (Acetaminophen 325 Mg Tab) 650 mg PO Q4H PRN PRN Reason: Pain (Mild 1-3)/fever Albuterol (Albuterol 6.7 Gm Inhaler) 0 gm INH Q2H PRN PRN Reason: SOB/WHEEZING Last Admin: 06/03/21 08:22 Dose: 2 puff Documented by: Albuterol/Ipratropium (Albuterol/Ipratropium 3.0-0.5 Mg/3 Ml Neb Soln) 3 ml NEB Q4HRRT PRN PRN Reason: SOB/WHEEZING Aspirin (Aspirin 81 Mg Tab.Ec) 81 mg PO DAILY [facility] Last Admin: 06/03/21 09:08 Dose: 81 mg Documented by: Carvedilol (Carvedilol 12.5 Mg Tab) 12.5 mg PO BID [facility] Last Admin: 06/03/21 09:08 Dose: 12.5 mg Documented by: Enoxaparin Sodium (Enoxaparin 40 Mg/0.4 Ml Syringe) 40 mg SUBCUT DAILY [facility] Last Admin: 06/03/21 09:07 Dose: 40 mg Documented by: Famotidine (Famotidine 20 Mg Tab) 20 mg PO BEDTIME [facility] Last Admin: 06/02/21 21:26 Dose: 20 mg Documented by: Guaifenesin (Guaifenesin 600 Mg Tab.Er) 600 mg PO BID [facility] Last Admin: 06/03/21 09:07 Dose: 600 mg Documented by: Insulin Glargine (Insulin Glarg,Human.Rec.Analog 100 Unit/Ml) 30 unit SUBCUT BEDTIME [facility] Last Admin: 06/02/21 21:27 Dose: 30 units Documented by: Insulin Human Lispro (Insulin Lispro 100 Unit/Ml 10 Ml Vial) 0 unit SUBCUT QIDACANDBED [facility]; Protocol Last Admin: 06/03/21 06:45 Dose: Not Given Documented by: Metformin HCl (Metformin 500 Mg Tab) 1,000 mg PO BID [facility] Last Admin: 06/03/21 09:07 Dose: 1,000 mg Documented by: Ondansetron HCl (Ondansetron 4 Mg/2 Ml Sdv) 4 mg IV Q6H PRN PRN Reason: Nausea/Vomiting Rosuvastatin Calcium (Rosuvastatin 10 Mg Tab) 20 mg PO DAILY [facility] Last Admin: 06/03/21 09:08 Dose: 20 mg Documented by: Sodium Chloride (Sodium Chloride 0.9% 10 Ml Syringe) 10 ml FLUSH ASDIRECTED PRN PRN Reason: Keep Vein Open Last Admin: 05/21/21 22:54 Dose: 10 ml Documented by: Tamsulosin HCl (Tamsulosin 0.4 Mg Cap.Er) 0.4 mg PO DAILY [facility] Last Admin: 06/03/21 09:08 Dose: 0.4 mg Documented by: Zolpidem Tartrate (Zolpidem 10 Mg Tab) 10 mg PO BEDTIME PRN PRN Reason: Insomnia Last Admin: 06/02/21 21:25 Dose: 10 mg Documented by: Discontinued Medications Dexamethasone (Dexamethasone 10 Mg/Ml Sdv) 6 mg IVPUSH ONETIME ONE Stop: 05/21/21 22:21 Last Admin: 05/21/21 22:41 Dose: 6 mg Documented by: Dexamethasone (Dexamethasone 4 Mg Tab) 6 mg PO Q24H PITA Stop: 05/30/21 21:01 Last Admin: 05/30/21 20:43 Dose: 6 mg Documented by: Enoxaparin Sodium (Enoxaparin 30 Mg/0.3 Ml Syringe) 30 mg SUBCUT DAILY [facility] Last Admin: 05/23/21 08:24 Dose: 30 mg Documented by: Famotidine (Famotidine 20 Mg Tab) 20 mg PO BEDTIME [facility] Last Admin: 05/27/21 22:00 Dose: 20 mg Documented by: Famotidine (Famotidine 20 Mg Tab) 20 mg PO BID [facility] Last Admin: 05/29/21 21:00 Dose: 20 mg Documented by: Furosemide (Furosemide 20 Mg Tab) 20 mg PO DAILY [facility] Last Admin: 05/30/21 08:17 Dose: 20 mg Documented by: Furosemide (Furosemide 20 Mg/2 Ml Vial) 20 mg IVPUSH ONETIME ONE Stop: 05/29/21 20:14 Last Admin: 05/29/21 21:00 Dose: 20 mg Documented by: Furosemide (Furosemide 20 Mg/2 Ml Vial) 20 mg IVPUSH ONETIME ONE Stop: 05/30/21 09:01 Last Admin: 05/30/21 08:15 Dose: 20 mg Documented by: Furosemide (Furosemide 20 Mg Tab) 20 mg PO BIDDIURETIC [facility] Last Admin: 06/01/21 06:05 Dose: 20 mg Documented by: Furosemide (Furosemide 20 Mg Tab) 20 mg PO DAILY [facility] Last Admin: 06/02/21 09:22 Dose: 20 mg Documented by: Remdesivir 100 mg/ Sodium (Chloride) 100 mls @ 100 mls/hr IV ONETIME ONE Stop: 05/21/21 23:19 Last Admin: 05/21/21 22:41 Dose: 100 mls/hr Documented by: Sodium Chloride (Normal Saline) 500 mls @ 1,000 mls/hr IV .BOLUS ONE Stop: 05/22/21 06:23 Last Admin: 05/22/21 06:00 Dose: 1,000 mls/hr Documented by: Ceftriaxone Sodium 2 gm/ (Sodium Chloride) 100 mls @ 200 mls/hr IV Q24H PITA Stop: 05/26/21 14:29 Last Admin: 05/26/21 13:16 Dose: 200 mls/hr Documented by: Azithromycin 500 mg/ Sodium (Chloride) 250 mls @ 250 mls/hr IV Q24H [facility] Stop: 05/24/21 13:59 Last Admin: 05/24/21 12:27 Dose: 250 mls/hr Documented by: Sodium Chloride (Normal Saline) 1,000 mls @ 100 mls/hr IV ASDIRECTED PITA Stop: 05/22/21 22:29 Last Admin: 05/22/21 15:30 Dose: 100 mls/hr Documented by: Influenza Virus Vaccine (Flu Vacc [id number](65up)/Mf59c/Pf 60 Mcg/0.5 Ml Syringe) 60 mcg IM .ONCE ONE Stop: 05/22/21 20:01 Insulin Glargine (Insulin Glarg,Human.Rec.Analog 100 Unit/Ml) 20 unit SUBCUT BEDTIME [facility] Last Admin: 05/22/21 20:32 Dose: 20 units Documented by: Insulin Glargine (Insulin Glarg,Human.Rec.Analog 100 Unit/Ml) 25 unit SUBCUT BEDTIME [facility] Last Admin: 05/23/21 20:48 Dose: 25 units Documented by: Insulin Human Lispro (Insulin Lispro 100 Unit/Ml 10 Ml Vial) 8 unit SUBCUT TIDAC [facility] Last Admin: 05/27/21 17:32 Dose: Not Given Documented by: Magnesium Hydroxide (Magnesium Hydroxide 400 Mg/5 Ml Susp 30 Ml Cup) 30 ml PO ONETIME ONE Stop: 05/29/21 11:53 Last Admin: 05/29/21 13:39 Dose: 30 ml Documented by: Non-Formulary Medication (Albuterol Sulfate) 2 puff INH ASDIRECTED PRN PRN Reason: Shortness of Breath Sodium Polystyrene Sulfonate (Sodium Polystyrene Sulfonate 15 Gm/60 Ml Susp 60 Ml Bot) 30 gm PO ONETIME ONE Stop: 05/30/21 12:17 Last Admin: 05/30/21 12:45 Dose: 30 gm Documented by: Spironolactone (Spironolactone 25 Mg Tab) 25 mg PO DAILY [facility] Last Admin: 05/30/21 08:01 Dose: Not Given Documented by: - Exam Quality Assessment: Supplemental Oxygen General: Alert HEENT: Pupils Equal, Mucous Membr. Moist/[place] Neck: Supple Lungs: Normal Respiratory Effort, Crackles (Bibasilar) Cardiovascular: Regular Rate, Regular Rhythm Extremities: Normal Inspection, Non-Tender, No Pedal Edema - Patient Data Lab Results Last 24 hrs: Laboratory Results - last 24 hr 06/02/21 06/02/21 06/02/21 Range/Units 11:13 16:59 21:02 POC Glucose 90 81 169 H (70-99) mg/dL 06/03/21 Range/Units 06:38 POC Glucose 130 H (70-99) mg/dL Result Diagrams: 06/02/21 07:45 06/02/21 07:45 Sepsis Event Note - Evaluation Sepsis Screening Result: No Definite Risk - Focused Exam Vital Signs: Vital Signs Temp Pulse Resp BP Pulse Ox Pulse Ox 06/03/21 09:08 72 113/64 06/03/21 09:05 98.8 F 72 17 113/64 90 L 06/03/21 08:23 91 L 06/03/21 04:31 90 L 06/03/21 04:29 98.2 F 55 L 13 116/60 88 L - Problem List & Annotations (1) Acute renal insufficiency SNOMED Code(s): 719183743 Code(s): N28.9 - DISORDER OF KIDNEY AND URETER, UNSPECIFIED Status: Acute Current Visit: Yes (2) COVID-19 SNOMED Code(s): 085495028 Code(s): U07.1 - COVID-19 Status: Acute Current Visit: Yes (3) Hyperglycemia due to type 2 diabetes mellitus SNOMED Code(s): 770294172455624, 150313146095805 Code(s): E11.65 - TYPE 2 DIABETES MELLITUS WITH HYPERGLYCEMIA Status: Acute Current Visit: Yes (4) Hypertension SNOMED Code(s): 71594101 Code(s): I10 - ESSENTIAL (PRIMARY) HYPERTENSION Status: Acute Current Visit: Yes (5) Urinary retention SNOMED Code(s): 294119093 Code(s): R33.9 - RETENTION OF URINE, UNSPECIFIED Status: Acute Current Visit: Yes - Problem List Review Problem List Initiated/Reviewed/Updated: Yes - Plan Plan:: 75-year-old male with history of diastolic dysfunction, diabetes, emphysematous changes on chest x-ray from 2019, BPH, and hypertension, presents to the emergency department with worsening shortness of breath for the last 2 weeks secondary to COVID-19. COVID-19 with hypoxemia Emphysema * 2-week history of increasing shortness of breath prior to admission * Diagnosed 1 week before admission with COVID-19. Unknown specific date at this time. * Chest x-ray was consistent with emphysematous changes, diffuse increased lung markings which are less prominent than on prior chest x-ray. * High flow nasal cannula decreased to 50 L and 50% FiO2 * CRP decreased to 0.4 * Procalcitonin on 05/22/2021: 0.61 * Given remdesivir 100 mg, dexamethasone 6 mg, and baricitinib 4 mg in the emergency department * Remdesivir not initially continued secondary to renal function * Transferred to ICU last night 05/28/21 patient refusing to prone, increased high flow to 50 and 70%, will add mucinex bid, encourage proning and ambulation, up to chair tid. [id number]%, off remdesmivir, cont dex and baricitinib,m completed rocephin and azithromycin, re nal dosing 05/29/21 saturating well overnight. Will plan to wean down today to titrate between 88-92. Hopefully we can get ff the highflow. 05/30/21 patient is improving and now on only 5 L of oxygen with the hopes that he can possibly go home in the next 1 to 2 days oxygen. 05/31/2021: No real exchange operator the last 24 hours. Still on 5 L. 06/01/2021: Patient still on 5 L/min nasal cannula. Day 12 of baricitinib. Completed dexamethasone. Completed remdesivir. 06/02/2021: Oxygen saturations starting to improve on 4 L/min nasal cannula. Day 13 of baricitinib. Completed dexamethasone and remdesivir. 06/03/2021: No change in oxygen saturations over the last 24 hours. He continues on 4 L/min nasal cannula Dementia 06/02/2021 * Cognitive evaluation found him to have a [facility] mental status examination of 17 out of 30 which places him in the dementia range. He did demonstrate impairments in number calculations, divergent naming, delayed recall, and clock drawing/executive function. 06/03/2021: Question if patient will be able to go home or will need some assistance. Hyperkalemia- 05/30 patient was off his Lasix for several days and his potassium did go up. He was given Lasix this morning with a repeat potassium this afternoon. His spironolactone is still held. The calcium level increased on his repeat and we have given him Kayexalate x1. He will need repeat potassium level again this afternoon. Get an EKG 06/01/2021: Patient refused labs today. 06/02/2021: Potassium 4.5 06/03/2021: No labs today Acute renal insufficiencyimproved * Creatinine continuing to improve: 1.2 * BUN continuing to improve: 32 05/28/21 improved to 1.1 05/30 cr 1.4 05/31/2021: Recheck BMP tomorrow 06/01/2021: Patient refused labs today. 06/02/2021: Creatinine 1.2, estimated GFR 59 06/03/2021 no labs today Previous smoker with emphysematous changes on chest x-ray * 75-[id number] history, stopped in 2008 * contributing to overall picture and difficulty to wean Diastolic dysfunction, grade 1 * Last echocardiogram in 2019 * BNP 370 * Home medications include: Furosemide and spironolactone, carvedilol, irbesartan * Holding irbesartan, spironolactone and furosemide * Blood pressure and heart rate has been low so carvedilol has been held Echocardiogram05/22/2021: 1. Left ventricular ejection fraction, by visual estimation, is 60 to 65%. 2. Normal left ventricular systolic function. 3. Impaired relaxation grade 1 pattern of LV diastolic filling. 4. Mild proximal septal hypertrophy. 5. Normal LV filling pressures. 05/28/21 restart home meds 05/29/21 BP more stable. We will restart the lasix 20mg daiy and the spironolactone. We will cont to hold losaratan for now. 05/30 increase lasix to bid for now 05/31/2021: Continue twice daily Lasix for today and recheck BMP tomorrow 06/01/2021: Decrease Lasix to daily. Try to get labs again tomorrow. 06/02/2021: Lasix 20 mg p.o. daily. 9 pound weight loss since admission and 16 po und weight loss from the height of his admission. Consider stopping Lasix. 06/03/2021: Furosemide stopped after yesterday's dose Type 2 diabetes * A pharmacy audit shows that he is on glipizide. Patient states that he does take insulin shots. * Blood sugars in the 100s * Lantus 30 units daily * poor appetite today * Hemoglobin A1c 10.3 05/28/21 glucose stable lantus 35 units now nightly, SSI, holding glipizide 05/29/21 slight increase in glucose levels and we will cont to hold glipizide but restart metformin 05/30 continuing to hold glipizide 05/31/2021: Glucophage was restarted on 05/2906/01/2021: Blood sugars ranging from 107-215 06/02/2021: Blood sugars in the 90s to low 100s 06/03/2021: Blood sugars remain stable Hypertension/hyperlipidemia * Initial blood pressures are well controlled. Systolic blood pressures in the 90s to 130 and diastolic blood pressure in the 60s to 80s. * Home meds include: Carvedilol, irbesartan, Lasix, and spironolactone * Carvedilol has been held secondary to bradycardia or low blood pressure * Continue Crestor 05/28 still hypotensive and holding Lasix 20 daily, spironolactone 25 daily and irbesartan 300 mg daily, coreg is 12.5 and may need to reduce 05/29/21 as stated above we will restart the spironolactone and Lasix, watch labs and possible restart losartan tomorrow 05/30 stable, no changes 05/31/2021: Blood pressure well controlled 06/01/2021: Continue well controlled 06/02/2021: Blood pressure well controlled 06/03/2021: Blood pressures are controlled BPH * On Flomax at home VTE prophylaxis with Lovenox renally dosed CODE STATUS: Full code Length of stay greater than 96 hours secondary to severity of illness and slow recovery. Possible discharge tomorrow on home oxygen. Of note, 1 blood culture out of 2 with coag negative staph is a contaminant and does not imply bacteremia.
[2021-06-03] MEDS ORDERED: Insulin Lispro 100 UNIT/ML 10 ML Vial SUBCUT SCH (17:00)
[2021-06-03] MEDS: Zolpidem 10 MG Tab PO PRN (21:29)
[2021-06-03] MEDS: Famotidine 20 MG Tab PO SCH (21:30)
[2021-06-03] MEDS: Insulin Glarg,Human.Rec.Analog 100 Unit/ML SUBCUT SCH (21:31)
[2021-06-04] MEDS: Insulin Lispro 100 UNIT/ML 10 ML Vial SUBCUT SCH ×2 (06:33→16:49)
[2021-06-04] MEDS: Albuterol 6.7 GM Inhaler INH PRN (07:52)
[2021-06-04] MEDS: metFORMIN 500 MG Tab PO SCH ×2 (08:50→22:04)
[2021-06-04] MEDS: Rosuvastatin 10 MG Tab PO SCH (08:50)
[2021-06-04] MEDS: Enoxaparin 40 MG/0.4 ML Syringe SUBCUT SCH (08:50)
[2021-06-04] MEDS: Carvedilol 12.5 MG Tab PO SCH ×2 (08:51→22:16)
[2021-06-04] MEDS: Tamsulosin 0.4 MG Cap.ER PO SCH (08:51)
[2021-06-04] MEDS: Aspirin 81 MG Tab.EC PO SCH (08:51)
[2021-06-04] MEDS: guaiFENesin 600 MG Tab.ER PO SCH ×2 (08:51→22:04)
--- NOTE | 2021-06-04 12:34 | PCM.PN ---
- General Info Date of Service: 06/04/21 Admission Dx/Problem (Free Text): Admission Diagnosis/Problem Admission Diagnosis/Problem Hypoxia/covid pneumonia Subjective Update: Patient is doing better today he was up in chair when I went to see him. He is more talkative and active this morning. He had no complaints. He continues on 4 L nasal cannula which has been stable for 3 days. Functional Status: Reports: Pain Controlled - Review of Systems General: Reports: No Symptoms HEENT: Reports: No Symptoms Pulmonary: Reports: No Symptoms Cardiovascular: Reports: No Symptoms - Patient Data Vitals - Most Recent: Last Vital Signs Temp 98.6 F 06/04/21 08:49 Pulse 70 06/04/21 08:51 Resp 16 06/04/21 08:49 BP 100/64 06/04/21 08:51 Pulse Ox 88 L 06/04/21 08:49 Weight - Most Recent: 215 lb 8 oz I&O - Last 24 Hours: Intake & Output 06/03/21 06/04/21 06/04/21 22:59 06:59 14:59 Intake Total 760 1060 330 Output Total 350 1175 Balance 410 -115 330 Lab Results Last 24 Hours: Laboratory Results - last 24 hr 06/03/21 06/04/21 06/04/21 Range/Units 17:08 06:20 09:08 WBC 9.50 H (4.23-9.07) K/mm3 RBC 4.67 (4.63-6.08) M/mm3 Hgb 14.4 (13.7-17.5) gm/dl Hct 45.5 (40.1-51.0) % MCV 97.4 H (79.0-92.2) fl MCH 30.8 (25.7-32.2) pg MCHC 31.6 L (32.2-35.5) g/dl RDW Std Deviation 44.2 H (35.1-43.9) fL Plt Count 327 (163-337) K/mm3 MPV 12.0 (9.4-12.3) fl Neut % (Auto) 75.9 H (34.0-67.9) % Lymph % (Auto) 12.7 L (21.8-53.1) % [place] % (Auto) 9.3 (5.3-12.2) % Eos % (Auto) 0.8 (0.8-7.0) Baso % (Auto) 0.2 (0.1-1.2) % Neut # (Auto) 7.21 H (1.78-5.38) K/mm3 Lymph # (Auto) 1.21 L (1.32-3.57) K/mm3 [place] # (Auto) 0.88 H (0.30-0.82) K/mm3 Eos # (Auto) 0.08 (0.04-0.54) K/mm3 Baso # (Auto) 0.02 (0.01-0.08) K/mm3 Sodium (136-145) mEq/L Potassium (3.5-5.1) mEq/L Chloride (98-107) mEq/L Carbon Dioxide (21-32) mEq/L Anion Gap (5-15) BUN (7-18) mg/dL Creatinine (0.7-1.3) mg/dL Est Cr Clr Drug Dosing mL/min Estimated GFR (MDRD) (>60) mL/min BUN/Creatinine Ratio (14-18) Glucose (70-99) mg/dL POC Glucose 116 H 135 H (70-99) mg/dL Calcium (8.5-10.1) mg/dL Magnesium (1.8-2.4) mg/dL Total Bilirubin (0.2-1.0) mg/dL AST (15-37) U/L ALT (16-63) U/L Alkaline Phosphatase (46-116) U/L Total Protein (6.4-8.2) g/dl Albumin (3.4-5.0) g/dl Globulin gm/dL Albumin/Globulin Ratio (1-2) 06/04/21 Range/Units 09:08 WBC (4.23-9.07) K/mm3 RBC (4.63-6.08) M/mm3 Hgb (13.7-17.5) gm/dl Hct (40.1-51.0) % MCV (79.0-92.2) fl MCH (25.7-32.2) pg MCHC (32.2-35.5) g/dl RDW Std Deviation (35.1-43.9) fL Plt Count (163-337) K/mm3 MPV (9.4-12.3) fl Neut % (Auto) (34.0-67.9) % Lymph % (Auto) (21.8-53.1) % [place] % (Auto) (5.3-12.2) % Eos % (Auto) (0.8-7.0) Baso % (Auto) (0.1-1.2) % Neut # (Auto) (1.78-5.38) K/mm3 Lymph # (Auto) (1.32-3.57) K/mm3 [place] # (Auto) (0.30-0.82) K/mm3 Eos # (Auto) (0.04-0.54) K/mm3 Baso # (Auto) (0.01-0.08) K/mm3 Sodium 140 (136-145) mEq/L Potassium 4.7 (3.5-5.1) mEq/L Chloride 105 (98-107) mEq/L Carbon Dioxide 30 (21-32) mEq/L Anion Gap 9.7 (5-15) BUN 31 H (7-18) mg/dL Creatinine 1.4 H (0.7-1.3) mg/dL Est Cr Clr Drug Dosing 44.79 mL/min Estimated GFR (MDRD) 50 (>60) mL/min BUN/Creatinine Ratio 22.1 H (14-18) Glucose 117 H (70-99) mg/dL POC Glucose (70-99) mg/dL Calcium 9.3 (8.5-10.1) mg/dL Magnesium 2.0 (1.8-2.4) mg/dL Total Bilirubin 0.6 (0.2-1.0) mg/dL AST 31 (15-37) U/L ALT 95 H (16-63) U/L Alkaline Phosphatase 50 (46-116) U/L Total Protein 6.8 (6.4-8.2) g/dl Albumin 2.9 L (3.4-5.0) g/dl Globulin 3.9 gm/dL Albumin/Globulin Ratio 0.7 L (1-2) Med Orders - Current: Current Medications Acetaminophen (Acetaminophen 325 Mg Tab) 650 mg PO Q4H PRN PRN Reason: Pain (Mild 1-3)/fever Albuterol (Albuterol 6.7 Gm Inhaler) 0 gm INH Q2H PRN PRN Reason: SOB/WHEEZING Last Admin: 06/04/21 07:52 Dose: 2 puff Documented by: Albuterol/Ipratropium (Albuterol/Ipratropium 3.0-0.5 Mg/3 Ml Neb Soln) 3 ml NEB Q4HRRT PRN PRN Reason: SOB/WHEEZING Aspirin (Aspirin 81 Mg Tab.Ec) 81 mg PO DAILY [facility] Last Admin: 06/04/21 08:51 Dose: 81 mg Documented by: Carvedilol (Carvedilol 12.5 Mg Tab) 12.5 mg PO BID [facility] Last Admin: 06/04/21 08:51 Dose: 12.5 mg Documented by: Enoxaparin Sodium (Enoxaparin 40 Mg/0.4 Ml Syringe) 40 mg SUBCUT DAILY [facility] Last Admin: 06/04/21 08:50 Dose: 40 mg Documented by: Famotidine (Famotidine 20 Mg Tab) 20 mg PO BEDTIME [facility] Last Admin: 06/03/21 21:30 Dose: 20 mg Documented by: Guaifenesin (Guaifenesin 600 Mg Tab.Er) 600 mg PO BID [facility] Last Admin: 06/04/21 08:51 Dose: 600 mg Documented by: Insulin Glargine (Insulin Glarg,Human.Rec.Analog 100 Unit/Ml) 30 unit SUBCUT BEDTIME [facility] Last Admin: 06/03/21 21:31 Dose: 30 units Documented by: Insulin Human Lispro (Insulin Lispro 100 Unit/Ml 10 Ml Vial) 0 unit SUBCUT 0700,1700 [facility]; Protocol Last Admin: 06/04/21 06:33 Dose: Not Given Documented by: Metformin HCl (Metformin 500 Mg Tab) 1,000 mg PO BID [facility] Last Admin: 06/04/21 08:50 Dose: 1,000 mg Documented by: Ondansetron HCl (Ondansetron 4 Mg/2 Ml Sdv) 4 mg IV Q6H PRN PRN Reason: Nausea/Vomiting Rosuvastatin Calcium (Rosuvastatin 10 Mg Tab) 20 mg PO DAILY [facility] Last Admin: 06/04/21 08:50 Dose: 20 mg Documented by: Sodium Chloride (Sodium Chloride 0.9% 10 Ml Syringe) 10 ml FLUSH ASDIRECTED PRN PRN Reason: Keep Vein Open Last Admin: 05/21/21 22:54 Dose: 10 ml Documented by: Tamsulosin HCl (Tamsulosin 0.4 Mg Cap.Er) 0.4 mg PO DAILY [facility] Last Admin: 06/04/21 08:51 Dose: 0.4 mg Documented by: Zolpidem Tartrate (Zolpidem 10 Mg Tab) 10 mg PO BEDTIME PRN PRN Reason: Insomnia Last Admin: 06/03/21 21:29 Dose: 10 mg Documented by: Discontinued Medications Dexamethasone (Dexamethasone 10 Mg/Ml Sdv) 6 mg IVPUSH ONETIME ONE Stop: 05/21/21 22:21 Last Admin: 05/21/21 22:41 Dose: 6 mg Documented by: Dexamethasone (Dexamethasone 4 Mg Tab) 6 mg PO Q24H PITA Stop: 05/30/21 21:01 Last Admin: 05/30/21 20:43 Dose: 6 mg Documented by: Enoxaparin Sodium (Enoxaparin 30 Mg/0.3 Ml Syringe) 30 mg SUBCUT DAILY [facility] Last Admin: 05/23/21 08:24 Dose: 30 mg Documented by: Famotidine (Famotidine 20 Mg Tab) 20 mg PO BEDTIME [facility] Last Admin: 05/27/21 22:00 Dose: 20 mg Documented by: Famotidine (Famotidine 20 Mg Tab) 20 mg PO BID [facility] Last Admin: 05/29/21 21:00 Dose: 20 mg Documented by: Furosemide (Furosemide 20 Mg Tab) 20 mg PO DAILY [facility] Last Admin: 05/30/21 08:17 Dose: 20 mg Documented by: Furosemide (Furosemide 20 Mg/2 Ml Vial) 20 mg IVPUSH ONETIME ONE Stop: 05/29/21 20:14 Last Admin: 05/29/21 21:00 Dose: 20 mg Documented by: Furosemide (Furosemide 20 Mg/2 Ml Vial) 20 mg IVPUSH ONETIME ONE Stop: 05/30/21 09:01 Last Admin: 05/30/21 08:15 Dose: 20 mg Documented by: Furosemide (Furosemide 20 Mg Tab) 20 mg PO BIDDIURETIC [facility] Last Admin: 06/01/21 06:05 Dose: 20 mg Documented by: Furosemide (Furosemide 20 Mg Tab) 20 mg PO DAILY [facility] Last Admin: 06/02/21 09:22 Dose: 20 mg Documented by: Remdesivir 100 mg/ Sodium (Chloride) 100 mls @ 100 mls/hr IV ONETIME ONE Stop: 05/21/21 23:19 Last Admin: 05/21/21 22:41 Dose: 100 mls/hr Documented by: Sodium Chloride (Normal Saline) 500 mls @ 1,000 mls/hr IV .BOLUS ONE Stop: 05/22/21 06:23 Last Admin: 05/22/21 06:00 Dose: 1,000 mls/hr Documented by: Ceftriaxone Sodium 2 gm/ (Sodium Chloride) 100 mls @ 200 mls/hr IV Q24H PITA Stop: 05/26/21 14:29 Last Admin: 05/26/21 13:16 Dose: 200 mls/hr Documented by: Azithromycin 500 mg/ Sodium (Chloride) 250 mls @ 250 mls/hr IV Q24H PITA Stop: 05/24/21 13:59 Last Admin: 05/24/21 12:27 Dose: 250 mls/hr Documented by: Sodium Chloride (Normal Saline) 1,000 mls @ 100 mls/hr IV ASDIRECTED PITA Stop: 05/22/21 22:29 Last Admin: 05/22/21 15:30 Dose: 100 mls/hr Documented by: Influenza Virus Vaccine (Flu Vacc [id number](65up)/Mf59c/Pf 60 Mcg/0.5 Ml Syringe) 60 mcg IM .ONCE ONE Stop: 05/22/21 20:01 Insulin Glargine (Insulin Glarg,Human.Rec.Analog 100 Unit/Ml) 20 unit SUBCUT BEDTIME [facility] Last Admin: 05/22/21 20:32 Dose: 20 units Documented by: Insulin Glargine (Insulin Glarg,Human.Rec.Analog 100 Unit/Ml) 25 unit SUBCUT BEDTIME [facility] Last Admin: 05/23/21 20:48 Dose: 25 units Documented by: Insulin Human Lispro (Insulin Lispro 100 Unit/Ml 10 Ml Vial) 0 unit SUBCUT QIDACANDBED [facility]; Protocol Last Admin: 06/03/21 11:48 Dose: Not Given Documented by: Insulin Human Lispro (Insulin Lispro 100 Unit/Ml 10 Ml Vial) 8 unit SUBCUT TIDAC [facility] Last Admin: 05/27/21 17:32 Dose: Not Given Documented by: Insulin Human Lispro (Insulin Lispro 100 Unit/Ml 10 Ml Vial) 0 unit SUBCUT BIDAC [facility]; Protocol Last Admin: 06/03/21 18:12 Dose: Not Given Documented by: Magnesium Hydroxide (Magnesium Hydroxide 400 Mg/5 Ml Susp 30 Ml Cup) 30 ml PO ONETIME ONE Stop: 05/29/21 11:53 Last Admin: 05/29/21 13:39 Dose: 30 ml Documented by: Non-Formulary Medication (Albuterol Sulfate) 2 puff INH ASDIRECTED PRN PRN Reason: Shortness of Breath Sodium Polystyrene Sulfonate (Sodium Polystyrene Sulfonate 15 Gm/60 Ml Susp 60 Ml Bot) 30 gm PO ONETIME ONE Stop: 05/30/21 12:17 Last Admin: 05/30/21 12:45 Dose: 30 gm Documented by: Spironolactone (Spironolactone 25 Mg Tab) 25 mg PO DAILY PITA Last Admin: 05/30/21 08:01 Dose: Not Given Documented by: - Exam Quality Assessment: Supplemental Oxygen General: Alert, Oriented HEENT: Pupils Equal, Mucous Membr. Moist/[place] Neck: Supple Lungs: Normal Respiratory Effort, Crackles (Bibasilar) Cardiovascular: Regular Rate, Regular Rhythm GI/Abdominal Exam: Normal Bowel Sounds, Soft, Non-Tender, No Distention Extremities: Normal Inspection, Normal Range of Motion, No Pedal Edema, Normal Capillary Refill - Patient Data Lab Results Last 24 hrs: Laboratory Results - last 24 hr 06/03/21 06/04/21 06/04/21 Range/Units 17:08 06:20 09:08 WBC 9.50 H (4.23-9.07) K/mm3 RBC 4.67 (4.63-6.08) M/mm3 Hgb 14.4 (13.7-17.5) gm/dl Hct 45.5 (40.1-51.0) % MCV 97.4 H (79.0-92.2) fl MCH 30.8 (25.7-32.2) pg MCHC 31.6 L (32.2-35.5) g/dl RDW Std Deviation 44.2 H (35.1-43.9) fL Plt Count 327 (163-337) K/mm3 MPV 12.0 (9.4-12.3) fl Neut % (Auto) 75.9 H (34.0-67.9) % Lymph % (Auto) 12.7 L (21.8-53.1) % [place] % (Auto) 9.3 (5.3-12.2) % Eos % (Auto) 0.8 (0.8-7.0) Baso % (Auto) 0.2 (0.1-1.2) % Neut # (Auto) 7.21 H (1.78-5.38) K/mm3 Lymph # (Auto) 1.21 L (1.32-3.57) K/mm3 [place] # (Auto) 0.88 H (0.30-0.82) K/mm3 Eos # (Auto) 0.08 (0.04-0.54) K/mm3 Baso # (Auto) 0.02 (0.01-0.08) K/mm3 Sodium (136-145) mEq/L Potassium (3.5-5.1) mEq/L Chloride (98-107) mEq/L Carbon Dioxide (21-32) mEq/L Anion Gap (5-15) BUN (7-18) mg/dL Creatinine (0.7-1.3) mg/dL Est Cr Clr Drug Dosing mL/min Estimated GFR (MDRD) (>60) mL/min BUN/Creatinine Ratio (14-18) Glucose (70-99) mg/dL POC Glucose 116 H 135 H (70-99) mg/dL Calcium (8.5-10.1) mg/dL Magnesium (1.8-2.4) mg/dL Total Bilirubin (0.2-1.0) mg/dL AST (15-37) U/L ALT (16-63) U/L Alkaline Phosphatase (46-116) U/L Total Protein (6.4-8.2) g/dl Albumin (3.4-5.0) g/dl Globulin gm/dL Albumin/Globulin Ratio (1-2) 06/04/21 Range/Units 09:08 WBC (4.23-9.07) K/mm3 RBC (4.63-6.08) M/mm3 Hgb (13.7-17.5) gm/dl Hct (40.1-51.0) % MCV (79.0-92.2) fl MCH (25.7-32.2) pg MCHC (32.2-35.5) g/dl RDW Std Deviation (35.1-43.9) fL Plt Count (163-337) K/mm3 MPV (9.4-12.3) fl Neut % (Auto) (34.0-67.9) % Lymph % (Auto) (21.8-53.1) % [place] % (Auto) (5.3-12.2) % Eos % (Auto) (0.8-7.0) Baso % (Auto) (0.1-1.2) % Neut # (Auto) (1.78-5.38) K/mm3 Lymph # (Auto) (1.32-3.57) K/mm3 [place] # (Auto) (0.30-0.82) K/mm3 Eos # (Auto) (0.04-0.54) K/mm3 Baso # (Auto) (0.01-0.08) K/mm3 Sodium 140 (136-145) mEq/L Potassium 4.7 (3.5-5.1) mEq/L Chloride 105 (98-107) mEq/L Carbon Dioxide 30 (21-32) mEq/L Anion Gap 9.7 (5-15) BUN 31 H (7-18) mg/dL Creatinine 1.4 H (0.7-1.3) mg/dL Est Cr Clr Drug Dosing 44.79 mL/min Estimated GFR (MDRD) 50 (>60) mL/min BUN/Creatinine Ratio 22.1 H (14-18) Glucose 117 H (70-99) mg/dL POC Glucose (70-99) mg/dL Calcium 9.3 (8.5-10.1) mg/dL Magnesium 2.0 (1.8-2.4) mg/dL Total Bilirubin 0.6 (0.2-1.0) mg/dL AST 31 (15-37) U/L ALT 95 H (16-63) U/L Alkaline Phosphatase 50 (46-116) U/L Total Protein 6.8 (6.4-8.2) g/dl Albumin 2.9 L (3.4-5.0) g/dl Globulin 3.9 gm/dL Albumin/Globulin Ratio 0.7 L (1-2) Result Diagrams: 06/04/21 09:08 06/04/21 09:08 Sepsis Event Note - Evaluation Sepsis Screening Result: No Definite Risk - Focused Exam Vital Signs: Vital Signs Temp Pulse Resp BP Pulse Ox Pulse Ox 06/04/21 08:51 70 100/64 06/04/21 08:49 98.6 F 70 16 100/64 88 L 06/04/21 07:52 94 L 06/04/21 04:54 97.2 F 57 L 14 104/46 L 95 - Problem List & Annotations (1) Acute renal insufficiency SNOMED Code(s): 702851516 Code(s): N28.9 - DISORDER OF KIDNEY AND URETER, UNSPECIFIED Status: Acute Current Visit: Yes (2) COVID-19 SNOMED Code(s): 231887629 Code(s): U07.1 - COVID-19 Status: Acute Current Visit: Yes (3) Hyperglycemia due to type 2 diabetes mellitus SNOMED Code(s): 162930296414112, 995255399510925 Code(s): E11.65 - TYPE 2 DIABETES MELLITUS WITH HYPERGLYCEMIA Status: Acute Current Visit: Yes (4) Hypertension SNOMED Code(s): 77504586 Code(s): I10 - ESSENTIAL (PRIMARY) HYPERTENSION Status: Acute Current Visit: Yes (5) Urinary retention SNOMED Code(s): 308507586 Code(s): R33.9 - RETENTION OF URINE, UNSPECIFIED Status: Acute Current Visit: Yes - Problem List Review Problem List Initiated/Reviewed/Updated: Yes - My Orders Last 24 Hours: My Active Orders 06/04/21 07:00 Insulin Lispro [HumaLOG] 0 unit SUBCUT 0700,1700 - Plan Plan:: 75-year-old male with history of diastolic dysfunction, diabetes, emphysematous changes on chest x-ray from 2019, BPH, and hypertension[facility] for the last 2 weeks secondary to COVID-19. COVID-19 with hypoxemia Emphysema * 2-week history of increasing shortness of breath prior to admission * Diagnosed 1 week before admission with COVID-19. Unknown specific date at this time. * Chest x-ray was consistent with emphysematous changes, diffuse increased lung markings which are less prominent than on prior chest x-ray. * High flow nasal cannula decreased to 50 L and 50% FiO2 * CRP decreased to 0.4 * Procalcitonin on 05/22/2021: 0.61 * Given remdesivir 100 mg, dexamethasone 6 mg, and baricitinib 4 mg in the emergency department * Remdesivir not initially continued secondary to renal function * Transferred to ICU last night 05/28/21 patient refusing to prone, increased high flow to 50 and 70%, will add mucinex bid, encourage proning and ambulation, up to chair tid. [id number]%, off remdesmivir, cont dex and baricitinib,m completed rocephin and azithromycin, renal dosing 05/29/21 saturating well overnight. Will plan to wean down today to titrate between 88-92. Hopefully we can get ff the highflow. 05/30/21 patient is improving and now on only 5 L of oxygen with the hopes that he can possibly go home in the next 1 to 2 days oxygen. 05/31/2021: No real exchange underwriting consultant the last 24 hours. Still on 5 L. 06/01/2021: Patient still on 5 L/min nasal cannula. Day 12 of baricitinib. Completed dexamethasone. Completed remdesivir. 06/02/2021: Oxygen saturations starting to improve on 4 L/min nasal cannula. Day 13 of baricitinib. Completed dexamethasone and remdesivir. 06/03/2021: No change in oxygen saturations over the last 24 hours. He continues on 4 L/min nasal cannula 06/04/2021: Patient continues on 4 L nasal cannula. No change. Dementia 06/02/2021 * Cognitive evaluation found him to have a [facility] mental status examination of 17 out of 30 which places him in the dementia range. He did demonstrate impairments in number calculations, divergent naming, delayed recall, and clock drawing/executive function. 06/03/2021: Question if patient will be able to go home or will need some assistance. 06/04/2021: Son will be coming into town tomorrow around noon. Hopefully, he will be able to take him home on oxygen. Hyperkalemia- 05/30 patient was off his Lasix for several days and his potassium did go up. He was given Lasix this morning with a repeat potassium this afternoon. His spironolactone is still held. The calcium level increased on his repeat and we have given him Kayexalate x1. He will need repeat potassium level again this afternoon. Get an EKG 06/01/2021: Patient refused labs today. 06/02/2021: Potassium 4.5 06/03/2021: No labs today 06/04/2021 potassium 4.7 Acute renal insufficiencyimproved * Creatinine continuing to improve: 1.2 * BUN continuing to improve: 32 05/28/21 improved to 1.1 05/30 cr 1.4 05/31/2021: Recheck BMP tomorrow 06/01/2021: Patient refused labs today. 06/02/2021: Creatinine 1.2, estimated GFR 59 06/03/2021 no labs today 06/04/2021: Estimated GFR 50 with creatinine of 1.4 and a BUN of 31. Not currently on Lasix or spironolactone. Recheck renal function tomorrow Previous smoker with emphysematous changes on chest x-ray * 50-ddnr-vbaq history, stopped in 2008 * contributing to overall picture and difficulty to wean Diastolic dysfunction, grade 1 * Last echocardiogram in 2019 * BNP 370 * Home medications include: Furosemide and spironolactone, carvedilol, irbesartan * Holding irbesartan, spironolactone and furosemide * Blood pressure and heart rate has been low so carvedilol has been held Echocardiogram05/22/2021: 1. Left ventricular ejection fraction, by visual estimation, is 60 to 65%. 2. Normal left ventricular systolic function. 3. Impaired relaxation grade 1 pattern of LV diastolic filling. 4. Mild proximal septal hypertrophy. 5. Normal LV filling pressures. 05/28/21 restart home meds 05/29/21 BP more stable. We will restart the lasix 20mg daiy and the spironolactone. We will cont to hold losaratan for now. 05/30 increase lasix to bid for now 05/31/2021: Continue twice daily Lasix for today and recheck BMP tomorrow 06/01/2021: Decrease Lasix to daily. Try to get labs again tomorrow. 06/02/2021: Lasix 20 mg p.o. daily. 9 pound weight loss since admission and 16 pound weight loss from the height of his admission. Consider stopping Lasix. 06/03/2021: Furosemide stopped after yesterday's dose 06/04/2021: Diuretics held. Recheck renal function tomorrow. Type 2 diabetes * A pharmacy audit shows that he is on glipizide. Patient states that he does take insulin shots. * Blood sugars in the 100s * Lantus 30 units daily * poor appetite today * Hemoglobin A1c 10.3 05/28/21 glucose stable lantus 35 units now nightly, SSI, holding glipizide 05/29/21 slight increase in glucose levels and we will cont to hold glipizide but restart metformin 05/30 continuing to hold glipizide 05/31/2021: Glucophage was restarted on 05/2906/01/2021: Blood sugars ranging from 107-215 06/02/2021: Blood sugars in the 90s to low 100s 06/03/2021: Blood sugars remain stable 06/04/2021: Switched bedside glucose to twice daily because blood sugars have been very stable. Hypertension/hyperlipidemia * Initial blood pressures are well controlled. Systolic blood pressures in the 90s to 130 and diastolic blood pressure in the 60s to 80s. * Home meds include: Carvedilol, irbesartan, Lasix, and spironolactone * Carvedilol has been held secondary to bradycardia or low blood pressure * Continue Crestor 05/28 still hypotensive and holding Lasix 20 daily, spironolactone 25 daily and irbesartan 300 mg daily, coreg is 12.5 and may need to reduce 05/29/21 as stated above we will restart the spironolactone and Lasix, watch labs and possible restart losartan tomorrow 05/30 stable, no changes 05/31/2021: Blood pressure well controlled 06/01/2021: Continue well controlled 06/02/2021: Blood pressure well controlled 06/03/2021: Blood pressures are controlled 06/04/2021: Blood pressures are well controlled, continue current treatment. Lasix and spironolactone held. Consider irbesartan at discharge. BPH * On Flomax at home VTE prophylaxis with Lovenox renally dosed CODE STATUS: Full code Length of stay greater than 96 hours secondary to severity of illness and slow recovery. Possible discharge tomorrow on home oxygen. Of note, 1 blood culture out of 2 with coag negative staph is a contaminant and does not imply bacteremia.
[2021-06-04] MEDS: Insulin Glarg,Human.Rec.Analog 100 Unit/ML SUBCUT SCH (22:03)
[2021-06-04] MEDS: Famotidine 20 MG Tab PO SCH (22:05)
[2021-06-04] MEDS: Zolpidem 10 MG Tab PO PRN (22:29)
[2021-06-05 07:50] VITALS: PULSE 65
[2021-06-05] MEDS: Insulin Lispro 100 UNIT/ML 10 ML Vial SUBCUT SCH (09:53)
[2021-06-05] MEDS: Carvedilol 12.5 MG Tab PO SCH (09:59)
[2021-06-05] MEDS: Aspirin 81 MG Tab.EC PO SCH (09:59)
[2021-06-05] MEDS: Tamsulosin 0.4 MG Cap.ER PO SCH (10:00)
[2021-06-05] MEDS: metFORMIN 500 MG Tab PO SCH (10:00)
[2021-06-05] MEDS: guaiFENesin 600 MG Tab.ER PO SCH (10:00)
[2021-06-05] MEDS: Rosuvastatin 10 MG Tab PO SCH (10:00)
[2021-06-05 10:01] VITALS: BP 107/44
[2021-06-05] MEDS: Enoxaparin 40 MG/0.4 ML Syringe SUBCUT SCH (10:01)
--- NOTE | 2021-06-05 12:16 | PCM.DCSUM1 ---
Discharge Summary - Hospital Course HPI Initial Comments: - History of Present Illness Initial Comments - Free Text/Narative: 75-year-old male who started getting symptomatic with shortness of breath 14 days ago. Patient presented to our emergency department last night with c onfusion and shortness of breath. He was hypoxic at the time of triage and found to have oxygen saturations in the mid 70s. This morning when seen on the medical floor patient was much less confused but still was slow to answer. He states he was tested positive for Covid last week. He is not vaccinated. He does not smoke or drink. He has had worsening shortness of breath to the point of having difficulty getting around and presented to the emergency department. He denies any fever. Appetite is still good. He has a history of hypertension, diabetes, diastolic dysfunction, hyperlipidemia, BPH. Unknown if there are other not reported medical conditions. In the emergency department he was placed on FiO2 and quickly titrated up to high flow nasal cannula at 60 L and 85%. Because there were no beds available both here at our hospital and various hospitals throughout the [facility] he was kept in the emergency department. He was given remdesivir 100 mg IV secondary to concerns about his low GFR 29 and a creatinine of 2.2. D-dimer 0.96. Platelets slightly low at 146. C-reactive protein 4.7, lactic acid 1.5, troponin 0 0.052, and BNP 370. Blood sugar is elevated at 221. VBG: pH 7.36, PCO2 40.4, PO2 31 on 4 L nasal cannula, HCO3 22.4. He was also given dexamethasone 6 mg IV and baricitinib 4 mg IV. Chest x-ray was consistent with emphysematous changes, diffuse increased lung markings which are less prominent than on prior chest x-ray. These findings are most likely chronic in etiology. EKG last night showed normal sinus rhythm with a ventricular rate of 71 bpm. Normal axis. Enlarged P waves questioning left atrial enlargement. No ischemic or acute ST changes noted. Patient was then transferred to the medical floor where was noted that he was on 60 L and 85%. Repeat lab work was ordered when he arrived on the floor. Echocardiogram from 01/07/2020: 1. Left ventricular ejection fraction, by visual estimation, is 55 to 60%. 2. Impaired relaxation (grade 1) pattern of LV diastolic filling. 3. No aortic valve stenosis. 4. No evidence of mitral valve regurgitation. 5. The right ventricular systolic pressure is unable to be determined. 6. No regional wall motion abnormalities. Assessment/Plan Comment:: 75-year-old male with history of diastolic dysfunction, diabetes, emphysematous changes on chest x-ray from 2019, BPH, and hypertension, presents to the emergency department with worsening shortness of breath for the last 2 weeks secondary to COVID-19. COVID-19 with hypoxemia * 2-week history of increasing shortness of breath * Diagnosed last week with COVID-19. Unknown specific date at this time. * Chest x-ray was consistent with emphysematous changes, diffuse increased lung markings which are less prominent than on prior chest x-ray. * Requiring 60 L high flow nasal cannula * CRP 4.7 * Given remdesivir 100 mg, dexamethasone 6 mg, and baricitinib 4 mg in the emergency department Leukopenia * WBC 2.02, ANC 0.92. * Significant decrease overnight. * Likely secondary to Covid infection Thrombocytopenia * Platelets 132. Decreased from 146 last night * Likely secondary to Covid infection Acute renal insufficiency * Creatinine 2.3, GFR 28. Creatinine 2.2 and GFR of 29 in the emergency department last night * BUN 44 * There appears to be some prerenal component, but very likely worsened secondary to Covid hypoxemia. Previous smoker with emphysematous changes on chest x-ray * [id number] history, stopped in 2008 Diastolic dysfunction, grade 1 * Last echocardiogram in 2019 * BNP 370 * On Lasix and spironolactone, carvedilol Type 2 diabetes * A pharmacy audit shows that he is on glipizide. Patient states that he does take insulin shots. * Initial blood sugars were in the 200s. Hypertension/hyperlipidemia * Initial blood pressures are well controlled. Systolic blood pressures in the 1 teens to 120s and diastolic blood pressure in the 60s to 80s. * On carvedilol, irbesartan, Lasix, and spironolactone * Continue Crestor BPH * On Flomax at home Plan Initially admitted to the medical floor because of bed availability [place] the [place]. He may need to be transferred to the ICU if any worsening in condition. Continue respiratory support to keep oxygen saturations between 88 and 93%. Consider BiPAP if he fails high flow nasal cannula. Hold off on remdesivir at this time secondary to severe renal insufficiency, stage IV renal disease Continue dexamethasone 6 mg daily Consider restarting baricitinib tomorrow at a renally adjusted dose. Renally dose medications Hold irbesartan Hold glipizide Normal saline at 100 mL/h for 10 hours Start sliding scale insulin medium dose with fingerstick blood sugars 4 times daily Lantus 20 units nightly. Adjust as needed. Contact patient's PCP for most recent med list and office notes. Get echocardiogram secondary to diastolic dysfunction and mildly elevated BNP Blood cultures, procalcitonin, sputum cultures Start Rocephin 2 g every 24 hours for at least 5 days and azithromycin 500 mg IV daily for 3 days Recheck CBC, CMP, mag, Phos, CRP in the morning Hemoglobin A1c in the morning. VTE prophylaxis with Lovenox renally dosed CODE STATUS: Full code - Mortality Measure Prognosis:: Poor (75-year-old male with multiple medical problems in renal failure and respiratory failure places him at high risk for poor outcomes) Diagnosis: Stroke: No - Discharge Data Discharge Date: 06/05/21 Discharge Disposition: Home, Self-Care 01 Condition: Fair - Referral to Home Health Primary Care Physician: Sarmad Astudillo MD - Discharge Diagnosis/Problem(s) (1) Acute renal insufficiency SNOMED Code(s): 292248436 ICD Code: N28.9 - DISORDER OF KIDNEY AND URETER, UNSPECIFIED Status: Acute Current Visit: Yes (2) COVID-19 SNOMED Code(s): 522381442 ICD Code: U07.1 - COVID-19 Status: Acute Current Visit: Yes (3) Hyperglycemia due to type 2 diabetes mellitus SNOMED Code(s): 586128637958116, 839031516461694 ICD Code: E11.65 - TYPE 2 DIABETES MELLITUS WITH HYPERGLYCEMIA Status: Acute Current Visit: Yes (4) Hypertension SNOMED Code(s): 08145906 ICD Code: I10 - ESSENTIAL (PRIMARY) HYPERTENSION Status: Acute Current Visit: Yes (5) Urinary retention SNOMED Code(s): 826427307 ICD Code: R33.9 - RETENTION OF URINE, UNSPECIFIED Status: Acute Current Visit: Yes - Patient Summary/Data Consults: Consultations 05/23/21 10:41 PT Evaluation and Treatment [CONS] Routine 05/31/21 20:04 Consult to Speech Language Pathology [CAFETERIA OPERATOR Evaluation and Treatment] [CONS] Routine Hospital Course: 75-year-old male with history of diastolic dysfunction, diabetes, emphysematous changes on chest x-ray from 2019, BPH, and hypertension, presents to the emergency department with worsening shortness of breath for the last 2 weeks secondary to COVID-19. COVID-19 with hypoxemia Emphysema * 2-week history of increasing shortness of breath prior to admission * Diagnosed 1 week before admission with COVID-19. Unknown specific date at this time. * Chest x-ray was consistent with emphysematous changes, diffuse increased lung markings which are less prominent than on prior chest x-ray. * High flow nasal cannula decreased to 50 L and 50% FiO2 * CRP decreased to 0.4 * Procalcitonin on 05/22/2021: 0.61 * Given remdesivir 100 mg, dexamethasone 6 mg, and baricitinib 4 mg in the emergency department * Remdesivir not initially continued secondary to renal function * Transferred to ICU last night 05/28/21 patient refusing to prone, increased high flow to 50 and 70%, will add mucinex bid, encourage proning and ambulation, up to chair tid. [id number]%, off remdesmivir, cont dex and baricitinib,m completed rocephin and azithromycin, renal dosing 05/29/21 saturating well overnight. Will plan to wean down today to titrate between 88-92. Hopefully we can get ff the highflow. 05/30/21 patient is improving and now on only 5 L of oxygen with the hopes that he can possibly go home in the next 1 to 2 days oxygen. 05/31/2021: No real undercover cop the last 24 hours. Still on 5 L. 06/01/2021: Patient still on 5 L/min nasal cannula. Day 12 of baricitinib. Completed dexamethasone. Completed remdesivir. 06/02/2021: Oxygen saturations starting to improve on 4 L/min nasal cannula. Day 13 of baricitinib. Completed dexamethasone and remdesivir. 06/03/2021: No change in oxygen saturations over the last 24 hours. He continues on 4 L/min nasal cannula 06/04/2021: Patient continues on 4 L nasal cannula. No change. Dementia 06/02/2021 * Cognitive evaluation found him to have a [facility] mental status examination of 17 out of 30 which places him in the dementia range. He did demonstrate impairments in number calculations, divergent naming, delayed recall, and clock drawing/executive function. 06/03/2021: Question if patient will be able to go home or will need some assistance. 06/04/2021: Son will be coming into town tomorrow around noon. Hopefully, he will be able to take him home on oxygen. Hyperkalemia- 05/30 patient was off his Lasix for several days and his potassium did go up. He was given Lasix this morning with a repeat potassium this afternoon. His spironolactone is still held. The calcium level increased on his repeat and we have given him Kayexalate x1. He will need repeat potassium level again this afternoon. Get an EKG 06/01/2021: Patient refused labs today. 06/02/2021: Potassium 4.5 06/03/2021: No labs today 06/04/2021 potassium 4.7 Acute renal insufficiencyimproved * Creatinine continuing to improve: 1.2 * BUN continuing to improve: 32 05/28/21 improved to 1.1 05/30 cr 1.4 05/31/2021: Recheck BMP tomorrow 06/01/2021: Patient refused labs today. 06/02/2021: Creatinine 1.2, estimated GFR 59 06/03/2021 no labs today 06/04/2021: Estimated GFR 50 with creatinine of 1.4 and a BUN of 31. Not currently on Lasix or spironolactone. Recheck renal function tomorrow Previous smoker with emphysematous changes on chest x-ray * [id number] history, stopped in 2008 * contributing to overall picture and difficulty to wean Diastolic dysfunction, grade 1 * Last echocardiogram in 2019 * BNP 370 * Home medications include: Furosemide and spironolactone, carvedilol, irbesartan * Holding irbesartan, spironolactone and furosemide * Blood pressure and heart rate has been low so carvedilol has been held Echocardiogram05/22/2021: 1. Left ventricular ejection fraction, by visual estimation, is 60 to 65%. 2. Normal left ventricular systolic function. 3. Impaired relaxation grade 1 pattern of LV diastolic filling. 4. Mild proximal septal hypertrophy. 5. Normal LV filling pressures. 05/28/21 restart home meds 05/29/21 BP more stable. We will restart the lasix 20mg daiy and the spironolactone. We will cont to hold losaratan for now. 05/30 increase lasix to bid for now 05/31/2021: Continue twice daily Lasix for today and recheck BMP tomorrow 06/01/2021: Decrease Lasix to daily. Try to get labs again tomorrow. 06/02/2021: Lasix 20 mg p.o. daily. 9 pound weight loss since admission and 16 pound weight loss from the height of his admission. Consider stopping Lasix. 06/03/2021: Furosemide stopped after yesterday's dose 06/04/2021: Diuretics held. Recheck renal function tomorrow. Type 2 diabetes * A pharmacy audit shows that he is on glipizide. Patient states that he does take insulin shots. * Blood sugars in the 100s * Lantus 30 units daily * poor appetite today * Hemoglobin A1c 10.3 05/28/21 glucose stable lantus 35 units now nightly, SSI, holding glipizide 05/29/21 slight increase in glucose levels and we will cont to hold glipizide but restart metformin 05/30 continuing to hold glipizide 05/31/2021: Glucophage was restarted on 05/2906/01/2021: Blood sugars ranging from 107-215 06/02/2021: Blood sugars in the 90s to low 100s 06/03/2021: Blood sugars remain stable 06/04/2021: Switched bedside glucose to twice daily because blood sugars have been very stable. Hypertension/hyperlipidemia * Initial blood pressures are well controlled. Systolic blood pressures in the 90s to 130 and diastolic blood pressure in the 60s to 80s. * Home meds include: Carvedilol, irbesartan, Lasix, and spironolactone * Carvedilol has been held secondary to bradycardia or low blood pressure * Continue Crestor 05/28 still hypotensive and holding Lasix 20 daily, spironolactone 25 daily and irbesartan 300 mg daily, coreg is 12.5 and may need to reduce 05/29/21 as stated above we will restart the spironolactone and Lasix, watch labs and possible restart losartan tomorrow 05/30 stable, no changes 05/31/2021: Blood pressure well controlled 06/01/2021: Continue well controlled 06/02/2021: Blood pressure well controlled 06/03/2021: Blood pressures are controlled 06/04/2021: Blood pressures are well controlled, continue current treatment. Lasix and spironolactone held. Consider irbesartan at discharge. BPH * On Flomax at home VTE prophylaxis with Lovenox renally dosed CODE STATUS: Full code Length of stay greater than 96 hours secondary to severity of illness and slow recovery. Possible discharge tomorrow on home oxygen. Of note, 1 blood culture out of 2 with coag negative staph is a contaminant and does not imply bacteremia. - Patient Instructions Diet: Diabetic Diet Activity: As Tolerated Driving: Do Not Drive Showering/Bathing: May Shower Other/Special Instructions: You are being discharged on home oxygen. Currently you are on 4 L/min via nasal cannula. You need to keep an eye on your oxygen saturations multiple times a day, at least 6 times per day. Please adjust your oxygen saturations to make sure your oxygen levels are greater than 90%. Your son will be picking you up and staying with you. If this is not possible please let us know. You will need to follow-up with your primary care provider in the next week. - Discharge Plan *PRESCRIPTION DRUG MONITORING PROGRAM REVIEWED*: Not Applicable *COPY OF PRESCRIPTION DRUG MONITORING REPORT IN PATIENT MARIA ELENA: Not Applicable Prescriptions/Med Rec: Albuterol [Proventil HFA] 2 puff INH Q2H PRN #1 inhaler PRN Reason: SOB/WHEEZING Home Medications: Home Meds Rosuvastatin [Crestor] 20 mg PO DAILY 10/18/14 [History] Zolpidem [Ambien] 10 mg PO BEDTIME PRN 10/18/14 [History] Irbesartan [Avapro] 300 mg PO DAILY 05/17/17 [History] Tamsulosin [Flomax] 0.4 mg PO BID 05/17/17 [History] Albuterol Sulfate [Albuterol Sulfate HFA] 2 puff INH ASDIRECTED PRN 05/22/21 [History] Alfuzosin HCl [Alfuzosin HCl ER] 10 mg PO DAILY 05/22/21 [History] Aspirin [Vazalore] 81 mg PO DAILY 05/22/21 [History] Insulin Glargine/Lixisenatide [[place] 100 Unit-33 Mcg/ml Pen] 36 units SQ DAILY 05/22/21 [History] carvediloL [Carvedilol] 12.5 mg PO BID 05/22/21 [History] glipiZIDE [Glipizide ER] 5 mg PO DAILY 05/22/21 [History] metFORMIN [Glucophage] 1,000 mg PO BID 05/22/21 [History] Albuterol [Proventil HFA] 2 puff INH Q2H PRN #1 inhaler 06/05/21 [Rx] Oxygen Flow Rate (L/min): 4 Maintain SpO2% greater than: 90 Patient Handouts: COVID-19 Frequently Asked Questions, COVID-19, 10 Things You Can Do to Manage Your COVID-19 Symptoms at Home - [facility] (03/09/2021), Carbohydrate Counting for Diabetes Mellitus, Adult, Sepsis, Self Care, Adult Forms: ED Department Discharge Referrals: Sarmad Astudillo MD [Primary Care Provider] - 06/12/21 11:30 am () - Discharge Summary/Plan Comment DC Time >30 min.: Yes Total # of Minutes for Discharge Time: 40 minutes - General Info Date of Service: 06/05/21 Admission Dx/Problem (Free Text: Admission Diagnosis/Problem Admission Diagnosis/Problem Hypoxia/covid pneumonia Subjective Update: Patient states he is feeling much better. He is in a much better mood with no complaints this morning. Functional Status: Reports: Pain Controlled - Review of Systems General: Reports: No Symptoms HEENT: Reports: No Symptoms Pulmonary: Reports: No Symptoms Cardiovascular: Reports: No Symptoms Gastrointestinal: Reports: No Symptoms Musculoskeletal: Reports: No Symptoms Neurological: Reports: No Symptoms Psychiatric: Reports: No Symptoms - Patient Data Vitals - Most Recent: Last Vital Signs Temp 98.8 F 06/05/21 05:52 Pulse 65 06/05/21 09:59 Resp 16 06/05/21 05:52 BP 107/44 L 06/05/21 09:59 Pulse Ox 93 L 06/05/21 05:52 Weight - Most Recent: 211 lb 5 oz I&O - Last 24 hours: Intake & Output 06/04/21 06/05/21 06/05/21 22:59 06:59 14:59 Intake Total 1130 300 Output Total 600 600 Balance 530 -300 Lab Results - Last 24 hrs: Laboratory Results - last 24 hr 06/04/21 06/05/21 Range/Units 16:24 06:04 POC Glucose 131 H 111 H (70-99) mg/dL Med Orders - Current: Current Medications Acetaminophen (Acetaminophen 325 Mg Tab) 650 mg PO Q4H PRN PRN Reason: Pain (Mild 1-3)/fever Albuterol (Albuterol 6.7 Gm Inhaler) 0 gm INH Q2H PRN PRN Reason: SOB/WHEEZING Last Admin: 06/04/21 07:52 Dose: 2 puff Documented by: Albuterol/Ipratropium (Albuterol/Ipratropium 3.0-0.5 Mg/3 Ml Neb Soln) 3 ml NEB Q4HRRT PRN PRN Reason: SOB/WHEEZING Aspirin (Aspirin 81 Mg Tab.Ec) 81 mg PO DAILY [facility] Last Admin: 06/05/21 09:59 Dose: 81 mg Documented by: Carvedilol (Carvedilol 12.5 Mg Tab) 12.5 mg PO BID [facility] Last Admin: 06/05/21 09:59 Dose: 12.5 mg Documented by: Enoxaparin Sodium (Enoxaparin 40 Mg/0.4 Ml Syringe) 40 mg SUBCUT DAILY [facility] Last Admin: 06/05/21 10:01 Dose: 40 mg Documented by: Famotidine (Famotidine 20 Mg Tab) 20 mg PO BEDTIME [facility] Last Admin: 06/04/21 22:05 Dose: 20 mg Documented by: Guaifenesin (Guaifenesin 600 Mg Tab.Er) 600 mg PO BID [facility] Last Admin: 06/05/21 10:00 Dose: 600 mg Documented by: Insulin Glargine (Insulin Glarg,Human.Rec.Analog 100 Unit/Ml) 30 unit SUBCUT BEDTIME [facility] Last Admin: 06/04/21 22:03 Dose: 30 units Documented by: Insulin Human Lispro (Insulin Lispro 100 Unit/Ml 10 Ml Vial) 0 unit SUBCUT 0700,1700 [facility]; Protocol Last Admin: 06/05/21 09:53 Dose: Not Given Documented by: Metformin HCl (Metformin 500 Mg Tab) 1,000 mg PO BID [facility] Last Admin: 06/05/21 10:00 Dose: 1,000 mg Documented by: Ondansetron HCl (Ondansetron 4 Mg/2 Ml Sdv) 4 mg IV Q6H PRN PRN Reason: Nausea/Vomiting Rosuvastatin Calcium (Rosuvastatin 10 Mg Tab) 20 mg PO DAILY [facility] Last Admin: 06/05/21 10:00 Dose: 20 mg Documented by: Sodium Chloride (Sodium Chloride 0.9% 10 Ml Syringe) 10 ml FLUSH ASDIRECTED PRN PRN Reason: Keep Vein Open Last Admin: 05/21/21 22:54 Dose: 10 ml Documented by: Tamsulosin HCl (Tamsulosin 0.4 Mg Cap.Er) 0.4 mg PO DAILY [facility] Last Admin: 06/05/21 10:00 Dose: 0.4 mg Documented by: Zolpidem Tartrate (Zolpidem 10 Mg Tab) 10 mg PO BEDTIME PRN PRN Reason: Insomnia Last Admin: 06/04/21 22:29 Dose: 10 mg Documented by: Discontinued Medications Dexamethasone (Dexamethasone 10 Mg/Ml Sdv) 6 mg IVPUSH ONETIME ONE Stop: 05/21/21 22:21 Last Admin: 05/21/21 22:41 Dose: 6 mg Documented by: Dexamethasone (Dexamethasone 4 Mg Tab) 6 mg PO Q24H [facility] Stop: 05/30/21 21:01 Last Admin: 05/30/21 20:43 Dose: 6 mg Documented by: Enoxaparin Sodium (Enoxaparin 30 Mg/0.3 Ml Syringe) 30 mg SUBCUT DAILY [facility] Last Admin: 05/23/21 08:24 Dose: 30 mg Documented by: Famotidine (Famotidine 20 Mg Tab) 20 mg PO BEDTIME [facility] Last Admin: 05/27/21 22:00 Dose: 20 mg Documented by: Famotidine (Famotidine 20 Mg Tab) 20 mg PO BID [facility] Last Admin: 05/29/21 21:00 Dose: 20 mg Documented by: Furosemide (Furosemide 20 Mg Tab) 20 mg PO DAILY [facility] Last Admin: 05/30/21 08:17 Dose: 20 mg Documented by: Furosemide (Furosemide 20 Mg/2 Ml Vial) 20 mg IVPUSH ONETIME ONE Stop: 05/29/21 20:14 Last Admin: 05/29/21 21:00 Dose: 20 mg Documented by: Furosemide (Furosemide 20 Mg/2 Ml Vial) 20 mg IVPUSH ONETIME ONE Stop: 05/30/21 09:01 Last Admin: 05/30/21 08:15 Dose: 20 mg Documented by: Furosemide (Furosemide 20 Mg Tab) 20 mg PO BIDDIURETIC PITA Last Admin: 06/01/21 06:05 Dose: 20 mg Documented by: Furosemide (Furosemide 20 Mg Tab) 20 mg PO DAILY [facility] Last Admin: 06/02/21 09:22 Dose: 20 mg Documented by: Remdesivir 100 mg/ Sodium (Chloride) 100 mls @ 100 mls/hr IV ONETIME ONE Stop: 05/21/21 23:19 Last Admin: 05/21/21 22:41 Dose: 100 mls/hr Documented by: Sodium Chloride (Normal Saline) 500 mls @ 1,000 mls/hr IV .BOLUS ONE Stop: 05/22/21 06:23 Last Admin: 05/22/21 06:00 Dose: 1,000 mls/hr Documented by: Ceftriaxone Sodium 2 gm/ (Sodium Chloride) 100 mls @ 200 mls/hr IV Q24H [facility] Stop: 05/26/21 14:29 Last Admin: 05/26/21 13:16 Dose: 200 mls/hr Documented by: Azithromycin 500 mg/ Sodium (Chloride) 250 mls @ 250 mls/hr IV Q24H [facility] Stop: 05/24/21 13:59 Last Admin: 05/24/21 12:27 Dose: 250 mls/hr Documented by: Sodium Chloride (Normal Saline) 1,000 mls @ 100 mls/hr IV ASDIRECTED [facility]ITA Stop: 05/22/21 22:29 Last Admin: 05/22/21 15:30 Dose: 100 mls/hr Documented by: Influenza Virus Vaccine (Flu Vacc [id number](65up)/Mf59c/Pf 60 Mcg/0.5 Ml Syringe) 60 mcg IM .ONCE ONE Stop: 05/22/21 20:01 Insulin Glargine (Insulin Glarg,Human.Rec.Analog 100 Unit/Ml) 20 unit SUBCUT BEDTIME [facility] Last Admin: 05/22/21 20:32 Dose: 20 units Documented by: Insulin Glargine (Insulin Glarg,Human.Rec.Analog 100 Unit/Ml) 25 unit SUBCUT BEDTIME [facility] Last Admin: 05/23/21 20:48 Dose: 25 units Documented by: Insulin Human Lispro (Insulin Lispro 100 Unit/Ml 10 Ml Vial) 0 unit SUBCUT QIDACANDBED [facility]; Protocol Last Admin: 06/03/21 11:48 Dose: Not Given Documented by: Insulin Human Lispro (Insulin Lispro 100 Unit/Ml 10 Ml Vial) 8 unit SUBCUT TIDAC [facility] Last Admin: 05/27/21 17:32 Dose: Not Given Documented by: Insulin Human Lispro (Insulin Lispro 100 Unit/Ml 10 Ml Vial) 0 unit SUBCUT BIDAC [facility]; Protocol Last Admin: 06/03/21 18:12 Dose: Not Given Documented by: Magnesium Hydroxide (Magnesium Hydroxide 400 Mg/5 Ml Susp 30 Ml Cup) 30 ml PO ONETIME ONE Stop: 05/29/21 11:53 Last Admin: 05/29/21 13:39 Dose: 30 ml Documented by: Non-Formulary Medication (Albuterol Sulfate) 2 puff INH ASDIRECTED PRN PRN Reason: Shortness of Breath Sodium Polystyrene Sulfonate (Sodium Polystyrene Sulfonate 15 Gm/60 Ml Susp 60 Ml Bot) 30 gm PO ONETIME ONE Stop: 05/30/21 12:17 Last Admin: 05/30/21 12:45 Dose: 30 gm Documented by: Spironolactone (Spironolactone 25 Mg Tab) 25 mg PO DAILY [facility] Last Admin: 05/30/21 08:01 Dose: Not Given Documented by: - Exam Quality Assessment: Reports: Supplemental Oxygen General: Reports: Alert, Oriented HEENT: Reports: Pupils Equal, Mucous Membr. Moist/[place] Neck: Reports: Supple Lungs: Reports: Normal Respiratory Effort, Crackles (Mild bibasilar) Cardiovascular: Reports: Regular Rate, Regular Rhythm GI/Abdominal Exam: Normal Bowel Sounds, Soft, Non-Tender, No Distention Back Exam: Reports: Normal Inspection Extremities: Normal Inspection, No Pedal Edema, Normal Capillary Refill Skin: Reports: Warm, Dry, Intact Psy/Mental Status: Reports: Alert, Normal Affect, Normal Mood
--- NOTE | 2021-06-05 13:29 | PCM.SN.2 ---
- Free Text/Narrative Note: Face to Face meeting with pt and or family. Pt has the following diagnosis; COVID 19 with hypoxemia, Leukopenia, thrombocytopenia, acute renal insufficiency, also see discharge summary for additional diagnosis. Pt needs Home Health Care nursing services for; skilled assessment, vital signs, disease education/management, and medication education. Physical therapy for gait training, safety education, Neuromuscular reeducation, Therapeutic exercise, balance training, equipment recommendations. Occupational therapy for; Activities of daily living, balance training, functional mobility training, safety education, therapeutic activities, therapeutic exercises. INTERNAL MEDICINE PHYSICIAN ASSISTANT for assistance with ADLs. Home safety eval. Pt is currently homebound related decreased activity tolerance, decreased level of endurance, and need for assistance. Pt will be followed by his primary provider Dr. Astudillo. Time Documentation
== END 2021-06-05 15:00 | disposition home or self-care (01) | DRG 178 ==
LOC: JD.ED 18:12 → JD.MS 05-22 07:39 → UNDOADMIN 05-22 08:57 → JD.MS 05-22 08:57 → JD.ICU 05-22 16:33 → JD.MS 05-25 07:27
PROVIDERS: ADMIT Family Medicine; ATTEND Family Medicine
PROC: 8E0ZXY6 Isolation (ICD-10-PCS; principal; 2021-05-21)
PROC: XW033E5 Introduction of Remdesivir Anti-infective into Peripheral Vein, Percutaneous Approach, New Technology Group 5 (ICD-10-PCS; 2021-05-21)
PROC: 3E0333Z Introduction of Anti-inflammatory into Peripheral Vein, Percutaneous Approach (ICD-10-PCS; 2021-05-21)
PROC: XW0DXM6 Introduction of Baricitinib into Mouth and Pharynx, External Approach, New Technology Group 6 (ICD-10-PCS; 2021-05-21)
DX: U07.1 COVID-19 (principal); N18.4 Chronic kidney disease, stage 4 (severe); R09.02 Hypoxemia; N17.9 Acute kidney failure, unspecified; E87.5 Hyperkalemia; E78.5 Hyperlipidemia, unspecified; E78.00 Pure hypercholesterolemia, unspecified; I10 Essential (primary) hypertension; N40.0 Benign prostatic hyperplasia without lower urinary tract symptoms; Z85.46 Personal history of malignant neoplasm of prostate; Z88.8 Allergy status to other drugs, medicaments and biological substances; Z79.84 Long term (current) use of oral hypoglycemic drugs; Z79.899 Other long term (current) drug therapy; H54.7 Unspecified visual loss; E11.65 Type 2 diabetes mellitus with hyperglycemia; N40.1 Benign prostatic hyperplasia with lower urinary tract symptoms; E11.22 Type 2 diabetes mellitus with diabetic chronic kidney disease; F03.90 Unspecified dementia, unspecified severity, without behavioral disturbance, psychotic disturbance, mood disturbance, and anxiety; I13.10 Hypertensive heart and chronic kidney disease without heart failure, with stage 1 through stage 4 chronic kidney disease, or unspecified chronic kidney disease; R33.8 Other retention of urine; F17.210 Nicotine dependence, cigarettes, uncomplicated; Z79.4 Long term (current) use of insulin; Z97.3 Presence of spectacles and contact lenses; Z90.89 Acquired absence of other organs; Z86.16 Personal history of COVID-19; Z98.890 Other specified postprocedural states; J43.9 Emphysema, unspecified
CPT/HCPCS: 36415; 36600; 71046; 80053; 82803; 83605; 83735; 83880; 84484; 85025; 85379; 85610; 86140; 93005; 96374; 99285; J1100; J7030; 80048; 82947; 83036; 84100; 84132; 84145; 85027; 87040; 87150; 92523-GN; 93306; 94640; 94668; 94762; 97110-GP; 97162-GP; 97530-GP; A9270-GY; J0456; J0696; J1650; J1815-GY; J1940; J7050; J8540